=== PATIENT | female | born 1945 | race Caucasian/White ===

== ENCOUNTER 2017-05-25 12:19 | Inpatient (IN) | payer MEDICARE ==
[~2017-05-25] VITALS: Ht 152.4 cm; Wt 34.7 kg
[~2017-05-25 12:19] MED LIST: ACET500T68 PO; BENZ100C PO; CIPR500T PO; CIPR500T94 PO; CODE15TA PO; HYDR-2758 PO; HYDR-971 PO; NAPR-677 PO; PROAIR HFA8.5 GM INH
--- NOTE | 2017-05-25 12:35 | PHYS DOC ---
Past Medical History Past Medical History: Other Additional Past Medical Histor: emphysema Past Surgical History: Other Additional Past Surgical Histo: PROLASPED UTERUS Alcohol Use: None Drug Use: None Adult General Chief Complaint Chief Complaint: WEAKNESS/GENERALIZED HPI HPI Patient is a 72 year old female who presents with is and increasing shortness of breath. She states been going on for last 5-7 days. She was seen by an urgent care on Tuesday and given an inhaler and she states this is not been helping. She's been coughing up some yellow sputum. She denies any fevers chills nausea vomiting. She states she gets very weak over the last several days. She states she was told she has emphysema but otherwise takes no medicines. She denies any recent hospitalizations over the last 90 days. Review of Systems Review of Systems Constitutional: Denies fever or chills [] Eyes: Denies change in visual acuity, redness, or eye pain [] HENT: Denies nasal congestion or sore throat [] Respiratory: Positive for productive cough and shortness of breath. Cardiovascular: No additional information not addressed in HPI [] GI: Denies abdominal pain, nausea, vomiting, bloody stools or diarrhea [] : Denies dysuria or hematuria [] Musculoskeletal: Denies back pain or joint pain [] Integument: Denies rash or skin lesions [] Neurologic: Denies headache, focal weakness or sensory changes [] Endocrine: Denies polyuria or polydipsia [] All other systems were reviewed and found to be within normal limits, except as documented in this note. Current Medications Current Medications Current Medications Medications (Trade) Dose Ordered Sig/Emelia Start Time Stop Time Status Last Admin Dose Admin Albuterol Sulfate (Ventolin Neb Soln) 2.5 mg PRN Q6HRS PRN 05/25/17 14:30 Azithromycin 250 ml @ 250 mls/hr 1X ONCE 05/25/17 14:30 05/25/17 15:29 05/25/17 14:36 250 MLS/HR Furosemide (Lasix) 40 mg DAILY 05/25/17 14:30 05/25/17 14:36 40 MG Methylprednisolone Sodium Succinate (SOLU-Medrol 125MG VIAL) 125 mg 1X ONCE 05/25/17 14:30 05/25/17 14:31 DC 05/25/17 14:36 125 MG Allergies Allergies Allergies Coded Allergies Type Severity Reaction Last Updated Verified egg Allergy Severe Anaphylaxis 02/06/15 Yes Sulfa (Sulfonamide Antibiotics) Allergy Intermediate 02/06/15 Yes Physical Exam Physical Exam Constitutional: Well developed, well nourished, no acute distress, non-toxic appearance. [] HENT: Normocephalic, atraumatic, bilateral external ears normal, oropharynx moist, no oral exudates, nose normal. [] Eyes: PERRLA, EOMI, conjunctiva normal, no discharge. [] Neck: Normal range of motion, no tenderness, supple, no stridor. [] Cardiovascular:Heart rate regular rhythm, no murmur [] Lungs & Thorax: Bilateral breath sounds decreased at the bases with right- sided crackles noted Abdomen: Bowel sounds normal, soft, no tenderness, no masses, no pulsatile masses. [] Skin: Warm, dry, no erythema, no rash. [] Back: No tenderness, no CVA tenderness. [] Extremities: No tenderness, no cyanosis, no clubbing, ROM intact, no edema. [] Neurologic: Alert and oriented X 3, normal motor function, normal sensory function, no focal deficits noted. [] Psychologic: Affect normal, judgement normal, mood normal. [] Current Patient Data Vital Signs Vital Signs Date Time Temp Pulse Resp B/P (MAP) Pulse Ox O2 Delivery O2 Flow Rate FiO2 05/25/17 13:50 Nasal Cannula 2.0 05/25/17 12:39 97.7 92 18 123/67 (85) 88 97.7 Lab Values Laboratory Tests Test 05/25/17 13:14 05/25/17 13:25 O2 Saturation 98 % (92-99) Arterial Blood pH 7.41 (7.35-7.45) Arterial Blood pCO2 at Patient Temp 40 mmHg (35-46) Arterial Blood pO2 at Patient Temp 111 mmHg (65-108) H Arterial Blood HCO3 24 mmol/L (21-28) Arterial Blood Base Excess 0 mmol/L (-3-3) FiO2 28 White Blood Count 13.3 x10^3/uL (4.0-11.0) H Red Blood Count 4.14 x10^6/uL (3.50-5.40) Hemoglobin 7.5 g/dL (12.0-15.5) L Hematocrit 27.3 % (36.0-47.0) L Mean Corpuscular Volume 66 fL (79-100) L Mean Corpuscular Hemoglobin 18 pg (25-35) L Mean Corpuscular Hemoglobin Concent 28 g/dL (31-37) L Red Cell Distribution Width 21.0 % (11.5-14.5) H Platelet Count 713 x10^3/uL (140-400) H Neutrophils (%) (Auto) 84 % (31-73) H Lymphocytes (%) (Auto) 11 % (24-48) L Monocytes (%) (Auto) 4 % (0-9) Eosinophils (%) (Auto) 0 % (0-3) Basophils (%) (Auto) 1 % (0-3) Neutrophils # (Auto) 11.2 x10^3uL (1.8-7.7) H Lymphocytes # (Auto) 1.4 x10^3/uL (1.0-4.8) Monocytes # (Auto) 0.6 x10^3/uL (0.0-1.1) Eosinophils # (Auto) 0.0 x10^3/uL (0.0-0.7) Basophils # (Auto) 0.1 x10^3/uL (0.0-0.2) Platelet Estimate Pending Prothrombin Time 13.8 SEC (11.7-14.0) Prothrombin Time INR 1.1 (0.8-1.1) Sodium Level 145 mmol/L (136-145) Potassium Level 4.5 mmol/L (3.5-5.1) Chloride Level 108 mmol/L (98-107) H Carbon Dioxide Level 28 mmol/L (21-32) Anion Gap 9 (6-14) Blood Urea Nitrogen 23 mg/dL (7-20) H Creatinine 1.0 mg/dL (0.6-1.0) Estimated GFR (Cockcroft-Gault) 54.2 Glucose Level 101 mg/dL (70-99) H Lactic Acid Level 1.4 mmol/L (0.4-2.0) Calcium Level 8.9 mg/dL (8.5-10.1) Magnesium Level 2.1 mg/dL (1.8-2.4) Total Bilirubin 0.5 mg/dL (0.2-1.0) Direct Bilirubin 0.1 mg/dL (0.0-0.2) Aspartate Amino Transferase (AST) 90 U/L (15-37) H Alanine Aminotransferase (ALT) 76 U/L (14-59) H Alkaline Phosphatase 166 U/L (46-116) H Creatine Kinase 66 U/L (26-192) Creatine Kinase MB (Mass) 1.9 ng/mL (0.0-3.6) Creatine Kinase MB Relative Index 2.9 % (0-4) Troponin I Quantitative < 0.017 ng/mL (0.000-0.055) SL-Vmh-D-Type Natriuretic Peptide > 07831 pg/mL (0-124) H Total Protein 8.1 g/dL (6.4-8.2) Albumin 3.0 g/dL (3.4-5.0) L Lipase 145 U/L (73-393) Thyroid Stimulating Hormone (TSH) 1.981 uIU/mL (0.358-3.74) Laboratory Tests 05/25/17 13:25 Laboratory Tests 05/25/17 13:25 EKG EKG EKG shows sinus rhythm with a rate of [address] elevations, T-wave inversions noted in the lateral leads V4 V5 V6, normal axis, QTC 501, as interpreted by me. No previous EKGs noted in the system. Radiology/Procedures Radiology/Procedures [facility] [address], [place] [id number] IMAGING REPORT Signed PATIENT: KYMBERLY AN ACCOUNT: [id number] : 1945 LOCATION: ER AGE: 72 SEX: F EXAM STATUS: PRE ER ORD. PHYSICIAN: PRECIOUS DSOUZA MD REASON: weakness PROCEDURE: PORTABLE CHEST 1V Single view of the Chest 05/25/2017 2:33 PM Indication: weakness Comparison: Chest radiograph January 05, 2016 Findings: There is increased interstitial thickening over baseline, with central vascular congestion, and cardiomegaly. There are small bilateral pleural effusions. Findings may represent congestive failure with worsening pulmonary edema superimposed on chronic interstitial disease. No pneumothorax is identified. Chronic rib deformities noted on the right. Impression: Small bilateral pleural effusions, increased interstitial thickening, and central vascular congestion. Findings consistent with worsening pulmonary edema possibly in the setting of congestive failure. DICTATED and SIGNED BY: ROGERIO ROE MD DATE: 05/25/17 0105 CC: ANNE RUCKER MD; PRECIOUS DSOUZA MD ~ Impressions: Shortness of breath Course & Med Decision Making Course & Med Decision Making Pertinent Labs and Imaging studies reviewed. (See chart for details) EKG does does not show any acute abnormality's. BNP is elevated greater than 35, 000, chest x-ray consistent with CHF. Patient does have yellow sputum production and flattened diaphragms on her chest x-ray. I did order 40 of IV Lasix in addition to Solu-Medrol and azithromycin and DuoNeb nebs. Patient is being admitted to the hospitalist with cardiology consultation. She is in stable condition at this time. Dragon Disclaimer Dragon Disclaimer This electronic medical record was generated, in whole or in part, using a voice recognition dictation system. Departure Departure Impression: Primary Impression: Dyspnea Disposition: ADMITTED INPATIENT Admitting Physician: Other Condition: STABLE Referrals: ANNE RUCKER MD (PCP) PRECIOUS DSOUZA MD May 25, 2017 12:35
--- NOTE | 2017-05-25 13:04 | RAD ---
Single view of the Chest 05/25/2017 2:33 PM Indication: weakness Comparison: Chest radiograph January 05, 2016 Findings: There is increased interstitial thickening over baseline, with central vascular congestion, and cardiomegaly. There are small bilateral pleural effusions. Findings may represent congestive failure with worsening pulmonary edema superimposed on chronic interstitial disease. No pneumothorax is identified. Chronic rib deformities noted on the right. Impression: Small bilateral pleural effusions, increased interstitial thickening, and central vascular congestion. Findings consistent with worsening pulmonary edema possibly in the setting of congestive failure.
[2017-05-25 13:43] LABS: BASO # 0.1 x10^3/uL (0.0-0.2); BASO % 1 % (0-3); EOS % 0 % (0-3); HEMATOCRIT 27.3 % (36.0-47.0); HEMOGLOBIN 7.5 g/dL (12.0-15.5); LYMPH # 1.4 x10^3/uL (1.0-4.8); LYMPH % 11 % (24-48); MEAN CORPUSCULAR HEMOGLOBIN 18 pg (25-35); MEAN CORPUSCULAR HGB CONC 28 g/dL (31-37); MEAN CORPUSCULAR VOLUME 66 fL (79-100); MONO % 4 % (0-9); NEUT % 84 % (31-73); PLATELET COUNT 713 x10^3/uL (140-400); RED BLOOD COUNT 4.14 x10^6/uL (3.50-5.40); WHITE BLOOD COUNT 13.3 x10^3/uL (4.0-11.0)
[2017-05-25 13:52] LABS: INR 1.1 (0.8-1.1); PROTHROMBIN TIME PATIENT 13.8 SEC (11.7-14.0)
[2017-05-25 13:57] LABS: CALCIUM 8.9 mg/dL (8.5-10.1); GFR 54.2; POTASSIUM 4.5 mmol/L (3.5-5.1)
[2017-05-25 14:00] LABS: HCO3 ABG 24 mmol/L (21-28); PCO2 ABG 40 mmHg (35-46); PH ABG 7.41 (7.35-7.45); PO2 ABG 111 mmHg (65-108); SAT O2 ABG 98 % (92-99)
[2017-05-25 14:02] LABS: DIRECT BILIRUBIN 0.1 mg/dL (0.0-0.2); MAGNESIUM 2.1 mg/dL (1.8-2.4); TOTAL BILIRUBIN 0.5 mg/dL (0.2-1.0); TOTAL PROTEIN 8.1 g/dL (6.4-8.2)
[2017-05-25 14:04] LABS: FIO2 ABG 28
[2017-05-25 14:10] LABS: CKMB MASS 1.9 ng/mL (0.0-3.6); CREATINE KINASE 66 U/L (26-192)
--- NOTE | 2017-05-25 14:25 | EKG ---
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
[2017-05-25] MEDS ORDERED: AZITHRMYCN 500MG IVPB FOR OMNI 250 ML IV ONE (14:30)
[2017-05-25] MEDS ORDERED: methylPREDNISolone SOD SUCC PF 125 MG/2 ML VIAL. IV ONE (14:30)
[2017-05-25] MEDS: FUROSEMIDE 40 MG/4 ML VIAL. IVP SCH (14:36)
[2017-05-25 14:37] LABS: BILIRUBIN,URINE NEGATIVE (NEG); GLUCOSE,URINE NEGATIVE (NEG); NITRITE,URINE POSITIVE (NEG); PROTEIN,URINE 100 mg/dL (NEG-TRACE); UROBILINOGEN,URINE 0.2 mg/dL (0.2 mg/dL)
[2017-05-25 14:41] LABS: BARBITURATES NEG (NEG); BENZODIAZEPINES NEG (NEG); CANNABINOIDS NEG (NEG); COCAINE NEG (NEG); METHADONE NEG (NEG); OPIATES NEG (NEG); PHENCYCLIDINE NEG (NEG)
[2017-05-25] MEDS: ALBUTEROL SULFATE 2.5 MG/3 ML NEBU. NEB PRN (14:42)
[2017-05-25 14:53] LABS: RBC,URINE FOBS /HPF (0-2)
[2017-05-25 14:54] LABS: BACTERIA,URINE MANY /HPF (0-FEW); WBC,URINE TNTC /HPF (0-4)
[2017-05-25] MEDS ORDERED: MECLIZINE HCL 12.5 MG TABLET. PO ONE (15:15)
[2017-05-25 15:20] VITALS: BP 99/55
[2017-05-25 17:29] LABS: PLT ESTIMATE INCREASED (ADEQUATE)
[2017-05-25 17:35] LABS: ANISOCYTOSIS MOD; HYPOCHROMIA MARKED; MICROCYTOSIS MARKED; POLYCHROMASIA SLIGHT; SPHEROCYTES OCC
[2017-05-25 18:28] VITALS: BP 110/57
[2017-05-25 19:20] VITALS: BP 108/59
[2017-05-25] MEDS: cefTRIAXone IV Push 1 GM VIAL. IVP SCH (19:26)
--- NOTE | 2017-05-25 19:30 | PDOC1 ---
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 She states been going on for last WEEK She was seen by an urgent care on Tuesday and given an inhaler and she states this is not been helping. She's been coughing yellow sputum. She denies any fevers chills nausea vomiting. She states she gets very weak over the last several days. Review of Systems Review of Systems Constitutional: Denies fever or chills [] Eyes: Denies change in visual acuity, redness, or eye pain [] HENT: Denies nasal congestion or sore throat [] Respiratory: Positive for productive cough and shortness of breath. Cardiovascular: No additional information not addressed in HPI [] GI: Denies abdominal pain, nausea, vomiting, bloody stools or diarrhea [] : Denies dysuria or hematuria [] Musculoskeletal: Denies back pain or joint pain [] Integument: Denies rash or skin lesions [] Neurologic: Denies headache, focal weakness or sensory changes [] Endocrine: Denies polyuria or polydipsia [] All other systems were reviewed and found to be within normal limits, except as documented in this note. Reason for Visit: RESPIRATORY DISTRESS Past Medical History Pulmonary: COPD GI: No pertinent hx Psych: Anxiety Rheumatologic: No pertinent hx Renal/: No pertinent hx Endocrine: No pertinent hx Family History Family History: Chronic Bronchitis Social History Smoke: No ALCOHOL: none Drugs: None Current Problem List Problem List Problems Medical Problems: (1) Dyspnea Status: Acute Problems: (1) CHF (congestive heart failure), NYHA class II (2) Respiratory distress (3) Weight loss Current Medications Current Medications Current Medications Albuterol Sulfate (Ventolin Neb Soln) 2.5 mg PRN Q6HRS PRN NEB SHORTNESS OF BREATH Last administered on 05/25/17t 14:42; Start 05/25/17 at 14:30 Azithromycin 250 ml @ 250 mls/hr 1X ONCE IV Last administered on 05/25/17 14:36; Start 05/25/17 at 14:30; Stop 05/25/17 at 15:29; Status DC Methylprednisolone Sodium Succinate (SOLU-Medrol 125MG VIAL) 125 mg 1X ONCE IV Last administered on 05/25/17 14:36; Start 05/25/17 at 14:30; Stop at 14:31; Status DC Furosemide (Lasix) 40 mg DAILY IVP Last administered on 05/25/17 14:36; Start 05/25/17 at 14:30 Meclizine HCl (Antivert) 25 mg 1X ONCE PO Last administered on 05/25/17 15: 11; Start 05/25/17 at 15:15; Stop 05/25/17 at 15:16; Status DC Ceftriaxone Sodium 1 gm/ Dextrose 50 ml @ 100 mls/hr Q24H IV ; Start 05/25/17 at 21:00; Status UNV Ceftriaxone Sodium (Rocephin) 1 gm Q24H IVP Last administered on 05/25/17 19: 26; Start 05/25/17 at 19:00 Active Scripts Active Codeine Sulfate 15 Mg Tablet 15 Mg PO AT BEDTIME Tessalon Perle (Benzonatate) 100 Mg Capsule 100 Mg PO TID PRN Proair Hfa Inhaler (Albuterol Sulfate) 8.5 Gm Hfa.aer.ad 2 Puff INH PRN Q6HRS PRN Ciprofloxacin Hcl 500 Mg Tablet 500 Mg PO BID Cipro (Ciprofloxacin Hcl) 500 Mg Tablet 250 Mg PO DAILY 10 Days Hydrocodone-Apap 5-325 (Hydrocodone Bit/Acetaminophen) 1 Each Tablet 1 Tab PO PRN Q6HRS PRN 10 Days Reported Naproxen Sodium 550 Mg Tablet 550 Mg PO BID Hydrocodone-Apap 5-325 (Hydrocodone Bit/Acetaminophen) 1 Each Tablet 1 Tab PO Q4HRS PRN Acetaminophen 500 Mg Tablet 1 Tab PO BID Allergies Allergies: Coded Allergies: egg (Verified Allergy, Severe, Anaphylaxis, 02/06/15) Sulfa (Sulfonamide Antibiotics) (Verified Allergy, Intermediate, 02/06/15) ROS General: YES: Fatigue, Malaise PSYCHOLOGICAL ROS: YES: Anxiety Respiratory: YES: Cough, Shortness of breath, SOB with excertion, Sputum Changes, Tachypnea Genitourinary: YES Urgency Physical Exam Physical Exam Physical Exam Physical Exam Constitutional: thin mild acute distress, non-toxic appearance. [] HENT: Normocephalic, atraumatic, bilateral external ears normal, oropharynx moist, no oral exudates, nose normal. [] Eyes: PERRLA, EOMI, conjunctiva normal, no discharge. [] Neck: Normal range of motion, no tenderness, supple, no stridor. [] Cardiovascular:Heart rate regular rhythm, no murmur [] Lungs & Thorax: Bilateral breath sounds decreased at the bases with right- sided crackles noted Abdomen: Bowel sounds normal, soft, no tenderness, no masses, no pulsatile masses. [] Skin: Warm, dry, no erythema, no rash. [] Back: No tenderness, no CVA tenderness. [] Extremities: No tenderness, no cyanosis, no clubbing, ROM intact, no edema. [] Neurologic: Alert and oriented X 3, normal motor function, normal sensory function, no focal deficits noted. [] Psychologic: Affect normal, judgement normal, mood normal. tachypnea noted at rest [] Abdomen: Soft Vitals Vitals Vital Signs Date Time Temp Pulse Resp B/P (MAP) Pulse Ox O2 Delivery O2 Flow Rate FiO2 05/25/17 19:20 98.8 95 20 108/59 (75) 98 Nasal Cannula 2.0 98.8 Labs Labs Single view of the Chest 05/25/2017 2:33 PM Indication: weakness Comparison: Chest radiograph January 05, 2016 Findings: There is increased interstitial thickening over baseline, with central vascular congestion, and cardiomegaly. There are small bilateral pleural effusions. Findings may represent congestive failure with worsening pulmonary edema superimposed on chronic interstitial disease. No pneumothorax is identified. Chronic rib deformities noted on the right. Impression: Small bilateral pleural effusions, increased interstitial thickening, and central vascular congestion. Findings consistent with worsening pulmonary edema possibly in the setting of congestive failure. DICTATED and SIGNED BY: ROGERIO ROE MD Laboratory Tests Test 05/25/17 13:14 05/25/17 13:25 05/25/17 14:20 O2 Saturation 98 % (92-99) Arterial Blood pH 7.41 (7.35-7.45) Arterial Blood pCO2 at Patient Temp 40 mmHg (35-46) Arterial Blood pO2 at Patient Temp 111 mmHg (65-108) Arterial Blood HCO3 24 mmol/L (21-28) Arterial Blood Base Excess 0 mmol/L (-3-3) FiO2 28 White Blood Count 13.3 x10^3/uL (4.0-11.0) Red Blood Count 4.14 x10^6/uL (3.50-5.40) Hemoglobin 7.5 g/dL (12.0-15.5) Hematocrit 27.3 % (36.0-47.0) Mean Corpuscular Volume 66 fL (79-100) Mean Corpuscular Hemoglobin 18 pg (25-35) Mean Corpuscular Hemoglobin Concent 28 g/dL (31-37) Red Cell Distribution Width 21.0 % (11.5-14.5) Platelet Count 713 x10^3/uL (140-400) Neutrophils (%) (Auto) 84 % (31-73) Lymphocytes (%) (Auto) 11 % (24-48) Monocytes (%) (Auto) 4 % (0-9) Eosinophils (%) (Auto) 0 % (0-3) Basophils (%) (Auto) 1 % (0-3) Neutrophils # (Auto) 11.2 x10^3uL (1.8-7.7) Lymphocytes # (Auto) 1.4 x10^3/uL (1.0-4.8) Monocytes # (Auto) 0.6 x10^3/uL (0.0-1.1) Eosinophils # (Auto) 0.0 x10^3/uL (0.0-0.7) Basophils # (Auto) 0.1 x10^3/uL (0.0-0.2) Platelet Estimate Increased (ADEQUATE) Polychromasia Slight Hypochromasia Marked Anisocytosis Mod Microcytosis Marked Spherocytes Occ Prothrombin Time 13.8 SEC (11.7-14.0) Prothromb Time International Ratio 1.1 (0.8-1.1) Sodium Level 145 mmol/L (136-145) Potassium Level 4.5 mmol/L (3.5-5.1) Chloride Level 108 mmol/L (98-107) Carbon Dioxide Level 28 mmol/L (21-32) Anion Gap 9 (6-14) Blood Urea Nitrogen 23 mg/dL (7-20) Creatinine 1.0 mg/dL (0.6-1.0) Estimated GFR (Cockcroft-Gault) 54.2 Glucose Level 101 mg/dL (70-99) Lactic Acid Level 1.4 mmol/L (0.4-2.0) Calcium Level 8.9 mg/dL (8.5-10.1) Magnesium Level 2.1 mg/dL (1.8-2.4) Total Bilirubin 0.5 mg/dL (0.2-1.0) Direct Bilirubin 0.1 mg/dL (0.0-0.2) Aspartate Amino Transf (AST/SGOT) 90 U/L (15-37) Alanine Aminotransferase (ALT/SGPT) 76 U/L (14-59) Alkaline Phosphatase 166 U/L (46-116) Creatine Kinase 66 U/L (26-192) Creatine Kinase MB (Mass) 1.9 ng/mL (0.0-3.6) Creatine Kinase MB Relative Index 2.9 % (0-4) Troponin I Quantitative < 0.017 ng/mL (0.000-0.055) OI-Rrc-B-Type Natriuretic Peptide > 93841 pg/mL (0-124) Total Protein 8.1 g/dL (6.4-8.2) Albumin 3.0 g/dL (3.4-5.0) Lipase 145 U/L (73-393) Thyroid Stimulating Hormone (TSH) 1.981 uIU/mL (0.358-3.74) Urine Collection Type U cath Urine Color Yellow Urine Clarity Cloudy Urine pH 6.0 Urine Specific [place] 1.025 Urine Protein 100 mg/dL (NEG-TRACE) Urine Glucose (UA) Negative mg/dL (NEG) Urine Ketones (Stick) Negative mg/dL (NEG) Urine Blood Moderate (NEG) Urine Nitrite Positive (NEG) Urine Bilirubin Negative (NEG) Urine Urobilinogen Dipstick 0.2 mg/dL (0.2 mg/dL) Urine Leukocyte Esterase Large (NEG) Urine RBC Fobs /HPF (0-2) Urine WBC Tntc /HPF (0-4) Urine Bacteria Many /HPF (0-FEW) Urine Opiates Screen Neg (NEG) Urine Methadone Screen Neg (NEG) Urine Barbiturates Neg (NEG) Urine Phencyclidine Screen Neg (NEG) Urine Amphetamine/Methamphetamine Neg (NEG) Urine Benzodiazepines Screen Neg (NEG) Urine Cocaine Screen Neg (NEG) Urine Cannabinoids Screen Neg (NEG) Urine Ethyl Alcohol Neg (NEG) Laboratory Tests Test 05/25/17 13:14 05/25/17 13:25 05/25/17 14:20 O2 Saturation 98 % (92-99) Arterial Blood pH 7.41 (7.35-7.45) Arterial Blood pCO2 at Patient Temp 40 mmHg (35-46) Arterial Blood pO2 at Patient Temp 111 mmHg (65-108) Arterial Blood HCO3 24 mmol/L (21-28) Arterial Blood Base Excess 0 mmol/L (-3-3) FiO2 28 White Blood Count 13.3 x10^3/uL (4.0-11.0) Red Blood Count 4.14 x10^6/uL (3.50-5.40) Hemoglobin 7.5 g/dL (12.0-15.5) Hematocrit 27.3 % (36.0-47.0) Mean Corpuscular Volume 66 fL (79-100) Mean Corpuscular Hemoglobin 18 pg (25-35) Mean Corpuscular Hemoglobin Concent 28 g/dL (31-37) Red Cell Distribution Width 21.0 % (11.5-14.5) Platelet Count 713 x10^3/uL (140-400) Neutrophils (%) (Auto) 84 % (31-73) Lymphocytes (%) (Auto) 11 % (24-48) Monocytes (%) (Auto) 4 % (0-9) Eosinophils (%) (Auto) 0 % (0-3) Basophils (%) (Auto) 1 % (0-3) Neutrophils # (Auto) 11.2 x10^3uL (1.8-7.7) Lymphocytes # (Auto) 1.4 x10^3/uL (1.0-4.8) Monocytes # (Auto) 0.6 x10^3/uL (0.0-1.1) Eosinophils # (Auto) 0.0 x10^3/uL (0.0-0.7) Basophils # (Auto) 0.1 x10^3/uL (0.0-0.2) Platelet Estimate Increased (ADEQUATE) Polychromasia Slight Hypochromasia Marked Anisocytosis Mod Microcytosis Marked Spherocytes Occ Prothrombin Time 13.8 SEC (11.7-14.0) Prothromb Time International Ratio 1.1 (0.8-1.1) Sodium Level 145 mmol/L (136-145) Potassium Level 4.5 mmol/L (3.5-5.1) Chloride Level 108 mmol/L (98-107) Carbon Dioxide Level 28 mmol/L (21-32) Anion Gap 9 (6-14) Blood Urea Nitrogen 23 mg/dL (7-20) Creatinine 1.0 mg/dL (0.6-1.0) Estimated GFR (Cockcroft-Gault) 54.2 Glucose Level 101 mg/dL (70-99) Lactic Acid Level 1.4 mmol/L (0.4-2.0) Calcium Level 8.9 mg/dL (8.5-10.1) Magnesium Level 2.1 mg/dL (1.8-2.4) Total Bilirubin 0.5 mg/dL (0.2-1.0) Direct Bilirubin 0.1 mg/dL (0.0-0.2) Aspartate Amino Transf (AST/SGOT) 90 U/L (15-37) Alanine Aminotransferase (ALT/SGPT) 76 U/L (14-59) Alkaline Phosphatase 166 U/L (46-116) Creatine Kinase 66 U/L (26-192) Creatine Kinase MB (Mass) 1.9 ng/mL (0.0-3.6) Creatine Kinase MB Relative Index 2.9 % (0-4) Troponin I Quantitative < 0.017 ng/mL (0.000-0.055) RW-Afm-D-Type Natriuretic Peptide > 35913 pg/mL (0-124) Total Protein 8.1 g/dL (6.4-8.2) Albumin 3.0 g/dL (3.4-5.0) Lipase 145 U/L (73-393) Thyroid Stimulating Hormone (TSH) 1.981 uIU/mL (0.358-3.74) Urine Collection Type U cath Urine Color Yellow Urine Clarity Cloudy Urine pH 6.0 Urine Specific [place] 1.025 Urine Protein 100 mg/dL (NEG-TRACE) Urine Glucose (UA) Negative mg/dL (NEG) Urine Ketones (Stick) Negative mg/dL (NEG) Urine Blood Moderate (NEG) Urine Nitrite Positive (NEG) Urine Bilirubin Negative (NEG) Urine Urobilinogen Dipstick 0.2 mg/dL (0.2 mg/dL) Urine Leukocyte Esterase Large (NEG) Urine RBC Fobs /HPF (0-2) Urine WBC Tntc /HPF (0-4) Urine Bacteria Many /HPF (0-FEW) Urine Opiates Screen Neg (NEG) Urine Methadone Screen Neg (NEG) Urine Barbiturates Neg (NEG) Urine Phencyclidine Screen Neg (NEG) Urine Amphetamine/Methamphetamine Neg (NEG) Urine Benzodiazepines Screen Neg (NEG) Urine Cocaine Screen Neg (NEG) Urine Cannabinoids Screen Neg (NEG) Urine Ethyl Alcohol Neg (NEG) VTE Prophylaxis Ordered VTE Prophylaxis Devices: No VTE Pharmacological Prophylaxi: Yes Assessment/Plan Assessment/Plan 1. EXACERBATION OF COPD 2. UTI 3. ABNORMAL WEIGHT LOSS 4. HX SECOND-HAND SMOKE EXPOSURE 5. MICROCYTIC ANEMIA, suspect fe def PLAN IV STEROID TAPER BETA AGONIST RX EMPERIC IV ANTIBIOTICS FE/TIBC pulm consult GI consult re anemia PT EVAL Problem Qualifiers (1) CHF (congestive heart failure), NYHA class II: Congestive heart failure type: combined IWONA WARD MD May 25, 2017 19:30
[2017-05-25] MEDS ORDERED: ENOXAPARIN 40 MG/0.4 ML SYRINGE. SQ SCH (19:45)
[2017-05-25] MEDS: IPRATRPIUM/ALBUTEROL 0.5/2.5MG 3 ML NEBU. NEB SCH (20:24)
[2017-05-25 20:41] LABS: % SAT IRON 3 % (15-34); IRON,SERUM 15 ug/dL (50-170)
[2017-05-25 23:17] VITALS: BP 113/69
[2017-05-26] VITALS (13 sets, daily range): BP systolic 101–130; BP diastolic 62–75
[2017-05-26] MEDS: ALBUTEROL SULFATE 2.5 MG/3 ML NEBU. NEB PRN (00:16)
[2017-05-26 02:36] LABS: BASO % 0 % (0-3); EOS % 0 % (0-3); HEMATOCRIT 23.8 % (36.0-47.0); LYMPH # 0.5 x10^3/uL (1.0-4.8); LYMPH % 4 % (24-48); MEAN CORPUSCULAR HEMOGLOBIN 18 pg (25-35); MEAN CORPUSCULAR HGB CONC 28 g/dL (31-37); MEAN CORPUSCULAR VOLUME 65 fL (79-100); MONO % 1 % (0-9); NEUT % 95 % (31-73); PLATELET COUNT 605 x10^3/uL (140-400); RED BLOOD COUNT 3.66 x10^6/uL (3.50-5.40); WHITE BLOOD COUNT 11.1 x10^3/uL (4.0-11.0)
[2017-05-26 02:50] LABS: CREATININE 1.1 mg/dL (0.6-1.0); GFR 48.6; POTASSIUM 4.1 mmol/L (3.5-5.1)
[2017-05-26 03:45] LABS: HEMOGLOBIN 6.6 g/dL (12.0-15.5)
[2017-05-26 04:16] LABS: PLT ESTIMATE INCREASED (ADEQUATE)
[2017-05-26 04:17] LABS: ANISOCYTOSIS MOD; HYPOCHROMIA MARKED; MICROCYTOSIS MARKED; POLYCHROMASIA SLIGHT
[2017-05-26] MEDS: BUDESONIDE 0.5 MG/2 ML NEBU. NEB SCH ×2 (07:51→20:07)
[2017-05-26] MEDS: IPRATRPIUM/ALBUTEROL 0.5/2.5MG 3 ML NEBU. NEB SCH ×4 (07:56→20:07)
[2017-05-26] MEDS: FUROSEMIDE 40 MG/4 ML VIAL. IVP SCH (09:23)
--- NOTE | 2017-05-26 11:47 | PDOC ---
PROGRESS NOTES Chief Complaint Chief Complaint Shortness of air Emphysema History of Present Illness History of Present Illness The pt was lying in bed an able to carry on a conversation. Vitals Vitals Vital Signs Date Time Temp Pulse Resp B/P (MAP) Pulse Ox O2 Delivery O2 Flow Rate FiO2 05/26/17 11:32 97.5 87 20 116/71 97.5 05/26/17 11:23 100 Nasal Cannula 2.0 Physical Exam General: Alert, Cooperative, No acute distress Labs LABS Laboratory Tests Test 05/25/17 13:14 05/25/17 13:25 05/25/17 14:20 05/25/17 20:00 O2 Saturation 98 % (92-99) Arterial Blood pH 7.41 (7.35-7.45) Arterial Blood pCO2 at Patient Temp 40 mmHg (35-46) Arterial Blood pO2 at Patient Temp 111 mmHg (65-108) Arterial Blood HCO3 24 mmol/L (21-28) Arterial Blood Base Excess 0 mmol/L (-3-3) FiO2 28 White Blood Count 13.3 x10^3/uL (4.0-11.0) Red Blood Count 4.14 x10^6/uL (3.50-5.40) Hemoglobin 7.5 g/dL (12.0-15.5) Hematocrit 27.3 % (36.0-47.0) Mean Corpuscular Volume 66 fL (79-100) Mean Corpuscular Hemoglobin 18 pg (25-35) Mean Corpuscular Hemoglobin Concent 28 g/dL (31-37) Red Cell Distribution Width 21.0 % (11.5-14.5) Platelet Count 713 x10^3/uL (140-400) Neutrophils (%) (Auto) 84 % (31-73) Lymphocytes (%) (Auto) 11 % (24-48) Monocytes (%) (Auto) 4 % (0-9) Eosinophils (%) (Auto) 0 % (0-3) Basophils (%) (Auto) 1 % (0-3) Neutrophils # (Auto) 11.2 x10^3uL (1.8-7.7) Lymphocytes # (Auto) 1.4 x10^3/uL (1.0-4.8) Monocytes # (Auto) 0.6 x10^3/uL (0.0-1.1) Eosinophils # (Auto) 0.0 x10^3/uL (0.0-0.7) Basophils # (Auto) 0.1 x10^3/uL (0.0-0.2) Platelet Estimate Increased (ADEQUATE) Polychromasia Slight Hypochromasia Marked Anisocytosis Mod Microcytosis Marked Spherocytes Occ Prothrombin Time 13.8 SEC (11.7-14.0) Prothromb Time International Ratio 1.1 (0.8-1.1) Sodium Level 145 mmol/L (136-145) Potassium Level 4.5 mmol/L (3.5-5.1) Chloride Level 108 mmol/L (98-107) Carbon Dioxide Level 28 mmol/L (21-32) Anion Gap 9 (6-14) Blood Urea Nitrogen 23 mg/dL (7-20) Creatinine 1.0 mg/dL (0.6-1.0) Estimated GFR (Cockcroft-Gault) 54.2 Glucose Level 101 mg/dL (70-99) Lactic Acid Level 1.4 mmol/L (0.4-2.0) Calcium Level 8.9 mg/dL (8.5-10.1) Magnesium Level 2.1 mg/dL (1.8-2.4) Iron Level 15 ug/dL (50-170) Total Iron Binding Capacity 441 ug/dL (250-450) Iron Saturation 3 % (15-34) Total Bilirubin 0.5 mg/dL (0.2-1.0) Direct Bilirubin 0.1 mg/dL (0.0-0.2) Aspartate Amino Transf (AST/SGOT) 90 U/L (15-37) Alanine Aminotransferase (ALT/SGPT) 76 U/L (14-59) Alkaline Phosphatase 166 U/L (46-116) Creatine Kinase 66 U/L (26-192) Creatine Kinase MB (Mass) 1.9 ng/mL (0.0-3.6) Creatine Kinase MB Relative Index 2.9 % (0-4) Troponin I Quantitative < 0.017 ng/mL (0.000-0.055) < 0.017 ng/mL (0.000-0.055) [id number]-[id number]-Type Natriuretic Peptide > 75842 pg/mL (0-124) Total Protein 8.1 g/dL (6.4-8.2) Albumin 3.0 g/dL (3.4-5.0) Lipase 145 U/L (73-393) Thyroid Stimulating Hormone (TSH) 1.981 uIU/mL (0.358-3.74) Urine Collection Type U cath Urine Color Yellow Urine Clarity Cloudy Urine pH 6.0 Urine Specific [place] 1.025 Urine Protein 100 mg/dL (NEG-TRACE) Urine Glucose (UA) Negative mg/dL (NEG) Urine Ketones (Stick) Negative mg/dL (NEG) Urine Blood Moderate (NEG) Urine Nitrite Positive (NEG) Urine Bilirubin Negative (NEG) Urine Urobilinogen Dipstick 0.2 mg/dL (0.2 mg/dL) Urine Leukocyte Esterase Large (NEG) Urine RBC Fobs /HPF (0-2) Urine WBC Tntc /HPF (0-4) Urine Bacteria Many /HPF (0-FEW) Urine Opiates Screen Neg (NEG) Urine Methadone Screen Neg (NEG) Urine Barbiturates Neg (NEG) Urine Phencyclidine Screen Neg (NEG) Urine Amphetamine/Methamphetamine Neg (NEG) Urine Benzodiazepines Screen Neg (NEG) Urine Cocaine Screen Neg (NEG) Urine Cannabinoids Screen Neg (NEG) Urine Ethyl Alcohol Neg (NEG) Test 05/26/17 02:20 White Blood Count 11.1 x10^3/uL (4.0-11.0) Red Blood Count 3.66 x10^6/uL (3.50-5.40) Hemoglobin 6.6 g/dL (12.0-15.5) Hematocrit 23.8 % (36.0-47.0) Mean Corpuscular Volume 65 fL (79-100) Mean Corpuscular Hemoglobin 18 pg (25-35) Mean Corpuscular Hemoglobin Concent 28 g/dL (31-37) Red Cell Distribution Width 21.0 % (11.5-14.5) Platelet Count 605 x10^3/uL (140-400) Neutrophils (%) (Auto) 95 % (31-73) Lymphocytes (%) (Auto) 4 % (24-48) Monocytes (%) (Auto) 1 % (0-9) Eosinophils (%) (Auto) 0 % (0-3) Basophils (%) (Auto) 0 % (0-3) Neutrophils # (Auto) 10.5 x10^3uL (1.8-7.7) Lymphocytes # (Auto) 0.5 x10^3/uL (1.0-4.8) Monocytes # (Auto) 0.1 x10^3/uL (0.0-1.1) Eosinophils # (Auto) 0.0 x10^3/uL (0.0-0.7) Basophils # (Auto) 0.0 x10^3/uL (0.0-0.2) Segmented Neutrophils % 97 % (35-66) Lymphocytes % 3 % (24-48) Platelet Estimate Increased (ADEQUATE) Polychromasia Slight Hypochromasia Marked Anisocytosis Mod Microcytosis Marked Sodium Level 143 mmol/L (136-145) Potassium Level 4.1 mmol/L (3.5-5.1) Chloride Level 106 mmol/L (98-107) Carbon Dioxide Level 26 mmol/L (21-32) Anion Gap 11 (6-14) Blood Urea Nitrogen 25 mg/dL (7-20) Creatinine 1.1 mg/dL (0.6-1.0) Estimated GFR (Cockcroft-Gault) 48.6 Glucose Level 145 mg/dL (70-99) Calcium Level 8.0 mg/dL (8.5-10.1) Troponin I Quantitative < 0.017 ng/mL (0.000-0.055) Review of Systems Review of Systems Denies hematemesis or melena. Assessment and Plan Assessmemt and Plan Problems Medical Problems: (1) Dyspnea Status: Acute ASSESSMENT: Shortness of air Emphysema PLAN: Continue current medications Get PT/OT consult Await input from cardiology Await input from Hemo onch Followup with PCP after discharge Problems: Comment Review of Relevant I have reviewed the following items marshal (where applicable) has been applied. Labs Laboratory Tests Test 05/25/17 13:14 05/25/17 13:25 05/25/17 14:20 05/25/17 20:00 O2 Saturation 98 % (92-99) Arterial Blood pH 7.41 (7.35-7.45) Arterial Blood pCO2 at Patient Temp 40 mmHg (35-46) Arterial Blood pO2 at Patient Temp 111 mmHg (65-108) Arterial Blood HCO3 24 mmol/L (21-28) Arterial Blood Base Excess 0 mmol/L (-3-3) FiO2 28 White Blood Count 13.3 x10^3/uL (4.0-11.0) Red Blood Count 4.14 x10^6/uL (3.50-5.40) Hemoglobin 7.5 g/dL (12.0-15.5) Hematocrit 27.3 % (36.0-47.0) Mean Corpuscular Volume 66 fL (79-100) Mean Corpuscular Hemoglobin 18 pg (25-35) Mean Corpuscular Hemoglobin Concent 28 g/dL (31-37) Red Cell Distribution Width 21.0 % (11.5-14.5) Platelet Count 713 x10^3/uL (140-400) Neutrophils (%) (Auto) 84 % (31-73) Lymphocytes (%) (Auto) 11 % (24-48) Monocytes (%) (Auto) 4 % (0-9) Eosinophils (%) (Auto) 0 % (0-3) Basophils (%) (Auto) 1 % (0-3) Neutrophils # (Auto) 11.2 x10^3uL (1.8-7.7) Lymphocytes # (Auto) 1.4 x10^3/uL (1.0-4.8) Monocytes # (Auto) 0.6 x10^3/uL (0.0-1.1) Eosinophils # (Auto) 0.0 x10^3/uL (0.0-0.7) Basophils # (Auto) 0.1 x10^3/uL (0.0-0.2) Platelet Estimate Increased (ADEQUATE) Polychromasia Slight Hypochromasia Marked Anisocytosis Mod Microcytosis Marked Spherocytes Occ Prothrombin Time 13.8 SEC (11.7-14.0) Prothromb Time International Ratio 1.1 (0.8-1.1) Sodium Level 145 mmol/L (136-145) Potassium Level 4.5 mmol/L (3.5-5.1) Chloride Level 108 mmol/L (98-107) Carbon Dioxide Level 28 mmol/L (21-32) Anion Gap 9 (6-14) Blood Urea Nitrogen 23 mg/dL (7-20) Creatinine 1.0 mg/dL (0.6-1.0) Estimated GFR (Cockcroft-Gault) 54.2 Glucose Level 101 mg/dL (70-99) Lactic Acid Level 1.4 mmol/L (0.4-2.0) Calcium Level 8.9 mg/dL (8.5-10.1) Magnesium Level 2.1 mg/dL (1.8-2.4) Iron Level 15 ug/dL (50-170) Total Iron Binding Capacity 441 ug/dL (250-450) Iron Saturation 3 % (15-34) Total Bilirubin 0.5 mg/dL (0.2-1.0) Direct Bilirubin 0.1 mg/dL (0.0-0.2) Aspartate Amino Transf (AST/SGOT) 90 U/L (15-37) Alanine Aminotransferase (ALT/SGPT) 76 U/L (14-59) Alkaline Phosphatase 166 U/L (46-116) Creatine Kinase 66 U/L (26-192) Creatine Kinase MB (Mass) 1.9 ng/mL (0.0-3.6) Creatine Kinase MB Relative Index 2.9 % (0-4) Troponin I Quantitative < 0.017 ng/mL (0.000-0.055) < 0.017 ng/mL (0.000-0.055) ZF-Thl-B-Type Natriuretic Peptide > 37889 pg/mL (0-124) Total Protein 8.1 g/dL (6.4-8.2) Albumin 3.0 g/dL (3.4-5.0) Lipase 145 U/L (73-393) Thyroid Stimulating Hormone (TSH) 1.981 uIU/mL (0.358-3.74) Urine Collection Type U cath Urine Color Yellow Urine Clarity Cloudy Urine pH 6.0 Urine Specific [place] 1.025 Urine Protein 100 mg/dL (NEG-TRACE) Urine Glucose (UA) Negative mg/dL (NEG) Urine Ketones (Stick) Negative mg/dL (NEG) Urine Blood Moderate (NEG) Urine Nitrite Positive (NEG) Urine Bilirubin Negative (NEG) Urine Urobilinogen Dipstick 0.2 mg/dL (0.2 mg/dL) Urine Leukocyte Esterase Large (NEG) Urine RBC Fobs /HPF (0-2) Urine WBC Tntc /HPF (0-4) Urine Bacteria Many /HPF (0-FEW) Urine Opiates Screen Neg (NEG) Urine Methadone Screen Neg (NEG) Urine Barbiturates Neg (NEG) Urine Phencyclidine Screen Neg (NEG) Urine Amphetamine/Methamphetamine Neg (NEG) Urine Benzodiazepines Screen Neg (NEG) Urine Cocaine Screen Neg (NEG) Urine Cannabinoids Screen Neg (NEG) Urine Ethyl Alcohol Neg (NEG) Test 05/26/17 02:20 White Blood Count 11.1 x10^3/uL (4.0-11.0) Red Blood Count 3.66 x10^6/uL (3.50-5.40) Hemoglobin 6.6 g/dL (12.0-15.5) Hematocrit 23.8 % (36.0-47.0) Mean Corpuscular Volume 65 fL (79-100) Mean Corpuscular Hemoglobin 18 pg (25-35) Mean Corpuscular Hemoglobin Concent 28 g/dL (31-37) Red Cell Distribution Width 21.0 % (11.5-14.5) Platelet Count 605 x10^3/uL (140-400) Neutrophils (%) (Auto) 95 % (31-73) Lymphocytes (%) (Auto) 4 % (24-48) Monocytes (%) (Auto) 1 % (0-9) Eosinophils (%) (Auto) 0 % (0-3) Basophils (%) (Auto) 0 % (0-3) Neutrophils # (Auto) 10.5 x10^3uL (1.8-7.7) Lymphocytes # (Auto) 0.5 x10^3/uL (1.0-4.8) Monocytes # (Auto) 0.1 x10^3/uL (0.0-1.1) Eosinophils # (Auto) 0.0 x10^3/uL (0.0-0.7) Basophils # (Auto) 0.0 x10^3/uL (0.0-0.2) Segmented Neutrophils % 97 % (35-66) Lymphocytes % 3 % (24-48) Platelet Estimate Increased (ADEQUATE) Polychromasia Slight Hypochromasia Marked Anisocytosis Mod Microcytosis Marked Sodium Level 143 mmol/L (136-145) Potassium Level 4.1 mmol/L (3.5-5.1) Chloride Level 106 mmol/L (98-107) Carbon Dioxide Level 26 mmol/L (21-32) Anion Gap 11 (6-14) Blood Urea Nitrogen 25 mg/dL (7-20) Creatinine 1.1 mg/dL (0.6-1.0) Estimated GFR (Cockcroft-Gault) 48.6 Glucose Level 145 mg/dL (70-99) Calcium Level 8.0 mg/dL (8.5-10.1) Troponin I Quantitative < 0.017 ng/mL (0.000-0.055) Laboratory Tests Test 05/25/17 13:14 05/25/17 13:25 05/25/17 14:20 05/25/17 20:00 O2 Saturation 98 % (92-99) Arterial Blood pH 7.41 (7.35-7.45) Arterial Blood pCO2 at Patient Temp 40 mmHg (35-46) Arterial Blood pO2 at Patient Temp 111 mmHg (65-108) Arterial Blood HCO3 24 mmol/L (21-28) Arterial Blood Base Excess 0 mmol/L (-3-3) FiO2 28 White Blood Count 13.3 x10^3/uL (4.0-11.0) Red Blood Count 4.14 x10^6/uL (3.50-5.40) Hemoglobin 7.5 g/dL (12.0-15.5) Hematocrit 27.3 % (36.0-47.0) Mean Corpuscular Volume 66 fL (79-100) Mean Corpuscular Hemoglobin 18 pg (25-35) Mean Corpuscular Hemoglobin Concent 28 g/dL (31-37) Red Cell Distribution Width 21.0 % (11.5-14.5) Platelet Count 713 x10^3/uL (140-400) Neutrophils (%) (Auto) 84 % (31-73) Lymphocytes (%) (Auto) 11 % (24-48) Monocytes (%) (Auto) 4 % (0-9) Eosinophils (%) (Auto) 0 % (0-3) Basophils (%) (Auto) 1 % (0-3) Neutrophils # (Auto) 11.2 x10^3uL (1.8-7.7) Lymphocytes # (Auto) 1.4 x10^3/uL (1.0-4.8) Monocytes # (Auto) 0.6 x10^3/uL (0.0-1.1) Eosinophils # (Auto) 0.0 x10^3/uL (0.0-0.7) Basophils # (Auto) 0.1 x10^3/uL (0.0-0.2) Platelet Estimate Increased (ADEQUATE) Polychromasia Slight Hypochromasia Marked Anisocytosis Mod Microcytosis Marked Spherocytes Occ Prothrombin Time 13.8 SEC (11.7-14.0) Prothromb Time International Ratio 1.1 (0.8-1.1) Sodium Level 145 mmol/L (136-145) Potassium Level 4.5 mmol/L (3.5-5.1) Chloride Level 108 mmol/L (98-107) Carbon Dioxide Level 28 mmol/L (21-32) Anion Gap 9 (6-14) Blood Urea Nitrogen 23 mg/dL (7-20) Creatinine 1.0 mg/dL (0.6-1.0) Estimated GFR (Cockcroft-Gault) 54.2 Glucose Level 101 mg/dL (70-99) Lactic Acid Level 1.4 mmol/L (0.4-2.0) Calcium Level 8.9 mg/dL (8.5-10.1) Magnesium Level 2.1 mg/dL (1.8-2.4) Iron Level 15 ug/dL (50-170) Total Iron Binding Capacity 441 ug/dL (250-450) Iron Saturation 3 % (15-34) Total Bilirubin 0.5 mg/dL (0.2-1.0) Direct Bilirubin 0.1 mg/dL (0.0-0.2) Aspartate Amino Transf (AST/SGOT) 90 U/L (15-37) Alanine Aminotransferase (ALT/SGPT) 76 U/L (14-59) Alkaline Phosphatase 166 U/L (46-116) Creatine Kinase 66 U/L (26-192) Creatine Kinase MB (Mass) 1.9 ng/mL (0.0-3.6) Creatine Kinase MB Relative Index 2.9 % (0-4) Troponin I Quantitative < 0.017 ng/mL (0.000-0.055) < 0.017 ng/mL (0.000-0.055) WK-Qbl-V-Type Natriuretic Peptide > 40399 pg/mL (0-124) Total Protein 8.1 g/dL (6.4-8.2) Albumin 3.0 g/dL (3.4-5.0) Lipase 145 U/L (73-393) Thyroid Stimulating Hormone (TSH) 1.981 uIU/mL (0.358-3.74) Urine Collection Type U cath Urine Color Yellow Urine Clarity Cloudy Urine pH 6.0 Urine Specific [place] 1.025 Urine Protein 100 mg/dL (NEG-TRACE) Urine Glucose (UA) Negative mg/dL (NEG) Urine Ketones (Stick) Negative mg/dL (NEG) Urine Blood Moderate (NEG) Urine Nitrite Positive (NEG) Urine Bilirubin Negative (NEG) Urine Urobilinogen Dipstick 0.2 mg/dL (0.2 mg/dL) Urine Leukocyte Esterase Large (NEG) Urine RBC Fobs /HPF (0-2) Urine WBC Tntc /HPF (0-4) Urine Bacteria Many /HPF (0-FEW) Urine Opiates Screen Neg (NEG) Urine Methadone Screen Neg (NEG) Urine Barbiturates Neg (NEG) Urine Phencyclidine Screen Neg (NEG) Urine Amphetamine/Methamphetamine Neg (NEG) Urine Benzodiazepines Screen Neg (NEG) Urine Cocaine Screen Neg (NEG) Urine Cannabinoids Screen Neg (NEG) Urine Ethyl Alcohol Neg (NEG) Test 05/26/17 02:20 White Blood Count 11.1 x10^3/uL (4.0-11.0) Red Blood Count 3.66 x10^6/uL (3.50-5.40) Hemoglobin 6.6 g/dL (12.0-15.5) Hematocrit 23.8 % (36.0-47.0) Mean Corpuscular Volume 65 fL (79-100) Mean Corpuscular Hemoglobin 18 pg (25-35) Mean Corpuscular Hemoglobin Concent 28 g/dL (31-37) Red Cell Distribution Width 21.0 % (11.5-14.5) Platelet Count 605 x10^3/uL (140-400) Neutrophils (%) (Auto) 95 % (31-73) Lymphocytes (%) (Auto) 4 % (24-48) Monocytes (%) (Auto) 1 % (0-9) Eosinophils (%) (Auto) 0 % (0-3) Basophils (%) (Auto) 0 % (0-3) Neutrophils # (Auto) 10.5 x10^3uL (1.8-7.7) Lymphocytes # (Auto) 0.5 x10^3/uL (1.0-4.8) Monocytes # (Auto) 0.1 x10^3/uL (0.0-1.1) Eosinophils # (Auto) 0.0 x10^3/uL (0.0-0.7) Basophils # (Auto) 0.0 x10^3/uL (0.0-0.2) Segmented Neutrophils % 97 % (35-66) Lymphocytes % 3 % (24-48) Platelet Estimate Increased (ADEQUATE) Polychromasia Slight Hypochromasia Marked Anisocytosis Mod Microcytosis Marked Sodium Level 143 mmol/L (136-145) Potassium Level 4.1 mmol/L (3.5-5.1) Chloride Level 106 mmol/L (98-107) Carbon Dioxide Level 26 mmol/L (21-32) Anion Gap 11 (6-14) Blood Urea Nitrogen 25 mg/dL (7-20) Creatinine 1.1 mg/dL (0.6-1.0) Estimated GFR (Cockcroft-Gault) 48.6 Glucose Level 145 mg/dL (70-99) Calcium Level 8.0 mg/dL (8.5-10.1) Troponin I Quantitative < 0.017 ng/mL (0.000-0.055) Medications Current Medications Albuterol Sulfate (Ventolin Neb Soln) 2.5 mg PRN Q6HRS PRN NEB SHORTNESS OF BREATH Last administered on 05/26/17 00:16; Start 05/25/17 at 14:30 Azithromycin 250 ml @ 250 mls/hr 1X ONCE IV Last administered on 05/25/17 14:36; Start 05/25/17 at 14:30; Stop 05/25/17 at 15:29; Status DC Methylprednisolone Sodium Succinate (SOLU-Medrol 125MG VIAL) 125 mg 1X ONCE IV Last administered on 05/25/17 14:36; Start 05/25/17 at 14:30; Stop at 14:31; Status DC Furosemide (Lasix) 40 mg DAILY IVP Last administered on 05/26/17 09:23; Start 05/25/17 at 14:30 Meclizine HCl (Antivert) 25 mg 1X ONCE PO Last administered on 05/25/17 15: 11; Start 05/25/17 at 15:15; Stop 05/25/17 at 15:16; Status DC Ceftriaxone Sodium 1 gm/ Dextrose 50 ml @ 100 mls/hr Q24H IV ; Start 05/25/17 at 21:00; Status UNV Ceftriaxone Sodium (Rocephin) 1 gm Q24H IVP Last administered on 05/25/17 19: 26; Start 05/25/17 at 19:00 Levofloxacin/ Dextrose 100 ml @ 100 mls/hr Q24H IV Last administered on 21:03; Start 05/25/17 at 20:00 Enoxaparin Sodium (Lovenox 40mg Syringe) 40 mg Q24H SQ Last administered on 21:03; Start 05/25/17 at 19:45; Stop 05/26/17 at 10:15; Status DC Albuterol/ Ipratropium (Duoneb) 3 ml RTQID NEB Last administered on 05/26/17 11:23; Start 05/25/17 at 20:00 Budesonide (Pulmicort) 0.5 mg RTBID NEB Last administered on 05/26/17 07:51; Start 05/26/17 at 08:00 Enoxaparin Sodium (Lovenox 30mg Syringe) 30 mg Q24H SQ ; Start 05/26/17 at 21: 00 Lactobacillus Rhamnosus (Culturelle) 1 cap BID PO ; Start 05/26/17 at 21:00 Active Scripts Active Codeine Sulfate 15 Mg Tablet 15 Mg PO AT BEDTIME Tessalon Perle (Benzonatate) 100 Mg Capsule 100 Mg PO TID PRN Proair Hfa Inhaler (Albuterol Sulfate) 8.5 Gm Hfa.aer.ad 2 Puff INH PRN Q6HRS PRN Ciprofloxacin Hcl 500 Mg Tablet 500 Mg PO BID Cipro (Ciprofloxacin Hcl) 500 Mg Tablet 250 Mg PO DAILY 10 Days Hydrocodone-Apap 5-325 (Hydrocodone Bit/Acetaminophen) 1 Each Tablet 1 Tab PO PRN Q6HRS PRN 10 Days Reported Naproxen Sodium 550 Mg Tablet 550 Mg PO BID Hydrocodone-Apap 5-325 (Hydrocodone Bit/Acetaminophen) 1 Each Tablet 1 Tab PO Q4HRS PRN Acetaminophen 500 Mg Tablet 1 Tab PO BID Vitals/I & O Vital Sign - Last 24 Hours 05/25/17 05/25/17 05/25/17 05/25/17 12:39 13:34 13:48 13:50 Temp 97.7 97.7 Pulse 92 100 88 Resp 18 42 30 B/P (MAP) 123/67 (85) Pulse Ox 88 96 O2 Delivery Room Air Nasal Cannula O2 Flow Rate 2.0 05/25/17 05/25/17 05/25/17 05/25/17 14:18 14:46 14:48 15:02 Pulse 90 94 104 Resp 35 44 Pulse Ox 96 98 99 O2 Delivery Nasal Cannula O2 Flow Rate 2.0 05/25/17 05/25/17 05/25/17 05/25/17 15:05 15:18 15:20 15:30 Temp 97.0 97.0 Pulse 100 98 94 Resp 29 28 16 B/P (MAP) 99/55 (70) Pulse Ox 94 98 97 O2 Delivery Room Air Room Air 05/25/17 05/25/17 05/25/17 05/25/17 18:28 19:20 19:20 20:19 Temp 98.8 98.8 Pulse 90 95 Resp 20 B/P (MAP) 110/57 (74) 108/59 (75) Pulse Ox 98 100 O2 Delivery Nasal Cannula Room Air Nasal Cannula O2 Flow Rate 2.0 2.0 05/25/17 05/25/17 05/26/17 05/26/17 20:24 23:17 00:17 03:00 Temp 98.6 97.7 98.6 97.7 Pulse 90 91 Resp 20 20 B/P (MAP) 113/69 (84) 108/67 (81) Pulse Ox 100 95 100 99 O2 Delivery Nasal Cannula Nasal Cannula Nasal Cannula O2 Flow Rate 2.0 2.0 2.0 05/26/17 05/26/17 05/26/17 05/26/17 07:00 07:52 10:14 10:31 Temp 97.4 97.6 97.9 97.4 97.6 97.9 Pulse 89 93 87 Resp 20 22 24 B/P (MAP) 113/74 (87) 112/71 110/73 Pulse Ox 100 100 O2 Delivery Nasal Cannula Nasal Cannula O2 Flow Rate 2.0 2.0 05/26/17 05/26/17 05/26/17 05/26/17 10:45 11:00 11:23 11:31 Temp 97.8 97.8 97.5 97.8 97.8 97.5 Pulse 94 94 90 Resp 24 24 20 B/P (MAP) 112/72 112/72 (85) 116/71 Pulse Ox 100 100 O2 Delivery Nasal Cannula Nasal Cannula O2 Flow Rate 2.0 2.0 05/26/17 11:32 Temp 97.5 97.5 Pulse 87 Resp 20 B/P (MAP) 116/71 Intake and Output 05/25/17 05/25/17 05/26/17 15:00 23:00 07:00 Intake Total 98 ml Output Total 125 ml 100 ml Balance -27 ml -100 ml SHIRIN CORTEZ III DO May 26, 2017 11:47
[2017-05-26] MEDS ORDERED: BISACODYL 5 MG TABLET.DR. PO ONE (12:00)
--- NOTE | 2017-05-26 12:03 | PDOC2 ---
GI CONSULT Date Date/Time DATE: 05/26/17 TIME: 11:55 Providers Attending Physician Alyssa Dawn III DO Referring Physician Consulting Physician Dr. Díaz History of Present Illness HPI 72 yo WF- with history of COPD but denies smoking. Claims losing weight for last few months and some lower abd pain off and on. granddaughter states patient takes prn diarrhea meds for pain although no diarrhea reported. Relates no constipation and no melena or hematochezia. Recently increasing shortness of breath and fatigue and presented for evaluation - Found to have iron def anemia- chronic. Denies prior EGD or colonoscopy. History Past Medical History ?? COPD Past Surgical History Hysterectomy? Social/Personal History denies ever smoking. No alcohol Review of Systems Constitutional: yes: weakness Pulmonary: Yes dyspnea Gastrointestinal: Yes: abdominal pain Allergies Allergies Allergies Coded Allergies Type Severity Reaction Last Updated Verified egg Allergy Severe Anaphylaxis 02/06/15 Yes Sulfa (Sulfonamide Antibiotics) Allergy Intermediate 02/06/15 Yes Medications Medications Current Medications Albuterol Sulfate (Ventolin Neb Soln) 2.5 mg PRN Q6HRS PRN NEB SHORTNESS OF BREATH Last administered on 05/26/17 00:16; Start 05/25/17 at 14:30 Azithromycin 250 ml @ 250 mls/hr 1X ONCE IV Last administered on 05/25/17 14:36; Start 05/25/17 at 14:30; Stop 05/25/17 at 15:29; Status DC Methylprednisolone Sodium Succinate (SOLU-Medrol 125MG VIAL) 125 mg 1X ONCE IV Last administered on 05/25/17 14:36; Start 05/25/17 at 14:30; Stop at 14:31; Status DC Furosemide (Lasix) 40 mg DAILY IVP Last administered on 05/26/17 09:23; Start 05/25/17 at 14:30 Meclizine HCl (Antivert) 25 mg 1X ONCE PO Last administered on 05/25/17 15: 11; Start 05/25/17 at 15:15; Stop 05/25/17 at 15:16; Status DC Ceftriaxone Sodium 1 gm/ Dextrose 50 ml @ 100 mls/hr Q24H IV ; Start 05/25/17 at 21:00; Status UNV Ceftriaxone Sodium (Rocephin) 1 gm Q24H IVP Last administered on 05/25/17 19: 26; Start 05/25/17 at 19:00 Levofloxacin/ Dextrose 100 ml @ 100 mls/hr Q24H IV Last administered on 21:03; Start 05/25/17 at 20:00 Enoxaparin Sodium (Lovenox 40mg Syringe) 40 mg Q24H SQ Last administered on 21:03; Start 05/25/17 at 19:45; Stop 05/26/17 at 10:15; Status DC Albuterol/ Ipratropium (Duoneb) 3 ml RTQID NEB Last administered on 05/26/17 11:23; Start 05/25/17 at 20:00 Budesonide (Pulmicort) 0.5 mg RTBID NEB Last administered on 05/26/17 07:51; Start 05/26/17 at 08:00 Enoxaparin Sodium (Lovenox 30mg Syringe) 30 mg Q24H SQ ; Start 05/26/17 at 21: 00 Lactobacillus Rhamnosus (Culturelle) 1 cap BID PO ; Start 05/26/17 at 21:00 Active Scripts Active Codeine Sulfate 15 Mg Tablet 15 Mg PO AT BEDTIME Tessalon Perle (Benzonatate) 100 Mg Capsule 100 Mg PO TID PRN Proair Hfa Inhaler (Albuterol Sulfate) 8.5 Gm Hfa.aer.ad 2 Puff INH PRN Q6HRS PRN Ciprofloxacin Hcl 500 Mg Tablet 500 Mg PO BID Cipro (Ciprofloxacin Hcl) 500 Mg Tablet 250 Mg PO DAILY 10 Days Hydrocodone-Apap 5-325 (Hydrocodone Bit/Acetaminophen) 1 Each Tablet 1 Tab PO PRN Q6HRS PRN 10 Days Reported Naproxen Sodium 550 Mg Tablet 550 Mg PO BID Hydrocodone-Apap 5-325 (Hydrocodone Bit/Acetaminophen) 1 Each Tablet 1 Tab PO Q4HRS PRN Acetaminophen 500 Mg Tablet 1 Tab PO BID Physical Exam Physical Exam VSS awake, forgetful thin with some weight loss chest- rhonchi cor- RRR abd -soft- mildly tender lower abd. No masses good bowel sounds exterm no CCE neuro- awake no focal deficits Labs Labs Laboratory Tests Test 05/25/17 13:14 05/25/17 13:25 05/25/17 14:20 05/25/17 20:00 O2 Saturation 98 % (92-99) Arterial Blood pH 7.41 (7.35-7.45) Arterial Blood pCO2 at Patient Temp 40 mmHg (35-46) Arterial Blood pO2 at Patient Temp 111 mmHg (65-108) Arterial Blood HCO3 24 mmol/L (21-28) Arterial Blood Base Excess 0 mmol/L (-3-3) FiO2 28 White Blood Count 13.3 x10^3/uL (4.0-11.0) Red Blood Count 4.14 x10^6/uL (3.50-5.40) Hemoglobin 7.5 g/dL (12.0-15.5) Hematocrit 27.3 % (36.0-47.0) Mean Corpuscular Volume 66 fL (79-100) Mean Corpuscular Hemoglobin 18 pg (25-35) Mean Corpuscular Hemoglobin Concent 28 g/dL (31-37) Red Cell Distribution Width 21.0 % (11.5-14.5) Platelet Count 713 x10^3/uL (140-400) Neutrophils (%) (Auto) 84 % (31-73) Lymphocytes (%) (Auto) 11 % (24-48) Monocytes (%) (Auto) 4 % (0-9) Eosinophils (%) (Auto) 0 % (0-3) Basophils (%) (Auto) 1 % (0-3) Neutrophils # (Auto) 11.2 x10^3uL (1.8-7.7) Lymphocytes # (Auto) 1.4 x10^3/uL (1.0-4.8) Monocytes # (Auto) 0.6 x10^3/uL (0.0-1.1) Eosinophils # (Auto) 0.0 x10^3/uL (0.0-0.7) Basophils # (Auto) 0.1 x10^3/uL (0.0-0.2) Platelet Estimate Increased (ADEQUATE) Polychromasia Slight Hypochromasia Marked Anisocytosis Mod Microcytosis Marked Spherocytes Occ Prothrombin Time 13.8 SEC (11.7-14.0) Prothromb Time International Ratio 1.1 (0.8-1.1) Sodium Level 145 mmol/L (136-145) Potassium Level 4.5 mmol/L (3.5-5.1) Chloride Level 108 mmol/L (98-107) Carbon Dioxide Level 28 mmol/L (21-32) Anion Gap 9 (6-14) Blood Urea Nitrogen 23 mg/dL (7-20) Creatinine 1.0 mg/dL (0.6-1.0) Estimated GFR (Cockcroft-Gault) 54.2 Glucose Level 101 mg/dL (70-99) Lactic Acid Level 1.4 mmol/L (0.4-2.0) Calcium Level 8.9 mg/dL (8.5-10.1) Magnesium Level 2.1 mg/dL (1.8-2.4) Iron Level 15 ug/dL (50-170) Total Iron Binding Capacity 441 ug/dL (250-450) Iron Saturation 3 % (15-34) Total Bilirubin 0.5 mg/dL (0.2-1.0) Direct Bilirubin 0.1 mg/dL (0.0-0.2) Aspartate Amino Transf (AST/SGOT) 90 U/L (15-37) Alanine Aminotransferase (ALT/SGPT) 76 U/L (14-59) Alkaline Phosphatase 166 U/L (46-116) Creatine Kinase 66 U/L (26-192) Creatine Kinase MB (Mass) 1.9 ng/mL (0.0-3.6) Creatine Kinase MB Relative Index 2.9 % (0-4) Troponin I Quantitative < 0.017 ng/mL (0.000-0.055) < 0.017 ng/mL (0.000-0.055) GE-Avr-P-Type Natriuretic Peptide > 06140 pg/mL (0-124) Total Protein 8.1 g/dL (6.4-8.2) Albumin 3.0 g/dL (3.4-5.0) Lipase 145 U/L (73-393) Thyroid Stimulating Hormone (TSH) 1.981 uIU/mL (0.358-3.74) Urine Collection Type U cath Urine Color Yellow Urine Clarity Cloudy Urine pH 6.0 Urine Specific [place] 1.025 Urine Protein 100 mg/dL (NEG-TRACE) Urine Glucose (UA) Negative mg/dL (NEG) Urine Ketones (Stick) Negative mg/dL (NEG) Urine Blood Moderate (NEG) Urine Nitrite Positive (NEG) Urine Bilirubin Negative (NEG) Urine Urobilinogen Dipstick 0.2 mg/dL (0.2 mg/dL) Urine Leukocyte Esterase Large (NEG) Urine RBC Fobs /HPF (0-2) Urine WBC Tntc /HPF (0-4) Urine Bacteria Many /HPF (0-FEW) Urine Opiates Screen Neg (NEG) Urine Methadone Screen Neg (NEG) Urine Barbiturates Neg (NEG) Urine Phencyclidine Screen Neg (NEG) Urine Amphetamine/Methamphetamine Neg (NEG) Urine Benzodiazepines Screen Neg (NEG) Urine Cocaine Screen Neg (NEG) Urine Cannabinoids Screen Neg (NEG) Urine Ethyl Alcohol Neg (NEG) Test 05/26/17 02:20 White Blood Count 11.1 x10^3/uL (4.0-11.0) Red Blood Count 3.66 x10^6/uL (3.50-5.40) Hemoglobin 6.6 g/dL (12.0-15.5) Hematocrit 23.8 % (36.0-47.0) Mean Corpuscular Volume 65 fL (79-100) Mean Corpuscular Hemoglobin 18 pg (25-35) Mean Corpuscular Hemoglobin Concent 28 g/dL (31-37) Red Cell Distribution Width 21.0 % (11.5-14.5) Platelet Count 605 x10^3/uL (140-400) Neutrophils (%) (Auto) 95 % (31-73) Lymphocytes (%) (Auto) 4 % (24-48) Monocytes (%) (Auto) 1 % (0-9) Eosinophils (%) (Auto) 0 % (0-3) Basophils (%) (Auto) 0 % (0-3) Neutrophils # (Auto) 10.5 x10^3uL (1.8-7.7) Lymphocytes # (Auto) 0.5 x10^3/uL (1.0-4.8) Monocytes # (Auto) 0.1 x10^3/uL (0.0-1.1) Eosinophils # (Auto) 0.0 x10^3/uL (0.0-0.7) Basophils # (Auto) 0.0 x10^3/uL (0.0-0.2) Segmented Neutrophils % 97 % (35-66) Lymphocytes % 3 % (24-48) Platelet Estimate Increased (ADEQUATE) Polychromasia Slight Hypochromasia Marked Anisocytosis Mod Microcytosis Marked Sodium Level 143 mmol/L (136-145) Potassium Level 4.1 mmol/L (3.5-5.1) Chloride Level 106 mmol/L (98-107) Carbon Dioxide Level 26 mmol/L (21-32) Anion Gap 11 (6-14) Blood Urea Nitrogen 25 mg/dL (7-20) Creatinine 1.1 mg/dL (0.6-1.0) Estimated GFR (Cockcroft-Gault) 48.6 Glucose Level 145 mg/dL (70-99) Calcium Level 8.0 mg/dL (8.5-10.1) Troponin I Quantitative < 0.017 ng/mL (0.000-0.055) Assessment Assessment Iron def ANEMIA- with dyspnea. Denies history of anemia and no overt bleeding- need to consider occult GI loss WEight loss and lower abd pain- vague history and symptoms Problems: Plan Plan Transfusion to Hgb over 8 IV iron EGD and colonoscopy- if stable, plan for tomorrow Thank you for allowing us to participate in the care of your patient. We will continue to follow the patient with you and provide an appropriate recommendation as it becomes available. STEVEN DÍAZ MD May 26, 2017 12:03
--- NOTE | 2017-05-26 14:38 | CONS ---
DATE OF CONSULTATION: 05/26/2017 REASON FOR CONSULTATION: Dyspnea. HISTORY OF PRESENT ILLNESS: The patient is a 72-year-old woman who presented to the Emergency Room in the setting of progressive dyspnea. She also had some fatigue. Ultimately, she was noted to have anemia with hemoglobin of 7.5. The patient does not usually seek doctors and therefore it is unclear the chronicity of her anemia, but currently she is planned for an EGD and colonoscopy via the GI Service in light of her anemia and weight loss. In speaking with the patient, approximately 3-4 months ago she was in her usual state of health and did not have any dyspnea with activities of daily living, but over the course of the last 2 months or so she has had progressive exertional fatigue. No chest pain, orthopnea, PND or lower extremity edema. No syncope or palpitations. PAST MEDICAL HISTORY: Presumed chronic obstructive pulmonary disease, but no known medical diagnoses. ALLERGIES: SULFA. SOCIAL HISTORY: The patient lives with her daughter and granddaughter. Denies any alcohol, tobacco or illicit drug use. REVIEW OF SYSTEMS: Negative for 10 out of 14 systems reviewed, unless otherwise mentioned above in HPI. CURRENT CARDIOVASCULAR MEDICATIONS: 1. Lovenox 30 mg subQ q.24 hours. 2. Lasix 40 mg daily IV push. PHYSICAL EXAMINATION: VITAL SIGNS: Afebrile, 94, 22, 124/70, 100% on 2 liters nasal cannula. GENERAL: She appears to be quite frail and thin. HEAD AND NECK: Unremarkable. CARDIAC: Regular rate and rhythm without any significant murmurs, rubs, or gallops. LUNGS: Bilaterally decreased breath sounds. ABDOMEN: Scaphoid, no obvious palpable masses. EXTREMITIES: No clubbing, cyanosis or edema, with 2+ radial and dorsalis pedis pulses. NEUROLOGIC: No focal deficits. MUSCULOSKELETAL: No obvious trauma. SKIN: Mild ecchymoses from trauma. DIAGNOSTIC STUDIES: Creatinine 1.1. Blood gas 7.41/40/111 on 20% FiO2. Hemoglobin 6.6. INR 1.1. Urine toxicology negative. Urinalysis notable for positive nitrite and possibly urinary tract infection. EKG is unremarkable. IMPRESSION: Dyspnea: Differential diagnosis is broad, but likely is related to her chronic anemia. Given her chest x-ray findings, cannot rule out underlying idiopathic pulmonary fibrosis or emphysematous changes. Possible occult pulmonary hypertension is also on the differential. Given her age, the possibility of coronary artery disease is also present. RECOMMENDATIONS: At this present time, agree with aggressive evaluation and treatment for her anemia. We will pursue an echocardiogram and depending on the results we will determine further diagnostic evaluation on an inpatient versus outpatient basis. Thank you for this consultation. KIP CHUA MD DR: TORSTEN/villa JOB#: [id number] / [id number]
[2017-05-26] MEDS ORDERED: POLYETHYLENE GLYCOL 3350 238 GM POWDER PO ONE (16:00)
--- NOTE | 2017-05-26 16:03 | PDOC ---
PULMONARY PROGRESS NOTES Vitals Vital Signs Date Time Temp Pulse Resp B/P (MAP) Pulse Ox O2 Delivery O2 Flow Rate FiO2 05/26/17 15:53 100 Nasal Cannula 2.0 05/26/17 13:01 97.7 90 20 110/70 97.7 Labs Laboratory Tests Test 05/25/17 13:14 05/25/17 13:25 05/25/17 14:20 05/25/17 20:00 O2 Saturation 98 % (92-99) Arterial Blood pH 7.41 (7.35-7.45) Arterial Blood pCO2 at Patient Temp 40 mmHg (35-46) Arterial Blood pO2 at Patient Temp 111 mmHg (65-108) Arterial Blood HCO3 24 mmol/L (21-28) Arterial Blood Base Excess 0 mmol/L (-3-3) FiO2 28 White Blood Count 13.3 x10^3/uL (4.0-11.0) Red Blood Count 4.14 x10^6/uL (3.50-5.40) Hemoglobin 7.5 g/dL (12.0-15.5) Hematocrit 27.3 % (36.0-47.0) Mean Corpuscular Volume 66 fL (79-100) Mean Corpuscular Hemoglobin 18 pg (25-35) Mean Corpuscular Hemoglobin Concent 28 g/dL (31-37) Red Cell Distribution Width 21.0 % (11.5-14.5) Platelet Count 713 x10^3/uL (140-400) Neutrophils (%) (Auto) 84 % (31-73) Lymphocytes (%) (Auto) 11 % (24-48) Monocytes (%) (Auto) 4 % (0-9) Eosinophils (%) (Auto) 0 % (0-3) Basophils (%) (Auto) 1 % (0-3) Neutrophils # (Auto) 11.2 x10^3uL (1.8-7.7) Lymphocytes # (Auto) 1.4 x10^3/uL (1.0-4.8) Monocytes # (Auto) 0.6 x10^3/uL (0.0-1.1) Eosinophils # (Auto) 0.0 x10^3/uL (0.0-0.7) Basophils # (Auto) 0.1 x10^3/uL (0.0-0.2) Platelet Estimate Increased (ADEQUATE) Polychromasia Slight Hypochromasia Marked Anisocytosis Mod Microcytosis Marked Spherocytes Occ Prothrombin Time 13.8 SEC (11.7-14.0) Prothromb Time International Ratio 1.1 (0.8-1.1) Sodium Level 145 mmol/L (136-145) Potassium Level 4.5 mmol/L (3.5-5.1) Chloride Level 108 mmol/L (98-107) Carbon Dioxide Level 28 mmol/L (21-32) Anion Gap 9 (6-14) Blood Urea Nitrogen 23 mg/dL (7-20) Creatinine 1.0 mg/dL (0.6-1.0) Estimated GFR (Cockcroft-Gault) 54.2 Glucose Level 101 mg/dL (70-99) Lactic Acid Level 1.4 mmol/L (0.4-2.0) Calcium Level 8.9 mg/dL (8.5-10.1) Magnesium Level 2.1 mg/dL (1.8-2.4) Iron Level 15 ug/dL (50-170) Total Iron Binding Capacity 441 ug/dL (250-450) Iron Saturation 3 % (15-34) Total Bilirubin 0.5 mg/dL (0.2-1.0) Direct Bilirubin 0.1 mg/dL (0.0-0.2) Aspartate Amino Transf (AST/SGOT) 90 U/L (15-37) Alanine Aminotransferase (ALT/SGPT) 76 U/L (14-59) Alkaline Phosphatase 166 U/L (46-116) Creatine Kinase 66 U/L (26-192) Creatine Kinase MB (Mass) 1.9 ng/mL (0.0-3.6) Creatine Kinase MB Relative Index 2.9 % (0-4) Troponin I Quantitative < 0.017 ng/mL (0.000-0.055) < 0.017 ng/mL (0.000-0.055) TZ-Ajk-S-Type Natriuretic Peptide > 79624 pg/mL (0-124) Total Protein 8.1 g/dL (6.4-8.2) Albumin 3.0 g/dL (3.4-5.0) Lipase 145 U/L (73-393) Thyroid Stimulating Hormone (TSH) 1.981 uIU/mL (0.358-3.74) Urine Collection Type U cath Urine Color Yellow Urine Clarity Cloudy Urine pH 6.0 Urine Specific [place] 1.025 Urine Protein 100 mg/dL (NEG-TRACE) Urine Glucose (UA) Negative mg/dL (NEG) Urine Ketones (Stick) Negative mg/dL (NEG) Urine Blood Moderate (NEG) Urine Nitrite Positive (NEG) Urine Bilirubin Negative (NEG) Urine Urobilinogen Dipstick 0.2 mg/dL (0.2 mg/dL) Urine Leukocyte Esterase Large (NEG) Urine RBC Fobs /HPF (0-2) Urine WBC Tntc /HPF (0-4) Urine Bacteria Many /HPF (0-FEW) Urine Opiates Screen Neg (NEG) Urine Methadone Screen Neg (NEG) Urine Barbiturates Neg (NEG) Urine Phencyclidine Screen Neg (NEG) Urine Amphetamine/Methamphetamine Neg (NEG) Urine Benzodiazepines Screen Neg (NEG) Urine Cocaine Screen Neg (NEG) Urine Cannabinoids Screen Neg (NEG) Urine Ethyl Alcohol Neg (NEG) Test 05/26/17 02:20 White Blood Count 11.1 x10^3/uL (4.0-11.0) Red Blood Count 3.66 x10^6/uL (3.50-5.40) Hemoglobin 6.6 g/dL (12.0-15.5) Hematocrit 23.8 % (36.0-47.0) Mean Corpuscular Volume 65 fL (79-100) Mean Corpuscular Hemoglobin 18 pg (25-35) Mean Corpuscular Hemoglobin Concent 28 g/dL (31-37) Red Cell Distribution Width 21.0 % (11.5-14.5) Platelet Count 605 x10^3/uL (140-400) Neutrophils (%) (Auto) 95 % (31-73) Lymphocytes (%) (Auto) 4 % (24-48) Monocytes (%) (Auto) 1 % (0-9) Eosinophils (%) (Auto) 0 % (0-3) Basophils (%) (Auto) 0 % (0-3) Neutrophils # (Auto) 10.5 x10^3uL (1.8-7.7) Lymphocytes # (Auto) 0.5 x10^3/uL (1.0-4.8) Monocytes # (Auto) 0.1 x10^3/uL (0.0-1.1) Eosinophils # (Auto) 0.0 x10^3/uL (0.0-0.7) Basophils # (Auto) 0.0 x10^3/uL (0.0-0.2) Segmented Neutrophils % 97 % (35-66) Lymphocytes % 3 % (24-48) Platelet Estimate Increased (ADEQUATE) Polychromasia Slight Hypochromasia Marked Anisocytosis Mod Microcytosis Marked Sodium Level 143 mmol/L (136-145) Potassium Level 4.1 mmol/L (3.5-5.1) Chloride Level 106 mmol/L (98-107) Carbon Dioxide Level 26 mmol/L (21-32) Anion Gap 11 (6-14) Blood Urea Nitrogen 25 mg/dL (7-20) Creatinine 1.1 mg/dL (0.6-1.0) Estimated GFR (Cockcroft-Gault) 48.6 Glucose Level 145 mg/dL (70-99) Calcium Level 8.0 mg/dL (8.5-10.1) Troponin I Quantitative < 0.017 ng/mL (0.000-0.055) Laboratory Tests Test 05/25/17 20:00 05/26/17 02:20 Troponin I Quantitative < 0.017 ng/mL (0.000-0.055) < 0.017 ng/mL (0.000-0.055) White Blood Count 11.1 x10^3/uL (4.0-11.0) Red Blood Count 3.66 x10^6/uL (3.50-5.40) Hemoglobin 6.6 g/dL (12.0-15.5) Hematocrit 23.8 % (36.0-47.0) Mean Corpuscular Volume 65 fL (79-100) Mean Corpuscular Hemoglobin 18 pg (25-35) Mean Corpuscular Hemoglobin Concent 28 g/dL (31-37) Red Cell Distribution Width 21.0 % (11.5-14.5) Platelet Count 605 x10^3/uL (140-400) Neutrophils (%) (Auto) 95 % (31-73) Lymphocytes (%) (Auto) 4 % (24-48) Monocytes (%) (Auto) 1 % (0-9) Eosinophils (%) (Auto) 0 % (0-3) Basophils (%) (Auto) 0 % (0-3) Neutrophils # (Auto) 10.5 x10^3uL (1.8-7.7) Lymphocytes # (Auto) 0.5 x10^3/uL (1.0-4.8) Monocytes # (Auto) 0.1 x10^3/uL (0.0-1.1) Eosinophils # (Auto) 0.0 x10^3/uL (0.0-0.7) Basophils # (Auto) 0.0 x10^3/uL (0.0-0.2) Segmented Neutrophils % 97 % (35-66) Lymphocytes % 3 % (24-48) Platelet Estimate Increased (ADEQUATE) Polychromasia Slight Hypochromasia Marked Anisocytosis Mod Microcytosis Marked Sodium Level 143 mmol/L (136-145) Potassium Level 4.1 mmol/L (3.5-5.1) Chloride Level 106 mmol/L (98-107) Carbon Dioxide Level 26 mmol/L (21-32) Anion Gap 11 (6-14) Blood Urea Nitrogen 25 mg/dL (7-20) Creatinine 1.1 mg/dL (0.6-1.0) Estimated GFR (Cockcroft-Gault) 48.6 Glucose Level 145 mg/dL (70-99) Calcium Level 8.0 mg/dL (8.5-10.1) Medications Active Scripts Medications Dose Route/Sig Max Daily Dose Days Date Category Codeine Sulfate 15 Mg Tablet 15 Mg PO AT BEDTIME 01/05/16 Rx Tessalon Perle (Benzonatate) 100 Mg Capsule 100 Mg PO TID PRN 01/05/16 Rx Proair Hfa Inhaler (Albuterol Sulfate) 8.5 Gm Hfa.aer.ad 2 Puff INH PRN Q6HRS PRN 01/05/16 Rx Ciprofloxacin Hcl 500 Mg Tablet 500 Mg PO BID 01/05/16 Rx Cipro (Ciprofloxacin Hcl) 500 Mg Tablet 250 Mg PO DAILY 10 02/12/15 Rx Hydrocodone-Apap 5-325 (Hydrocodone Bit/Acetaminophen) 1 Each Tablet 1 Tab PO PRN Q6HRS PRN 10 02/12/15 Rx Naproxen Sodium 550 Mg Tablet 550 Mg PO BID 02/05/15 Reported Hydrocodone-Apap 5-325 (Hydrocodone Bit/Acetaminophen) 1 Each Tablet 1 Tab PO Q4HRS PRN 02/05/15 Reported Acetaminophen 500 Mg Tablet 1 Tab PO BID 01/31/15 Reported Impression . ACUTE RESP FAILURE SUSPECT MOSTLY CARDIAC IN ORIGIN CXR COMPATIBLE WITH EDEMA MORE THAN ILD/FIBROSISI HEART SIZE IS LARGE COMPARED TO PRIOR STUDY WILL AWAIT ECHO WORK UP FOR ANEMIA CONTINUE TO SHAYAN ACOSTA MD May 26, 2017 16:03
--- NOTE | 2017-05-26 16:20 | CONS ---
DATE OF CONSULTATION: 05/26/2017 ATTENDING PHYSICIAN: Dr. Miranda. REASON FOR CONSULTATION: The patient seen in pulmonary consultation at the request of Dr. Miranda for acute respiratory failure, abnormal x-ray. HISTORY OF PRESENT ILLNESS: The patient is a 72-year-old that normally does not see a physician on a regular basis, does not take any medications at home, presented with increasing shortness of breath. She states that she had been short of breath now for quite some time. She also has some paroxysmal nocturnal dyspnea, no pedal edema, some chest discomfort. She presented to the Emergency Room, she was found to have a hemoglobin of 7.5. She had a chest x-ray, which revealed bilateral pulmonary infiltrates compatible with CHF. The patient denies fever, chills, night sweats. She has never smoked. PAST MEDICAL HISTORY: No prior medical history. ALLERGIES: TO SULFA. SOCIAL HISTORY: She lives with her daughter and granddaughter. REVIEW OF SYSTEMS: As indicated above, otherwise, a 10-point system was reviewed and negative. CURRENT MEDICATIONS: List was reviewed. PHYSICAL EXAMINATION: VITAL SIGNS: Stable. O2 saturation was greater than 92%, currently on 2 liters. HEENT: Eyes, the sclerae were nonicteric. NECK: Jugular venous distention was not elevated. No lymphadenopathy. CHEST: Full expansion. LUNGS: Adequate crackles bilaterally with no wheezes. CARDIOVASCULAR: Regular rate and rhythm with S1, S2, no S3. ABDOMEN: Soft, nontender, nondistended. EXTREMITIES: No clubbing, cyanosis or edema. NEUROLOGIC: The patient was awake, alert, following commands. A detailed neuro exam was not performed. LABORATORY DATA: White count was noted. Hemoglobin and hematocrit were low. Arterial blood gas; pH of 7.41, PaCO2 of 40, pO2 of 111. Electrolytes were noted. BUN and creatinine was noted. BNP was markedly elevated. AST and ALT were elevated. Albumin was low. INR was 1.1. UA was noted. Urine drug screen was negative. Chest x-ray as indicated above. IMPRESSION: 1. Acute respiratory failure. Suspect mostly acute pulmonary edema, diastolic versus systolic heart failure. 2. Abnormal x-ray compatible with pulmonary edema. 3. Doubt chronic obstructive pulmonary disease. 4. Possible mild interstitial lung disease. 5. Acute blood loss anemia. 6. Protein malnutrition, present upon admission. 7. Leukocytosis. 8. Possible urinary tract infection. PLAN: 1. Recommend cardiac workup. Echocardiogram is pending. 2. GI workup is pending. The patient is to undergo EGD in the morning. 3. Continue empiric antibiotics. The patient's clinical presentation is compatible with acute bronchitis. 4. Continue Lasix. 5. Dietary consult. I do appreciate the privilege in sharing in the patient's care. SHAYAN ALANIS MD DR: MEGHAN/villa JOB#: [id number] / [id number]
[2017-05-26] MEDS ORDERED: IRON SUCROSE COMPLEX 200 MG in TOTAL VOLUME SYRINGE 0 ML IV ONE (17:00)
[2017-05-26] MEDS: cefTRIAXone IV Push 1 GM VIAL. IVP SCH (19:11)
[2017-05-26 19:21] LABS: HEMATOCRIT 30.7 % (36.0-47.0); RED BLOOD COUNT 4.52 x10^6/uL (3.50-5.40); RED CELL DISTRIBUTION WIDTH 22.6 % (11.5-14.5); WHITE BLOOD COUNT 15.8 x10^3/uL (4.0-11.0)
[2017-05-26] MEDS: ENOXAPARIN 30 MG/0.3 ML SYRINGE. SQ SCH (19:59)
[2017-05-26] MEDS: LACTOBACILLUS RHAMNOSUS GG 1 CAPSULE. PO SCH (19:59)
[2017-05-26] MEDS ORDERED: MAGNESIUM CITRATE 296 ML SOLUTION. PO ONE (23:00)
[2017-05-27 05:05] VITALS: BP 123/63
[2017-05-27 05:29] LABS: BASO # 0.1 x10^3/uL (0.0-0.2); BASO % 1 % (0-3); EOS % 0 % (0-3); HEMATOCRIT 29.7 % (36.0-47.0); HEMOGLOBIN 8.7 g/dL (12.0-15.5); LYMPH # 2.1 x10^3/uL (1.0-4.8); LYMPH % 16 % (24-48); MEAN CORPUSCULAR HEMOGLOBIN 20 pg (25-35); MEAN CORPUSCULAR HGB CONC 29 g/dL (31-37); MEAN CORPUSCULAR VOLUME 68 fL (79-100); MONO % 7 % (0-9); NEUT % 76 % (31-73); PLATELET COUNT 571 x10^3/uL (140-400); RED BLOOD COUNT 4.36 x10^6/uL (3.50-5.40); RED CELL DISTRIBUTION WIDTH 23.1 % (11.5-14.5); WHITE BLOOD COUNT 12.7 x10^3/uL (4.0-11.0)
[2017-05-27 05:36] LABS: CALCIUM 8.2 mg/dL (8.5-10.1); CREATININE 1.1 mg/dL (0.6-1.0); GFR 48.6; POTASSIUM 3.5 mmol/L (3.5-5.1)
[2017-05-27 07:00] VITALS: BP 109/65
[2017-05-27] MEDS: IPRATRPIUM/ALBUTEROL 0.5/2.5MG 3 ML NEBU. NEB SCH ×4 (08:00→21:23)
[2017-05-27] MEDS ORDERED: PROPOFOL 40 ML IV ONE (08:04)
[2017-05-27] MEDS ORDERED: LIDOCAINE 2% PF Vial for OR 5 ML VIAL. ONE (08:05)
--- NOTE | 2017-05-27 08:33 | PDOC ---
PROGRESS NOTES Chief Complaint Chief Complaint Shortness of air Emphysema History of Present Illness History of Present Illness The pt was sitting in bed wearing hospital attire. Had some confusion over finding her dentures and working her phone. Vitals Vitals Vital Signs Date Time Temp Pulse Resp B/P (MAP) Pulse Ox O2 Delivery O2 Flow Rate FiO2 05/27/17 07:35 97.8 83 16 93 97.8 05/27/17 07:32 Nasal Cannula 2.0 05/27/17 07:00 109/65 (80) Physical Exam Physical Exam HENT: MMM, no throat erythema General: Alert (AAOx2), Cooperative, No acute distress Heart: Regular rate, Normal S1, Normal S2, No murmurs Lungs: Crackles (b/l lower lobe crackles) Abdomen: Soft, Other (Slight LUQ tenderness to palpation) Extremities: No clubbing, No cyanosis Labs LABS Laboratory Tests Test 05/26/17 19:00 05/27/17 05:08 White Blood Count 15.8 x10^3/uL (4.0-11.0) 12.7 x10^3/uL (4.0-11.0) Red Blood Count 4.52 x10^6/uL (3.50-5.40) 4.36 x10^6/uL (3.50-5.40) Hemoglobin 9.0 g/dL (12.0-15.5) 8.7 g/dL (12.0-15.5) Hematocrit 30.7 % (36.0-47.0) 29.7 % (36.0-47.0) Mean Corpuscular Volume 68 fL (79-100) 68 fL (79-100) Mean Corpuscular Hemoglobin 20 pg (25-35) 20 pg (25-35) Mean Corpuscular Hemoglobin Concent 29 g/dL (31-37) 29 g/dL (31-37) Red Cell Distribution Width 22.6 % (11.5-14.5) 23.1 % (11.5-14.5) Platelet Count 659 x10^3/uL (140-400) 571 x10^3/uL (140-400) Neutrophils (%) (Auto) 76 % (31-73) Lymphocytes (%) (Auto) 16 % (24-48) Monocytes (%) (Auto) 7 % (0-9) Eosinophils (%) (Auto) 0 % (0-3) Basophils (%) (Auto) 1 % (0-3) Neutrophils # (Auto) 9.7 x10^3uL (1.8-7.7) Lymphocytes # (Auto) 2.1 x10^3/uL (1.0-4.8) Monocytes # (Auto) 0.8 x10^3/uL (0.0-1.1) Eosinophils # (Auto) 0.0 x10^3/uL (0.0-0.7) Basophils # (Auto) 0.1 x10^3/uL (0.0-0.2) Sodium Level 144 mmol/L (136-145) Potassium Level 3.5 mmol/L (3.5-5.1) Chloride Level 108 mmol/L (98-107) Carbon Dioxide Level 30 mmol/L (21-32) Anion Gap 6 (6-14) Blood Urea Nitrogen 27 mg/dL (7-20) Creatinine 1.1 mg/dL (0.6-1.0) Estimated GFR (Cockcroft-Gault) 48.6 Glucose Level 91 mg/dL (70-99) Calcium Level 8.2 mg/dL (8.5-10.1) Review of Systems Review of Systems Denies dizziness, headache, chest pain, wheezing, nausea, vomiting, diarrhea, or constipation. Admits to cough and shortness of air. Assessment and Plan Assessmemt and Plan Problems Medical Problems: (1) Dyspnea Status: Acute ASSESSMENT: Shortness of air Emphysema PLAN: Start Donepezil Await cardiac input Continue high fiber diet for diverticulosis Continue pantoprazole daily PT/OT consult Recheck labs Follow up with PCP after discharge Problems: Comment Review of Relevant I have reviewed the following items marshal (where applicable) has been applied. Labs Laboratory Tests Test 05/25/17 13:14 05/25/17 13:25 05/25/17 14:20 05/25/17 20:00 O2 Saturation 98 % (92-99) Arterial Blood pH 7.41 (7.35-7.45) Arterial Blood pCO2 at Patient Temp 40 mmHg (35-46) Arterial Blood pO2 at Patient Temp 111 mmHg (65-108) Arterial Blood HCO3 24 mmol/L (21-28) Arterial Blood Base Excess 0 mmol/L (-3-3) FiO2 28 White Blood Count 13.3 x10^3/uL (4.0-11.0) Red Blood Count 4.14 x10^6/uL (3.50-5.40) Hemoglobin 7.5 g/dL (12.0-15.5) Hematocrit 27.3 % (36.0-47.0) Mean Corpuscular Volume 66 fL (79-100) Mean Corpuscular Hemoglobin 18 pg (25-35) Mean Corpuscular Hemoglobin Concent 28 g/dL (31-37) Red Cell Distribution Width 21.0 % (11.5-14.5) Platelet Count 713 x10^3/uL (140-400) Neutrophils (%) (Auto) 84 % (31-73) Lymphocytes (%) (Auto) 11 % (24-48) Monocytes (%) (Auto) 4 % (0-9) Eosinophils (%) (Auto) 0 % (0-3) Basophils (%) (Auto) 1 % (0-3) Neutrophils # (Auto) 11.2 x10^3uL (1.8-7.7) Lymphocytes # (Auto) 1.4 x10^3/uL (1.0-4.8) Monocytes # (Auto) 0.6 x10^3/uL (0.0-1.1) Eosinophils # (Auto) 0.0 x10^3/uL (0.0-0.7) Basophils # (Auto) 0.1 x10^3/uL (0.0-0.2) Platelet Estimate Increased (ADEQUATE) Polychromasia Slight Hypochromasia Marked Anisocytosis Mod Microcytosis Marked Spherocytes Occ Prothrombin Time 13.8 SEC (11.7-14.0) Prothromb Time International Ratio 1.1 (0.8-1.1) Sodium Level 145 mmol/L (136-145) Potassium Level 4.5 mmol/L (3.5-5.1) Chloride Level 108 mmol/L (98-107) Carbon Dioxide Level 28 mmol/L (21-32) Anion Gap 9 (6-14) Blood Urea Nitrogen 23 mg/dL (7-20) Creatinine 1.0 mg/dL (0.6-1.0) Estimated GFR (Cockcroft-Gault) 54.2 Glucose Level 101 mg/dL (70-99) Lactic Acid Level 1.4 mmol/L (0.4-2.0) Calcium Level 8.9 mg/dL (8.5-10.1) Magnesium Level 2.1 mg/dL (1.8-2.4) Iron Level 15 ug/dL (50-170) Total Iron Binding Capacity 441 ug/dL (250-450) Iron Saturation 3 % (15-34) Total Bilirubin 0.5 mg/dL (0.2-1.0) Direct Bilirubin 0.1 mg/dL (0.0-0.2) Aspartate Amino Transf (AST/SGOT) 90 U/L (15-37) Alanine Aminotransferase (ALT/SGPT) 76 U/L (14-59) Alkaline Phosphatase 166 U/L (46-116) Creatine Kinase 66 U/L (26-192) Creatine Kinase MB (Mass) 1.9 ng/mL (0.0-3.6) Creatine Kinase MB Relative Index 2.9 % (0-4) Troponin I Quantitative < 0.017 ng/mL (0.000-0.055) < 0.017 ng/mL (0.000-0.055) BA-Tqv-I-Type Natriuretic Peptide > 93145 pg/mL (0-124) Total Protein 8.1 g/dL (6.4-8.2) Albumin 3.0 g/dL (3.4-5.0) Lipase 145 U/L (73-393) Thyroid Stimulating Hormone (TSH) 1.981 uIU/mL (0.358-3.74) Urine Collection Type U cath Urine Color Yellow Urine Clarity Cloudy Urine pH 6.0 Urine Specific [place] 1.025 Urine Protein 100 mg/dL (NEG-TRACE) Urine Glucose (UA) Negative mg/dL (NEG) Urine Ketones (Stick) Negative mg/dL (NEG) Urine Blood Moderate (NEG) Urine Nitrite Positive (NEG) Urine Bilirubin Negative (NEG) Urine Urobilinogen Dipstick 0.2 mg/dL (0.2 mg/dL) Urine Leukocyte Esterase Large (NEG) Urine RBC Fobs /HPF (0-2) Urine WBC Tntc /HPF (0-4) Urine Bacteria Many /HPF (0-FEW) Urine Opiates Screen Neg (NEG) Urine Methadone Screen Neg (NEG) Urine Barbiturates Neg (NEG) Urine Phencyclidine Screen Neg (NEG) Urine Amphetamine/Methamphetamine Neg (NEG) Urine Benzodiazepines Screen Neg (NEG) Urine Cocaine Screen Neg (NEG) Urine Cannabinoids Screen Neg (NEG) Urine Ethyl Alcohol Neg (NEG) Test 05/26/17 02:20 05/26/17 19:00 05/27/17 05:08 White Blood Count 11.1 x10^3/uL (4.0-11.0) 15.8 x10^3/uL (4.0-11.0) 12.7 x10^3/uL (4.0-11.0) Red Blood Count 3.66 x10^6/uL (3.50-5.40) 4.52 x10^6/uL (3.50-5.40) 4.36 x10^6/uL (3.50-5.40) Hemoglobin 6.6 g/dL (12.0-15.5) 9.0 g/dL (12.0-15.5) 8.7 g/dL (12.0-15.5) Hematocrit 23.8 % (36.0-47.0) 30.7 % (36.0-47.0) 29.7 % (36.0-47.0) Mean Corpuscular Volume 65 fL (79-100) 68 fL (79-100) 68 fL (79-100) Mean Corpuscular Hemoglobin 18 pg (25-35) 20 pg (25-35) 20 pg (25-35) Mean Corpuscular Hemoglobin Concent 28 g/dL (31-37) 29 g/dL (31-37) 29 g/dL (31-37) Red Cell Distribution Width 21.0 % (11.5-14.5) 22.6 % (11.5-14.5) 23.1 % (11.5-14.5) Platelet Count 605 x10^3/uL (140-400) 659 x10^3/uL (140-400) 571 x10^3/uL (140-400) Neutrophils (%) (Auto) 95 % (31-73) 76 % (31-73) Lymphocytes (%) (Auto) 4 % (24-48) 16 % (24-48) Monocytes (%) (Auto) 1 % (0-9) 7 % (0-9) Eosinophils (%) (Auto) 0 % (0-3) 0 % (0-3) Basophils (%) (Auto) 0 % (0-3) 1 % (0-3) Neutrophils # (Auto) 10.5 x10^3uL (1.8-7.7) 9.7 x10^3uL (1.8-7.7) Lymphocytes # (Auto) 0.5 x10^3/uL (1.0-4.8) 2.1 x10^3/uL (1.0-4.8) Monocytes # (Auto) 0.1 x10^3/uL (0.0-1.1) 0.8 x10^3/uL (0.0-1.1) Eosinophils # (Auto) 0.0 x10^3/uL (0.0-0.7) 0.0 x10^3/uL (0.0-0.7) Basophils # (Auto) 0.0 x10^3/uL (0.0-0.2) 0.1 x10^3/uL (0.0-0.2) Segmented Neutrophils % 97 % (35-66) Lymphocytes % 3 % (24-48) Platelet Estimate Increased (ADEQUATE) Polychromasia Slight Hypochromasia Marked Anisocytosis Mod Microcytosis Marked Sodium Level 143 mmol/L (136-145) 144 mmol/L (136-145) Potassium Level 4.1 mmol/L (3.5-5.1) 3.5 mmol/L (3.5-5.1) Chloride Level 106 mmol/L (98-107) 108 mmol/L (98-107) Carbon Dioxide Level 26 mmol/L (21-32) 30 mmol/L (21-32) Anion Gap 11 (6-14) 6 (6-14) Blood Urea Nitrogen 25 mg/dL (7-20) 27 mg/dL (7-20) Creatinine 1.1 mg/dL (0.6-1.0) 1.1 mg/dL (0.6-1.0) Estimated GFR (Cockcroft-Gault) 48.6 48.6 Glucose Level 145 mg/dL (70-99) 91 mg/dL (70-99) Calcium Level 8.0 mg/dL (8.5-10.1) 8.2 mg/dL (8.5-10.1) Troponin I Quantitative < 0.017 ng/mL (0.000-0.055) Laboratory Tests Test 05/26/17 19:00 05/27/17 05:08 White Blood Count 15.8 x10^3/uL (4.0-11.0) 12.7 x10^3/uL (4.0-11.0) Red Blood Count 4.52 x10^6/uL (3.50-5.40) 4.36 x10^6/uL (3.50-5.40) Hemoglobin 9.0 g/dL (12.0-15.5) 8.7 g/dL (12.0-15.5) Hematocrit 30.7 % (36.0-47.0) 29.7 % (36.0-47.0) Mean Corpuscular Volume 68 fL (79-100) 68 fL (79-100) Mean Corpuscular Hemoglobin 20 pg (25-35) 20 pg (25-35) Mean Corpuscular Hemoglobin Concent 29 g/dL (31-37) 29 g/dL (31-37) Red Cell Distribution Width 22.6 % (11.5-14.5) 23.1 % (11.5-14.5) Platelet Count 659 x10^3/uL (140-400) 571 x10^3/uL (140-400) Neutrophils (%) (Auto) 76 % (31-73) Lymphocytes (%) (Auto) 16 % (24-48) Monocytes (%) (Auto) 7 % (0-9) Eosinophils (%) (Auto) 0 % (0-3) Basophils (%) (Auto) 1 % (0-3) Neutrophils # (Auto) 9.7 x10^3uL (1.8-7.7) Lymphocytes # (Auto) 2.1 x10^3/uL (1.0-4.8) Monocytes # (Auto) 0.8 x10^3/uL (0.0-1.1) Eosinophils # (Auto) 0.0 x10^3/uL (0.0-0.7) Basophils # (Auto) 0.1 x10^3/uL (0.0-0.2) Sodium Level 144 mmol/L (136-145) Potassium Level 3.5 mmol/L (3.5-5.1) Chloride Level 108 mmol/L (98-107) Carbon Dioxide Level 30 mmol/L (21-32) Anion Gap 6 (6-14) Blood Urea Nitrogen 27 mg/dL (7-20) Creatinine 1.1 mg/dL (0.6-1.0) Estimated GFR (Cockcroft-Gault) 48.6 Glucose Level 91 mg/dL (70-99) Calcium Level 8.2 mg/dL (8.5-10.1) Microbiology 05/25/17 Urine Culture - Preliminary, Resulted 05/25/17 Urine Culture Result 1 (JAYLIN) - Preliminary, Resulted Medications Current Medications Albuterol Sulfate (Ventolin Neb Soln) 2.5 mg PRN Q6HRS PRN NEB SHORTNESS OF BREATH Last administered on 05/26/17 00:16; Start 05/25/17 at 14:30 Azithromycin 250 ml @ 250 mls/hr 1X ONCE IV Last administered on 05/25/17 14:36; Start 05/25/17 at 14:30; Stop 05/25/17 at 15:29; Status DC Methylprednisolone Sodium Succinate (SOLU-Medrol 125MG VIAL) 125 mg 1X ONCE IV Last administered on 05/25/17 14:36; Start 05/25/17 at 14:30; Stop at 14:31; Status DC Furosemide (Lasix) 40 mg DAILY IVP Last administered on 05/26/17 09:23; Start 05/25/17 at 14:30 Meclizine HCl (Antivert) 25 mg 1X ONCE PO Last administered on 05/25/17 15: 11; Start 05/25/17 at 15:15; Stop 05/25/17 at 15:16; Status DC Ceftriaxone Sodium 1 gm/ Dextrose 50 ml @ 100 mls/hr Q24H IV ; Start 05/25/17 at 21:00; Status UNV Ceftriaxone Sodium (Rocephin) 1 gm Q24H IVP Last administered on 05/26/17 19: 11; Start 05/25/17 at 19:00 Levofloxacin/ Dextrose 100 ml @ 100 mls/hr Q24H IV Last administered on 19:59; Start 05/25/17 at 20:00 Enoxaparin Sodium (Lovenox 40mg Syringe) 40 mg Q24H SQ Last administered on 21:03; Start 05/25/17 at 19:45; Stop 05/26/17 at 10:15; Status DC Albuterol/ Ipratropium (Duoneb) 3 ml RTQID NEB Last administered on 05/26/17 20:07; Start 05/25/17 at 20:00 Budesonide (Pulmicort) 0.5 mg RTBID NEB Last administered on 05/26/17 20:07; Start 05/26/17 at 08:00 Enoxaparin Sodium (Lovenox 30mg Syringe) 30 mg Q24H SQ Last administered on 19:59; Start 05/26/17 at 21:00 Lactobacillus Rhamnosus (Culturelle) 1 cap BID PO Last administered on 19:59; Start 05/26/17 at 21:00 Polyethylene Glycol (miraLAX Powder BULK BOTTLE) 238 gm 1X ONCE PO Last administered on 05/26/17 16:08; Start 05/26/17 at 16:00; Stop 05/26/17 at 16 :01; Status DC Bisacodyl (Dulcolax Tab) 10 mg 1X ONCE PO Last administered on 05/26/17 16: 07; Start 05/26/17 at 12:00; Stop 05/26/17 at 12:06; Status DC Iron Sucrose 200 mg/Miscellaneous 10 ml @ 120 mls/hr 1X ONCE IV Last administered on 05/26/17 17:26; Start 05/26/17 at 17:00; Stop 05/26/17 at 17 :04; Status DC Magnesium Citrate (Citroma) 296 ml 1X ONCE PO Last administered on 05/26/17 22:51; Start 05/26/17 at 23:00; Stop 05/26/17 at 23:01; Status DC Active Scripts Active Codeine Sulfate 15 Mg Tablet 15 Mg PO AT BEDTIME Tessalon Perle (Benzonatate) 100 Mg Capsule 100 Mg PO TID PRN Proair Hfa Inhaler (Albuterol Sulfate) 8.5 Gm Hfa.aer.ad 2 Puff INH PRN Q6HRS PRN Ciprofloxacin Hcl 500 Mg Tablet 500 Mg PO BID Cipro (Ciprofloxacin Hcl) 500 Mg Tablet 250 Mg PO DAILY 10 Days Hydrocodone-Apap 5-325 (Hydrocodone Bit/Acetaminophen) 1 Each Tablet 1 Tab PO PRN Q6HRS PRN 10 Days Reported Naproxen Sodium 550 Mg Tablet 550 Mg PO BID Hydrocodone-Apap 5-325 (Hydrocodone Bit/Acetaminophen) 1 Each Tablet 1 Tab PO Q4HRS PRN Acetaminophen 500 Mg Tablet 1 Tab PO BID Vitals/I & O Vital Sign - Last 24 Hours 05/26/17 05/26/17 05/26/17 05/26/17 10:14 10:31 10:45 11:00 Temp 97.6 97.9 97.8 97.8 97.6 97.9 97.8 97.8 Pulse 93 87 94 94 Resp 24 B/P (MAP) 112/71 110/73 112/72 112/72 (85) Pulse Ox 100 O2 Delivery Nasal Cannula O2 Flow Rate 2.0 05/26/17 05/26/17 05/26/17 05/26/17 11:23 11:31 11:32 12:23 Temp 97.5 97.5 98.4 97.5 97.5 98.4 Pulse 90 87 94 Resp 22 B/P (MAP) 116/71 116/71 124/70 Pulse Ox 100 O2 Delivery Nasal Cannula O2 Flow Rate 2.0 05/26/17 05/26/17 05/26/17 05/26/17 13:01 15:00 15:53 19:15 Temp 97.7 97.5 97.7 97.5 Pulse 90 94 101 Resp 24 B/P (MAP) 110/70 119/75 (90) 130/62 (84) Pulse Ox 99 100 93 O2 Delivery Nasal Cannula Nasal Cannula Nasal Cannula O2 Flow Rate 2.0 2.0 2.0 05/26/17 05/26/17 05/26/17 05/27/17 19:30 20:08 23:02 05:05 Temp 97.8 97.8 Pulse 98 90 Resp 20 B/P (MAP) 101/63 (76) 123/63 (83) Pulse Ox 100 93 92 O2 Delivery Nasal Cannula Nasal Cannula Nasal Cannula Room Air O2 Flow Rate 2.0 1.0 1.0 05/27/17 05/27/17 05/27/17 07:00 07:32 07:35 Temp 97.6 97.8 97.6 97.8 Pulse 88 83 Resp 22 16 B/P (MAP) 109/65 (80) Pulse Ox 97 93 O2 Delivery Room Air Nasal Cannula O2 Flow Rate 2.0 Intake and Output 05/26/17 05/26/17 05/27/17 14:59 22:59 06:59 Intake Total 350 ml 902 ml 600 ml Output Total 1200 ml Balance 350 ml -298 ml 600 ml SHIRIN CORTEZ III DO May 27, 2017 08:33
--- NOTE | 2017-05-27 08:41 | RAD ---
EXAM: Chest one view. HISTORY: Edema, shortness of breath. COMPARISON: 05/25/2017. FINDINGS: A frontal view of the chest is obtained. There are small bilateral pleural effusions. Basilar predominant interstitial opacities are not clearly changed. There is no pneumothorax. The heart is moderately enlarged. IMPRESSION: 1. Stable small pleural effusions and mild pulmonary edema. 2. Moderate cardiomegaly.
--- NOTE | 2017-05-27 08:51 | PDOC4 ---
PROCEDURE Procedure EGD and Colonoscopy EGD- gastric erosions and gastritis with medium hiatal hernia Colonoscopy- diverticulosis- no polyps Plan high fiber diet prn miralax decrease use of NSAIDs protonix daily STEVEN SALGADO MD May 27, 2017 08:51
[2017-05-27 10:39] VITALS: BP 118/77
[2017-05-27] MEDS: BUDESONIDE 0.5 MG/2 ML NEBU. NEB SCH ×2 (11:19→21:23)
[2017-05-27] MEDS: CALCIUM POLYCARBOPHIL 625 MG TABLET PO SCH (12:26)
[2017-05-27] MEDS: PANTOPRAZOLE 40 MG TABLET.DR. PO SCH (12:27)
[2017-05-27] MEDS: FUROSEMIDE 40 MG/4 ML VIAL. IVP SCH (12:27)
[2017-05-27] MEDS: LACTOBACILLUS RHAMNOSUS GG 1 CAPSULE. PO SCH ×2 (12:27→20:33)
[2017-05-27 15:00] VITALS: BP 93/45
--- NOTE | 2017-05-27 15:59 | PDOC ---
PULMONARY PROGRESS NOTES Subjective PT FEELS BETTER LESS SOA Vitals Vital Signs Date Time Temp Pulse Resp B/P (MAP) Pulse Ox O2 Delivery O2 Flow Rate FiO2 05/27/17 11:22 97 Nasal Cannula 2.0 05/27/17 10:39 98.7 86 20 118/77 (91) 98.7 ROS: No Nausea, No Chest Pain, No Abdominal Pain, No Increase Cough Lungs: Crackles (b/l lower lobe crackles) Cardiovascular: S1, S2 Abdomen: Soft Neuro Exam: Alert Extremities: No Edema Skin: Warm Labs Laboratory Tests Test 05/25/17 20:00 05/26/17 02:20 05/26/17 19:00 05/27/17 05:08 Troponin I Quantitative < 0.017 ng/mL (0.000-0.055) < 0.017 ng/mL (0.000-0.055) White Blood Count 11.1 x10^3/uL (4.0-11.0) 15.8 x10^3/uL (4.0-11.0) 12.7 x10^3/uL (4.0-11.0) Red Blood Count 3.66 x10^6/uL (3.50-5.40) 4.52 x10^6/uL (3.50-5.40) 4.36 x10^6/uL (3.50-5.40) Hemoglobin 6.6 g/dL (12.0-15.5) 9.0 g/dL (12.0-15.5) 8.7 g/dL (12.0-15.5) Hematocrit 23.8 % (36.0-47.0) 30.7 % (36.0-47.0) 29.7 % (36.0-47.0) Mean Corpuscular Volume 65 fL (79-100) 68 fL (79-100) 68 fL (79-100) Mean Corpuscular Hemoglobin 18 pg (25-35) 20 pg (25-35) 20 pg (25-35) Mean Corpuscular Hemoglobin Concent 28 g/dL (31-37) 29 g/dL (31-37) 29 g/dL (31-37) Red Cell Distribution Width 21.0 % (11.5-14.5) 22.6 % (11.5-14.5) 23.1 % (11.5-14.5) Platelet Count 605 x10^3/uL (140-400) 659 x10^3/uL (140-400) 571 x10^3/uL (140-400) Neutrophils (%) (Auto) 95 % (31-73) 76 % (31-73) Lymphocytes (%) (Auto) 4 % (24-48) 16 % (24-48) Monocytes (%) (Auto) 1 % (0-9) 7 % (0-9) Eosinophils (%) (Auto) 0 % (0-3) 0 % (0-3) Basophils (%) (Auto) 0 % (0-3) 1 % (0-3) Neutrophils # (Auto) 10.5 x10^3uL (1.8-7.7) 9.7 x10^3uL (1.8-7.7) Lymphocytes # (Auto) 0.5 x10^3/uL (1.0-4.8) 2.1 x10^3/uL (1.0-4.8) Monocytes # (Auto) 0.1 x10^3/uL (0.0-1.1) 0.8 x10^3/uL (0.0-1.1) Eosinophils # (Auto) 0.0 x10^3/uL (0.0-0.7) 0.0 x10^3/uL (0.0-0.7) Basophils # (Auto) 0.0 x10^3/uL (0.0-0.2) 0.1 x10^3/uL (0.0-0.2) Segmented Neutrophils % 97 % (35-66) Lymphocytes % 3 % (24-48) Platelet Estimate Increased (ADEQUATE) Polychromasia Slight Hypochromasia Marked Anisocytosis Mod Microcytosis Marked Sodium Level 143 mmol/L (136-145) 144 mmol/L (136-145) Potassium Level 4.1 mmol/L (3.5-5.1) 3.5 mmol/L (3.5-5.1) Chloride Level 106 mmol/L (98-107) 108 mmol/L (98-107) Carbon Dioxide Level 26 mmol/L (21-32) 30 mmol/L (21-32) Anion Gap 11 (6-14) 6 (6-14) Blood Urea Nitrogen 25 mg/dL (7-20) 27 mg/dL (7-20) Creatinine 1.1 mg/dL (0.6-1.0) 1.1 mg/dL (0.6-1.0) Estimated GFR (Cockcroft-Gault) 48.6 48.6 Glucose Level 145 mg/dL (70-99) 91 mg/dL (70-99) Calcium Level 8.0 mg/dL (8.5-10.1) 8.2 mg/dL (8.5-10.1) Laboratory Tests Test 05/26/17 19:00 05/27/17 05:08 White Blood Count 15.8 x10^3/uL (4.0-11.0) 12.7 x10^3/uL (4.0-11.0) Red Blood Count 4.52 x10^6/uL (3.50-5.40) 4.36 x10^6/uL (3.50-5.40) Hemoglobin 9.0 g/dL (12.0-15.5) 8.7 g/dL (12.0-15.5) Hematocrit 30.7 % (36.0-47.0) 29.7 % (36.0-47.0) Mean Corpuscular Volume 68 fL (79-100) 68 fL (79-100) Mean Corpuscular Hemoglobin 20 pg (25-35) 20 pg (25-35) Mean Corpuscular Hemoglobin Concent 29 g/dL (31-37) 29 g/dL (31-37) Red Cell Distribution Width 22.6 % (11.5-14.5) 23.1 % (11.5-14.5) Platelet Count 659 x10^3/uL (140-400) 571 x10^3/uL (140-400) Neutrophils (%) (Auto) 76 % (31-73) Lymphocytes (%) (Auto) 16 % (24-48) Monocytes (%) (Auto) 7 % (0-9) Eosinophils (%) (Auto) 0 % (0-3) Basophils (%) (Auto) 1 % (0-3) Neutrophils # (Auto) 9.7 x10^3uL (1.8-7.7) Lymphocytes # (Auto) 2.1 x10^3/uL (1.0-4.8) Monocytes # (Auto) 0.8 x10^3/uL (0.0-1.1) Eosinophils # (Auto) 0.0 x10^3/uL (0.0-0.7) Basophils # (Auto) 0.1 x10^3/uL (0.0-0.2) Sodium Level 144 mmol/L (136-145) Potassium Level 3.5 mmol/L (3.5-5.1) Chloride Level 108 mmol/L (98-107) Carbon Dioxide Level 30 mmol/L (21-32) Anion Gap 6 (6-14) Blood Urea Nitrogen 27 mg/dL (7-20) Creatinine 1.1 mg/dL (0.6-1.0) Estimated GFR (Cockcroft-Gault) 48.6 Glucose Level 91 mg/dL (70-99) Calcium Level 8.2 mg/dL (8.5-10.1) Medications Active Scripts Medications Dose Route/Sig Max Daily Dose Days Date Category Codeine Sulfate 15 Mg Tablet 15 Mg PO AT BEDTIME 01/05/16 Rx Tessalon Perle (Benzonatate) 100 Mg Capsule 100 Mg PO TID PRN 01/05/16 Rx Proair Hfa Inhaler (Albuterol Sulfate) 8.5 Gm Hfa.aer.ad 2 Puff INH PRN Q6HRS PRN 01/05/16 Rx Ciprofloxacin Hcl 500 Mg Tablet 500 Mg PO BID 01/05/16 Rx Cipro (Ciprofloxacin Hcl) 500 Mg Tablet 250 Mg PO DAILY 10 02/12/15 Rx Hydrocodone-Apap 5-325 (Hydrocodone Bit/Acetaminophen) 1 Each Tablet 1 Tab PO PRN Q6HRS PRN 10 02/12/15 Rx Naproxen Sodium 550 Mg Tablet 550 Mg PO BID 02/05/15 Reported Hydrocodone-Apap 5-325 (Hydrocodone Bit/Acetaminophen) 1 Each Tablet 1 Tab PO Q4HRS PRN 02/05/15 Reported Acetaminophen 500 Mg Tablet 1 Tab PO BID 01/31/15 Reported Impression . IMPRESSION: 1. Acute respiratory failure. Suspect mostly acute pulmonary edema, diastolic versus systolic heart failure. 2. Abnormal x-ray compatible with pulmonary edema. 3. Doubt chronic obstructive pulmonary disease. 4. Possible mild interstitial lung disease. 5. Acute blood loss anemia. 6. Protein malnutrition, present upon admission. 7. Leukocytosis. 8. Possible urinary tract infection. cxr 05/27 IMPRESSION: 1. Stable small pleural effusions and mild pulmonary edema. 2. Moderate cardiomegaly. Plan . WILL CHECK CT OF CHEST 1. Recommend cardiac workup. Echocardiogram is pending. 2. GI workup is pending. 3. Continue empiric antibiotics. The patient's clinical presentation is compatible with acute bronchitis. 4. Continue Lasix. 5. Dietary consult. SHAYAN ALANIS MD May 27, 2017 15:59
[2017-05-27 19:00] VITALS: BP 110/62
[2017-05-27] MEDS: cefTRIAXone IV Push 1 GM VIAL. IVP SCH (19:46)
[2017-05-27] MEDS: DONEPEZIL HCL 5 MG TABLET. PO SCH (20:33)
[2017-05-27] MEDS: ENOXAPARIN 30 MG/0.3 ML SYRINGE. SQ SCH (20:34)
[2017-05-27 22:26] VITALS: BP 98/61
[2017-05-28] VITALS (8 sets, daily range): BP systolic 80–123; BP diastolic 44–72
[2017-05-28 05:32] LABS: BASO # 0.1 x10^3/uL (0.0-0.2); BASO % 1 % (0-3); EOS % 1 % (0-3); HEMATOCRIT 32.4 % (36.0-47.0); HEMOGLOBIN 9.4 g/dL (12.0-15.5); LYMPH # 2.1 x10^3/uL (1.0-4.8); LYMPH % 23 % (24-48); MEAN CORPUSCULAR HEMOGLOBIN 20 pg (25-35); MEAN CORPUSCULAR HGB CONC 29 g/dL (31-37); MEAN CORPUSCULAR VOLUME 68 fL (79-100); MONO % 8 % (0-9); NEUT % 68 % (31-73); PLATELET COUNT 523 x10^3/uL (140-400); RED BLOOD COUNT 4.75 x10^6/uL (3.50-5.40); RED CELL DISTRIBUTION WIDTH 23.4 % (11.5-14.5); WHITE BLOOD COUNT 9.3 x10^3/uL (4.0-11.0)
[2017-05-28 05:49] LABS: CALCIUM 8.3 mg/dL (8.5-10.1); CREATININE 0.9 mg/dL (0.6-1.0); GFR 61.2; POTASSIUM 3.3 mmol/L (3.5-5.1)
[2017-05-28] MEDS ORDERED: POTASSIUM CHLORIDE 20MEQ 50 ML IV SCH (07:30)
[2017-05-28] MEDS ORDERED: POTASSIUM CHLORIDE 20 MEQ TABLET.ER. PO ONE (07:45)
[2017-05-28] MEDS: IPRATRPIUM/ALBUTEROL 0.5/2.5MG 3 ML NEBU. NEB SCH ×4 (08:04→17:55)
[2017-05-28] MEDS: BUDESONIDE 0.5 MG/2 ML NEBU. NEB SCH ×2 (08:04→17:55)
[2017-05-28] MEDS: FUROSEMIDE 40 MG/4 ML VIAL. IVP SCH (08:39)
[2017-05-28] MEDS: PANTOPRAZOLE 40 MG TABLET.DR. PO SCH (08:40)
[2017-05-28] MEDS: LACTOBACILLUS RHAMNOSUS GG 1 CAPSULE. PO SCH ×2 (08:40→21:19)
[2017-05-28] MEDS: CALCIUM POLYCARBOPHIL 625 MG TABLET PO SCH (08:44)
--- NOTE | 2017-05-28 09:55 | PDOC ---
G I PROGRESS NOTE Subjective No GI complaints. Says breathing OK. Objective Endoscopy notes reviewed. Physical Exam Lungs clear. RRR Abdomen soft, not tender nor distended. Review of Relevant I have reviewed the following items marshal (where applicable) has been applied. Labs Laboratory Tests Test 05/26/17 19:00 05/27/17 05:08 05/28/17 04:45 White Blood Count 15.8 x10^3/uL (4.0-11.0) 12.7 x10^3/uL (4.0-11.0) 9.3 x10^3/uL (4.0-11.0) Red Blood Count 4.52 x10^6/uL (3.50-5.40) 4.36 x10^6/uL (3.50-5.40) 4.75 x10^6/uL (3.50-5.40) Hemoglobin 9.0 g/dL (12.0-15.5) 8.7 g/dL (12.0-15.5) 9.4 g/dL (12.0-15.5) Hematocrit 30.7 % (36.0-47.0) 29.7 % (36.0-47.0) 32.4 % (36.0-47.0) Mean Corpuscular Volume 68 fL (79-100) 68 fL (79-100) 68 fL (79-100) Mean Corpuscular Hemoglobin 20 pg (25-35) 20 pg (25-35) 20 pg (25-35) Mean Corpuscular Hemoglobin Concent 29 g/dL (31-37) 29 g/dL (31-37) 29 g/dL (31-37) Red Cell Distribution Width 22.6 % (11.5-14.5) 23.1 % (11.5-14.5) 23.4 % (11.5-14.5) Platelet Count 659 x10^3/uL (140-400) 571 x10^3/uL (140-400) 523 x10^3/uL (140-400) Neutrophils (%) (Auto) 76 % (31-73) 68 % (31-73) Lymphocytes (%) (Auto) 16 % (24-48) 23 % (24-48) Monocytes (%) (Auto) 7 % (0-9) 8 % (0-9) Eosinophils (%) (Auto) 0 % (0-3) 1 % (0-3) Basophils (%) (Auto) 1 % (0-3) 1 % (0-3) Neutrophils # (Auto) 9.7 x10^3uL (1.8-7.7) 6.3 x10^3uL (1.8-7.7) Lymphocytes # (Auto) 2.1 x10^3/uL (1.0-4.8) 2.1 x10^3/uL (1.0-4.8) Monocytes # (Auto) 0.8 x10^3/uL (0.0-1.1) 0.7 x10^3/uL (0.0-1.1) Eosinophils # (Auto) 0.0 x10^3/uL (0.0-0.7) 0.0 x10^3/uL (0.0-0.7) Basophils # (Auto) 0.1 x10^3/uL (0.0-0.2) 0.1 x10^3/uL (0.0-0.2) Sodium Level 144 mmol/L (136-145) 142 mmol/L (136-145) Potassium Level 3.5 mmol/L (3.5-5.1) 3.3 mmol/L (3.5-5.1) Chloride Level 108 mmol/L (98-107) 106 mmol/L (98-107) Carbon Dioxide Level 30 mmol/L (21-32) 31 mmol/L (21-32) Anion Gap 6 (6-14) 5 (6-14) Blood Urea Nitrogen 27 mg/dL (7-20) 18 mg/dL (7-20) Creatinine 1.1 mg/dL (0.6-1.0) 0.9 mg/dL (0.6-1.0) Estimated GFR (Cockcroft-Gault) 48.6 61.2 Glucose Level 91 mg/dL (70-99) 84 mg/dL (70-99) Calcium Level 8.2 mg/dL (8.5-10.1) 8.3 mg/dL (8.5-10.1) Laboratory Tests Test 05/28/17 04:45 White Blood Count 9.3 x10^3/uL (4.0-11.0) Red Blood Count 4.75 x10^6/uL (3.50-5.40) Hemoglobin 9.4 g/dL (12.0-15.5) Hematocrit 32.4 % (36.0-47.0) Mean Corpuscular Volume 68 fL (79-100) Mean Corpuscular Hemoglobin 20 pg (25-35) Mean Corpuscular Hemoglobin Concent 29 g/dL (31-37) Red Cell Distribution Width 23.4 % (11.5-14.5) Platelet Count 523 x10^3/uL (140-400) Neutrophils (%) (Auto) 68 % (31-73) Lymphocytes (%) (Auto) 23 % (24-48) Monocytes (%) (Auto) 8 % (0-9) Eosinophils (%) (Auto) 1 % (0-3) Basophils (%) (Auto) 1 % (0-3) Neutrophils # (Auto) 6.3 x10^3uL (1.8-7.7) Lymphocytes # (Auto) 2.1 x10^3/uL (1.0-4.8) Monocytes # (Auto) 0.7 x10^3/uL (0.0-1.1) Eosinophils # (Auto) 0.0 x10^3/uL (0.0-0.7) Basophils # (Auto) 0.1 x10^3/uL (0.0-0.2) Sodium Level 142 mmol/L (136-145) Potassium Level 3.3 mmol/L (3.5-5.1) Chloride Level 106 mmol/L (98-107) Carbon Dioxide Level 31 mmol/L (21-32) Anion Gap 5 (6-14) Blood Urea Nitrogen 18 mg/dL (7-20) Creatinine 0.9 mg/dL (0.6-1.0) Estimated GFR (Cockcroft-Gault) 61.2 Glucose Level 84 mg/dL (70-99) Calcium Level 8.3 mg/dL (8.5-10.1) Microbiology 05/25/17 Urine Culture - Final, Complete 05/25/17 Urine Culture Result 1 (JAYLIN) - Final, Complete 05/25/17 Antimicrobic Susceptibility - Final, Complete Medications Current Medications Albuterol Sulfate (Ventolin Neb Soln) 2.5 mg PRN Q6HRS PRN NEB SHORTNESS OF BREATH Last administered on 05/26/17 00:16; Start 05/25/17 at 14:30 Azithromycin 250 ml @ 250 mls/hr 1X ONCE IV Last administered on 05/25/17 14:36; Start 05/25/17 at 14:30; Stop 05/25/17 at 15:29; Status DC Methylprednisolone Sodium Succinate (SOLU-Medrol 125MG VIAL) 125 mg 1X ONCE IV Last administered on 05/25/17 14:36; Start 05/25/17 at 14:30; Stop at 14:31; Status DC Furosemide (Lasix) 40 mg DAILY IVP Last administered on 05/28/17 08:39; Start 05/25/17 at 14:30 Meclizine HCl (Antivert) 25 mg 1X ONCE PO Last administered on 05/25/17 15: 11; Start 05/25/17 at 15:15; Stop 05/25/17 at 15:16; Status DC Ceftriaxone Sodium 1 gm/ Dextrose 50 ml @ 100 mls/hr Q24H IV ; Start 05/25/17 at 21:00; Status UNV Ceftriaxone Sodium (Rocephin) 1 gm Q24H IVP Last administered on 05/27/17 19: 46; Start 05/25/17 at 19:00 Levofloxacin/ Dextrose 100 ml @ 100 mls/hr Q24H IV Last administered on 19:59; Start 05/25/17 at 20:00; Stop 05/27/17 at 14:28; Status DC Enoxaparin Sodium (Lovenox 40mg Syringe) 40 mg Q24H SQ Last administered on 21:03; Start 05/25/17 at 19:45; Stop 05/26/17 at 10:15; Status DC Albuterol/ Ipratropium (Duoneb) 3 ml RTQID NEB Last administered on 05/28/17 08:04; Start 05/25/17 at 20:00 Budesonide (Pulmicort) 0.5 mg RTBID NEB Last administered on 05/28/17 08:04; Start 05/26/17 at 08:00 Enoxaparin Sodium (Lovenox 30mg Syringe) 30 mg Q24H SQ Last administered on 20:34; Start 05/26/17 at 21:00 Lactobacillus Rhamnosus (Culturelle) 1 cap BID PO Last administered on 08:40; Start 05/26/17 at 21:00 Polyethylene Glycol (miraLAX Powder BULK BOTTLE) 238 gm 1X ONCE PO Last administered on 05/26/17 16:08; Start 05/26/17 at 16:00; Stop 05/26/17 at 16 :01; Status DC Bisacodyl (Dulcolax Tab) 10 mg 1X ONCE PO Last administered on 05/26/17 16: 07; Start 05/26/17 at 12:00; Stop 05/26/17 at 12:06; Status DC Iron Sucrose 200 mg/Miscellaneous 10 ml @ 120 mls/hr 1X ONCE IV Last administered on 05/26/17 17:26; Start 05/26/17 at 17:00; Stop 05/26/17 at 17 :04; Status DC Magnesium Citrate (Citroma) 296 ml 1X ONCE PO Last administered on 05/26/17 22:51; Start 05/26/17 at 23:00; Stop 05/26/17 at 23:01; Status DC Calcium Polycarbophil (Fibercon) 625 mg DAILY PO Last administered on 08:44; Start 05/27/17 at 09:00 Pantoprazole Sodium (Protonix) 40 mg DAILYAC PO Last administered on 08:40; Start 05/27/17 at 09:30 Donepezil HCl (Aricept) 5 mg QHS PO Last administered on 05/27/17 20:33; Start 05/27/17 at 21:00 Levofloxacin/ Dextrose 50 ml @ 50 mls/hr Q24H IV Last administered on 20:33; Start 05/27/17 at 20:00 Potassium Chloride 50 ml @ 50 mls/hr Q1H IV ; Start 05/28/17 at 07:30; Stop at 07:43; Status DC Potassium Chloride (Klor-Con) 40 meq 1X ONCE PO Last administered on 08:40; Start 05/28/17 at 07:45; Stop 05/28/17 at 07:46; Status DC Active Scripts Active Codeine Sulfate 15 Mg Tablet 15 Mg PO AT BEDTIME Tessalon Perle (Benzonatate) 100 Mg Capsule 100 Mg PO TID PRN Proair Hfa Inhaler (Albuterol Sulfate) 8.5 Gm Hfa.aer.ad 2 Puff INH PRN Q6HRS PRN Ciprofloxacin Hcl 500 Mg Tablet 500 Mg PO BID Cipro (Ciprofloxacin Hcl) 500 Mg Tablet 250 Mg PO DAILY 10 Days Hydrocodone-Apap 5-325 (Hydrocodone Bit/Acetaminophen) 1 Each Tablet 1 Tab PO PRN Q6HRS PRN 10 Days Reported Naproxen Sodium 550 Mg Tablet 550 Mg PO BID Hydrocodone-Apap 5-325 (Hydrocodone Bit/Acetaminophen) 1 Each Tablet 1 Tab PO Q4HRS PRN Acetaminophen 500 Mg Tablet 1 Tab PO BID Vitals/I & O Vital Sign - Last 24 Hours 05/27/17 05/27/17 05/27/17 05/27/17 10:39 11:22 15:00 19:00 Temp 98.7 98.5 98.3 98.7 98.5 98.3 Pulse 86 98 99 Resp 20 24 B/P (MAP) 118/77 (91) 93/45 (61) 110/62 (78) Pulse Ox 92 97 94 93 O2 Delivery Nasal Cannula Nasal Cannula Room Air Nasal Cannula O2 Flow Rate 2.5 2.0 2.0 05/27/17 05/27/17 05/27/17 05/28/17 20:00 21:23 22:26 03:00 Temp 97.7 98.1 97.7 98.1 Pulse 90 109 Resp 20 18 B/P (MAP) 98/61 (73) 107/72 (84) Pulse Ox 99 92 94 O2 Delivery Nasal Cannula Nasal Cannula Nasal Cannula Nasal Cannula O2 Flow Rate 2.0 2.0 2.0 2.0 05/28/17 05/28/17 05/28/17 07:00 07:59 08:00 Temp 98.0 98.0 Pulse 102 Resp 18 B/P (MAP) 110/70 (83) Pulse Ox 94 94 O2 Delivery Nasal Cannula Nasal Cannula Room Air O2 Flow Rate 2.0 2.0 Intake and Output 05/27/17 05/27/17 05/28/17 15:00 23:00 07:00 Intake Total 680 ml 250 ml Output Total 1000 ml 450 ml Balance -320 ml -200 ml Problem List Problems Medical Problems: (1) Dyspnea Status: Acute Assessment LIZETH, perhaps from Leif lesion noted at EGD. Diverticulosis, uncomplicated. Plan of Care: Continue current Tx, Mgmt Plan of Care Note Will likely need some form of chronic iron supplementation unless hiatal hernia reduced surgically. GARIMA LEACH MD May 28, 2017 09:55
--- NOTE | 2017-05-28 12:04 | PDOC ---
CARDIOLOGY PROGRESS NOTE SUBJECTIVE: Reports dyspnea this afternoon. Denies chest pain. Flat affect, minimal one word answers. OBJECTIVE: Vital SIgns: Vital Signs Date Time Temp Pulse Resp B/P (MAP) Pulse Ox O2 Delivery O2 Flow Rate FiO2 05/28/17 11:00 97.5 94 16 123/56 (78) 95 Room Air 97.5 05/28/17 07:59 2.0 I & O Intake and Output 05/28/17 07:00 Intake Total 930 ml Output Total 1450 ml Balance -520 ml Intake Oral 930 ml Output Urine Total 1450 ml Objective: Tachypneic Mild tachycardia Clear lung sounds no edema. CURRENT MEDICATIONS: Current Medications Medications (Trade) Dose Ordered Sig/Emelia Start Time Stop Time Status Last Admin Dose Admin Albuterol Sulfate (Ventolin Neb Soln) 2.5 mg PRN Q6HRS PRN 05/25/17 14:30 05/26/17 00:16 2.5 MG Albuterol/ Ipratropium (Duoneb) 3 ml RTQID 05/25/17 20:00 05/28/17 08:04 3 ML Azithromycin 250 ml @ 250 mls/hr 1X ONCE 05/25/17 14:30 05/25/17 15:29 DC 05/25/17 14:36 250 MLS/HR Bisacodyl (Dulcolax Tab) 10 mg 1X ONCE 05/26/17 12:00 05/26/17 12:06 DC 05/26/17 16:07 10 MG Budesonide (Pulmicort) 0.5 mg RTBID 05/26/17 08:00 05/28/17 08:04 0.5 MG Calcium Polycarbophil (Fibercon) 625 mg DAILY 05/27/17 09:00 05/28/17 08:44 625 MG Cefpodoxime Proxetil (Vantin) 200 mg BID 05/28/17 21:00 Ceftriaxone Sodium 1 gm/ Dextrose 50 ml @ 100 mls/hr Q24H 05/25/17 21:00 UNV Ceftriaxone Sodium (Rocephin) 1 gm Q24H 05/25/17 19:00 05/28/17 09:56 DC 05/27/17 19:46 1 GM Donepezil HCl (Aricept) 5 mg QHS 05/27/17 21:00 05/27/17 20:33 5 MG Enoxaparin Sodium (Lovenox 30mg Syringe) 30 mg Q24H 05/26/17 21:00 05/27/17 20:34 30 MG Enoxaparin Sodium (Lovenox 40mg Syringe) 40 mg Q24H 05/25/17 19:45 05/26/17 10:15 DC 05/25/17 21:03 40 MG Furosemide (Lasix) 40 mg DAILY 05/25/17 14:30 05/28/17 08:39 40 MG Iron Sucrose 200 mg/Miscellaneous 10 ml @ 120 mls/hr 1X ONCE 05/26/17 17:00 05/26/17 17:04 DC 05/26/17 17:26 120 MLS/HR Lactobacillus Rhamnosus (Culturelle) 1 cap BID 05/26/17 21:00 05/28/17 08:40 1 CAP Levofloxacin (Levaquin) 250 mg QHS 05/28/17 21:00 Levofloxacin/ Dextrose 50 ml @ 50 mls/hr Q24H 05/27/17 20:00 05/28/17 09:56 DC 05/27/17 20:33 50 MLS/HR Magnesium Citrate (Citroma) 296 ml 1X ONCE 05/26/17 23:00 05/26/17 23:01 DC 05/26/17 22:51 296 ML Meclizine HCl (Antivert) 25 mg 1X ONCE 05/25/17 15:15 05/25/17 15:16 DC 05/25/17 15:11 25 MG Methylprednisolone Sodium Succinate (SOLU-Medrol 125MG VIAL) 125 mg 1X ONCE 05/25/17 14:30 05/25/17 14:31 DC 05/25/17 14:36 125 MG Pantoprazole Sodium (Protonix) 40 mg DAILYAC 05/27/17 09:30 05/28/17 08:40 40 MG Polyethylene Glycol (miraLAX Powder BULK BOTTLE) 238 gm 1X ONCE 05/26/17 16:00 05/26/17 16:01 DC 05/26/17 16:08 238 GM Potassium Chloride (Klor-Con) 40 meq 1X ONCE 05/28/17 07:45 05/28/17 07:46 DC 05/28/17 08:40 40 MEQ DIAGNOSTIC TESTING: EGD with gastritis ASSESSMENT: 1. LIZETH 2. Gastritis 3. Dyspnea Problems: PLAN: 1. Await echo. 2. Supportive care. Will follow. KIP CHUA MD May 28, 2017 12:04
--- NOTE | 2017-05-28 12:54 | PDOC ---
PROGRESS NOTES Chief Complaint Chief Complaint Shortness of air Emphysema History of Present Illness History of Present Illness The pt was sitting in bed wearing hospital attire. She reports sleeping well, her appetite is ok, her last bowel movement was 2 days ago, and she urinated this morning. Vitals Vitals Vital Signs Date Time Temp Pulse Resp B/P (MAP) Pulse Ox O2 Delivery O2 Flow Rate FiO2 05/28/17 12:01 93 Room Air 05/28/17 11:00 97.5 94 16 123/56 (78) 97.5 05/28/17 07:59 2.0 Physical Exam Physical Exam Eyes: sclera anicteric, no conjunctival injection HENT: spots of white substance on tongue, no throat erythema Neuro: planer stone II-XII grossly intact b/l General: Oriented X3, Cooperative, No acute distress Heart: Regular rate, Normal S1, Normal S2, No murmurs Lungs: Clear, Other (no wheezes or rhonchi) Abdomen: Normal bowel sounds, Soft, Other (Tender abdomen) Skin: No rashes, No significant lesion Labs LABS Laboratory Tests Test 05/28/17 04:45 White Blood Count 9.3 x10^3/uL (4.0-11.0) Red Blood Count 4.75 x10^6/uL (3.50-5.40) Hemoglobin 9.4 g/dL (12.0-15.5) Hematocrit 32.4 % (36.0-47.0) Mean Corpuscular Volume 68 fL (79-100) Mean Corpuscular Hemoglobin 20 pg (25-35) Mean Corpuscular Hemoglobin Concent 29 g/dL (31-37) Red Cell Distribution Width 23.4 % (11.5-14.5) Platelet Count 523 x10^3/uL (140-400) Neutrophils (%) (Auto) 68 % (31-73) Lymphocytes (%) (Auto) 23 % (24-48) Monocytes (%) (Auto) 8 % (0-9) Eosinophils (%) (Auto) 1 % (0-3) Basophils (%) (Auto) 1 % (0-3) Neutrophils # (Auto) 6.3 x10^3uL (1.8-7.7) Lymphocytes # (Auto) 2.1 x10^3/uL (1.0-4.8) Monocytes # (Auto) 0.7 x10^3/uL (0.0-1.1) Eosinophils # (Auto) 0.0 x10^3/uL (0.0-0.7) Basophils # (Auto) 0.1 x10^3/uL (0.0-0.2) Sodium Level 142 mmol/L (136-145) Potassium Level 3.3 mmol/L (3.5-5.1) Chloride Level 106 mmol/L (98-107) Carbon Dioxide Level 31 mmol/L (21-32) Anion Gap 5 (6-14) Blood Urea Nitrogen 18 mg/dL (7-20) Creatinine 0.9 mg/dL (0.6-1.0) Estimated GFR (Cockcroft-Gault) 61.2 Glucose Level 84 mg/dL (70-99) Calcium Level 8.3 mg/dL (8.5-10.1) Review of Systems Review of Systems Admits to dizziness and cough. Denies fever, chills, chest pain, wheezing, shortness of breath, nausea, vomiting, diarrhea, constipation. Assessment and Plan Assessmemt and Plan Problems Medical Problems: (1) Dyspnea Status: Acute ASSESSMENT: Shortness of air Emphysema PLAN: Continue current meds PT/OT Monitor labs Appreciate input from subspecialists Discharge to [facility] if ok with subspecialists Problems: Comment Review of Relevant I have reviewed the following items marshal (where applicable) has been applied. Labs Laboratory Tests Test 05/26/17 19:00 05/27/17 05:08 05/28/17 04:45 White Blood Count 15.8 x10^3/uL (4.0-11.0) 12.7 x10^3/uL (4.0-11.0) 9.3 x10^3/uL (4.0-11.0) Red Blood Count 4.52 x10^6/uL (3.50-5.40) 4.36 x10^6/uL (3.50-5.40) 4.75 x10^6/uL (3.50-5.40) Hemoglobin 9.0 g/dL (12.0-15.5) 8.7 g/dL (12.0-15.5) 9.4 g/dL (12.0-15.5) Hematocrit 30.7 % (36.0-47.0) 29.7 % (36.0-47.0) 32.4 % (36.0-47.0) Mean Corpuscular Volume 68 fL (79-100) 68 fL (79-100) 68 fL (79-100) Mean Corpuscular Hemoglobin 20 pg (25-35) 20 pg (25-35) 20 pg (25-35) Mean Corpuscular Hemoglobin Concent 29 g/dL (31-37) 29 g/dL (31-37) 29 g/dL (31-37) Red Cell Distribution Width 22.6 % (11.5-14.5) 23.1 % (11.5-14.5) 23.4 % (11.5-14.5) Platelet Count 659 x10^3/uL (140-400) 571 x10^3/uL (140-400) 523 x10^3/uL (140-400) Neutrophils (%) (Auto) 76 % (31-73) 68 % (31-73) Lymphocytes (%) (Auto) 16 % (24-48) 23 % (24-48) Monocytes (%) (Auto) 7 % (0-9) 8 % (0-9) Eosinophils (%) (Auto) 0 % (0-3) 1 % (0-3) Basophils (%) (Auto) 1 % (0-3) 1 % (0-3) Neutrophils # (Auto) 9.7 x10^3uL (1.8-7.7) 6.3 x10^3uL (1.8-7.7) Lymphocytes # (Auto) 2.1 x10^3/uL (1.0-4.8) 2.1 x10^3/uL (1.0-4.8) Monocytes # (Auto) 0.8 x10^3/uL (0.0-1.1) 0.7 x10^3/uL (0.0-1.1) Eosinophils # (Auto) 0.0 x10^3/uL (0.0-0.7) 0.0 x10^3/uL (0.0-0.7) Basophils # (Auto) 0.1 x10^3/uL (0.0-0.2) 0.1 x10^3/uL (0.0-0.2) Sodium Level 144 mmol/L (136-145) 142 mmol/L (136-145) Potassium Level 3.5 mmol/L (3.5-5.1) 3.3 mmol/L (3.5-5.1) Chloride Level 108 mmol/L (98-107) 106 mmol/L (98-107) Carbon Dioxide Level 30 mmol/L (21-32) 31 mmol/L (21-32) Anion Gap 6 (6-14) 5 (6-14) Blood Urea Nitrogen 27 mg/dL (7-20) 18 mg/dL (7-20) Creatinine 1.1 mg/dL (0.6-1.0) 0.9 mg/dL (0.6-1.0) Estimated GFR (Cockcroft-Gault) 48.6 61.2 Glucose Level 91 mg/dL (70-99) 84 mg/dL (70-99) Calcium Level 8.2 mg/dL (8.5-10.1) 8.3 mg/dL (8.5-10.1) Laboratory Tests Test 05/28/17 04:45 White Blood Count 9.3 x10^3/uL (4.0-11.0) Red Blood Count 4.75 x10^6/uL (3.50-5.40) Hemoglobin 9.4 g/dL (12.0-15.5) Hematocrit 32.4 % (36.0-47.0) Mean Corpuscular Volume 68 fL (79-100) Mean Corpuscular Hemoglobin 20 pg (25-35) Mean Corpuscular Hemoglobin Concent 29 g/dL (31-37) Red Cell Distribution Width 23.4 % (11.5-14.5) Platelet Count 523 x10^3/uL (140-400) Neutrophils (%) (Auto) 68 % (31-73) Lymphocytes (%) (Auto) 23 % (24-48) Monocytes (%) (Auto) 8 % (0-9) Eosinophils (%) (Auto) 1 % (0-3) Basophils (%) (Auto) 1 % (0-3) Neutrophils # (Auto) 6.3 x10^3uL (1.8-7.7) Lymphocytes # (Auto) 2.1 x10^3/uL (1.0-4.8) Monocytes # (Auto) 0.7 x10^3/uL (0.0-1.1) Eosinophils # (Auto) 0.0 x10^3/uL (0.0-0.7) Basophils # (Auto) 0.1 x10^3/uL (0.0-0.2) Sodium Level 142 mmol/L (136-145) Potassium Level 3.3 mmol/L (3.5-5.1) Chloride Level 106 mmol/L (98-107) Carbon Dioxide Level 31 mmol/L (21-32) Anion Gap 5 (6-14) Blood Urea Nitrogen 18 mg/dL (7-20) Creatinine 0.9 mg/dL (0.6-1.0) Estimated GFR (Cockcroft-Gault) 61.2 Glucose Level 84 mg/dL (70-99) Calcium Level 8.3 mg/dL (8.5-10.1) Microbiology 05/25/17 Urine Culture - Final, Complete 05/25/17 Urine Culture Result 1 (JAYLIN) - Final, Complete 05/25/17 Antimicrobic Susceptibility - Final, Complete Medications Current Medications Albuterol Sulfate (Ventolin Neb Soln) 2.5 mg PRN Q6HRS PRN NEB SHORTNESS OF BREATH Last administered on 05/26/17 00:16; Start 05/25/17 at 14:30 Azithromycin 250 ml @ 250 mls/hr 1X ONCE IV Last administered on 05/25/17 14:36; Start 05/25/17 at 14:30; Stop 05/25/17 at 15:29; Status DC Methylprednisolone Sodium Succinate (SOLU-Medrol 125MG VIAL) 125 mg 1X ONCE IV Last administered on 05/25/17 14:36; Start 05/25/17 at 14:30; Stop at 14:31; Status DC Furosemide (Lasix) 40 mg DAILY IVP Last administered on 05/28/17 08:39; Start 05/25/17 at 14:30 Meclizine HCl (Antivert) 25 mg 1X ONCE PO Last administered on 05/25/17 15: 11; Start 05/25/17 at 15:15; Stop 05/25/17 at 15:16; Status DC Ceftriaxone Sodium 1 gm/ Dextrose 50 ml @ 100 mls/hr Q24H IV ; Start 05/25/17 at 21:00; Status UNV Ceftriaxone Sodium (Rocephin) 1 gm Q24H IVP Last administered on 05/27/17 19: 46; Start 05/25/17 at 19:00; Stop 05/28/17 at 09:56; Status DC Levofloxacin/ Dextrose 100 ml @ 100 mls/hr Q24H IV Last administered on 19:59; Start 05/25/17 at 20:00; Stop 05/27/17 at 14:28; Status DC Enoxaparin Sodium (Lovenox 40mg Syringe) 40 mg Q24H SQ Last administered on 21:03; Start 05/25/17 at 19:45; Stop 05/26/17 at 10:15; Status DC Albuterol/ Ipratropium (Duoneb) 3 ml RTQID NEB Last administered on 05/28/17 12:01; Start 05/25/17 at 20:00 Budesonide (Pulmicort) 0.5 mg RTBID NEB Last administered on 05/28/17 08:04; Start 05/26/17 at 08:00 Enoxaparin Sodium (Lovenox 30mg Syringe) 30 mg Q24H SQ Last administered on 20:34; Start 05/26/17 at 21:00 Lactobacillus Rhamnosus (Culturelle) 1 cap BID PO Last administered on 08:40; Start 05/26/17 at 21:00 Polyethylene Glycol (miraLAX Powder BULK BOTTLE) 238 gm 1X ONCE PO Last administered on 05/26/17 16:08; Start 05/26/17 at 16:00; Stop 05/26/17 at 16 :01; Status DC Bisacodyl (Dulcolax Tab) 10 mg 1X ONCE PO Last administered on 05/26/17 16: 07; Start 05/26/17 at 12:00; Stop 05/26/17 at 12:06; Status DC Iron Sucrose 200 mg/Miscellaneous 10 ml @ 120 mls/hr 1X ONCE IV Last administered on 05/26/17 17:26; Start 05/26/17 at 17:00; Stop 05/26/17 at 17 :04; Status DC Magnesium Citrate (Citroma) 296 ml 1X ONCE PO Last administered on 05/26/17 22:51; Start 05/26/17 at 23:00; Stop 05/26/17 at 23:01; Status DC Calcium Polycarbophil (Fibercon) 625 mg DAILY PO Last administered on 08:44; Start 05/27/17 at 09:00 Pantoprazole Sodium (Protonix) 40 mg DAILYAC PO Last administered on 08:40; Start 05/27/17 at 09:30 Donepezil HCl (Aricept) 5 mg QHS PO Last administered on 05/27/17 20:33; Start 05/27/17 at 21:00 Levofloxacin/ Dextrose 50 ml @ 50 mls/hr Q24H IV Last administered on 20:33; Start 05/27/17 at 20:00; Stop 05/28/17 at 09:56; Status DC Potassium Chloride 50 ml @ 50 mls/hr Q1H IV ; Start 05/28/17 at 07:30; Stop at 07:43; Status DC Potassium Chloride (Klor-Con) 40 meq 1X ONCE PO Last administered on 08:40; Start 05/28/17 at 07:45; Stop 05/28/17 at 07:46; Status DC Cefpodoxime Proxetil (Vantin) 200 mg BID PO ; Start 05/28/17 at 21:00 Levofloxacin (Levaquin) 250 mg QHS PO ; Start 05/28/17 at 21:00 Active Scripts Active Codeine Sulfate 15 Mg Tablet 15 Mg PO AT BEDTIME Tessalon Perle (Benzonatate) 100 Mg Capsule 100 Mg PO TID PRN Proair Hfa Inhaler (Albuterol Sulfate) 8.5 Gm Hfa.aer.ad 2 Puff INH PRN Q6HRS PRN Ciprofloxacin Hcl 500 Mg Tablet 500 Mg PO BID Cipro (Ciprofloxacin Hcl) 500 Mg Tablet 250 Mg PO DAILY 10 Days Hydrocodone-Apap 5-325 (Hydrocodone Bit/Acetaminophen) 1 Each Tablet 1 Tab PO PRN Q6HRS PRN 10 Days Reported Naproxen Sodium 550 Mg Tablet 550 Mg PO BID Hydrocodone-Apap 5-325 (Hydrocodone Bit/Acetaminophen) 1 Each Tablet 1 Tab PO Q4HRS PRN Acetaminophen 500 Mg Tablet 1 Tab PO BID Vitals/I & O Vital Sign - Last 24 Hours 05/27/17 05/27/17 05/27/17 05/27/17 15:00 19:00 20:00 21:23 Temp 98.5 98.3 98.5 98.3 Pulse 98 99 Resp 24 B/P (MAP) 93/45 (61) 110/62 (78) Pulse Ox 94 93 99 O2 Delivery Room Air Nasal Cannula Nasal Cannula Nasal Cannula O2 Flow Rate 2.0 2.0 2.0 05/27/17 05/28/17 05/28/17 05/28/17 22:26 03:00 07:00 07:59 Temp 97.7 98.1 98.0 97.7 98.1 98.0 Pulse 90 109 102 Resp 20 18 18 B/P (MAP) 98/61 (73) 107/72 (84) 110/70 (83) Pulse Ox 92 94 94 O2 Delivery Nasal Cannula Nasal Cannula Nasal Cannula Nasal Cannula O2 Flow Rate 2.0 2.0 2.0 2.0 05/28/17 05/28/17 05/28/17 08:00 11:00 12:01 Temp 97.5 97.5 Pulse 94 Resp 16 B/P (MAP) 123/56 (78) Pulse Ox 94 95 93 O2 Delivery Room Air Room Air Room Air Intake and Output 05/27/17 05/27/17 05/28/17 14:59 22:59 06:59 Intake Total 680 ml 250 ml Output Total 1000 ml 450 ml Balance -320 ml -200 ml SHIRIN CORTEZ III DO May 28, 2017 12:54
--- NOTE | 2017-05-28 14:43 | PDOC ---
PULMONARY PROGRESS NOTES Subjective PT FEELS BETTER LESS SOA Vitals Vital Signs Date Time Temp Pulse Resp B/P (MAP) Pulse Ox O2 Delivery O2 Flow Rate FiO2 05/28/17 12:01 93 Room Air 05/28/17 11:00 97.5 94 16 123/56 (78) 97.5 05/28/17 07:59 2.0 ROS: No Nausea, No Chest Pain, No Abdominal Pain, No Increase Cough Lungs: Clear, Other (no wheezes or rhonchi) Cardiovascular: S1, S2 Abdomen: Soft Neuro Exam: Alert Extremities: No Edema Skin: Warm Labs Laboratory Tests Test 05/26/17 19:00 05/27/17 05:08 05/28/17 04:45 White Blood Count 15.8 x10^3/uL (4.0-11.0) 12.7 x10^3/uL (4.0-11.0) 9.3 x10^3/uL (4.0-11.0) Red Blood Count 4.52 x10^6/uL (3.50-5.40) 4.36 x10^6/uL (3.50-5.40) 4.75 x10^6/uL (3.50-5.40) Hemoglobin 9.0 g/dL (12.0-15.5) 8.7 g/dL (12.0-15.5) 9.4 g/dL (12.0-15.5) Hematocrit 30.7 % (36.0-47.0) 29.7 % (36.0-47.0) 32.4 % (36.0-47.0) Mean Corpuscular Volume 68 fL (79-100) 68 fL (79-100) 68 fL (79-100) Mean Corpuscular Hemoglobin 20 pg (25-35) 20 pg (25-35) 20 pg (25-35) Mean Corpuscular Hemoglobin Concent 29 g/dL (31-37) 29 g/dL (31-37) 29 g/dL (31-37) Red Cell Distribution Width 22.6 % (11.5-14.5) 23.1 % (11.5-14.5) 23.4 % (11.5-14.5) Platelet Count 659 x10^3/uL (140-400) 571 x10^3/uL (140-400) 523 x10^3/uL (140-400) Neutrophils (%) (Auto) 76 % (31-73) 68 % (31-73) Lymphocytes (%) (Auto) 16 % (24-48) 23 % (24-48) Monocytes (%) (Auto) 7 % (0-9) 8 % (0-9) Eosinophils (%) (Auto) 0 % (0-3) 1 % (0-3) Basophils (%) (Auto) 1 % (0-3) 1 % (0-3) Neutrophils # (Auto) 9.7 x10^3uL (1.8-7.7) 6.3 x10^3uL (1.8-7.7) Lymphocytes # (Auto) 2.1 x10^3/uL (1.0-4.8) 2.1 x10^3/uL (1.0-4.8) Monocytes # (Auto) 0.8 x10^3/uL (0.0-1.1) 0.7 x10^3/uL (0.0-1.1) Eosinophils # (Auto) 0.0 x10^3/uL (0.0-0.7) 0.0 x10^3/uL (0.0-0.7) Basophils # (Auto) 0.1 x10^3/uL (0.0-0.2) 0.1 x10^3/uL (0.0-0.2) Sodium Level 144 mmol/L (136-145) 142 mmol/L (136-145) Potassium Level 3.5 mmol/L (3.5-5.1) 3.3 mmol/L (3.5-5.1) Chloride Level 108 mmol/L (98-107) 106 mmol/L (98-107) Carbon Dioxide Level 30 mmol/L (21-32) 31 mmol/L (21-32) Anion Gap 6 (6-14) 5 (6-14) Blood Urea Nitrogen 27 mg/dL (7-20) 18 mg/dL (7-20) Creatinine 1.1 mg/dL (0.6-1.0) 0.9 mg/dL (0.6-1.0) Estimated GFR (Cockcroft-Gault) 48.6 61.2 Glucose Level 91 mg/dL (70-99) 84 mg/dL (70-99) Calcium Level 8.2 mg/dL (8.5-10.1) 8.3 mg/dL (8.5-10.1) Laboratory Tests Test 05/28/17 04:45 White Blood Count 9.3 x10^3/uL (4.0-11.0) Red Blood Count 4.75 x10^6/uL (3.50-5.40) Hemoglobin 9.4 g/dL (12.0-15.5) Hematocrit 32.4 % (36.0-47.0) Mean Corpuscular Volume 68 fL (79-100) Mean Corpuscular Hemoglobin 20 pg (25-35) Mean Corpuscular Hemoglobin Concent 29 g/dL (31-37) Red Cell Distribution Width 23.4 % (11.5-14.5) Platelet Count 523 x10^3/uL (140-400) Neutrophils (%) (Auto) 68 % (31-73) Lymphocytes (%) (Auto) 23 % (24-48) Monocytes (%) (Auto) 8 % (0-9) Eosinophils (%) (Auto) 1 % (0-3) Basophils (%) (Auto) 1 % (0-3) Neutrophils # (Auto) 6.3 x10^3uL (1.8-7.7) Lymphocytes # (Auto) 2.1 x10^3/uL (1.0-4.8) Monocytes # (Auto) 0.7 x10^3/uL (0.0-1.1) Eosinophils # (Auto) 0.0 x10^3/uL (0.0-0.7) Basophils # (Auto) 0.1 x10^3/uL (0.0-0.2) Sodium Level 142 mmol/L (136-145) Potassium Level 3.3 mmol/L (3.5-5.1) Chloride Level 106 mmol/L (98-107) Carbon Dioxide Level 31 mmol/L (21-32) Anion Gap 5 (6-14) Blood Urea Nitrogen 18 mg/dL (7-20) Creatinine 0.9 mg/dL (0.6-1.0) Estimated GFR (Cockcroft-Gault) 61.2 Glucose Level 84 mg/dL (70-99) Calcium Level 8.3 mg/dL (8.5-10.1) Medications Active Scripts Medications Dose Route/Sig Max Daily Dose Days Date Category Codeine Sulfate 15 Mg Tablet 15 Mg PO AT BEDTIME 01/05/16 Rx Tessalon Perle (Benzonatate) 100 Mg Capsule 100 Mg PO TID PRN 01/05/16 Rx Proair Hfa Inhaler (Albuterol Sulfate) 8.5 Gm Hfa.aer.ad 2 Puff INH PRN Q6HRS PRN 01/05/16 Rx Ciprofloxacin Hcl 500 Mg Tablet 500 Mg PO BID 01/05/16 Rx Cipro (Ciprofloxacin Hcl) 500 Mg Tablet 250 Mg PO DAILY 10 02/12/15 Rx Hydrocodone-Apap 5-325 (Hydrocodone Bit/Acetaminophen) 1 Each Tablet 1 Tab PO PRN Q6HRS PRN 10 02/12/15 Rx Naproxen Sodium 550 Mg Tablet 550 Mg PO BID 02/05/15 Reported Hydrocodone-Apap 5-325 (Hydrocodone Bit/Acetaminophen) 1 Each Tablet 1 Tab PO Q4HRS PRN 02/05/15 Reported Acetaminophen 500 Mg Tablet 1 Tab PO BID 01/31/15 Reported Impression . IMPRESSION: 1. Acute respiratory failure. Suspect mostly acute pulmonary edema, diastolic versus systolic heart failure. 2. Abnormal x-ray compatible with pulmonary edema. 3. Doubt chronic obstructive pulmonary disease. 4. Possible mild interstitial lung disease. 5. Acute blood loss anemia. 6. Protein malnutrition, present upon admission. 7. Leukocytosis. 8. Possible urinary tract infection. cxr 05/27 IMPRESSION: 1. Stable small pleural effusions and mild pulmonary edema. 2. Moderate cardiomegaly. Plan . WILL CHECK CT OF CHEST FOLLOW GI INPUT ECHO PENDING EMPIRIC ANITBX SHAYAN ALANIS MD May 28, 2017 14:43
[2017-05-28] MEDS: DONEPEZIL HCL 5 MG TABLET. PO SCH (21:19)
[2017-05-28] MEDS: CEFPODOXIME PROXETIL 100 MG TABLET. PO SCH (21:19)
[2017-05-28] MEDS: ENOXAPARIN 30 MG/0.3 ML SYRINGE. SQ SCH (21:19)
[2017-05-29 02:53] VITALS: BP 114/62
[2017-05-29 04:03] LABS: BASO # 0.1 x10^3/uL (0.0-0.2); BASO % 1 % (0-3); EOS % 1 % (0-3); HEMATOCRIT 33.3 % (36.0-47.0); HEMOGLOBIN 9.5 g/dL (12.0-15.5); LYMPH # 2.6 x10^3/uL (1.0-4.8); LYMPH % 28 % (24-48); MEAN CORPUSCULAR HEMOGLOBIN 20 pg (25-35); MEAN CORPUSCULAR HGB CONC 29 g/dL (31-37); MEAN CORPUSCULAR VOLUME 69 fL (79-100); MONO % 9 % (0-9); NEUT % 61 % (31-73); PLATELET COUNT 562 x10^3/uL (140-400); RED BLOOD COUNT 4.85 x10^6/uL (3.50-5.40); RED CELL DISTRIBUTION WIDTH 23.9 % (11.5-14.5); WHITE BLOOD COUNT 9.1 x10^3/uL (4.0-11.0)
[2017-05-29 04:09] LABS: CALCIUM 7.9 mg/dL (8.5-10.1); GFR 54.2; POTASSIUM 3.4 mmol/L (3.5-5.1)
[2017-05-29 07:21] VITALS: BP 96/58
[2017-05-29] MEDS: BUDESONIDE 0.5 MG/2 ML NEBU. NEB SCH (08:24)
[2017-05-29] MEDS: IPRATRPIUM/ALBUTEROL 0.5/2.5MG 3 ML NEBU. NEB SCH ×3 (08:24→15:53)
--- NOTE | 2017-05-29 08:56 | RAD ---
CT CHEST WO CONTRAST History:Infiltrates Technique: Noncontrast CT imaging was performed of the chest, multiplanar reconstruction images submitted. Exposure: One or more of the following individualized dose reduction techniques were utilized for this exam: 1. Automated exposure control.2. Adjustment of the mA and/or KV according to patient size.3. Use of iterative reconstruction technique. Comparison: None other than recent chest radiograph Findings:There are small dependent pleural effusions bilaterally. There is some bronchiectasis of the lingula and right middle lobe and to lesser degree right lower lobe with associated wall thickening. There are a few small noncalcified right upper lobe nodules best seen axial images 15 through 24, largest nodule on the order of 6 mm. There is also small right lower lobe nodules up to 3 mm axial image 27. There is mild reticular density of the lower lobes and also left upper lobe. Heart is enlarged. Thoracic aortic caliber is within normal limits. There are mediastinal nodes although not considered significantly enlarged. There is no pneumothorax. Proximal aspect of left ureteral stent is visualized. There is small hiatal hernia. There is old left posterior seventh rib fracture. Impression: 1. There are small dependent pleural effusions bilaterally. There is bronchiectasis with associated wall thickening greatest of the lingula and right middle lobe most compatible with underlying fibrotic change, some other reticular density present. 2. There are a few small noncalcified incidental nodules right upper and lower lobes. If increased risk factors for neoplasm, 12 month follow-up may be indicated as per Fleischner guidelines. 3. There is small hiatal hernia.
[2017-05-29] MEDS: CEFPODOXIME PROXETIL 100 MG TABLET. PO SCH (08:59)
[2017-05-29] MEDS: CALCIUM POLYCARBOPHIL 625 MG TABLET PO SCH (08:59)
[2017-05-29] MEDS: PANTOPRAZOLE 40 MG TABLET.DR. PO SCH (08:59)
[2017-05-29] MEDS: LACTOBACILLUS RHAMNOSUS GG 1 CAPSULE. PO SCH (08:59)
[2017-05-29] MEDS: FUROSEMIDE 40 MG/4 ML VIAL. IVP SCH (09:00)
--- NOTE | 2017-05-29 09:39 | PDOC ---
PULMONARY PROGRESS NOTES Subjective PT WANTS TO GO HOME Vitals Vital Signs Date Time Temp Pulse Resp B/P (MAP) Pulse Ox O2 Delivery O2 Flow Rate FiO2 05/29/17 08:27 98 Room Air 05/29/17 07:41 2.0 05/29/17 07:21 98.1 106 16 96/58 (71) 98.1 ROS: No Nausea, No Chest Pain, No Abdominal Pain, No Increase Cough Lungs: Clear Cardiovascular: S1, S2 Abdomen: Soft Neuro Exam: Alert Extremities: No Edema Skin: Warm Labs Laboratory Tests Test 05/28/17 04:45 05/29/17 03:30 White Blood Count 9.3 x10^3/uL (4.0-11.0) 9.1 x10^3/uL (4.0-11.0) Red Blood Count 4.75 x10^6/uL (3.50-5.40) 4.85 x10^6/uL (3.50-5.40) Hemoglobin 9.4 g/dL (12.0-15.5) 9.5 g/dL (12.0-15.5) Hematocrit 32.4 % (36.0-47.0) 33.3 % (36.0-47.0) Mean Corpuscular Volume 68 fL (79-100) 69 fL (79-100) Mean Corpuscular Hemoglobin 20 pg (25-35) 20 pg (25-35) Mean Corpuscular Hemoglobin Concent 29 g/dL (31-37) 29 g/dL (31-37) Red Cell Distribution Width 23.4 % (11.5-14.5) 23.9 % (11.5-14.5) Platelet Count 523 x10^3/uL (140-400) 562 x10^3/uL (140-400) Neutrophils (%) (Auto) 68 % (31-73) 61 % (31-73) Lymphocytes (%) (Auto) 23 % (24-48) 28 % (24-48) Monocytes (%) (Auto) 8 % (0-9) 9 % (0-9) Eosinophils (%) (Auto) 1 % (0-3) 1 % (0-3) Basophils (%) (Auto) 1 % (0-3) 1 % (0-3) Neutrophils # (Auto) 6.3 x10^3uL (1.8-7.7) 5.6 x10^3uL (1.8-7.7) Lymphocytes # (Auto) 2.1 x10^3/uL (1.0-4.8) 2.6 x10^3/uL (1.0-4.8) Monocytes # (Auto) 0.7 x10^3/uL (0.0-1.1) 0.8 x10^3/uL (0.0-1.1) Eosinophils # (Auto) 0.0 x10^3/uL (0.0-0.7) 0.0 x10^3/uL (0.0-0.7) Basophils # (Auto) 0.1 x10^3/uL (0.0-0.2) 0.1 x10^3/uL (0.0-0.2) Sodium Level 142 mmol/L (136-145) 142 mmol/L (136-145) Potassium Level 3.3 mmol/L (3.5-5.1) 3.4 mmol/L (3.5-5.1) Chloride Level 106 mmol/L (98-107) 105 mmol/L (98-107) Carbon Dioxide Level 31 mmol/L (21-32) 30 mmol/L (21-32) Anion Gap 5 (6-14) 7 (6-14) Blood Urea Nitrogen 18 mg/dL (7-20) 18 mg/dL (7-20) Creatinine 0.9 mg/dL (0.6-1.0) 1.0 mg/dL (0.6-1.0) Estimated GFR (Cockcroft-Gault) 61.2 54.2 Glucose Level 84 mg/dL (70-99) 127 mg/dL (70-99) Calcium Level 8.3 mg/dL (8.5-10.1) 7.9 mg/dL (8.5-10.1) Laboratory Tests Test 05/29/17 03:30 White Blood Count 9.1 x10^3/uL (4.0-11.0) Red Blood Count 4.85 x10^6/uL (3.50-5.40) Hemoglobin 9.5 g/dL (12.0-15.5) Hematocrit 33.3 % (36.0-47.0) Mean Corpuscular Volume 69 fL (79-100) Mean Corpuscular Hemoglobin 20 pg (25-35) Mean Corpuscular Hemoglobin Concent 29 g/dL (31-37) Red Cell Distribution Width 23.9 % (11.5-14.5) Platelet Count 562 x10^3/uL (140-400) Neutrophils (%) (Auto) 61 % (31-73) Lymphocytes (%) (Auto) 28 % (24-48) Monocytes (%) (Auto) 9 % (0-9) Eosinophils (%) (Auto) 1 % (0-3) Basophils (%) (Auto) 1 % (0-3) Neutrophils # (Auto) 5.6 x10^3uL (1.8-7.7) Lymphocytes # (Auto) 2.6 x10^3/uL (1.0-4.8) Monocytes # (Auto) 0.8 x10^3/uL (0.0-1.1) Eosinophils # (Auto) 0.0 x10^3/uL (0.0-0.7) Basophils # (Auto) 0.1 x10^3/uL (0.0-0.2) Sodium Level 142 mmol/L (136-145) Potassium Level 3.4 mmol/L (3.5-5.1) Chloride Level 105 mmol/L (98-107) Carbon Dioxide Level 30 mmol/L (21-32) Anion Gap 7 (6-14) Blood Urea Nitrogen 18 mg/dL (7-20) Creatinine 1.0 mg/dL (0.6-1.0) Estimated GFR (Cockcroft-Gault) 54.2 Glucose Level 127 mg/dL (70-99) Calcium Level 7.9 mg/dL (8.5-10.1) Medications Active Scripts Medications Dose Route/Sig Max Daily Dose Days Date Category Codeine Sulfate 15 Mg Tablet 15 Mg PO AT BEDTIME 01/05/16 Rx Tessalon Perle (Benzonatate) 100 Mg Capsule 100 Mg PO TID PRN 01/05/16 Rx Proair Hfa Inhaler (Albuterol Sulfate) 8.5 Gm Hfa.aer.ad 2 Puff INH PRN Q6HRS PRN 01/05/16 Rx Ciprofloxacin Hcl 500 Mg Tablet 500 Mg PO BID 01/05/16 Rx Cipro (Ciprofloxacin Hcl) 500 Mg Tablet 250 Mg PO DAILY 10 02/12/15 Rx Hydrocodone-Apap 5-325 (Hydrocodone Bit/Acetaminophen) 1 Each Tablet 1 Tab PO PRN Q6HRS PRN 10 02/12/15 Rx Naproxen Sodium 550 Mg Tablet 550 Mg PO BID 02/05/15 Reported Hydrocodone-Apap 5-325 (Hydrocodone Bit/Acetaminophen) 1 Each Tablet 1 Tab PO Q4HRS PRN 02/05/15 Reported Acetaminophen 500 Mg Tablet 1 Tab PO BID 01/31/15 Reported Impression . 1. Acute respiratory failure. Suspect mostly acute pulmonary edema, diastolic versus systolic heart failure. 2. Abnormal x-ray compatible with pulmonary edema. 3. COPD/ ACUTE EXC OF BRONCHIECTASIS 4. MILDM ILD/FIBROSIS 5. Acute blood loss anemia. 6. Protein malnutrition, present upon admission. 7. Leukocytosis. 8. E COLI UTI CT CHEST 1. There are small dependent pleural effusions bilaterally. There is bronchiectasis with associated wall thickening greatest of the lingula and right middle lobe most compatible with underlying fibrotic change, some other reticular density present. 2. There are a few small noncalcified incidental nodules right upper and lower lobes. If increased risk factors for neoplasm, 12 month follow-up may be indicated as per Fleischner guidelines. 3. There is small hiatal hernia. Plan . CT REVIEWED MOSTLY BRONCHIECTASIS NOT MUCH FIBROSIS WILL NEED AGGRESSIVE PULMONARY HYGIENE REPEAT CT IN 2-3 MONTHS START PRED 30 DAILY HOME SOON OK BY ME FOLLOW GI INPUT ECHO PENDING EMPIRIC ANITBX SHAYAN ALANIS MD May 29, 2017 09:39
[2017-05-29] MEDS ORDERED: predniSONE 10 MG TABLET PO SCH (10:00)
[2017-05-29 11:00] VITALS: BP 107/69
--- NOTE | 2017-05-29 14:26 | PDOC ---
PROGRESS NOTES Chief Complaint Chief Complaint Acute respiratory failure, shortness of air Dyspnea COPD/ ACUTE EXC OF BRONCHIECTASIS Acute blood loss anemia Protein malnutrition, present upon admission Leukocytosis E. 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/l General: Oriented X3, Cooperative, No acute distress Heart: Regular rate, Normal S1, Normal S2, No murmurs Lungs: Clear, Other (No crackles or wheezes) Abdomen: Normal bowel sounds, Soft, Other Extremities: No clubbing, No cyanosis Skin: No rashes, No significant lesion Labs LABS Laboratory Tests Test 05/29/17 03:30 White Blood Count 9.1 x10^3/uL (4.0-11.0) Red Blood Count 4.85 x10^6/uL (3.50-5.40) Hemoglobin 9.5 g/dL (12.0-15.5) Hematocrit 33.3 % (36.0-47.0) Mean Corpuscular Volume 69 fL (79-100) Mean Corpuscular Hemoglobin 20 pg (25-35) Mean Corpuscular Hemoglobin Concent 29 g/dL (31-37) Red Cell Distribution Width 23.9 % (11.5-14.5) Platelet Count 562 x10^3/uL (140-400) Neutrophils (%) (Auto) 61 % (31-73) Lymphocytes (%) (Auto) 28 % (24-48) Monocytes (%) (Auto) 9 % (0-9) Eosinophils (%) (Auto) 1 % (0-3) Basophils (%) (Auto) 1 % (0-3) Neutrophils # (Auto) 5.6 x10^3uL (1.8-7.7) Lymphocytes # (Auto) 2.6 x10^3/uL (1.0-4.8) Monocytes # (Auto) 0.8 x10^3/uL (0.0-1.1) Eosinophils # (Auto) 0.0 x10^3/uL (0.0-0.7) Basophils # (Auto) 0.1 x10^3/uL (0.0-0.2) Sodium Level 142 mmol/L (136-145) Potassium Level 3.4 mmol/L (3.5-5.1) Chloride Level 105 mmol/L (98-107) Carbon Dioxide Level 30 mmol/L (21-32) Anion Gap 7 (6-14) Blood Urea Nitrogen 18 mg/dL (7-20) Creatinine 1.0 mg/dL (0.6-1.0) Estimated GFR (Cockcroft-Gault) 54.2 Glucose Level 127 mg/dL (70-99) Calcium Level 7.9 mg/dL (8.5-10.1) Review of Systems Review of Systems Heart: denies any chest pain Lungs: denies any SOB GI: denies any N/V Assessment and Plan Assessmemt and Plan Problems Medical Problems: (1) Dyspnea Status: Acute Assessment: Acute respiratory failure, shortness of air Dyspnea COPD/ ACUTE EXC OF BRONCHIECTASIS Acute blood loss anemia. Protein malnutrition, present upon admission. Leukocytosis. E COLI UTI Gastritis Plan: Possible discharge, awaiting subspecialty input Continue breathing treatments Continue PT/OT Continue abx Follow up with PCP after d/c Problems: Comment Review of Relevant I have reviewed the following items marshal (where applicable) has been applied. Labs Laboratory Tests Test 05/28/17 04:45 05/29/17 03:30 White Blood Count 9.3 x10^3/uL (4.0-11.0) 9.1 x10^3/uL (4.0-11.0) Red Blood Count 4.75 x10^6/uL (3.50-5.40) 4.85 x10^6/uL (3.50-5.40) Hemoglobin 9.4 g/dL (12.0-15.5) 9.5 g/dL (12.0-15.5) Hematocrit 32.4 % (36.0-47.0) 33.3 % (36.0-47.0) Mean Corpuscular Volume 68 fL (79-100) 69 fL (79-100) Mean Corpuscular Hemoglobin 20 pg (25-35) 20 pg (25-35) Mean Corpuscular Hemoglobin Concent 29 g/dL (31-37) 29 g/dL (31-37) Red Cell Distribution Width 23.4 % (11.5-14.5) 23.9 % (11.5-14.5) Platelet Count 523 x10^3/uL (140-400) 562 x10^3/uL (140-400) Neutrophils (%) (Auto) 68 % (31-73) 61 % (31-73) Lymphocytes (%) (Auto) 23 % (24-48) 28 % (24-48) Monocytes (%) (Auto) 8 % (0-9) 9 % (0-9) Eosinophils (%) (Auto) 1 % (0-3) 1 % (0-3) Basophils (%) (Auto) 1 % (0-3) 1 % (0-3) Neutrophils # (Auto) 6.3 x10^3uL (1.8-7.7) 5.6 x10^3uL (1.8-7.7) Lymphocytes # (Auto) 2.1 x10^3/uL (1.0-4.8) 2.6 x10^3/uL (1.0-4.8) Monocytes # (Auto) 0.7 x10^3/uL (0.0-1.1) 0.8 x10^3/uL (0.0-1.1) Eosinophils # (Auto) 0.0 x10^3/uL (0.0-0.7) 0.0 x10^3/uL (0.0-0.7) Basophils # (Auto) 0.1 x10^3/uL (0.0-0.2) 0.1 x10^3/uL (0.0-0.2) Sodium Level 142 mmol/L (136-145) 142 mmol/L (136-145) Potassium Level 3.3 mmol/L (3.5-5.1) 3.4 mmol/L (3.5-5.1) Chloride Level 106 mmol/L (98-107) 105 mmol/L (98-107) Carbon Dioxide Level 31 mmol/L (21-32) 30 mmol/L (21-32) Anion Gap 5 (6-14) 7 (6-14) Blood Urea Nitrogen 18 mg/dL (7-20) 18 mg/dL (7-20) Creatinine 0.9 mg/dL (0.6-1.0) 1.0 mg/dL (0.6-1.0) Estimated GFR (Cockcroft-Gault) 61.2 54.2 Glucose Level 84 mg/dL (70-99) 127 mg/dL (70-99) Calcium Level 8.3 mg/dL (8.5-10.1) 7.9 mg/dL (8.5-10.1) Laboratory Tests Test 05/29/17 03:30 White Blood Count 9.1 x10^3/uL (4.0-11.0) Red Blood Count 4.85 x10^6/uL (3.50-5.40) Hemoglobin 9.5 g/dL (12.0-15.5) Hematocrit 33.3 % (36.0-47.0) Mean Corpuscular Volume 69 fL (79-100) Mean Corpuscular Hemoglobin 20 pg (25-35) Mean Corpuscular Hemoglobin Concent 29 g/dL (31-37) Red Cell Distribution Width 23.9 % (11.5-14.5) Platelet Count 562 x10^3/uL (140-400) Neutrophils (%) (Auto) 61 % (31-73) Lymphocytes (%) (Auto) 28 % (24-48) Monocytes (%) (Auto) 9 % (0-9) Eosinophils (%) (Auto) 1 % (0-3) Basophils (%) (Auto) 1 % (0-3) Neutrophils # (Auto) 5.6 x10^3uL (1.8-7.7) Lymphocytes # (Auto) 2.6 x10^3/uL (1.0-4.8) Monocytes # (Auto) 0.8 x10^3/uL (0.0-1.1) Eosinophils # (Auto) 0.0 x10^3/uL (0.0-0.7) Basophils # (Auto) 0.1 x10^3/uL (0.0-0.2) Sodium Level 142 mmol/L (136-145) Potassium Level 3.4 mmol/L (3.5-5.1) Chloride Level 105 mmol/L (98-107) Carbon Dioxide Level 30 mmol/L (21-32) Anion Gap 7 (6-14) Blood Urea Nitrogen 18 mg/dL (7-20) Creatinine 1.0 mg/dL (0.6-1.0) Estimated GFR (Cockcroft-Gault) 54.2 Glucose Level 127 mg/dL (70-99) Calcium Level 7.9 mg/dL (8.5-10.1) Microbiology 05/25/17 Urine Culture - Final, Complete 05/25/17 Urine Culture Result 1 (JAYLIN) - Final, Complete 05/25/17 Antimicrobic Susceptibility - Final, Complete Medications Current Medications Albuterol Sulfate (Ventolin Neb Soln) 2.5 mg PRN Q6HRS PRN NEB SHORTNESS OF BREATH Last administered on 05/26/17 00:16; Start 05/25/17 at 14:30 Azithromycin 250 ml @ 250 mls/hr 1X ONCE IV Last administered on 05/25/17 14:36; Start 05/25/17 at 14:30; Stop 05/25/17 at 15:29; Status DC Methylprednisolone Sodium Succinate (SOLU-Medrol 125MG VIAL) 125 mg 1X ONCE IV Last administered on 05/25/17 14:36; Start 05/25/17 at 14:30; Stop at 14:31; Status DC Furosemide (Lasix) 40 mg DAILY IVP Last administered on 05/28/17 08:39; Start 05/25/17 at 14:30 Meclizine HCl (Antivert) 25 mg 1X ONCE PO Last administered on 05/25/17 15: 11; Start 05/25/17 at 15:15; Stop 05/25/17 at 15:16; Status DC Ceftriaxone Sodium 1 gm/ Dextrose 50 ml @ 100 mls/hr Q24H IV ; Start 05/25/17 at 21:00; Status UNV Ceftriaxone Sodium (Rocephin) 1 gm Q24H IVP Last administered on 05/27/17 19: 46; Start 05/25/17 at 19:00; Stop 05/28/17 at 09:56; Status DC Levofloxacin/ Dextrose 100 ml @ 100 mls/hr Q24H IV Last administered on 19:59; Start 05/25/17 at 20:00; Stop 05/27/17 at 14:28; Status DC Enoxaparin Sodium (Lovenox 40mg Syringe) 40 mg Q24H SQ Last administered on 21:03; Start 05/25/17 at 19:45; Stop 05/26/17 at 10:15; Status DC Albuterol/ Ipratropium (Duoneb) 3 ml RTQID NEB Last administered on 05/29/17 12:27; Start 05/25/17 at 20:00 Budesonide (Pulmicort) 0.5 mg RTBID NEB Last administered on 05/29/17 08:24; Start 05/26/17 at 08:00 Enoxaparin Sodium (Lovenox 30mg Syringe) 30 mg Q24H SQ Last administered on 21:19; Start 05/26/17 at 21:00 Lactobacillus Rhamnosus (Culturelle) 1 cap BID PO Last administered on 08:59; Start 05/26/17 at 21:00 Polyethylene Glycol (miraLAX Powder BULK BOTTLE) 238 gm 1X ONCE PO Last administered on 05/26/17 16:08; Start 05/26/17 at 16:00; Stop 05/26/17 at 16 :01; Status DC Bisacodyl (Dulcolax Tab) 10 mg 1X ONCE PO Last administered on 05/26/17 16: 07; Start 05/26/17 at 12:00; Stop 05/26/17 at 12:06; Status DC Iron Sucrose 200 mg/Miscellaneous 10 ml @ 120 mls/hr 1X ONCE IV Last administered on 05/26/17 17:26; Start 05/26/17 at 17:00; Stop 05/26/17 at 17 :04; Status DC Magnesium Citrate (Citroma) 296 ml 1X ONCE PO Last administered on 05/26/17 22:51; Start 05/26/17 at 23:00; Stop 05/26/17 at 23:01; Status DC Calcium Polycarbophil (Fibercon) 625 mg DAILY PO Last administered on 08:59; Start 05/27/17 at 09:00 Pantoprazole Sodium (Protonix) 40 mg DAILYAC PO Last administered on 08:59; Start 05/27/17 at 09:30 Donepezil HCl (Aricept) 5 mg QHS PO Last administered on 05/28/17 21:19; Start 05/27/17 at 21:00 Levofloxacin/ Dextrose 50 ml @ 50 mls/hr Q24H IV Last administered on 20:33; Start 05/27/17 at 20:00; Stop 05/28/17 at 09:56; Status DC Potassium Chloride 50 ml @ 50 mls/hr Q1H IV ; Start 05/28/17 at 07:30; Stop at 07:43; Status DC Potassium Chloride (Klor-Con) 40 meq 1X ONCE PO Last administered on 08:40; Start 05/28/17 at 07:45; Stop 05/28/17 at 07:46; Status DC Cefpodoxime Proxetil (Vantin) 200 mg BID PO Last administered on 05/29/17 08: 59; Start 05/28/17 at 21:00 Levofloxacin (Levaquin) 250 mg QHS PO Last administered on 05/28/17 21:19; Start 05/28/17 at 21:00 Prednisone (Prednisone) 30 mg DAILY PO Last administered on 05/29/17 10:00; Start 05/29/17 at 10:00 Active Scripts Active Codeine Sulfate 15 Mg Tablet 15 Mg PO AT BEDTIME Tessalon Perle (Benzonatate) 100 Mg Capsule 100 Mg PO TID PRN Proair Hfa Inhaler (Albuterol Sulfate) 8.5 Gm Hfa.aer.ad 2 Puff INH PRN Q6HRS PRN Ciprofloxacin Hcl 500 Mg Tablet 500 Mg PO BID Cipro (Ciprofloxacin Hcl) 500 Mg Tablet 250 Mg PO DAILY 10 Days Hydrocodone-Apap 5-325 (Hydrocodone Bit/Acetaminophen) 1 Each Tablet 1 Tab PO PRN Q6HRS PRN 10 Days Reported Naproxen Sodium 550 Mg Tablet 550 Mg PO BID Hydrocodone-Apap 5-325 (Hydrocodone Bit/Acetaminophen) 1 Each Tablet 1 Tab PO Q4HRS PRN Acetaminophen 500 Mg Tablet 1 Tab PO BID Vitals/I & O Vital Sign - Last 24 Hours 05/28/17 05/28/17 05/28/17/25/17 15:00 15:02 17:40 17:41 Temp 98.1 98.1 Pulse 96 Resp 16 B/P (MAP) 88/44 (59) 109/55 (73) 105/54 (71) Pulse Ox 99 97 O2 Delivery Nasal Cannula Nasal Cannula O2 Flow Rate 2.0 1.0 05/28/17 05/28/17 05/28/17 05/28/17 17:41 17:55 19:49 19:59 Temp 98.2 98.2 Pulse 105 Resp 20 B/P (MAP) 80/45 (57) 88/57 (67) Pulse Ox 97 93 O2 Delivery Nasal Cannula Room Air Nasal Cannula O2 Flow Rate 1.0 2.0 05/28/17 05/29/17 05/29/17 05/29/17 22:42 02:53 07:21 07:41 Temp 98.8 97.3 98.1 98.8 97.3 98.1 Pulse 56 98 106 Resp 18 16 16 B/P (MAP) 104/51 (68) 114/62 (79) 96/58 (71) Pulse Ox 94 95 98 O2 Delivery Room Air Room Air Room Air Nasal Cannula O2 Flow Rate 2.0 05/29/17 05/29/17 05/29/17 08:27 08:27 11:00 Temp 97.8 97.8 Pulse 97 Resp 18 B/P (MAP) 107/69 (82) Pulse Ox 98 98 94 O2 Delivery Room Air Room Air Nasal Cannula O2 Flow Rate 2.0 Intake and Output 05/28/17 05/28/17 05/29/17 15:00 23:00 07:00 Intake Total 250 ml 150 ml Output Total 1300 ml Balance 250 ml -1150 ml SHIRIN CORTEZ III DO May 29, 2017 14:26
[2017-05-29 15:00] VITALS: BP 115/52
[2017-05-29] MEDS ORDERED: PRED20TA PO (15:27)
[2017-05-29] MEDS ORDERED: LEVO500T59 PO (15:27)
--- NOTE | 2017-05-29 15:36 | PDOC ---
CARDIOLOGY PROGRESS NOTE SUBJECTIVE: No new issues overnight. Denies any chest pain. OBJECTIVE: Vital SIgns: Vital Signs Date Time Temp Pulse Resp B/P (MAP) Pulse Ox O2 Delivery O2 Flow Rate FiO2 05/29/17 15:00 97.7 103 18 115/52 (73) 93 Nasal Cannula 2.0 97.7 I & O Intake and Output 05/29/17 07:00 Intake Total 400 ml Output Total 1300 ml Balance -900 ml Intake Oral 400 ml Output Urine Total 1300 ml # Voids 2 Objective: GEN.: Flat affect. Appears to be mildly confused. HEENT: Head is normocephalic, atraumatic NECK: Supple. LUNGS: Severely decreased breath sounds bilaterally. HEART: RRR, S1, S2 present. Peripheral pulses intact ABDOMEN: Soft, nontender. Positive bowel sounds. EXTREMITIES: Without any cyanosis. NEUROLOGIC: Normal speech, normal tone PSYCHIATRIC: Normal affect, normal mood. SKIN: No ulcerations CURRENT MEDICATIONS: No current CV meds. DIAGNOSTIC TESTING: CT scan with bronchiectasis and fibrosis. Hgb 9.5 ASSESSMENT: 1. Dyspnea - multifactorial secondary to COPD/Bronchiectasis and anemia 2. Possible depression Problems: PLAN: 1. No further CV recs at this time. F/u in the office in 1-2 weeks with echo to help rule out cardiac source of dyspnea as well. Thanks. Pls call with questions. KIP CHUA MD May 29, 2017 15:36
--- NOTE | 2017-05-30 12:30 | PATHOLOGY ---
PATHOLOGY REPORT * * * * * * * * FINAL DIAGNOSIS: A. Small bowel, duodenum, biopsy: - No pathologic diagnosis. - Normal villous architecture. B. Stomach, antrum, biopsy: - Chronic superficial gastritis, mild to moderate. - Microorganisms morphologically consistent with Helicobacter pylori present on immunoperoxidase stain. (SKM:wilfrido; 05/30/2017) REPORT ELECTRONICALLY SIGNED BY: Patrick Nguyen M.D. DATE/TIME: 05/30/2017 12:29 * * * * * * * * GROSS PATHOLOGY: A. Received in formalin labeled "Kymberly An, duodenum, BX," are 5 segments of colvin soft tissue measuring 1.4 x 1.3 x 0.3 cm in aggregate dimensions and ranging from 0.2 to 0.4 cm in maximum dimension. The specimen is submitted entirely in cassette A1. B. Received in formalin labeled "Kymberly An, antrum," is a segment of colvin soft tissue measuring 0.7 6 cm in maximum dimension. The specimen is submitted entirely in cassette B1. (TSD; 05/27/2017) INITIAL CPT CODE(S): A; 96394 B; 82520, 07935 Professional services performed [place] [address] Technical services performed by [facility] at [address] [address], [facility] [address] [address]. SPECIMEN(S) RECEIVED: A.Duodenal biopsy, r/o inflammation, sprue B.Antrum biopsy, r/o gastritis CLINICAL HISTORY: Anemia PATIENT: KYMBERLY AN /AGE: 8 1945 (Age: 72) PATIENT #: [id number] ALT CASE #: SPECIMEN COLLECTION DATE: 05/27/2017 SPECIMEN RECEIVED DATE: 05/27/2017 [facility] - [address] [place] [address] - PHONE: [phone] * * * END OF REPORT * * *
== END 2017-05-29 16:18 | disposition home or self-care (01) | DRG 383 ==
LOC: ER 12:19 → 2 NORTH 14:00
PROVIDERS: ADMIT Family Medicine; ATTEND Internal Medicine
PROC: 30233N1 Transfusion of Nonautologous Red Blood Cells into Peripheral Vein, Percutaneous Approach (ICD-10-PCS; 2017-05-26)
PROC: 0DJD8ZZ Inspection of Lower Intestinal Tract, Via Natural or Artificial Opening Endoscopic (ICD-10-PCS; 2017-05-27)
PROC: 0DB78ZX Excision of Stomach, Pylorus, Via Natural or Artificial Opening Endoscopic, Diagnostic (ICD-10-PCS; principal; 2017-05-27 08:30)
PROC: 0DB98ZX Excision of Duodenum, Via Natural or Artificial Opening Endoscopic, Diagnostic (ICD-10-PCS; 2017-05-27 08:30)
DX: K25.9 Gastric ulcer, unspecified as acute or chronic, without hemorrhage or perforation (principal); J96.00 Acute respiratory failure, unspecified whether with hypoxia or hypercapnia; I50.43 Acute on chronic combined systolic (congestive) and diastolic (congestive) heart failure; E46 Unspecified protein-calorie malnutrition; D62 Acute posthemorrhagic anemia; J44.1 Chronic obstructive pulmonary disease with (acute) exacerbation; N39.0 Urinary tract infection, site not specified; Z68.1 Body mass index [BMI] 19.9 or less, adult; B96.20 Unspecified Escherichia coli [E. coli] as the cause of diseases classified elsewhere; D50.9 Iron deficiency anemia, unspecified; K29.70 Gastritis, unspecified, without bleeding; K44.9 Diaphragmatic hernia without obstruction or gangrene; K57.90 Diverticulosis of intestine, part unspecified, without perforation or abscess without bleeding; Z77.22 Contact with and (suspected) exposure to environmental tobacco smoke (acute) (chronic); F41.9 Anxiety disorder, unspecified; Z82.5 Family history of asthma and other chronic lower respiratory diseases; Z88.2 Allergy status to sulfonamides; Z91.012 Allergy to eggs
CPT/HCPCS: 36415; 36600; 51701; 71010; 71250; 80048; 80076; 80307; 81001; 82553; 82805; 83540; 83550; 83605; 83690; 83735; 83880; 84443; 84484; 85007; 85025; 85027; 85610; 86850; 86900; 86901; 86920; 87086; 87186; 88305; 88342; 93005; 94250; 94640; 94760; J0456; J0696; J1650; J1756; J1940; J1956; J2704; J2930; J7512; J7613; J7620; J7626; J8597; P9016; 97110; 97116; 99285-25; G0479; J2001

== ENCOUNTER 2017-11-09 11:28 | Emergency (ER) | payer MEDICARE ==
[2017-11-09 11:56] LABS: BILIRUBIN,URINE LARGE (NEG); CLARITY,URINE TURBID; COLOR,URINE RED; GLUCOSE,URINE NEGATIVE (NEG); NITRITE,URINE POSITIVE (NEG); PROTEIN,URINE >=300 mg/dL (NEG-TRACE)
[2017-11-09 12:03] LABS: BACTERIA,URINE MANY /HPF (0-FEW); RBC,URINE TNTC /HPF (0-2); WBC,URINE TNTC /HPF (0-4)
[2017-11-09 12:34] LABS: ADD MAN DIFF? NO
[2017-11-09 12:42] LABS: BASO # 0.1 x10^3/uL (0.0-0.2); BASO % 1 % (0-3); EOS # 0.1 x10^3/uL (0.0-0.7); EOS % 2 % (0-3); HEMATOCRIT 33.9 % (36.0-47.0); HEMOGLOBIN 10.9 g/dL (12.0-15.5); LYMPH # 1.9 x10^3/uL (1.0-4.8); LYMPH % 25 % (24-48); MEAN CORPUSCULAR HEMOGLOBIN 25 pg (25-35); MEAN CORPUSCULAR HGB CONC 32 g/dL (31-37); MEAN CORPUSCULAR VOLUME 78 fL (79-100); MONO # 0.5 x10^3/uL (0.0-1.1); MONO % 7 % (0-9); NEUT # 4.9 x10^3uL (1.8-7.7); NEUT % 65 % (31-73); PLATELET COUNT 404 x10^3/uL (140-400); RED BLOOD COUNT 4.35 x10^6/uL (3.50-5.40); RED CELL DISTRIBUTION WIDTH 15.9 % (11.5-14.5); WHITE BLOOD COUNT 7.5 x10^3/uL (4.0-11.0)
[2017-11-09 12:49] LABS: PARTIAL THROMBOPLASTIN TIME 25 SEC (24-38); PROTHROMBIN TIME PATIENT 12.4 SEC (11.7-14.0)
[2017-11-09 12:50] LABS: BLOOD UREA NITROGEN 20 mg/dL (7-20); BUN/CREATININE RATIO 20 (6-20); CALCIUM 8.6 mg/dL (8.5-10.1); GLUCOSE 82 mg/dL (70-99)
[2017-11-09 12:51] LABS: ANION GAP 9 (6-14); CARBON DIOXIDE 26 mmol/L (21-32); CHLORIDE 106 mmol/L (98-107); GFR 54.2; POTASSIUM 4.8 mmol/L (3.5-5.1); SODIUM 141 mmol/L (136-145)
[2017-11-09 12:57] LABS: ALBUMIN 3.3 g/dL (3.4-5.0); ALBUMIN/GLOBULIN RATIO 0.7 (1.0-1.7); ALK PHOS 87 U/L (46-116); ALT (SGPT) 15 U/L (14-59); AST (SGOT) 24 U/L (15-37); LIPASE 213 U/L (73-393); TOTAL BILIRUBIN 0.4 mg/dL (0.2-1.0); TOTAL PROTEIN 7.8 g/dL (6.4-8.2)
[2017-11-09] MEDS: IV NORMAL SALINE 1000ML BAG 1,000 ML IV (12:57)
== END 2017-11-09 15:00 | disposition home or self-care (01) ==
LOC: ER 11:28
DX: N39.0 Urinary tract infection, site not specified (principal); Z96.0 Presence of urogenital implants; J44.9 Chronic obstructive pulmonary disease, unspecified; I50.9 Heart failure, unspecified; Z90.710 Acquired absence of both cervix and uterus; Z87.891 Personal history of nicotine dependence; Z88.2 Allergy status to sulfonamides; Z88.7 Allergy status to serum and vaccine
CPT/HCPCS: 36415; 74176; 80053; 81001; 83690; 85025; 85610; 85730; 87086; 87186; 96361; 96365; 99285-25; J0690; J7030

== ENCOUNTER 2018-03-19 22:04 | Inpatient (IN) | payer MEDICARE ==
[~2018-03-19] VITALS: Ht 152.4 cm; Wt 40.5 kg
[~2018-03-19 22:04] MED LIST changes: +LEVO500T59 PO; +PRED20TA PO
--- NOTE | 2018-03-19 22:47 | PHYS DOC ---
Past Medical History Past Medical History: Asthma, CHF, COPD, Other Past Surgical History: Hysterectomy, Other Additional Past Surgical Histo: PROLASPED UTERUS Alcohol Use: None Drug Use: None Adult General HPI HPI Patient is a 73 year old female with past medical history COPD, CHF who presents with an acute worsening shortness of air. Patient notes she was in the bathroom when she became acutely short of breath. Her family went to check on her and they found her in the bathroom and called EMS. When EMS arrived her initial oxygen saturation was 92% and in route she had 2 nebulized treatments and is currently satting in the upper 90s on room air without labored breathing or shortness of breath at rest. Patient reports that she has had a productive cough for the last 3 days. Patient denies fevers or chills, chest pain, pleuritic pain, lower extremity swelling or pain. Patient notes that she also has some mid epigastric pain but denies nausea, vomiting, diarrhea, or constipation. Review of Systems Review of Systems Constitutional: Denies fever or chills [] Eyes: Denies change in visual acuity, redness, or eye pain [] HENT: Denies nasal congestion or sore throat [] Respiratory: Notes cough and shortness of breath [] Cardiovascular: Denies chest pain or palpitations[] GI: Notes abdominal pain. nausea, vomiting, bloody stools or diarrhea [] : Denies dysuria or hematuria [] Musculoskeletal: Denies back pain or joint pain [] Integument: Denies rash or skin lesions [] Neurologic: Denies headache, focal weakness or sensory changes [] Complete systems were reviewed and found to be within normal limits, except as documented in this note. Current Medications Current Medications Current Medications Medications (Trade) Dose Ordered Sig/Emelia Start Time Stop Time Status Last Admin Dose Admin Fentanyl Citrate (Fentanyl 2ml Vial) 50 mcg PRN Q2HR PRN 03/20/18 01:30 03/21/18 01:29 Hyoscyamine (Anaspaz) 0.25 mg PRN Q4HRS PRN 03/20/18 00:00 03/20/18 00:16 0.25 MG Ondansetron HCl (Zofran) 4 mg PRN Q8HRS PRN 03/20/18 01:30 03/21/18 01:29 Pantoprazole Sodium (PROTONIX VIAL for IV PUSH) 80 mg 1X ONCE 03/20/18 00:15 03/20/18 00:16 DC 03/20/18 00:17 80 MG Piperacillin Sod/ Tazobactam Sod 4.5 gm/Sodium Chloride 100 ml @ 200 mls/hr 1X ONCE 03/20/18 01:00 03/20/18 01:29 DC 03/20/18 01:15 200 MLS/HR Sodium Chloride 1,000 ml @ 1,000 mls/hr 1X ONCE 03/20/18 01:00 03/20/18 01:59 DC 03/20/18 01:14 1,000 MLS/HR Allergies Allergies Allergies Coded Allergies Type Severity Reaction Last Updated Verified Sulfa (Sulfonamide Antibiotics) Allergy Intermediate 05/27/17 Yes I S O L A T I O N *CONTACT* Allergy Unknown 11/14/17 Yes Physical Exam Physical Exam Constitutional: Well developed, well nourished, no acute distress, non-toxic appearance. [] HENT: Normocephalic, atraumatic, oropharynx moist, no oral exudates, nose normal. [] Eyes: PERRL, EOMI, conjunctiva normal, no discharge. [] Neck: Normal range of motion, no tenderness, supple, no meningismus. [] Cardiovascular:Heart rate regular rhythm, no murmur [] Lungs & Thorax: Bilateral breath sounds clear to auscultation, good air movement no wheezing auscultated [] Abdomen: Bowel sounds normal, soft, tenderness to palpation in the epigastric region [] Skin: Warm, dry, no erythema, no rash. [] Back: No tenderness, no CVA tenderness. [] Extremities: No tenderness, ROM intact, no edema. [] Neurologic: Alert and oriented X 3, normal motor function, normal sensory function, no focal deficits noted. [] Psychologic: Affect normal, judgement normal, mood normal. [] Current Patient Data Vital Signs Vital Signs Date Time Temp Pulse Resp B/P (MAP) Pulse Ox O2 Delivery O2 Flow Rate FiO2 03/20/18 01:30 100 99/54 (69) 03/20/18 01:00 22 96 Room Air 03/19/18 22:05 98.4 98.4 Lab Values Laboratory Tests Test 03/19/18 23:36 03/20/18 00:40 White Blood Count 16.8 x10^3/uL (4.0-11.0) H Red Blood Count 3.21 x10^6/uL (3.50-5.40) L Hemoglobin 6.1 g/dL (12.0-15.5) *L Hematocrit 21.3 % (36.0-47.0) L Mean Corpuscular Volume 66 fL (79-100) L Mean Corpuscular Hemoglobin 19 pg (25-35) L Mean Corpuscular Hemoglobin Concent 29 g/dL (31-37) L Red Cell Distribution Width 17.6 % (11.5-14.5) H Platelet Count 579 x10^3/uL (140-400) H Neutrophils (%) (Auto) 87 % (31-73) H Lymphocytes (%) (Auto) 7 % (24-48) L Monocytes (%) (Auto) 5 % (0-9) Eosinophils (%) (Auto) 0 % (0-3) Basophils (%) (Auto) 1 % (0-3) Neutrophils # (Auto) 14.7 x10^3uL (1.8-7.7) H Lymphocytes # (Auto) 1.2 x10^3/uL (1.0-4.8) Monocytes # (Auto) 0.8 x10^3/uL (0.0-1.1) Eosinophils # (Auto) 0.0 x10^3/uL (0.0-0.7) Basophils # (Auto) 0.1 x10^3/uL (0.0-0.2) Segmented Neutrophils % 87 % (35-66) H Band Neutrophils % 3 % (0-9) Lymphocytes % 9 % (24-48) L Monocytes % 1 % (0-10) Platelet Estimate Increased (ADEQUATE) Giant Platelets Occ Polychromasia Slight Hypochromasia Marked Anisocytosis Slight Microcytosis Marked Sodium Level 142 mmol/L (136-145) Potassium Level 3.9 mmol/L (3.5-5.1) Chloride Level 104 mmol/L (98-107) Carbon Dioxide Level 24 mmol/L (21-32) Anion Gap 14 (6-14) Blood Urea Nitrogen 20 mg/dL (7-20) Creatinine 1.2 mg/dL (0.6-1.0) H Estimated GFR (Cockcroft-Gault) 43.8 BUN/Creatinine Ratio 17 (6-20) Glucose Level 131 mg/dL (70-99) H Lactic Acid Level 2.9 mmol/L (0.4-2.0) H Calcium Level 9.3 mg/dL (8.5-10.1) Magnesium Level 2.5 mg/dL (1.8-2.4) H Total Bilirubin 0.4 mg/dL (0.2-1.0) Aspartate Amino Transferase (AST) 18 U/L (15-37) Alanine Aminotransferase (ALT) 13 U/L (14-59) L Alkaline Phosphatase 93 U/L (46-116) Creatine Kinase 62 U/L (26-192) Troponin I Quantitative < 0.017 ng/mL (0.000-0.055) UU-Rlw-W-Type Natriuretic Peptide 3764 pg/mL (0-449) H Total Protein 7.8 g/dL (6.4-8.2) Albumin 3.5 g/dL (3.4-5.0) Albumin/Globulin Ratio 0.8 (1.0-1.7) L Stool Occult Blood Positive (NEG) Laboratory Tests 03/19/18 23:36 Laboratory Tests 03/19/18 23:36 EKG EKG @0007 NSR at 100 bpm, Q wave I and aVL and V4-V6 Radiology/Procedures Radiology/Procedures [] Course & Med Decision Making Course & Med Decision Making Pertinent Labs and Imaging studies reviewed. (See chart for details) [] Dragon Disclaimer Dragon Disclaimer This electronic medical record was generated, in whole or in part, using a voice recognition dictation system. Departure Departure Impression: Primary Impression: Anemia Additional Impressions: GI bleed Shortness of breath Disposition: ADMITTED INPATIENT Admitting Physician: Laura Peña Condition: GUARDED Referrals: NO PCP (PCP) Problem Qualifiers Primary Impression: Anemia Anemia type: unspecified type Qualified Codes: D64.9 - Anemia, unspecified Additional Impressions: GI bleed GI bleed type/associated pathology: unspecified gastrointestinal hemorrhage type Qualified Codes: K92.2 - Gastrointestinal hemorrhage, unspecified GARIMA WARE DO Mar 19, 2018 22:47
[2018-03-19 23:51] LABS: BASO # 0.1 x10^3/uL (0.0-0.2); BASO % 1 % (0-3); EOS % 0 % (0-3); HEMATOCRIT 21.3 % (36.0-47.0); LYMPH # 1.2 x10^3/uL (1.0-4.8); LYMPH % 7 % (24-48); MEAN CORPUSCULAR HEMOGLOBIN 19 pg (25-35); MEAN CORPUSCULAR HGB CONC 29 g/dL (31-37); MEAN CORPUSCULAR VOLUME 66 fL (79-100); MONO # 0.8 x10^3/uL (0.0-1.1); MONO % 5 % (0-9); NEUT # 14.7 x10^3uL (1.8-7.7); NEUT % 87 % (31-73); PLATELET COUNT 579 x10^3/uL (140-400); RED BLOOD COUNT 3.21 x10^6/uL (3.50-5.40); RED CELL DISTRIBUTION WIDTH 17.6 % (11.5-14.5); WHITE BLOOD COUNT 16.8 x10^3/uL (4.0-11.0)
[2018-03-19 23:54] LABS: HEMOGLOBIN 6.1 g/dL (12.0-15.5)
[2018-03-20] VITALS (13 sets, daily range): BP systolic 94–133; BP diastolic 39–59
[2018-03-20] MEDS ORDERED: HYOSCYAMINE 0.125 MG TAB.RAPDIS PO PRN
[2018-03-20 00:04] LABS: CALCIUM 9.3 mg/dL (8.5-10.1); CREATININE 1.2 mg/dL (0.6-1.0); GFR 43.8; POTASSIUM 3.9 mmol/L (3.5-5.1)
[2018-03-20 00:12] LABS: ALBUMIN 3.5 g/dL (3.4-5.0); ALBUMIN/GLOBULIN RATIO 0.8 (1.0-1.7); MAGNESIUM 2.5 mg/dL (1.8-2.4); TOTAL BILIRUBIN 0.4 mg/dL (0.2-1.0); TOTAL PROTEIN 7.8 g/dL (6.4-8.2)
[2018-03-20] MEDS ORDERED: PANTOPRAZOLE IV PUSH 40 MG VIAL. IVP ONE (00:15)
[2018-03-20 00:55] LABS: FECAL OB PT POSITIVE (NEG)
[2018-03-20] MEDS ORDERED: IV NORMAL SALINE 1000ML BAG 1,000 ML IV ONE (01:00)
[2018-03-20] MEDS ORDERED: PIPERACILLIN/TAZOBACTAM 4.5 GM in IV NORMAL SALINE 100ML 100 ML IV ONE (01:00)
--- NOTE | 2018-03-20 01:15 | EKG ---
[facility] [address] [place] [address] Test Date: 2018-03-20 Test Time: 00:07:48 Pat Name: KYMBERLY AN Department: Room: Gender: Female Hand Salter: : 1945 Requested By: GARIMA WARE Order Number: [id number] Reading MD: Tiago Miguel Measurements Intervals [place] Rate: 100 P: 62 OH: 128 QRS: -20 QRSD: 72 T: 155 QT: 356 QTc: 462 Interpretive Statements SINUS RHYTHM ATRIAL PREMATURE COMPLEX(ES) LEFTWARD AXIS LVH WITH REPOLARIZATION ABNORMALITY ABNORMAL ECG Electronically Signed On 03-20-2018 11:30:39 CDT by Tiago Miguel
[2018-03-20] MEDS ORDERED: ONDANSETRON PF 4 MG/2 ML VIAL. IV PRN ×2 (01:30→13:15)
[2018-03-20] MEDS ORDERED: fentaNYL PF VIAL 100 MCG/2 ML VIAL IV PRN (01:30)
[2018-03-20] MEDS: PANTOPRAZOLE SODIUM IV DRIP 80 MG in IV NORMAL SALINE 100ML 100 ML IV SCH ×2 (03:06→13:30)
[2018-03-20 04:30] LABS: % BANDS 3 % (0-9); % LYMPHS 9 % (24-48); % MONOS 1 % (0-10); % SEGS 87 % (35-66); PLT ESTIMATE INCREASED (ADEQUATE)
[2018-03-20 04:31] LABS: ANISOCYTOSIS SLIGHT; HYPOCHROMIA MARKED; MICROCYTOSIS MARKED; POLYCHROMASIA SLIGHT
--- NOTE | 2018-03-20 08:00 | PDOC2 ---
CONSULT Date of Consult Date of Consult DATE: 03/20/18 TIME: 07:53 Reason for Consult Reason for Consult: anemia, epigastric pain, SOA History of Present Illness Reason for Visit: 73 yo female with history of COPD - found at home, short of breath and weak- in ER Hgb 6.1 with low MCV. She denies any rectal bleeding but unsure of melena. She does have epigastric pain, worse after eating. She had gastric ulcers, and Hiatal Hernia last year (EGD) and colonoscopy at that time showed only diverticulosis. She denies any n/v, lower abd pain, change in bowel habits , fever etc Past Medical History Pulmonary: COPD GI: No pertinent hx, Diverticulosis, Peptic Ulcer disease Psych: Anxiety Rheumatologic: No pertinent hx Renal/: No pertinent hx Endocrine: No pertinent hx Past Surgical History Past Surgical History: Hysterectomy Family History Family History: Chronic Bronchitis Social History ALCOHOL: none Drugs: None Current Problem List Problem List Problems Medical Problems: (1) Anemia Status: Acute (2) GI bleed Status: Acute (3) Shortness of breath Status: Acute Current Medications Current Medications Current Medications Hyoscyamine (Anaspaz) 0.25 mg PRN Q4HRS PRN PO STOMACH CRAMPING Last administered on 03/20/18at 00:16; Start 03/20/18 at 00:00 Pantoprazole Sodium (PROTONIX VIAL for IV PUSH) 80 mg 1X ONCE IVP Last administered on 03/20/18at 00:17; Start 03/20/18 at 00:15; Stop 03/20/18 at 00:16 ; Status DC Sodium Chloride 1,000 ml @ 1,000 mls/hr 1X ONCE IV Last administered on at 01:14; Start 03/20/18 at 01:00; Stop 03/20/18 at 01:59; Status DC Piperacillin Sod/ Tazobactam Sod 4.5 gm/Sodium Chloride 100 ml @ 200 mls/hr 1X ONCE IV Last administered on 03/20/18at 01:15; Start 03/20/18 at 01:00; Stop 03/20/18 at 01:29; Status DC Ondansetron HCl (Zofran) 4 mg PRN Q8HRS PRN IV NAUSEA/VOMITING 1ST CHOICE; Start 03/20/18 at 01:30; Stop 03/21/18 at 01:29 Fentanyl Citrate (Fentanyl 2ml Vial) 50 mcg PRN Q2HR PRN IV SEVERE PAIN; Start 03/20/18 at 01:30; Stop 03/21/18 at 01:29 Pantoprazole Sodium 80 mg/ Sodium Chloride 100 ml @ 10 mls/hr Q10H IV Last administered on 03/20/18at 03:06; Start 03/20/18 at 03:00; Stop 03/21/18 at 02:59 Active Scripts Active Cipro (Ciprofloxacin Hcl) 500 Mg Tablet 1 Tab PO BID Codeine Sulfate 15 Mg Tablet 15 Mg PO AT BEDTIME Tessalon Perle (Benzonatate) 100 Mg Capsule 100 Mg PO TID PRN Proair Hfa Inhaler (Albuterol Sulfate) 8.5 Gm Hfa.aer.ad 2 Puff INH PRN Q6HRS PRN Ciprofloxacin Hcl 500 Mg Tablet 500 Mg PO BID Cipro (Ciprofloxacin Hcl) 500 Mg Tablet 250 Mg PO DAILY 10 Days Hydrocodone-Apap 5-325 (Hydrocodone Bit/Acetaminophen) 1 Each Tablet 1 Tab PO PRN Q6HRS PRN 10 Days Reported Prednisone 20 Mg Tablet 30 Mg PO DAILY 5 Days Levaquin (Levofloxacin) 500 Mg Tablet 250 Mg PO DAILY 5 Days Naproxen Sodium 550 Mg Tablet 550 Mg PO BID Hydrocodone-Apap 5-325 (Hydrocodone Bit/Acetaminophen) 1 Each Tablet 1 Tab PO Q4HRS PRN Acetaminophen 500 Mg Tablet 1 Tab PO BID Allergies Allergies: Coded Allergies: Influenza Virus Vaccines (Verified Allergy, Intermediate, 03/20/18) Sulfa (Sulfonamide Antibiotics) (Verified Allergy, Intermediate, 05/27/17) I S O L A T I O N *CONTACT* (Verified Allergy, Unknown, 11/14/17) mrsa Physical Exam General: Alert, Oriented X3 HEENT: PERRLA Lungs: Clear to auscultation Heart: Regular rate, Normal S1, Normal S2 Abdomen: Normal bowel sounds, Soft, No hepatosplenomegaly, Other (mild epigastric tenderness) Extremities: No clubbing Skin: No rashes Psych/Mental Status: Mental status NL Vitals VITALS Vital Signs Date Time Temp Pulse Resp B/P (MAP) Pulse Ox O2 Delivery O2 Flow Rate FiO2 03/20/18 06:45 97.9 88 20 97/42 97.9 03/20/18 03:00 Nasal Cannula 2.0 03/20/18 02:30 100 Labs Labs Laboratory Tests Test 03/19/18 23:36 03/20/18 00:40 White Blood Count 16.8 x10^3/uL (4.0-11.0) Red Blood Count 3.21 x10^6/uL (3.50-5.40) Hemoglobin 6.1 g/dL (12.0-15.5) Hematocrit 21.3 % (36.0-47.0) Mean Corpuscular Volume 66 fL (79-100) Mean Corpuscular Hemoglobin 19 pg (25-35) Mean Corpuscular Hemoglobin Concent 29 g/dL (31-37) Red Cell Distribution Width 17.6 % (11.5-14.5) Platelet Count 579 x10^3/uL (140-400) Neutrophils (%) (Auto) 87 % (31-73) Lymphocytes (%) (Auto) 7 % (24-48) Monocytes (%) (Auto) 5 % (0-9) Eosinophils (%) (Auto) 0 % (0-3) Basophils (%) (Auto) 1 % (0-3) Neutrophils # (Auto) 14.7 x10^3uL (1.8-7.7) Lymphocytes # (Auto) 1.2 x10^3/uL (1.0-4.8) Monocytes # (Auto) 0.8 x10^3/uL (0.0-1.1) Eosinophils # (Auto) 0.0 x10^3/uL (0.0-0.7) Basophils # (Auto) 0.1 x10^3/uL (0.0-0.2) Segmented Neutrophils % 87 % (35-66) Band Neutrophils % 3 % (0-9) Lymphocytes % 9 % (24-48) Monocytes % 1 % (0-10) Platelet Estimate Increased (ADEQUATE) Giant Platelets Occ Polychromasia Slight Hypochromasia Marked Anisocytosis Slight Microcytosis Marked Sodium Level 142 mmol/L (136-145) Potassium Level 3.9 mmol/L (3.5-5.1) Chloride Level 104 mmol/L (98-107) Carbon Dioxide Level 24 mmol/L (21-32) Anion Gap 14 (6-14) Blood Urea Nitrogen 20 mg/dL (7-20) Creatinine 1.2 mg/dL (0.6-1.0) Estimated GFR (Cockcroft-Gault) 43.8 BUN/Creatinine Ratio 17 (6-20) Glucose Level 131 mg/dL (70-99) Lactic Acid Level 2.9 mmol/L (0.4-2.0) Calcium Level 9.3 mg/dL (8.5-10.1) Magnesium Level 2.5 mg/dL (1.8-2.4) Total Bilirubin 0.4 mg/dL (0.2-1.0) Aspartate Amino Transf (AST/SGOT) 18 U/L (15-37) Alanine Aminotransferase (ALT/SGPT) 13 U/L (14-59) Alkaline Phosphatase 93 U/L (46-116) Creatine Kinase 62 U/L (26-192) Troponin I Quantitative < 0.017 ng/mL (0.000-0.055) HE-Hju-W-Type Natriuretic Peptide 3764 pg/mL (0-449) Total Protein 7.8 g/dL (6.4-8.2) Albumin 3.5 g/dL (3.4-5.0) Albumin/Globulin Ratio 0.8 (1.0-1.7) Stool Occult Blood Positive (NEG) Laboratory Tests Test 03/19/18 23:36 03/20/18 00:40 White Blood Count 16.8 x10^3/uL (4.0-11.0) Red Blood Count 3.21 x10^6/uL (3.50-5.40) Hemoglobin 6.1 g/dL (12.0-15.5) Hematocrit 21.3 % (36.0-47.0) Mean Corpuscular Volume 66 fL (79-100) Mean Corpuscular Hemoglobin 19 pg (25-35) Mean Corpuscular Hemoglobin Concent 29 g/dL (31-37) Red Cell Distribution Width 17.6 % (11.5-14.5) Platelet Count 579 x10^3/uL (140-400) Neutrophils (%) (Auto) 87 % (31-73) Lymphocytes (%) (Auto) 7 % (24-48) Monocytes (%) (Auto) 5 % (0-9) Eosinophils (%) (Auto) 0 % (0-3) Basophils (%) (Auto) 1 % (0-3) Neutrophils # (Auto) 14.7 x10^3uL (1.8-7.7) Lymphocytes # (Auto) 1.2 x10^3/uL (1.0-4.8) Monocytes # (Auto) 0.8 x10^3/uL (0.0-1.1) Eosinophils # (Auto) 0.0 x10^3/uL (0.0-0.7) Basophils # (Auto) 0.1 x10^3/uL (0.0-0.2) Segmented Neutrophils % 87 % (35-66) Band Neutrophils % 3 % (0-9) Lymphocytes % 9 % (24-48) Monocytes % 1 % (0-10) Platelet Estimate Increased (ADEQUATE) Giant Platelets Occ Polychromasia Slight Hypochromasia Marked Anisocytosis Slight Microcytosis Marked Sodium Level 142 mmol/L (136-145) Potassium Level 3.9 mmol/L (3.5-5.1) Chloride Level 104 mmol/L (98-107) Carbon Dioxide Level 24 mmol/L (21-32) Anion Gap 14 (6-14) Blood Urea Nitrogen 20 mg/dL (7-20) Creatinine 1.2 mg/dL (0.6-1.0) Estimated GFR (Cockcroft-Gault) 43.8 BUN/Creatinine Ratio 17 (6-20) Glucose Level 131 mg/dL (70-99) Lactic Acid Level 2.9 mmol/L (0.4-2.0) Calcium Level 9.3 mg/dL (8.5-10.1) Magnesium Level 2.5 mg/dL (1.8-2.4) Total Bilirubin 0.4 mg/dL (0.2-1.0) Aspartate Amino Transf (AST/SGOT) 18 U/L (15-37) Alanine Aminotransferase (ALT/SGPT) 13 U/L (14-59) Alkaline Phosphatase 93 U/L (46-116) Creatine Kinase 62 U/L (26-192) Troponin I Quantitative < 0.017 ng/mL (0.000-0.055) ND-Pgk-M-Type Natriuretic Peptide 3764 pg/mL (0-449) Total Protein 7.8 g/dL (6.4-8.2) Albumin 3.5 g/dL (3.4-5.0) Albumin/Globulin Ratio 0.8 (1.0-1.7) Stool Occult Blood Positive (NEG) Assessment/Plan Assessment/Plan Anemia- low MCV- with epigastric pain and history of ulcers, likely has occult GI bleeding as contributing feature Epigastric pain- hx of gastric ulcers and hiatal hernia COPD and SOA- worse recently, likely from anemia Plan- PPI transfusion to Hbg > 9 EGD STEVEN SALGADO MD Mar 20, 2018 08:00
--- NOTE | 2018-03-20 08:32 | RAD ---
CHEST AP ONLY Clinical indications: DYSPNEA COMPARISON: May 27, 2017. Findings: No acute lung infiltrate or pleural effusion or pulmonary edema or lung mass or pneumothorax is seen. Old appearing bilateral rib cage fractures are evident. The heart size is mildly enlarged but stable. A hiatal hernia is evident. The mediastinum is unchanged. Pulmonary vasculature is unremarkable. IMPRESSION: No acute radiographic abnormality. Electronically signed by: Jah Hinton MD (03/20/2018 8:29 AM) [facility]
[2018-03-20] MEDS: IV RINGERS,LACTATED 1000ML 1,000 ML IV SCH ×2 (08:48→20:51)
[2018-03-20] MEDS ORDERED: LIDOCAINE 2% PF Vial for OR 5 ML VIAL. ONE (09:12)
[2018-03-20] MEDS ORDERED: PROPOFOL 20 ML IV ONE (09:12)
[2018-03-20] MEDS ORDERED: ePHEDrine PF IN SALINE 50 MG/5 ML DISP.SYRIN IV ONE (09:13)
--- NOTE | 2018-03-20 09:31 | PDOC4 ---
PROCEDURE Procedure EGD anemia, epigastric pain anesthesia- propofol Findings- medium hiatal hernia with Meg ulcers, several antral ulcerations as well, erosive duodenitis Plan- stop NSAIDS take PPI daily indefinitely IV iron STEVEN SALGADO MD Mar 20, 2018 09:31
[2018-03-20] MEDS: SUCRALFATE 1 GM/10 ML ORAL.SUSP. PO SCH ×2 (11:35→16:39)
--- NOTE | 2018-03-20 13:05 | PDOC1 ---
History and Physical Date of Admission Date of Admission 03/20/18 Identification/Chief Complaint Chief Complaint sob Source Source: Chart review, Patient History of Present Illness History of Present Illness HPI Patient is a 73 year old female with past medical history COPD, non smoking, came to ER for sob. Pt said she has been feeling sob for 3 ds, wo increased sputum, has chronic cough, uses ventolin as needed at home. last night, Patient notes she was in the bathroom when she became acutely short of breath. Her family went to check on her and they found her in the bathroom and called EMS. When EMS arrived her initial oxygen saturation was 92% and in route she had 2 nebulized treatments and is currently satting in the upper 90s on room air without labored breathing or shortness of breath at rest. sob is worse at exertion. Pt has chronic abd pain, dull, middle abd, worse when lying down, moderate, no radiating. knows she has stomach ulcers, but not taking pPI, DENIES taking NSAIDS often. was found HB 6 in ER, knows has anemia, but cannot tell why. denies melena or blood BM. Past Medical History Pulmonary: COPD GI: No pertinent hx, Diverticulosis, Peptic Ulcer disease Psych: Anxiety Rheumatologic: No pertinent hx Renal/: No pertinent hx Endocrine: No pertinent hx Past Surgical History Past Surgical History: Hysterectomy Family History Family History: Chronic Bronchitis Social History Smoke: No ALCOHOL: none Drugs: None Current Problem List Problem List Problems Medical Problems: (1) Anemia Status: Acute (2) GI bleed Status: Acute (3) Shortness of breath Status: Acute Current Medications Current Medications Current Medications Medications (Trade) Dose Ordered Sig/Emelia Start Time Stop Time Status Last Admin Dose Admin Ephedrine Sulfate (ePHEDrine PF IN SALINE SYRINGE) 50 mg STK-MED ONCE 03/20/18 09:13 03/20/18 09:14 DC Fentanyl Citrate (Fentanyl 2ml Vial) 50 mcg PRN Q2HR PRN 03/20/18 01:30 03/21/18 01:29 Hyoscyamine (Anaspaz) 0.25 mg PRN Q4HRS PRN 03/20/18 00:00 03/20/18 00:16 0.25 MG Lidocaine HCl (Lidocaine Pf 2% Vial) 5 ml STK-MED ONCE 03/20/18 09:12 03/20/18 09:13 DC Ondansetron HCl (Zofran) 4 mg PRN Q8HRS PRN 03/20/18 01:30 03/21/18 01:29 Pantoprazole Sodium (PROTONIX VIAL for IV PUSH) 80 mg 1X ONCE 03/20/18 00:15 03/20/18 00:16 DC 03/20/18 00:17 80 MG Pantoprazole Sodium 80 mg/ Sodium Chloride 100 ml @ 10 mls/hr Q10H 03/20/18 03:00 03/21/18 02:59 03/20/18 03:06 10 MLS/HR Piperacillin Sod/ Tazobactam Sod 4.5 gm/Sodium Chloride 100 ml @ 200 mls/hr 1X ONCE 03/20/18 01:00 03/20/18 01:29 DC 03/20/18 01:15 200 MLS/HR Propofol 20 ml @ As Directed STK-MED ONCE 03/20/18 09:12 03/20/18 09:13 DC Ringer's Solution 1,000 ml @ 75 mls/hr [id number] 03/20/18 08:45 03/20/18 08:48 75 MLS/HR Sodium Chloride 1,000 ml @ 1,000 mls/hr 1X ONCE 03/20/18 01:00 03/20/18 01:59 DC 03/20/18 01:14 1,000 MLS/HR Sucralfate (Carafate) 1 gm TIDAC 03/20/18 11:30 03/27/18 11:29 03/20/18 11:35 1 GM Allergies Allergies Allergies Coded Allergies Type Severity Reaction Last Updated Verified Influenza Virus Vaccines Allergy Intermediate 03/20/18 Yes Sulfa (Sulfonamide Antibiotics) Allergy Intermediate 03/20/18 Yes I S O L A T I O N *CONTACT* Allergy Unknown 03/20/18 Yes ROS Review of System CONSTITUTIONAL: No fever or chills EYES: No recent changes SKIN: No rash or itching CARDIOVASCULAR: No chest pain, syncope, palpitations, or edema RESPIRATORY: No SOB or cough GASTROINTESTINAL: No nausea, vomiting or abdominal pain NEUROLOGICAL: No headaches or weakness ENDOCRINE: No cold or heat intolerance GENITOURINARY: No urgency or frequency of urination MUSCULOSKELETAL: No back pain or joint pain LYMPHATICS: No enlarged lymph nodes PSYCHIATRIC: No anxiety or depression Physical Exam Physical Exam GEN.: No apparent distress. Alert and oriented. HEENT: Head is normocephalic, atraumatic NECK: Supple. LUNGS: bl mild wheezing. HEART: RRR, S1, S2 present. Peripheral pulses intact ABDOMEN: Soft, Positive bowel sounds. middle abd mild tenderness. EXTREMITIES: Without any cyanosis. NEUROLOGIC: Normal speech, normal tone PSYCHIATRIC: Normal affect, normal mood. SKIN: No ulcerations Vitals Vitals Vital Signs Date Time Temp Pulse Resp B/P (MAP) Pulse Ox O2 Delivery O2 Flow Rate FiO2 03/20/18 11:00 99.1 86 16 101/53 (69) 99 Nasal Cannula 99.1 03/20/18 09:25 8 Labs Labs Laboratory Tests Test 03/19/18 23:36 03/20/18 00:40 White Blood Count 16.8 x10^3/uL (4.0-11.0) Red Blood Count 3.21 x10^6/uL (3.50-5.40) Hemoglobin 6.1 g/dL (12.0-15.5) Hematocrit 21.3 % (36.0-47.0) Mean Corpuscular Volume 66 fL (79-100) Mean Corpuscular Hemoglobin 19 pg (25-35) Mean Corpuscular Hemoglobin Concent 29 g/dL (31-37) Red Cell Distribution Width 17.6 % (11.5-14.5) Platelet Count 579 x10^3/uL (140-400) Neutrophils (%) (Auto) 87 % (31-73) Lymphocytes (%) (Auto) 7 % (24-48) Monocytes (%) (Auto) 5 % (0-9) Eosinophils (%) (Auto) 0 % (0-3) Basophils (%) (Auto) 1 % (0-3) Neutrophils # (Auto) 14.7 x10^3uL (1.8-7.7) Lymphocytes # (Auto) 1.2 x10^3/uL (1.0-4.8) Monocytes # (Auto) 0.8 x10^3/uL (0.0-1.1) Eosinophils # (Auto) 0.0 x10^3/uL (0.0-0.7) Basophils # (Auto) 0.1 x10^3/uL (0.0-0.2) Segmented Neutrophils % 87 % (35-66) Band Neutrophils % 3 % (0-9) Lymphocytes % 9 % (24-48) Monocytes % 1 % (0-10) Platelet Estimate Increased (ADEQUATE) Giant Platelets Occ Polychromasia Slight Hypochromasia Marked Anisocytosis Slight Microcytosis Marked Sodium Level 142 mmol/L (136-145) Potassium Level 3.9 mmol/L (3.5-5.1) Chloride Level 104 mmol/L (98-107) Carbon Dioxide Level 24 mmol/L (21-32) Anion Gap 14 (6-14) Blood Urea Nitrogen 20 mg/dL (7-20) Creatinine 1.2 mg/dL (0.6-1.0) Estimated GFR (Cockcroft-Gault) 43.8 BUN/Creatinine Ratio 17 (6-20) Glucose Level 131 mg/dL (70-99) Lactic Acid Level 2.9 mmol/L (0.4-2.0) Calcium Level 9.3 mg/dL (8.5-10.1) Magnesium Level 2.5 mg/dL (1.8-2.4) Total Bilirubin 0.4 mg/dL (0.2-1.0) Aspartate Amino Transf (AST/SGOT) 18 U/L (15-37) Alanine Aminotransferase (ALT/SGPT) 13 U/L (14-59) Alkaline Phosphatase 93 U/L (46-116) Creatine Kinase 62 U/L (26-192) Troponin I Quantitative < 0.017 ng/mL (0.000-0.055) WI-Htr-Z-Type Natriuretic Peptide 3764 pg/mL (0-449) Total Protein 7.8 g/dL (6.4-8.2) Albumin 3.5 g/dL (3.4-5.0) Albumin/Globulin Ratio 0.8 (1.0-1.7) Stool Occult Blood Positive (NEG) Laboratory Tests Test 03/19/18 23:36 03/20/18 00:40 White Blood Count 16.8 x10^3/uL (4.0-11.0) Red Blood Count 3.21 x10^6/uL (3.50-5.40) Hemoglobin 6.1 g/dL (12.0-15.5) Hematocrit 21.3 % (36.0-47.0) Mean Corpuscular Volume 66 fL (79-100) Mean Corpuscular Hemoglobin 19 pg (25-35) Mean Corpuscular Hemoglobin Concent 29 g/dL (31-37) Red Cell Distribution Width 17.6 % (11.5-14.5) Platelet Count 579 x10^3/uL (140-400) Neutrophils (%) (Auto) 87 % (31-73) Lymphocytes (%) (Auto) 7 % (24-48) Monocytes (%) (Auto) 5 % (0-9) Eosinophils (%) (Auto) 0 % (0-3) Basophils (%) (Auto) 1 % (0-3) Neutrophils # (Auto) 14.7 x10^3uL (1.8-7.7) Lymphocytes # (Auto) 1.2 x10^3/uL (1.0-4.8) Monocytes # (Auto) 0.8 x10^3/uL (0.0-1.1) Eosinophils # (Auto) 0.0 x10^3/uL (0.0-0.7) Basophils # (Auto) 0.1 x10^3/uL (0.0-0.2) Segmented Neutrophils % 87 % (35-66) Band Neutrophils % 3 % (0-9) Lymphocytes % 9 % (24-48) Monocytes % 1 % (0-10) Platelet Estimate Increased (ADEQUATE) Giant Platelets Occ Polychromasia Slight Hypochromasia Marked Anisocytosis Slight Microcytosis Marked Sodium Level 142 mmol/L (136-145) Potassium Level 3.9 mmol/L (3.5-5.1) Chloride Level 104 mmol/L (98-107) Carbon Dioxide Level 24 mmol/L (21-32) Anion Gap 14 (6-14) Blood Urea Nitrogen 20 mg/dL (7-20) Creatinine 1.2 mg/dL (0.6-1.0) Estimated GFR (Cockcroft-Gault) 43.8 BUN/Creatinine Ratio 17 (6-20) Glucose Level 131 mg/dL (70-99) Lactic Acid Level 2.9 mmol/L (0.4-2.0) Calcium Level 9.3 mg/dL (8.5-10.1) Magnesium Level 2.5 mg/dL (1.8-2.4) Total Bilirubin 0.4 mg/dL (0.2-1.0) Aspartate Amino Transf (AST/SGOT) 18 U/L (15-37) Alanine Aminotransferase (ALT/SGPT) 13 U/L (14-59) Alkaline Phosphatase 93 U/L (46-116) Creatine Kinase 62 U/L (26-192) Troponin I Quantitative < 0.017 ng/mL (0.000-0.055) YY-Deg-U-Type Natriuretic Peptide 3764 pg/mL (0-449) Total Protein 7.8 g/dL (6.4-8.2) Albumin 3.5 g/dL (3.4-5.0) Albumin/Globulin Ratio 0.8 (1.0-1.7) Stool Occult Blood Positive (NEG) VTE Prophylaxis Ordered VTE Prophylaxis Devices: Yes VTE Pharmacological Prophylaxi: No Assessment/Plan Assessment/Plan sob, COPD exacerbation, plus anemia symptomatic anemia with likely chronic gib medium hiatal hernia with Meg ulcers, several antral ulcerations as well, erosive duodenitis in EGD plan: fu with GI, EGD done today no active gib 2u PRBC transfusion today full liquid diet as per gi still on ppi drip, change to po bid if ok with gi also add sulcralfate verify home meds with nurse, avoid NSAIDS check echo add duoneb, albuterol prn labs tmr HERB SEGOVIA MD Mar 20, 2018 13:05
[2018-03-20 13:14] LABS: BASO # 0.1 x10^3/uL (0.0-0.2); BASO % 1 % (0-3); EOS % 0 % (0-3); HEMOGLOBIN 9.3 g/dL (12.0-15.5); LYMPH # 1.7 x10^3/uL (1.0-4.8); LYMPH % 16 % (24-48); MEAN CORPUSCULAR HEMOGLOBIN 23 pg (25-35); MEAN CORPUSCULAR HGB CONC 32 g/dL (31-37); MEAN CORPUSCULAR VOLUME 72 fL (79-100); MONO # 0.7 x10^3/uL (0.0-1.1); MONO % 7 % (0-9); NEUT # 8.1 x10^3uL (1.8-7.7); NEUT % 77 % (31-73); PLATELET COUNT 439 x10^3/uL (140-400); RED BLOOD COUNT 4.02 x10^6/uL (3.50-5.40); RED CELL DISTRIBUTION WIDTH 19.3 % (11.5-14.5); WHITE BLOOD COUNT 10.6 x10^3/uL (4.0-11.0)
[2018-03-20] MEDS ORDERED: ALBUTEROL SULFATE 2.5 MG/3 ML NEBU. NEB PRN (13:15)
[2018-03-20] MEDS ORDERED: DOCUSATE SODIUM 100 MG CAPSULE. PO PRN (13:15)
[2018-03-20] MEDS ORDERED: ACETAMINOPHEN 325 MG TABLET. PO PRN (13:15)
[2018-03-20] MEDS ORDERED: MORPHINE SULFATE 2 MG/ML VIAL. IV PRN (13:15)
[2018-03-20] MEDS ORDERED: traMADol 50 MG TABLET PO PRN (13:15)
[2018-03-20] MEDS: IPRATRPIUM/ALBUTEROL 0.5/2.5MG 3 ML NEBU. NEB SCH ×2 (15:24→20:42)
[2018-03-21] VITALS (12 sets, daily range): BP systolic 76–133; BP diastolic 38–73
[2018-03-21 05:34] LABS: BASO # 0.1 x10^3/uL (0.0-0.2); BASO % 1 % (0-3); EOS # 0.2 x10^3/uL (0.0-0.7); EOS % 2 % (0-3); HEMOGLOBIN 8.6 g/dL (12.0-15.5); LYMPH # 2.3 x10^3/uL (1.0-4.8); LYMPH % 24 % (24-48); MEAN CORPUSCULAR HEMOGLOBIN 23 pg (25-35); MEAN CORPUSCULAR HGB CONC 32 g/dL (31-37); MEAN CORPUSCULAR VOLUME 71 fL (79-100); MONO # 0.7 x10^3/uL (0.0-1.1); MONO % 7 % (0-9); NEUT # 6.3 x10^3uL (1.8-7.7); NEUT % 66 % (31-73); PLATELET COUNT 420 x10^3/uL (140-400); RED BLOOD COUNT 3.79 x10^6/uL (3.50-5.40); RED CELL DISTRIBUTION WIDTH 19.7 % (11.5-14.5); WHITE BLOOD COUNT 9.5 x10^3/uL (4.0-11.0)
[2018-03-21 05:44] LABS: CALCIUM 8.4 mg/dL (8.5-10.1); GFR 54.1; POTASSIUM 4.6 mmol/L (3.5-5.1)
[2018-03-21] MEDS: SUCRALFATE 1 GM/10 ML ORAL.SUSP. PO SCH ×3 (06:35→16:30)
[2018-03-21] MEDS ORDERED: PANTOPRAZOLE IV PUSH 40 MG VIAL. IVP SCH (07:30)
[2018-03-21] MEDS: IPRATRPIUM/ALBUTEROL 0.5/2.5MG 3 ML NEBU. NEB SCH ×4 (07:31→19:41)
--- NOTE | 2018-03-21 10:07 | PDOC ---
PROGRESS NOTES History of Present Illness History of Present Illness Assessment/Plan Assessment/Plan sob, COPD exacerbation, plus anemia symptomatic anemia with likely chronic gib medium hiatal hernia with Meg ulcers, several antral ulcerations as well, erosive duodenitis on EGD plan: gi following no active gib 2u PRBC transfusion 03/20 full liquid diet as per gi still on ppi drip, change to po bid if ok with gi also add sulcralfate no NSAIDS check echo add duoneb, albuterol prn Vitals Vitals Vital Signs Date Time Temp Pulse Resp B/P (MAP) Pulse Ox O2 Delivery O2 Flow Rate FiO2 03/21/18 07:31 97 Room Air 03/21/18 07:00 97.6 81 16 105/55 (72) 97.6 03/20/18 09:25 8 Physical Exam General: Alert, Oriented X3 Heart: Regular rate, Normal S1, Normal S2 Lungs: Clear, Other Abdomen: Normal bowel sounds, Soft, No hepatosplenomegaly, Other (mild epigastric tenderness) Extremities: No clubbing Skin: No rashes Labs LABS Laboratory Tests Test 03/20/18 11:30 03/20/18 13:05 03/21/18 04:48 Nasal Screen MRSA (PCR) Negative (Negative) White Blood Count 10.6 x10^3/uL (4.0-11.0) 9.5 x10^3/uL (4.0-11.0) Red Blood Count 4.02 x10^6/uL (3.50-5.40) 3.79 x10^6/uL (3.50-5.40) Hemoglobin 9.3 g/dL (12.0-15.5) 8.6 g/dL (12.0-15.5) Hematocrit 29.0 % (36.0-47.0) 27.0 % (36.0-47.0) Mean Corpuscular Volume 72 fL (79-100) 71 fL (79-100) Mean Corpuscular Hemoglobin 23 pg (25-35) 23 pg (25-35) Mean Corpuscular Hemoglobin Concent 32 g/dL (31-37) 32 g/dL (31-37) Red Cell Distribution Width 19.3 % (11.5-14.5) 19.7 % (11.5-14.5) Platelet Count 439 x10^3/uL (140-400) 420 x10^3/uL (140-400) Neutrophils (%) (Auto) 77 % (31-73) 66 % (31-73) Lymphocytes (%) (Auto) 16 % (24-48) 24 % (24-48) Monocytes (%) (Auto) 7 % (0-9) 7 % (0-9) Eosinophils (%) (Auto) 0 % (0-3) 2 % (0-3) Basophils (%) (Auto) 1 % (0-3) 1 % (0-3) Neutrophils # (Auto) 8.1 x10^3uL (1.8-7.7) 6.3 x10^3uL (1.8-7.7) Lymphocytes # (Auto) 1.7 x10^3/uL (1.0-4.8) 2.3 x10^3/uL (1.0-4.8) Monocytes # (Auto) 0.7 x10^3/uL (0.0-1.1) 0.7 x10^3/uL (0.0-1.1) Eosinophils # (Auto) 0.0 x10^3/uL (0.0-0.7) 0.2 x10^3/uL (0.0-0.7) Basophils # (Auto) 0.1 x10^3/uL (0.0-0.2) 0.1 x10^3/uL (0.0-0.2) Lactic Acid Level 1.8 mmol/L (0.4-2.0) Troponin I Quantitative < 0.017 ng/mL (0.000-0.055) Sodium Level 140 mmol/L (136-145) Potassium Level 4.6 mmol/L (3.5-5.1) Chloride Level 106 mmol/L (98-107) Carbon Dioxide Level 27 mmol/L (21-32) Anion Gap 7 (6-14) Blood Urea Nitrogen 12 mg/dL (7-20) Creatinine 1.0 mg/dL (0.6-1.0) Estimated GFR (Cockcroft-Gault) 54.1 Glucose Level 89 mg/dL (70-99) Calcium Level 8.4 mg/dL (8.5-10.1) Assessment and Plan Assessmemt and Plan Problems Medical Problems: (1) Anemia Status: Acute (2) GI bleed Status: Acute (3) Shortness of breath Status: Acute Comment Review of Relevant I have reviewed the following items marshal (where applicable) has been applied. Labs Laboratory Tests Test 03/19/18 23:36 03/20/18 00:40 03/20/18 11:30 03/20/18 13:05 White Blood Count 16.8 x10^3/uL (4.0-11.0) 10.6 x10^3/uL (4.0-11.0) Red Blood Count 3.21 x10^6/uL (3.50-5.40) 4.02 x10^6/uL (3.50-5.40) Hemoglobin 6.1 g/dL (12.0-15.5) 9.3 g/dL (12.0-15.5) Hematocrit 21.3 % (36.0-47.0) 29.0 % (36.0-47.0) Mean Corpuscular Volume 66 fL (79-100) 72 fL (79-100) Mean Corpuscular Hemoglobin 19 pg (25-35) 23 pg (25-35) Mean Corpuscular Hemoglobin Concent 29 g/dL (31-37) 32 g/dL (31-37) Red Cell Distribution Width 17.6 % (11.5-14.5) 19.3 % (11.5-14.5) Platelet Count 579 x10^3/uL (140-400) 439 x10^3/uL (140-400) Neutrophils (%) (Auto) 87 % (31-73) 77 % (31-73) Lymphocytes (%) (Auto) 7 % (24-48) 16 % (24-48) Monocytes (%) (Auto) 5 % (0-9) 7 % (0-9) Eosinophils (%) (Auto) 0 % (0-3) 0 % (0-3) Basophils (%) (Auto) 1 % (0-3) 1 % (0-3) Neutrophils # (Auto) 14.7 x10^3uL (1.8-7.7) 8.1 x10^3uL (1.8-7.7) Lymphocytes # (Auto) 1.2 x10^3/uL (1.0-4.8) 1.7 x10^3/uL (1.0-4.8) Monocytes # (Auto) 0.8 x10^3/uL (0.0-1.1) 0.7 x10^3/uL (0.0-1.1) Eosinophils # (Auto) 0.0 x10^3/uL (0.0-0.7) 0.0 x10^3/uL (0.0-0.7) Basophils # (Auto) 0.1 x10^3/uL (0.0-0.2) 0.1 x10^3/uL (0.0-0.2) Segmented Neutrophils % 87 % (35-66) Band Neutrophils % 3 % (0-9) Lymphocytes % 9 % (24-48) Monocytes % 1 % (0-10) Platelet Estimate Increased (ADEQUATE) Giant Platelets Occ Polychromasia Slight Hypochromasia Marked Anisocytosis Slight Microcytosis Marked Sodium Level 142 mmol/L (136-145) Potassium Level 3.9 mmol/L (3.5-5.1) Chloride Level 104 mmol/L (98-107) Carbon Dioxide Level 24 mmol/L (21-32) Anion Gap 14 (6-14) Blood Urea Nitrogen 20 mg/dL (7-20) Creatinine 1.2 mg/dL (0.6-1.0) Estimated GFR (Cockcroft-Gault) 43.8 BUN/Creatinine Ratio 17 (6-20) Glucose Level 131 mg/dL (70-99) Lactic Acid Level 2.9 mmol/L (0.4-2.0) 1.8 mmol/L (0.4-2.0) Calcium Level 9.3 mg/dL (8.5-10.1) Magnesium Level 2.5 mg/dL (1.8-2.4) Total Bilirubin 0.4 mg/dL (0.2-1.0) Aspartate Amino Transf (AST/SGOT) 18 U/L (15-37) Alanine Aminotransferase (ALT/SGPT) 13 U/L (14-59) Alkaline Phosphatase 93 U/L (46-116) Creatine Kinase 62 U/L (26-192) Troponin I Quantitative < 0.017 ng/mL (0.000-0.055) < 0.017 ng/mL (0.000-0.055) JN-Eac-R-Type Natriuretic Peptide 3764 pg/mL (0-449) Total Protein 7.8 g/dL (6.4-8.2) Albumin 3.5 g/dL (3.4-5.0) Albumin/Globulin Ratio 0.8 (1.0-1.7) Stool Occult Blood Positive (NEG) Nasal Screen MRSA (PCR) Negative (Negative) Test 03/21/18 04:48 White Blood Count 9.5 x10^3/uL (4.0-11.0) Red Blood Count 3.79 x10^6/uL (3.50-5.40) Hemoglobin 8.6 g/dL (12.0-15.5) Hematocrit 27.0 % (36.0-47.0) Mean Corpuscular Volume 71 fL (79-100) Mean Corpuscular Hemoglobin 23 pg (25-35) Mean Corpuscular Hemoglobin Concent 32 g/dL (31-37) Red Cell Distribution Width 19.7 % (11.5-14.5) Platelet Count 420 x10^3/uL (140-400) Neutrophils (%) (Auto) 66 % (31-73) Lymphocytes (%) (Auto) 24 % (24-48) Monocytes (%) (Auto) 7 % (0-9) Eosinophils (%) (Auto) 2 % (0-3) Basophils (%) (Auto) 1 % (0-3) Neutrophils # (Auto) 6.3 x10^3uL (1.8-7.7) Lymphocytes # (Auto) 2.3 x10^3/uL (1.0-4.8) Monocytes # (Auto) 0.7 x10^3/uL (0.0-1.1) Eosinophils # (Auto) 0.2 x10^3/uL (0.0-0.7) Basophils # (Auto) 0.1 x10^3/uL (0.0-0.2) Sodium Level 140 mmol/L (136-145) Potassium Level 4.6 mmol/L (3.5-5.1) Chloride Level 106 mmol/L (98-107) Carbon Dioxide Level 27 mmol/L (21-32) Anion Gap 7 (6-14) Blood Urea Nitrogen 12 mg/dL (7-20) Creatinine 1.0 mg/dL (0.6-1.0) Estimated GFR (Cockcroft-Gault) 54.1 Glucose Level 89 mg/dL (70-99) Calcium Level 8.4 mg/dL (8.5-10.1) Laboratory Tests Test 03/20/18 11:30 03/20/18 13:05 03/21/18 04:48 Nasal Screen MRSA (PCR) Negative (Negative) White Blood Count 10.6 x10^3/uL (4.0-11.0) 9.5 x10^3/uL (4.0-11.0) Red Blood Count 4.02 x10^6/uL (3.50-5.40) 3.79 x10^6/uL (3.50-5.40) Hemoglobin 9.3 g/dL (12.0-15.5) 8.6 g/dL (12.0-15.5) Hematocrit 29.0 % (36.0-47.0) 27.0 % (36.0-47.0) Mean Corpuscular Volume 72 fL (79-100) 71 fL (79-100) Mean Corpuscular Hemoglobin 23 pg (25-35) 23 pg (25-35) Mean Corpuscular Hemoglobin Concent 32 g/dL (31-37) 32 g/dL (31-37) Red Cell Distribution Width 19.3 % (11.5-14.5) 19.7 % (11.5-14.5) Platelet Count 439 x10^3/uL (140-400) 420 x10^3/uL (140-400) Neutrophils (%) (Auto) 77 % (31-73) 66 % (31-73) Lymphocytes (%) (Auto) 16 % (24-48) 24 % (24-48) Monocytes (%) (Auto) 7 % (0-9) 7 % (0-9) Eosinophils (%) (Auto) 0 % (0-3) 2 % (0-3) Basophils (%) (Auto) 1 % (0-3) 1 % (0-3) Neutrophils # (Auto) 8.1 x10^3uL (1.8-7.7) 6.3 x10^3uL (1.8-7.7) Lymphocytes # (Auto) 1.7 x10^3/uL (1.0-4.8) 2.3 x10^3/uL (1.0-4.8) Monocytes # (Auto) 0.7 x10^3/uL (0.0-1.1) 0.7 x10^3/uL (0.0-1.1) Eosinophils # (Auto) 0.0 x10^3/uL (0.0-0.7) 0.2 x10^3/uL (0.0-0.7) Basophils # (Auto) 0.1 x10^3/uL (0.0-0.2) 0.1 x10^3/uL (0.0-0.2) Lactic Acid Level 1.8 mmol/L (0.4-2.0) Troponin I Quantitative < 0.017 ng/mL (0.000-0.055) Sodium Level 140 mmol/L (136-145) Potassium Level 4.6 mmol/L (3.5-5.1) Chloride Level 106 mmol/L (98-107) Carbon Dioxide Level 27 mmol/L (21-32) Anion Gap 7 (6-14) Blood Urea Nitrogen 12 mg/dL (7-20) Creatinine 1.0 mg/dL (0.6-1.0) Estimated GFR (Cockcroft-Gault) 54.1 Glucose Level 89 mg/dL (70-99) Calcium Level 8.4 mg/dL (8.5-10.1) Microbiology 03/19/18 Blood Culture - Preliminary, Resulted NO GROWTH AFTER 1 DAY Medications Current Medications Hyoscyamine (Anaspaz) 0.25 mg PRN Q4HRS PRN PO STOMACH CRAMPING Last administered on 03/20/18at 00:16; Start 03/20/18 at 00:00 Pantoprazole Sodium (PROTONIX VIAL for IV PUSH) 80 mg 1X ONCE IVP Last administered on 03/20/18at 00:17; Start 03/20/18 at 00:15; Stop 03/20/18 at 00:16 ; Status DC Sodium Chloride 1,000 ml @ 1,000 mls/hr 1X ONCE IV Last administered on at 01:14; Start 03/20/18 at 01:00; Stop 03/20/18 at 01:59; Status DC Piperacillin Sod/ Tazobactam Sod 4.5 gm/Sodium Chloride 100 ml @ 200 mls/hr 1X ONCE IV Last administered on 03/20/18at 01:15; Start 03/20/18 at 01:00; Stop 03/20/18 at 01:29; Status DC Ondansetron HCl (Zofran) 4 mg PRN Q8HRS PRN IV NAUSEA/VOMITING 1ST CHOICE; Start 03/20/18 at 01:30; Stop 03/20/18 at 13:15; Status DC Fentanyl Citrate (Fentanyl 2ml Vial) 50 mcg PRN Q2HR PRN IV SEVERE PAIN; Start 03/20/18 at 01:30; Stop 03/21/18 at 01:29; Status DC Pantoprazole Sodium 80 mg/ Sodium Chloride 100 ml @ 10 mls/hr Q10H IV Last administered on 03/20/18at 13:30; Start 03/20/18 at 03:00; Stop 03/20/18 at 15:19 ; Status DC Ringer's Solution 1,000 ml @ 75 mls/hr [id number] IV Last administered on at 08:48; Start 03/20/18 at 08:45 Propofol 20 ml @ As Directed STK-MED ONCE IV ; Start 03/20/18 at 09:12; Stop at 09:13; Status DC Lidocaine HCl (Lidocaine Pf 2% Vial) 5 ml STK-MED ONCE .ROUTE ; Start 03/20/18 at 09:12; Stop 03/20/18 at 09:13; Status DC Ephedrine Sulfate (ePHEDrine PF IN SALINE SYRINGE) 50 mg STK-MED ONCE IV ; Start 03/20/18 at 09:13; Stop 03/20/18 at 09:14; Status DC Sucralfate (Carafate) 1 gm TIDAC PO Last administered on 03/21/18at 06:35; Start 03/20/18 at 11:30; Stop 03/27/18 at 11:29 Acetaminophen (Tylenol) 650 mg PRN Q6HRS PRN PO FEVER; Start 03/20/18 at 13:15 Ondansetron HCl (Zofran) 4 mg PRN Q6HRS PRN IV NAUSEA/VOMITING; Start 03/20/18 at 13:15 Morphine Sulfate (Morphine Sulfate) 2 mg PRN Q2HR PRN IV MODERATE TO SEVERE PAIN; Start 03/20/18 at 13:15 Tramadol HCl (Ultram) 50 mg PRN Q6HRS PRN PO MILD TO MODERATE PAIN; Start 03/20 at 13:15 Docusate Sodium (Colace) 100 mg PRN DAILY PRN PO CONSTIPATION; Start 03/20/18 at 13:15 Albuterol/ Ipratropium (Duoneb) 3 ml RTQID NEB Last administered on 03/21/18at 07:31; Start 03/20/18 at 16:00 Albuterol Sulfate (Ventolin Neb Soln) 2.5 mg PRN Q2HR PRN NEB SHORTNESS OF BREATH; Start 03/20/18 at 13:15 Guaifenesin (Mucinex) 600 mg BID PO Last administered on 03/21/18at 09:53; Start 03/20/18 at 14:00 Pantoprazole Sodium (PROTONIX VIAL for IV PUSH) 40 mg DAILYAC IVP Last administered on 03/21/18at 06:35; Start 03/21/18 at 07:30 Active Scripts Active Proair Hfa Inhaler (Albuterol Sulfate) 8.5 Gm Hfa.aer.ad 2 Puff INH PRN Q6HRS PRN Reported Hydrocodone-Apap 5-325 (Hydrocodone Bit/Acetaminophen) 1 Each Tablet 1 Tab PO Q4HRS PRN Acetaminophen 500 Mg Tablet 1 Tab PO BID Vitals/I & O Vital Sign - Last 24 Hours 03/20/18 03/20/18 03/20/18 03/20/18 11:00 15:00 15:26 19:00 Temp 99.1 98.2 97.7 99.1 98.2 97.7 Pulse 86 92 86 Resp 16 18 20 B/P (MAP) 101/53 (69) 108/54 (72) 100/59 (73) Pulse Ox 99 99 96 97 O2 Delivery Nasal Cannula Room Air Room Air Room Air 03/20/18 03/20/18 03/20/18 03/21/18 19:45 20:43 23:00 03:00 Temp 98.4 98.3 98.4 98.3 Pulse 73 79 Resp 18 18 B/P (MAP) 98/40 (59) 102/51 (68) Pulse Ox 96 96 98 O2 Delivery Room Air Room Air Room Air Room Air 03/21/18 03/21/18 07:00 07:31 Temp 97.6 97.6 Pulse 81 Resp 16 B/P (MAP) 105/55 (72) Pulse Ox 98 97 O2 Delivery Room Air Room Air Intake and Output 03/20/18 03/20/18 03/21/18 15:00 23:00 07:00 Intake Total 575 ml 240 ml 120 ml Balance 575 ml 240 ml 120 ml IWONA WARD MD Mar 21, 2018 10:07
[2018-03-21] MEDS: IV RINGERS,LACTATED 1000ML 1,000 ML IV SCH (11:25)
[2018-03-21] MEDS ORDERED: IRON SUCROSE COMPLEX 500 MG in IV NORMAL SALINE 250ML 250 ML IV ONE (12:30)
--- NOTE | 2018-03-21 12:55 | PDOC ---
Subjective: Subjective: Feeling better, wants to go home. Objective: Objective: IV iron ordered. Vital Signs: Vital Signs Date Time Temp Pulse Resp B/P (MAP) Pulse Ox O2 Delivery O2 Flow Rate FiO2 03/21/18 11:19 97 Room Air 03/21/18 11:00 97.7 78 18 133/73 (93) 97.7 03/20/18 09:25 8 Labs: Laboratory Tests Test 03/20/18 13:05 03/21/18 04:48 White Blood Count 10.6 x10^3/uL 9.5 x10^3/uL Red Blood Count 4.02 x10^6/uL 3.79 x10^6/uL Hemoglobin 9.3 g/dL 8.6 g/dL Hematocrit 29.0 % 27.0 % Mean Corpuscular Volume 72 fL 71 fL Mean Corpuscular Hemoglobin 23 pg 23 pg Mean Corpuscular Hemoglobin Concent 32 g/dL 32 g/dL Red Cell Distribution Width 19.3 % 19.7 % Platelet Count 439 x10^3/uL 420 x10^3/uL Neutrophils (%) (Auto) 77 % 66 % Lymphocytes (%) (Auto) 16 % 24 % Monocytes (%) (Auto) 7 % 7 % Eosinophils (%) (Auto) 0 % 2 % Basophils (%) (Auto) 1 % 1 % Neutrophils # (Auto) 8.1 x10^3uL 6.3 x10^3uL Lymphocytes # (Auto) 1.7 x10^3/uL 2.3 x10^3/uL Monocytes # (Auto) 0.7 x10^3/uL 0.7 x10^3/uL Eosinophils # (Auto) 0.0 x10^3/uL 0.2 x10^3/uL Basophils # (Auto) 0.1 x10^3/uL 0.1 x10^3/uL Lactic Acid Level 1.8 mmol/L Troponin I Quantitative < 0.017 ng/mL Sodium Level 140 mmol/L Potassium Level 4.6 mmol/L Chloride Level 106 mmol/L Carbon Dioxide Level 27 mmol/L Anion Gap 7 Blood Urea Nitrogen 12 mg/dL Creatinine 1.0 mg/dL Estimated GFR (Cockcroft-Gault) 54.1 Glucose Level 89 mg/dL Calcium Level 8.4 mg/dL Imaging: EGD 03/20 medium hiatal hernia with Leif ulcers, several antral ulcerations as well, erosive duodenitis PE: GEN: NAD LUNGS: CTAB HEART: RRR ABD: NABS, S/ND/NT NEURO/PSYCH: A & O 3 A/P: Epigastric pain - resolved Anemia - Hgb stable -on EGD: hiatal hernia w/ Leif lesions, antral ulcers, erosive duodenitis -- To have IV iron. Change to PO PPI, continue Carafate, follow-up re: path (h/o H. pylori). Consider DC soon. KASIE GÓMEZ Mar 21, 2018 12:54
[2018-03-21] MEDS ORDERED: IOHEXOL 240 MG/ML 50ML VIAL. PO ONE (13:30)
[2018-03-21] MEDS ORDERED: CONTRAST GIVEN. MC PRN (13:30)
--- NOTE | 2018-03-21 16:12 | CARD ---
MR#: [id number] Date of Study: 03/21/2018 Ordering Physician: HERB SEGOVIA, Referring Physician: STANLEY HUSAIN Tech: APPROVED REPORT EXAM: Two-dimensional and M-mode echocardiogram with Doppler and color Doppler. INDICATION Dyspnea 2D DIMENSIONS RVDd1.8 (2.9-3.5cm)Left Atrium(2D)2.7 (1.6-4.0cm) IVSd0.7 (0.7-1.1cm)Aortic Root(2D)2.5 (2.0-3.7cm) LVDd5.6 (3.9-5.9cm)LVOT Diameter1.8 (1.8-2.4cm) PWd0.7 (0.7-1.1cm)LVDs4.2 (2.5-4.0cm) FS (%) 5.0 %SV71.7 ml M-Mode DIMENSIONS LVDd6.10 (4.0-5.6cm)FS (%) 9 % LVDs5.54 (2.0-3.8cm)LVEF(%)20 (>50%) Aortic Valve AoV Peak Marco.127.7cm/sAoV VTI21.3cm AO Peak GR.6.5mmHgLVOT Peak Marco.104.5cm/s LVOT VTI 19.86cmAO Mean GR.4mmHg MARY (VMAX)2.45jv8OGU (VTI)2.46cm2 Mitral Valve MV E Twuujeil42.4cm/sMV DECEL MOAA750uy MV A Anmjeocy902.2cm/sMV FMV82dt E/A Ratio0.5MVA (PHT)6.57cm2 TDI E/Lateral E'6.5E/Medial E'12.1 Pulmonary Vein S1 Ezdcdjms67.8cm/sD2 Jotqtzah93.1cm/s LEFT VENTRICLE The left ventricle is normal size. There is normal left ventricular wall thickness. Left ventricle sy stoic function is severely impaired. The anteroseptal wall appears akinetic. The Ejection Fraction is estimated at 15-20%. RIGHT VENTRICLE The right ventricle is normal size. The right ventricular systolic function is normal. ATRIA The left atrium size is normal. The right atrium size is normal. The interatrial septum is intact wit h no evidence for an atrial septal defect or patent foramen ovale as noted on 2-D or Doppler imaging. AORTIC VALVE The aortic valve is calcified but opens well. Doppler and Color Flow revealed trace aortic regurgitat ion. There is no significant aortic valvular stenosis. MITRAL VALVE The mitral valve is calcified but opens well. There is no evidence of mitral valve prolapse. There is no mitral valve stenosis. Doppler and Color-flow revealed trace mitral regurgitation. TRICUSPID VALVE The tricuspid valve is normal in structure and function. Doppler and Color Flow revealed trace tricus pid regurgitation. There is no tricuspid valve stenosis. PULMONIC VALVE The pulmonic valve is not well visualized. Doppler and Color Flow revealed no pulmonic valvular regur gitation. There is no pulmonic valvular stenosis. GREAT VESSELS The aortic root is normal in size. The ascending aorta is normal in size. The IVC is normal in size a nd collapses >50% with inspiration. PERICARDIAL EFFUSION There is no evidence of significant pericardial effusion. Critical Notification Critical Value: No <Conclusion> Left ventricle systoic function is severely impaired. The anteroseptal wall appears akinetic. The Ejection Fraction is estimated at 15-20%. Trace mitral regurgitation. Trace tricuspid regurgitation. There is no evidence of significant pericardial effusion. Signed by : Tiago Miguel, Electronically Approved : 03/21/2018 16:11:46
--- NOTE | 2018-03-21 17:09 | PATHOLOGY ---
[facility] Accession Number: [id number] . 01 Material submitted: . PART A: DUODENAL BIOPSY PART B: BIOPSY ANTRAL ULCERS . 01 Clinical history: . Anemia . 02 Diagnosis: A. Duodenal biopsies: - Mild nonspecific duodenitis. . B. Gastric biopsies, antral ulcers: - Active chronic gastritis, moderate to marked, with Helicobacter organisms identified. [facility]/03/21/2018 . 02 Comment: Sections of the duodenal biopsy show congestion and mild chronic inflammation with occasional admixed neutrophils. There are no sprue-like changes. Sections of the gastric biopsy reveal segments of gastric antral mucosa showing congestion and moderate to marked active chronic inflammation. A properly controlled immunoperoxidase stain for Helicobacter reveals focally prominent numbers of Helicobacter organisms. There is no evidence of malignancy. (JPM:[facility] 03/21/2018) . Special stain performed: Immunoperoxidase for Helicobacter on B1. . 02 Electronically signed: . Chon Medina MD, Pathologist NPI- [id number] . 01 Gross description: . A. The specimen is received in formalin, labeled "Tiff Novak, duodenal BX rule out inflammation or sprue" and consists of 3 fragments of soft colvin tissue measuring between 0.2 x 0.2 x 0.1 cm and 0.5 x 0.3 x 0.1 cm. They are entirely submitted in A1. . B. The specimen is received in formalin, labeled "Tiff Novak, BX antral ulcers" and consists of 2 fragments of soft colvin tissue measuring 0.5 x 0.2 x 0.1 cm and 0.4 x 0.3 x 0.1 cm. They are entirely submitted in B1. ([facility]; 03/20/2018) SYU/SYU . 02 Pathologist provided ICD-10: K29.80, K29.50 . 02 CPT . 167693, 841974, A39180 Specimen Comment: A courtesy copy of this report has been sent to Specimen Comment: [phone], , . Specimen Comment: Report sent to ,DR HUSAIN / DR WARE Specimen Comment: A duplicate report has been generated due to demographic updates. Performed at: 01 [facility] [address] [id number] MD Ferny Nance MD Phone: [phone] Performed at: 02 [facility] [address] [place], [place] [id number] MD Chon Medina MD Phone: [phone]
[2018-03-21 17:45] LABS: CALCIUM 7.9 mg/dL (8.5-10.1); GFR 54.1; POTASSIUM 3.9 mmol/L (3.5-5.1)
--- NOTE | 2018-03-21 17:58 | RAD ---
EXAM: CT Abdomen and Pelvis without IV contrast CLINICAL HISTORY: GI BLEEDING. PO ONLY PER [facility]NI 240 50 MLS. PREVIOUS 11/09/17 COMPARISON: none TECHNIQUE: Helical CT of the abdomen and pelvis without intravenous contrast. Oral contrast was administered. Axial, coronal and sagittal reformatted images were generated. PQRS compliance statement - One or more of the following individualized dose reduction techniques were utilized for this study: 1. Automated exposure control 2. Adjustment of the mA and/or kV according to patient size 3. Use of iterative reconstruction technique FINDINGS: Lack of intravenous contrast limits evaluation of solid organs, vasculature, and lymph nodes. Exam is limited by motion artifact. Lower chest: Nodular opacities in bilateral lung bases with associated tree-in-bud opacities, nonspecific but possibly postinfectious. Bilateral lung base bronchiectasis is seen. Wedge-shaped opacities in the middle lobe, likely scarring/atelectasis. Moderate hiatal hernia. Abdomen and Pelvis: No focal liver lesion. The liver is borderline enlarged measuring 18.1 cm in length. Spleen is borderline enlarged measuring 12.2 cm in length. No focal splenic lesion. Adrenal glands are unremarkable. Pancreas is unremarkable. No definite renal calculus. No focal renal lesion. No hydronephrosis. Left ureteral stent is again seen with ectopic insertion into the bladder anteriorly. No abdominal or pelvic ascites. No abdominal or pelvic lymphadenopathy by size criteria. Colonic diverticulosis without evidence of acute diverticulitis. Moderate colonic stool content. No small or large bowel dilatation. Bones: Multilevel degenerative changes of the spine are seen. No definite aggressive osseous lesion is seen. IMPRESSION: 1. Evaluation for GI bleeding limited on this noncontrast exam. Sigmoid diverticulosis is seen without evidence of acute diverticulitis. 2. Moderate colonic stool content. No evidence of bowel obstruction. 3. Moderate to large hiatal hernia. 4. Borderline hepatomegaly. Borderline splenomegaly. 5. Left ureteral stent with ectopic attachment to the bladder anteriorly is stable. No hydronephrosis or hydroureter. Electronically signed by: Boaz Wells MD (03/21/2018 5:54 PM) [id number]
[2018-03-21 18:07] LABS: PROTHROMBIN TIME PATIENT 13.6 SEC (11.7-14.0)
[2018-03-21 18:14] LABS: BASO # 0.2 x10^3/uL (0.0-0.2); BASO % 1 % (0-3); EOS # 0.2 x10^3/uL (0.0-0.7); EOS % 1 % (0-3); HEMATOCRIT 37.1 % (36.0-47.0); HEMOGLOBIN 11.7 g/dL (12.0-15.5); LYMPH # 1.9 x10^3/uL (1.0-4.8); LYMPH % 8 % (24-48); MEAN CORPUSCULAR HEMOGLOBIN 23 pg (25-35); MEAN CORPUSCULAR HGB CONC 32 g/dL (31-37); MEAN CORPUSCULAR VOLUME 72 fL (79-100); MONO # 1.1 x10^3/uL (0.0-1.1); MONO % 5 % (0-9); NEUT # 19.6 x10^3uL (1.8-7.7); NEUT % 86 % (31-73); PLATELET COUNT 576 x10^3/uL (140-400); RED BLOOD COUNT 5.18 x10^6/uL (3.50-5.40); RED CELL DISTRIBUTION WIDTH 20.3 % (11.5-14.5); WHITE BLOOD COUNT 22.9 x10^3/uL (4.0-11.0)
[2018-03-21] MEDS ORDERED: VANCOMYCIN 750 MG in IV NORMAL SALINE 250ML 250 ML IV SCH (19:30)
[2018-03-21] MEDS: IV NORMAL SALINE 1000ML BAG 1,000 ML IV ONE ×2 (20:00→20:30)
[2018-03-21] MEDS ORDERED: VANCOMYCIN 1 GM in IV NORMAL SALINE 250ML 250 ML IV ONE (20:30)
[2018-03-21] MEDS ORDERED: NOREPINEPHRIN 8MG/250ML PREMIX 250 ML IV PRN (21:00)
[2018-03-21] MEDS ORDERED: IV NORMAL SALINE 500ML BAG 500 ML IV PRN (21:00)
[2018-03-21] MEDS ORDERED: VASOPRESSIN 40 UNIT in IV DEXTROSE 5% 100ML 100 ML IV PRN (21:00)
[2018-03-21] MEDS ORDERED: VANCOMYCIN PER PHARMACY MC PRN (21:00)
[2018-03-21] MEDS: PIPERACILLIN/TAZOBACTAM 2.25 GM in IV NORMAL SALINE 50ML 50 ML IV SCH ×2 (21:10→23:58)
[2018-03-21] MEDS: IV NORMAL SALINE 1000ML BAG 1,000 ML IV SCH (21:13)
[2018-03-21 21:38] LABS: ALBUMIN 2.6 g/dL (3.4-5.0); DIRECT BILIRUBIN 0.1 mg/dL (0.0-0.2); TOTAL BILIRUBIN 0.5 mg/dL (0.2-1.0); TOTAL PROTEIN 6.2 g/dL (6.4-8.2)
[2018-03-21 22:09] LABS: D-DIMER 13.43 ug/mlFEU (0.00-0.50)
[2018-03-22] VITALS (20 sets, daily range): BP systolic 78–134; BP diastolic 39–68
[2018-03-22] MEDS ORDERED: PIPERACILLIN/TAZOBACTAM 3.375 GM in IV NORMAL SALINE 50ML 50 ML IV SCH ×2
[2018-03-22] MEDS: IV NORMAL SALINE 1000ML BAG 1,000 ML IV SCH ×3 (00:40→10:17)
[2018-03-22] MEDS: IV RINGERS,LACTATED 1000ML 1,000 ML IV SCH (00:40)
[2018-03-22 01:36] LABS: BASO # 0.1 x10^3/uL (0.0-0.2); BASO % 1 % (0-3); EOS % 0 % (0-3); LYMPH # 1.6 x10^3/uL (1.0-4.8); LYMPH % 10 % (24-48); MEAN CORPUSCULAR HEMOGLOBIN 23 pg (25-35); MEAN CORPUSCULAR HGB CONC 31 g/dL (31-37); MEAN CORPUSCULAR VOLUME 72 fL (79-100); MONO # 0.7 x10^3/uL (0.0-1.1); MONO % 4 % (0-9); NEUT # 13.2 x10^3uL (1.8-7.7); NEUT % 85 % (31-73); PLATELET COUNT 393 x10^3/uL (140-400); RED BLOOD COUNT 4.01 x10^6/uL (3.50-5.40); RED CELL DISTRIBUTION WIDTH 20.5 % (11.5-14.5); WHITE BLOOD COUNT 15.5 x10^3/uL (4.0-11.0)
[2018-03-22 01:54] LABS: ALBUMIN 2.3 g/dL (3.4-5.0); ALBUMIN/GLOBULIN RATIO 0.8 (1.0-1.7); CALCIUM 7.3 mg/dL (8.5-10.1); GFR 54.1; POTASSIUM 4.4 mmol/L (3.5-5.1); TOTAL BILIRUBIN 0.6 mg/dL (0.2-1.0); TOTAL PROTEIN 5.3 g/dL (6.4-8.2)
[2018-03-22] MEDS: VANCOMYCIN PER PHARMACY MC PRN ×2 (02:12→09:48)
[2018-03-22 03:20] LABS: BILIRUBIN,URINE NEGATIVE (NEG); CLARITY,URINE CLOUDY; COLOR,URINE AMBER; NITRITE,URINE POSITIVE (NEG); PROTEIN,URINE >=300 mg/dL (NEG-TRACE); UROBILINOGEN,URINE 0.2 mg/dL (0.2 mg/dL)
[2018-03-22 03:26] LABS: BACTERIA,URINE MANY /HPF (0-FEW); RBC,URINE 20-40 /HPF (0-2); SQUAMOUS EPITHELIAL CELL,UR FEW /LPF; WBC,URINE TNTC /HPF (0-4)
[2018-03-22] MEDS: PIPERACILLIN/TAZOBACTAM 2.25 GM in IV NORMAL SALINE 50ML 50 ML IV SCH ×3 (05:51→17:32)
--- NOTE | 2018-03-22 07:20 | EKG ---
[facility] [address] [place] [address] Test Date: 2018-03-21 Test Time: 16:32:50 Pat Name: KYMBERLY AN Department: Room: 103 1 Gender: F [employer] T[employer]: : 1945 Requested By: IWONA WARD Order Number: [id number] Reading MD: Marvin Oliva MD Measurements Intervals [facility] Rate: 106 P: 67 SD: 132 QRS: -20 QRSD: 74 T: 118 QT: 358 QTc: 477 Interpretive Statements SINUS TACHYCARDIA ATRIAL PREMATURE COMPLEX(ES) Electronically Signed On 03-22-2018 8:09:58 CDT by Marvin Oliva MD
[2018-03-22] MEDS: IPRATRPIUM/ALBUTEROL 0.5/2.5MG 3 ML NEBU. NEB SCH ×4 (07:35→19:31)
--- NOTE | 2018-03-22 07:40 | PDOC ---
Provider Note Provider Note pt seen consult dictated [id number] IMP; Sepsis leucocytosis, lactic acidosis GI bleed s/p EGD REC: cont zosyn and iv vanc monitor renal functions closely TERELL KIRKLAND MD Mar 22, 2018 07:40
--- NOTE | 2018-03-22 08:15 | CONS ---
DATE OF CONSULTATION: REFERRING PHYSICIAN: Dr. Miranda. REASON FOR CONSULTATION: Leukocytosis. HISTORY OF PRESENT ILLNESS: A 73-year-old female admitted through ER on 03/19/2018 with complaints of worsening shortness of breath with history of underlying COPD. She was found to have a hemoglobin of 6, requiring blood transfusion. Lactate high at 2.9 and white count high at 16.8. She was found to have fecal occult blood positive, underwent EGD with antral ulceration, erosive duodenitis and moderate hiatal hernia. H. pylori biopsy was done. The patient subsequently was doing well, was about to be discharged yesterday, but then had sepsis protocol initiated last evening with her white count going up to 22.9 thousand, so was transferred to ICU. The patient had PAULA on admission, which has now resolved. Lactate was elevated at 2.5, today is 0.6. She required IV fluid boluses with Levophed overnight, currently off Levophed. She remained afebrile. She was started on empiric IV vancomycin and Zosyn and Infectious Disease consult has been requested. UA was done, which shows pyuria. Urine culture and blood cultures are negative until now. She underwent chest x-ray, which showed no acute cardiopulmonary abnormality. She had a CT of the abdomen done, which showed sigmoid diverticulosis with no evidence of acute diverticulitis, moderate colon stool content, no evidence of bowel obstruction, astiwgzt-li-sipud hiatal hernia, borderline hepatomegaly, borderline splenomegaly, left ureteral stent with ectopic attachment to the bladder and anteriorly stable, no hydronephrosis or hydroureter. The patient had history of hysterectomy in 2014 with ureteral injury intraoperatively, requiring stent placement. The patient had left ureteral reimplantation later. This morning, the patient denies any complaints of fever, chills, nausea, vomiting, headache, difficulty swallowing, oral sores, shortness of breath, cough, chest pain, abdominal pain, nausea, vomiting, diarrhea, symptoms, hematuria, increased frequency, dysuria, joint pain, rash, sick contact. The patient had Cerrato placed on 03/21/2018 and has peripheral lines at this time. PAST MEDICAL HISTORY: COPD; diverticulosis; peptic ulcer disease; anxiety; status post hysterectomy; ureteral stent due to ureteral injury in 2014 with left ureteral reimplantation; history of hydronephrosis and hydroureter, mild in the past; anemia; GI bleed as above. ALLERGIES: INFLUENZA VACCINE, SULFA. REVIEW OF SYSTEMS: Negative except for above in HPI. SOCIAL HISTORY: Denies smoking, ETOH, or illicit drug use. Lives at home. PHYSICAL EXAMINATION: VITAL SIGNS: Temperature 98.9, pulse 92, respiratory rate 14, blood pressure 95/47, oxygen saturation 94% on room air. This is off Levophed per RN. GENERAL: Alert, oriented x 3 female, lying comfortably in bed, in no acute distress. HEENT: Normocephalic, atraumatic, anicteric. No thrush. NECK: Supple. No JVD. LUNGS: Clear bilaterally. No wheezing. HEART: S1, S2 present. RRR. ABDOMEN: Soft, nontender, nondistended. No rebound, no guarding. GENITOURINARY: Cerrato in place. EXTREMITIES: No edema, no cyanosis. DERMATOLOGIC: No generalized rash. Warm, dry. NEUROLOGIC: Alert and oriented x 3, grossly nonfocal. PSYCHIATRIC: Cooperative, appropriate mood and affect. LABORATORY DATA: WBC 15.5, was 22.9; hemoglobin 9.0, was 11.7; hematocrit 29; platelets 393. Sodium 141, potassium 4.4, chloride 109, bicarbonate 23, BUN 10, creatinine 1.0. Lactate was 2.5, now 0.6; calcium 7.3; total bilirubin 0.6; albumin 2.3. UA on 03/21/2018 shows large blood, nitrite positive, leukocyte esterase large, wbc's too numerous to count. Stool occult blood positive from 03/20/2018. Nasal screen, MRSA PCR negative. D-dimer 13.43. Micro blood culture 03/19/2018 negative, 03/21/2018 pending. Urine culture 03/21/2018 pending. IMAGIN. Chest x-ray as above. 2. Abdominal and pelvic CT as above. IMPRESSION: 1. Sepsis, etiology unclear, could be gastrointestinal or genitourinary. 2. Leukocytosis, improving. Lactic acidosis, resolved. 3. Pyuria ,Urine c/s pending 4. Acute kidney injury, resolved. 5. Gastrointestinal bleed with EGD showing antral ulceration, erosive duodenitis, moderate hiatal hernia on 03/20/2018. 6. Anemia, requiring blood transfusion. 7. Chronic obstructive pulmonary disease. 8. Status post ureteral injury during hysterectomy in 2014 with ureteral stent placement, status post left ureteral reimplantation. 9. Protein-calorie malnutrition. 10. Allergies to SULFA. 11. History of moderate hydronephrosis and mild left ureteric nephrosis 11/2017. 12. Echo with ejection fraction 15%-20%. RECOMMENDATIONS: 1. Continue empiric IV vancomycin and Zosyn. DC Flagyl 2. Consult for the left ureteral stent removal. 3. Follow up cultures and susceptibilities and labs in a.m. 4. Continue supportive care. Thank you, Dr. Miranda, for consulting Infectious Disease to participate in this patient's care. If you have any questions, do not hesitate to contact me. TERELL KIRKLAND MD DR: KENDRICK/villa JOB#: [id number] / [id number] VERITO
--- NOTE | 2018-03-22 08:44 | PDOC2 ---
SUMAN QUIÑONEZ TELEVISION PRODUCTION CLERK 03/22/18 0844: UROLOGY CONSULT Date of Consult Date of Consult DATE: 03/22/18 TIME: 08:40 Reason for Consult Reason for Consult: Forgotten stent Identification/Chief Complaint Chief Complaint Forgotten sent Source Source: Caregiver, Chart review, Patient History of Present Illness Reason for Visit: 73 year old female presented with anemia and hypotension. She is currently int eh ICU for hyptension although she may go to the floor later today if stable. She is pleasant and oriented today, but cannot remember ever having any kidney stones, kidney problems, or bladder problems and likewise cannot remember having ever seen a urologist for any reason. She is surprised to learn that she has a ureteral stent in place, as she does not remember ever having urologic surgery. She admits having gone to in the last few years but cannot remember the name of the physician she saw there or what type of physician this person was. She denies ever having seen Dr. Marley or prior Urology services here. She currently has a chapman catheter in place draining clear yellow urine; however she denies feeling dysuria or seeing any hematuria prior to its placement. RN relates that catheter was placed for measurement purposes and not retention. She denies any flank or abd pain and is non tender on exam by [employer]. Past Medical History Pulmonary: COPD GI: No pertinent hx, Diverticulosis, Peptic Ulcer disease Psych: Anxiety Rheumatologic: No pertinent hx Renal/: No pertinent hx Endocrine: No pertinent hx Past Surgical History Past Surgical History: Hysterectomy Family History Family History: Chronic Bronchitis Social History No ALCOHOL: none Drugs: None Current Problem List Problems: (1) Ureteral stent retained Current Medications Current Medications Current Medications Dobutamine HCl/ Dextrose 250 ml @ 0 mls/hr CONT PRN IV SEE I/O RECORD; Start at 21:00; Status Cancel Epinephrine HCl 4 mg/Sodium Chloride 254 ml @ 0 mls/hr CONT PRN IV MAP <65 DESPITE NOREPINEPHRINE; Start 03/21/18 at 21:00; Status Cancel Info (CONTRAST GIVEN -- Rx MONITORING) 1 each PRN DAILY PRN MC SEE COMMENTS; Start 03/21/18 at 13:30; Stop 03/23/18 at 13:29 Iohexol (Omnipaque 240 Mg/ml) 50 ml 1X ONCE PO Last administered on 03/21/18at 13:45; Start 03/21/18 at 13:30; Stop 03/21/18 at 13:31; Status DC Iron Sucrose 500 mg/Sodium Chloride 275 ml @ 78.571 mls/ hr 1X ONCE IV Last administered on 03/21/18at 13:04; Start 03/21/18 at 12:30; Stop 03/21/18 at 15:59 ; Status DC Metronidazole 100 ml @ 100 mls/hr Q8HRS IV Last administered on 03/22/18at 05: 52; Start 03/21/18 at 22:00 Norepinephrine Bitartrate 250 ml @ 0 mls/hr CONT PRN IV SEE I/O RECORD Last administered on 03/22/18at 00:48; Start 03/21/18 at 21:00 Pantoprazole Sodium (Protonix) 40 mg DAILYAC PO ; Start 03/22/18 at 07:30 Piperacillin Sod/ Tazobactam Sod 2.25 gm/Sodium Chloride 50 ml @ 100 mls/hr Q6HRS IV Last administered on 03/22/18at 05:51; Start 03/21/18 at 20:00 Piperacillin Sod/ Tazobactam Sod 3.375 gm/Sodium Chloride 50 ml @ 100 mls/hr Q6HRS IV ; Start 03/22/18 at 00:00; Status UNV Sodium Chloride 500 ml @ 1,000 mls/hr PRN Q30MIN PRN IV SEE COMMENTS; Start at 21:00 Sodium Chloride 1,000 ml @ 75 mls/hr [id number] IV Last administered on at 00:40; Start 03/21/18 at 20:57 Sodium Chloride 1,000 ml @ 166.667 mls/hr Q6H IV Last administered on at 21:13; Start 03/21/18 at 20:53; Stop 03/22/18 at 05:08; Status DC Sodium Chloride 1,000 ml @ 300 mls/hr 1X ONCE IV Last administered on at 20:30; Start 03/21/18 at 19:45; Stop 03/21/18 at 23:04; Status DC Vancomycin HCl (Vanco Per Pharmacy) 1 each PRN DAILY PRN MC SEE COMMENTS Last administered on 03/22/18at 02:12; Start 03/21/18 at 19:45 Vancomycin HCl (Vanco Per Pharmacy) 1 each PRN DAILY PRN MC SEE COMMENTS; Start 03/21/18 at 21:00; Status UNV Vancomycin HCl (Vancomycin Trough Level) 1 each 1X ONCE MC ; Start 03/23/18 at 20:30; Stop 03/23/18 at 20:31 Vancomycin HCl 750 mg/Sodium Chloride 250 ml @ 250 mls/hr Q12H IV ; Start 03/21 at 19:30; Status UNV Vancomycin HCl 750 mg/Sodium Chloride 250 ml @ 250 mls/hr Q24H IV ; Start 03/22 at 21:00 Vancomycin HCl 1 gm/Sodium Chloride 250 ml @ 250 mls/hr ONCE ONCE IV Last administered on 03/21/18at 21:10; Start 03/21/18 at 20:30; Stop 03/21/18 at 21:29 ; Status DC Vasopressin 40 unit/Dextrose 102 ml @ 6 mls/hr CONT PRN IV SEE I/O RECORD; Start 03/21/18 at 21:00; Status UNV Allergies Allergies: Coded Allergies: Influenza Virus Vaccines (Verified Allergy, Intermediate, 03/20/18) Sulfa (Sulfonamide Antibiotics) (Verified Allergy, Intermediate, 03/20/18) I S O L A T I O N *CONTACT* (Verified Allergy, Unknown, 03/20/18) mrsa ROS Review Of Systems: CONSTITUTIONAL: No fever or chills EYES: No recent changes SKIN: No rash or itching CARDIOVASCULAR: No chest pain, syncope, palpitations, or edema RESPIRATORY: No SOB or cough GASTROINTESTINAL: No nausea, vomiting or abdominal pain NEUROLOGICAL: No headaches or weakness ENDOCRINE: No cold or heat intolerance GENITOURINARY: No urgency or frequency of urination, + chapman catheter in place MUSCULOSKELETAL: No back pain or joint pain LYMPHATICS: No enlarged lymph nodes PSYCHIATRIC: No anxiety or depression Physical Exam Physical Exam: General: Pleasant, no acute distress, well groomed Eyes: conjunctiva anicteric, eyes full range of motion ENT: moist oral mucosa, normal dentition Neck: Trachea midline, no masses Respiratory: unlabored breathing, not using accessory muscles, Abdomen: nontender, nondistended, no hepatosplenomegaly, Back: No CVA tenderness bilaterally Vitals VITALS Vital Signs Date Time Temp Pulse Resp B/P (MAP) Pulse Ox O2 Delivery O2 Flow Rate FiO2 03/22/18 07:35 96 Room Air 03/22/18 06:00 92 14 95/47 (63) 03/22/18 04:00 2.0 03/22/18 00:01 98.9 98.9 Labs Labs Laboratory Tests Test 03/20/18 11:30 03/20/18 13:05 03/21/18 04:48 03/21/18 15:25 Nasal Screen MRSA (PCR) Negative (Negative) White Blood Count 10.6 x10^3/uL (4.0-11.0) 9.5 x10^3/uL (4.0-11.0) Red Blood Count 4.02 x10^6/uL (3.50-5.40) 3.79 x10^6/uL (3.50-5.40) Hemoglobin 9.3 g/dL (12.0-15.5) 8.6 g/dL (12.0-15.5) Hematocrit 29.0 % (36.0-47.0) 27.0 % (36.0-47.0) Mean Corpuscular Volume 72 fL (79-100) 71 fL (79-100) Mean Corpuscular Hemoglobin 23 pg (25-35) 23 pg (25-35) Mean Corpuscular Hemoglobin Concent 32 g/dL (31-37) 32 g/dL (31-37) Red Cell Distribution Width 19.3 % (11.5-14.5) 19.7 % (11.5-14.5) Platelet Count 439 x10^3/uL (140-400) 420 x10^3/uL (140-400) Neutrophils (%) (Auto) 77 % (31-73) 66 % (31-73) Lymphocytes (%) (Auto) 16 % (24-48) 24 % (24-48) Monocytes (%) (Auto) 7 % (0-9) 7 % (0-9) Eosinophils (%) (Auto) 0 % (0-3) 2 % (0-3) Basophils (%) (Auto) 1 % (0-3) 1 % (0-3) Neutrophils # (Auto) 8.1 x10^3uL (1.8-7.7) 6.3 x10^3uL (1.8-7.7) Lymphocytes # (Auto) 1.7 x10^3/uL (1.0-4.8) 2.3 x10^3/uL (1.0-4.8) Monocytes # (Auto) 0.7 x10^3/uL (0.0-1.1) 0.7 x10^3/uL (0.0-1.1) Eosinophils # (Auto) 0.0 x10^3/uL (0.0-0.7) 0.2 x10^3/uL (0.0-0.7) Basophils # (Auto) 0.1 x10^3/uL (0.0-0.2) 0.1 x10^3/uL (0.0-0.2) Lactic Acid Level 1.8 mmol/L (0.4-2.0) Troponin I Quantitative < 0.017 ng/mL (0.000-0.055) < 0.017 ng/mL (0.000-0.055) Sodium Level 140 mmol/L (136-145) 139 mmol/L (136-145) Potassium Level 4.6 mmol/L (3.5-5.1) 3.9 mmol/L (3.5-5.1) Chloride Level 106 mmol/L (98-107) 104 mmol/L (98-107) Carbon Dioxide Level 27 mmol/L (21-32) 24 mmol/L (21-32) Anion Gap 7 (6-14) 11 (6-14) Blood Urea Nitrogen 12 mg/dL (7-20) 10 mg/dL (7-20) Creatinine 1.0 mg/dL (0.6-1.0) 1.0 mg/dL (0.6-1.0) Estimated GFR (Cockcroft-Gault) 54.1 54.1 Glucose Level 89 mg/dL (70-99) 143 mg/dL (70-99) Calcium Level 8.4 mg/dL (8.5-10.1) 7.9 mg/dL (8.5-10.1) Prothrombin Time 13.6 SEC (11.7-14.0) Prothromb Time International Ratio 1.1 (0.8-1.1) Test 03/21/18 17:05 03/21/18 18:05 03/21/18 18:30 03/21/18 21:10 Glucose (Fingerstick) 111 mg/dL (70-99) White Blood Count 22.9 x10^3/uL (4.0-11.0) Red Blood Count 5.18 x10^6/uL (3.50-5.40) Hemoglobin 11.7 g/dL (12.0-15.5) Hematocrit 37.1 % (36.0-47.0) Mean Corpuscular Volume 72 fL (79-100) Mean Corpuscular Hemoglobin 23 pg (25-35) Mean Corpuscular Hemoglobin Concent 32 g/dL (31-37) Red Cell Distribution Width 20.3 % (11.5-14.5) Platelet Count 576 x10^3/uL (140-400) Neutrophils (%) (Auto) 86 % (31-73) Lymphocytes (%) (Auto) 8 % (24-48) Monocytes (%) (Auto) 5 % (0-9) Eosinophils (%) (Auto) 1 % (0-3) Basophils (%) (Auto) 1 % (0-3) Neutrophils # (Auto) 19.6 x10^3uL (1.8-7.7) Lymphocytes # (Auto) 1.9 x10^3/uL (1.0-4.8) Monocytes # (Auto) 1.1 x10^3/uL (0.0-1.1) Eosinophils # (Auto) 0.2 x10^3/uL (0.0-0.7) Basophils # (Auto) 0.2 x10^3/uL (0.0-0.2) Urine Collection Type Unknown Urine Color Nuha Urine Clarity Cloudy Urine pH 6.0 Urine Specific [place] 1.025 Urine Protein >=300 mg/dL (NEG-TRACE) Urine Glucose (UA) Negative mg/dL (NEG) Urine Ketones (Stick) Negative mg/dL (NEG) Urine Blood Large (NEG) Urine Nitrite Positive (NEG) Urine Bilirubin Negative (NEG) Urine Urobilinogen Dipstick 0.2 mg/dL (0.2 mg/dL) Urine Leukocyte Esterase Large (NEG) Urine RBC 20-40 /HPF (0-2) Urine WBC Tntc /HPF (0-4) Urine Squamous Epithelial Cells Few /LPF Urine Bacteria Many /HPF (0-FEW) Urine Mucus Slight /LPF Activated Partial Thromboplast Time 30 SEC (24-38) Fibrinogen 363 mg/dL (200-440) D-Dimer (Cheryl) 13.43 ug/mlFEU (0.00-0.50) Lactic Acid Level 2.5 mmol/L (0.4-2.0) Total Bilirubin 0.5 mg/dL (0.2-1.0) Direct Bilirubin 0.1 mg/dL (0.0-0.2) Aspartate Amino Transf (AST/SGOT) 14 U/L (15-37) Alanine Aminotransferase (ALT/SGPT) 10 U/L (14-59) Alkaline Phosphatase 75 U/L (46-116) Total Protein 6.2 g/dL (6.4-8.2) Albumin 2.6 g/dL (3.4-5.0) Procalcitonin 0.39 ng/mL (0.00-0.10) Test 03/22/18 01:20 White Blood Count 15.5 x10^3/uL (4.0-11.0) Red Blood Count 4.01 x10^6/uL (3.50-5.40) Hemoglobin 9.0 g/dL (12.0-15.5) Hematocrit 29.0 % (36.0-47.0) Mean Corpuscular Volume 72 fL (79-100) Mean Corpuscular Hemoglobin 23 pg (25-35) Mean Corpuscular Hemoglobin Concent 31 g/dL (31-37) Red Cell Distribution Width 20.5 % (11.5-14.5) Platelet Count 393 x10^3/uL (140-400) Neutrophils (%) (Auto) 85 % (31-73) Lymphocytes (%) (Auto) 10 % (24-48) Monocytes (%) (Auto) 4 % (0-9) Eosinophils (%) (Auto) 0 % (0-3) Basophils (%) (Auto) 1 % (0-3) Neutrophils # (Auto) 13.2 x10^3uL (1.8-7.7) Lymphocytes # (Auto) 1.6 x10^3/uL (1.0-4.8) Monocytes # (Auto) 0.7 x10^3/uL (0.0-1.1) Eosinophils # (Auto) 0.0 x10^3/uL (0.0-0.7) Basophils # (Auto) 0.1 x10^3/uL (0.0-0.2) Sodium Level 141 mmol/L (136-145) Potassium Level 4.4 mmol/L (3.5-5.1) Chloride Level 109 mmol/L (98-107) Carbon Dioxide Level 23 mmol/L (21-32) Anion Gap 9 (6-14) Blood Urea Nitrogen 10 mg/dL (7-20) Creatinine 1.0 mg/dL (0.6-1.0) Estimated GFR (Cockcroft-Gault) 54.1 BUN/Creatinine Ratio 10 (6-20) Glucose Level 89 mg/dL (70-99) Lactic Acid Level 0.6 mmol/L (0.4-2.0) Calcium Level 7.3 mg/dL (8.5-10.1) Total Bilirubin 0.6 mg/dL (0.2-1.0) Aspartate Amino Transf (AST/SGOT) 15 U/L (15-37) Alanine Aminotransferase (ALT/SGPT) 10 U/L (14-59) Alkaline Phosphatase 69 U/L (46-116) Total Protein 5.3 g/dL (6.4-8.2) Albumin 2.3 g/dL (3.4-5.0) Albumin/Globulin Ratio 0.8 (1.0-1.7) Laboratory Tests Test 03/21/18 15:25 03/21/18 17:05 03/21/18 18:05 03/21/18 18:30 Prothrombin Time 13.6 SEC (11.7-14.0) Prothromb Time International Ratio 1.1 (0.8-1.1) Sodium Level 139 mmol/L (136-145) Potassium Level 3.9 mmol/L (3.5-5.1) Chloride Level 104 mmol/L (98-107) Carbon Dioxide Level 24 mmol/L (21-32) Anion Gap 11 (6-14) Blood Urea Nitrogen 10 mg/dL (7-20) Creatinine 1.0 mg/dL (0.6-1.0) Estimated GFR (Cockcroft-Gault) 54.1 Glucose Level 143 mg/dL (70-99) Calcium Level 7.9 mg/dL (8.5-10.1) Troponin I Quantitative < 0.017 ng/mL (0.000-0.055) Glucose (Fingerstick) 111 mg/dL (70-99) White Blood Count 22.9 x10^3/uL (4.0-11.0) Red Blood Count 5.18 x10^6/uL (3.50-5.40) Hemoglobin 11.7 g/dL (12.0-15.5) Hematocrit 37.1 % (36.0-47.0) Mean Corpuscular Volume 72 fL (79-100) Mean Corpuscular Hemoglobin 23 pg (25-35) Mean Corpuscular Hemoglobin Concent 32 g/dL (31-37) Red Cell Distribution Width 20.3 % (11.5-14.5) Platelet Count 576 x10^3/uL (140-400) Neutrophils (%) (Auto) 86 % (31-73) Lymphocytes (%) (Auto) 8 % (24-48) Monocytes (%) (Auto) 5 % (0-9) Eosinophils (%) (Auto) 1 % (0-3) Basophils (%) (Auto) 1 % (0-3) Neutrophils # (Auto) 19.6 x10^3uL (1.8-7.7) Lymphocytes # (Auto) 1.9 x10^3/uL (1.0-4.8) Monocytes # (Auto) 1.1 x10^3/uL (0.0-1.1) Eosinophils # (Auto) 0.2 x10^3/uL (0.0-0.7) Basophils # (Auto) 0.2 x10^3/uL (0.0-0.2) Urine Collection Type Unknown Urine Color Nuha Urine Clarity Cloudy Urine pH 6.0 Urine Specific [place] 1.025 Urine Protein >=300 mg/dL (NEG-TRACE) Urine Glucose (UA) Negative mg/dL (NEG) Urine Ketones (Stick) Negative mg/dL (NEG) Urine Blood Large (NEG) Urine Nitrite Positive (NEG) Urine Bilirubin Negative (NEG) Urine Urobilinogen Dipstick 0.2 mg/dL (0.2 mg/dL) Urine Leukocyte Esterase Large (NEG) Urine RBC 20-40 /HPF (0-2) Urine WBC Tntc /HPF (0-4) Urine Squamous Epithelial Cells Few /LPF Urine Bacteria Many /HPF (0-FEW) Urine Mucus Slight /LPF Test 03/21/18 21:10 03/22/18 01:20 Activated Partial Thromboplast Time 30 SEC (24-38) Fibrinogen 363 mg/dL (200-440) D-Dimer (Cheryl) 13.43 ug/mlFEU (0.00-0.50) Lactic Acid Level 2.5 mmol/L (0.4-2.0) 0.6 mmol/L (0.4-2.0) Total Bilirubin 0.5 mg/dL (0.2-1.0) 0.6 mg/dL (0.2-1.0) Direct Bilirubin 0.1 mg/dL (0.0-0.2) Aspartate Amino Transf (AST/SGOT) 14 U/L (15-37) 15 U/L (15-37) Alanine Aminotransferase (ALT/SGPT) 10 U/L (14-59) 10 U/L (14-59) Alkaline Phosphatase 75 U/L (46-116) 69 U/L (46-116) Total Protein 6.2 g/dL (6.4-8.2) 5.3 g/dL (6.4-8.2) Albumin 2.6 g/dL (3.4-5.0) 2.3 g/dL (3.4-5.0) Procalcitonin 0.39 ng/mL (0.00-0.10) White Blood Count 15.5 x10^3/uL (4.0-11.0) Red Blood Count 4.01 x10^6/uL (3.50-5.40) Hemoglobin 9.0 g/dL (12.0-15.5) Hematocrit 29.0 % (36.0-47.0) Mean Corpuscular Volume 72 fL (79-100) Mean Corpuscular Hemoglobin 23 pg (25-35) Mean Corpuscular Hemoglobin Concent 31 g/dL (31-37) Red Cell Distribution Width 20.5 % (11.5-14.5) Platelet Count 393 x10^3/uL (140-400) Neutrophils (%) (Auto) 85 % (31-73) Lymphocytes (%) (Auto) 10 % (24-48) Monocytes (%) (Auto) 4 % (0-9) Eosinophils (%) (Auto) 0 % (0-3) Basophils (%) (Auto) 1 % (0-3) Neutrophils # (Auto) 13.2 x10^3uL (1.8-7.7) Lymphocytes # (Auto) 1.6 x10^3/uL (1.0-4.8) Monocytes # (Auto) 0.7 x10^3/uL (0.0-1.1) Eosinophils # (Auto) 0.0 x10^3/uL (0.0-0.7) Basophils # (Auto) 0.1 x10^3/uL (0.0-0.2) Sodium Level 141 mmol/L (136-145) Potassium Level 4.4 mmol/L (3.5-5.1) Chloride Level 109 mmol/L (98-107) Carbon Dioxide Level 23 mmol/L (21-32) Anion Gap 9 (6-14) Blood Urea Nitrogen 10 mg/dL (7-20) Creatinine 1.0 mg/dL (0.6-1.0) Estimated GFR (Cockcroft-Gault) 54.1 BUN/Creatinine Ratio 10 (6-20) Glucose Level 89 mg/dL (70-99) Calcium Level 7.3 mg/dL (8.5-10.1) Albumin/Globulin Ratio 0.8 (1.0-1.7) Images Images IMPRESSION: 1. Evaluation for GI bleeding limited on this noncontrast exam. Sigmoid diverticulosis is seen without evidence of acute diverticulitis. 2. Moderate colonic stool content. No evidence of bowel obstruction. 3. Moderate to large hiatal hernia. 4. Borderline hepatomegaly. Borderline splenomegaly. 5. Left ureteral stent with ectopic attachment to the bladder anteriorly is stable. No hydronephrosis or hydroureter. Assessment/Plan Assessment/Plan Forgotten Ureteral stent: Unable to obtain history regarding placement as patient does not remember. Discussed with attending RN that she may have gotten this stent placed by Urology and just does not remember. He will try to get records from [facility] for our review. KUB today to better evaluate stent. Will discuss with Dr. Vilchis regarding best way to remove(outpatient cysto/stent removal vs. OR) once KUB obtained and reviewed. Kidney function is WNL currently and no hydro is noted on CT scan. Continue antibiotics per medical team. Pt still hypotensive currently= Nursing staff to maintain chapman catheter until patient is more stable and able to move around for voiding trial. Will follow. KAY VILCHIS MD 03/22/18 4139: UROLOGY CONSULT Assessment/Plan Assessment/Plan Agree w note and exam. FU next week for cysto, stent pull as OV. Will retrieve info from [facility], most likely safe to remove stent, no hydro seen, no evidence of extrinsic nor intrinsic compression. SUMAN QUIÑONEZ APRN Mar 22, 2018 08:44 KAY VILCHIS MD Mar 22, 2018 14:59
[2018-03-22] MEDS: PANTOPRAZOLE 40 MG TABLET.DR. PO SCH (08:49)
[2018-03-22] MEDS: SUCRALFATE 1 GM/10 ML ORAL.SUSP. PO SCH ×2 (08:49→12:13)
--- NOTE | 2018-03-22 10:43 | RAD ---
KUB, 03/22/2018: HISTORY: Check stent placement There is contrast material in the right colon from a recent CT study. The abdominal gas pattern is unremarkable. A left ureteral stent remains in place with its upper pigtail projected over the region of the left renal pelvis and its lower pigtail projected over the urinary bladder inferiorly near the midline. There are surgical clips in the pelvis on the left. There is no evidence organomegaly. A moderate-sized hiatal hernia is again noted. IMPRESSION: 1. The left ureteral stent remains in satisfactory position. 2. No acute abdominal abnormality is detected. Electronically signed by: Vamsi Coelho MD (03/22/2018 10:40 AM) [facility]
--- NOTE | 2018-03-22 11:28 | PDOC2 ---
JOHN PAULSURAJ [facility] 03/22/18 1128: CARDIAC CONSULT DATE OF CONSULT Date of Consult DATE: 03/22/18 TIME: 11:21 REASON FOR CONSULT Reason for Consult: fluctuating BP, numbness/tingling in bilateral hands REFERRING PHYSICIAN Referring Physician: Ruth SOURCE Source: Chart review, Patient (is an extremely poor historian) HISTORY OF PRESENT ILLNESS HISTORY OF PRESENT ILLNESS 73 year old female admitted for GI bleed and Hgb of 6.1. Rapid response called yesterday due tingling in bilateral hands with iron infusion. EGD has demonstrated acute chronic gastritis, duodenitis and antral ulcers. TTE completed and LVEF ~ 15%. Patient was evaluated by cardiology in May 2017 and failed to obtain outpatient TTE or f/u in office. No other echo for comparison at this time. Denies all symptoms and cardiac history. Reason for Visit: cardiomyopathy PAST MEDICAL HISTORY Past Medical History denies all questions re: medical history GI: GI bleed PAST SURGICAL HISTORY Past Surgical History denies all surgery FAMILY HISTORY Family History denies family history of CAD, stroke, DM SOCIAL HISTORY Smoke: No ALCOHOL: none Drugs: None CURRENT MEDICATIONS CURRENT MEDICATIONS Current Medications Medications (Trade) Dose Ordered Sig/Emelia Route PRN Reason Start Time Stop Time Status Last Admin Dose Admin Iron Sucrose 500 mg/Sodium Chloride 275 ml @ 78.571 mls/ hr 1X ONCE IV 03/21/18 12:30 03/22/18 09:06 DC 03/21/18 13:04 Pantoprazole Sodium (Protonix) 40 mg DAILYAC PO 03/22/18 07:30 03/22/18 08:49 Iohexol (Omnipaque 240 Mg/ml) 50 ml 1X ONCE PO 03/21/18 13:30 03/21/18 13:31 DC 03/21/18 13:45 Piperacillin Sod/ Tazobactam Sod 2.25 gm/Sodium Chloride 50 ml @ 100 mls/hr Q6HRS IV 03/21/18 20:00 03/22/18 05:51 Vancomycin HCl (Vanco Per Pharmacy) 1 each PRN DAILY PRN MC SEE COMMENTS 03/21/18 19:45 03/22/18 09:48 Vancomycin HCl 1 gm/Sodium Chloride 250 ml @ 250 mls/hr ONCE ONCE IV 03/21/18 20:30 03/21/18 21:29 DC 03/21/18 21:10 Metronidazole 100 ml @ 100 mls/hr Q8HRS IV 03/21/18 22:00 03/22/18 09:55 DC 03/22/18 05:52 Sodium Chloride 1,000 ml @ 300 mls/hr 1X ONCE IV 03/21/18 19:45 03/21/18 23:04 DC 03/21/18 20:30 Sodium Chloride 1,000 ml @ 166.667 mls/hr Q6H IV 03/21/18 20:53 03/22/18 05:08 DC 03/21/18 21:13 Sodium Chloride 1,000 ml @ 75 mls/hr [id number] IV 03/21/18 20:57 03/22/18 00:40 Norepinephrine Bitartrate 250 ml @ 0 mls/hr CONT PRN IV SEE I/O RECORD 03/21/18 21:00 03/22/18 00:48 ALLERGIES ALLERGIES: Coded Allergies: Influenza Virus Vaccines (Verified Allergy, Intermediate, 03/20/18) Sulfa (Sulfonamide Antibiotics) (Verified Allergy, Intermediate, 03/20/18) I S O L A T I O N *CONTACT* (Verified Allergy, Unknown, 03/20/18) mrsa ROS General: No: Chills, Night Sweats, Fatigue, Malaise, Appetite, Other PSYCHOLOGICAL ROS: No: Anxiety, Behavioral Disorder, Concentration difficultie , Decreased libido, Depression, Disorientation, Hallucinations, Hostility, Irritablity, Memory difficulties, Mood Swings, Obsessive thoughts, Physical abuse, Sexual abuse, Sleep disturbances, Suicidal ideation, Other Eyes: No Blurry vision, No Decreased vision, No Double vision, No Dry eyes, No Excessive tearing, No Eye Pain, No Itchy Eyes, No Loss of vision, No Photophobia , No Scotomata, No Uses contacts, No Uses glasses, No Other HEENT: No: Heacaches, Visual Changes, Hearing change, Nasal congestion, Nasal discharge, Oral lesions, Sinus pain, Sore Throat, Epistaxis, Sneezing, Snoring, Tinnitus, Vertigo, Vocal changes, Other ALLERGY AND IMMUNOLOGY: No: Hives, Insect Bite Sensitivity, Itchy/Watery Eyes, Nasal Congestion, Post Nasal Drip, Seasonal Allergies, Other Hematological and Lymphatic: No: Bleeding Problems, Blood Clots, Blood Transfusions, Brusing, Night Sweats, Pallor, Swollen Lymph Nodes, Other ENDOCRINE: No: Breast Changes, Galactorrhea, Hair Pattern Changes, Hot Flashes , Malaise/lethargy, Mood Swings, Palpitations, Polydipsia/polyuria, Skin Changes , Temperature Intolerance, Unexpected Weight Changes, Other Breast: No New/Changing Breast Lumps, No Nipple changes, No Nipple discharge, No Other Respiratory: No: Cough, Hemoptysis, Orthopnea, Pleuritic Pain, Shortness of breath, SOB with excertion, Sputum Changes, Stridor, Tachypnea, Wheezing, Other Cardiovascular: No Chest Pain, No Palpitations, No Orthopnea, No Paroxysmal Noc. Dyspnea, No Edema, No Lt Headedness, No Other Gastrointestinal: No Nausea, No Vomiting, No Abdominal Pain, No Diarrhea, No Constipation, No Melena, No Hematochezia, No Other Genitourinary: YES ; No Dysuria, No Frequency, No Incontinence, No Hematuria, No Retention, No Discharge, No Urgency, No Pain, No Flank Pain, No Other Musculoskeletal: No Gait Disturbance, No Joint Pain, No Joint Stiffness, No Joint Swelling, No Muscle Pain, No Muscular Weakness, No Pain In:, No Swelling In:, No Other Neurological: No Behavorial Changes, No Bowel/Bladder ControlChng, No Confusion , No Dizziness, No Gait Disturbance, No Headaches, No Impaired Coord/balance, No Memory Loss, No Numbness/Tingling, No Seizures, No Speech Problems, No Tremors, No Visual Changes, No Weakness, No Other Skin: No Dry Skin, No Eczema, No Hair Changes, No Lumps, No Mole Changes, No Mottling, No Nail Changes, No Pruritus, No Rash, No Skin Lesion Changes, No Other, No Acne PHYSICAL EXAM General: Alert, Cooperative, No acute distress HEENT: Atraumatic Lungs: Clear to auscultation, Normal air movement Heart: Normal S1, Normal S2 Abdomen: Soft, No tenderness Extremities: No edema, Normal pulses Skin: No rashes Neuro: Normal speech Psych/Mental Status: Mood NL MUSCULOSKELETAL: Osteoarthritic changes both hands VITALS VITALS Vital Signs Date Time Temp Pulse Resp B/P (MAP) Pulse Ox O2 Delivery O2 Flow Rate FiO2 03/22/18 11:00 79 18 87/47 (60) 92 Room Air 03/22/18 08:00 98.6 98.6 03/22/18 04:00 2.0 LABS Lab: Laboratory Tests Test 03/21/18 15:25 03/21/18 17:05 03/21/18 18:05 03/21/18 18:30 Prothrombin Time 13.6 SEC (11.7-14.0) Prothromb Time International Ratio 1.1 (0.8-1.1) Sodium Level 139 mmol/L (136-145) Potassium Level 3.9 mmol/L (3.5-5.1) Chloride Level 104 mmol/L (98-107) Carbon Dioxide Level 24 mmol/L (21-32) Anion Gap 11 (6-14) Blood Urea Nitrogen 10 mg/dL (7-20) Creatinine 1.0 mg/dL (0.6-1.0) Estimated GFR (Cockcroft-Gault) 54.1 Glucose Level 143 mg/dL (70-99) Calcium Level 7.9 mg/dL (8.5-10.1) Troponin I Quantitative < 0.017 ng/mL (0.000-0.055) Glucose (Fingerstick) 111 mg/dL (70-99) White Blood Count 22.9 x10^3/uL (4.0-11.0) Red Blood Count 5.18 x10^6/uL (3.50-5.40) Hemoglobin 11.7 g/dL (12.0-15.5) Hematocrit 37.1 % (36.0-47.0) Mean Corpuscular Volume 72 fL (79-100) Mean Corpuscular Hemoglobin 23 pg (25-35) Mean Corpuscular Hemoglobin Concent 32 g/dL (31-37) Red Cell Distribution Width 20.3 % (11.5-14.5) Platelet Count 576 x10^3/uL (140-400) Neutrophils (%) (Auto) 86 % (31-73) Lymphocytes (%) (Auto) 8 % (24-48) Monocytes (%) (Auto) 5 % (0-9) Eosinophils (%) (Auto) 1 % (0-3) Basophils (%) (Auto) 1 % (0-3) Neutrophils # (Auto) 19.6 x10^3uL (1.8-7.7) Lymphocytes # (Auto) 1.9 x10^3/uL (1.0-4.8) Monocytes # (Auto) 1.1 x10^3/uL (0.0-1.1) Eosinophils # (Auto) 0.2 x10^3/uL (0.0-0.7) Basophils # (Auto) 0.2 x10^3/uL (0.0-0.2) Urine Collection Type Unknown Urine Color Nuha Urine Clarity Cloudy Urine pH 6.0 Urine Specific [place] 1.025 Urine Protein >=300 mg/dL (NEG-TRACE) Urine Glucose (UA) Negative mg/dL (NEG) Urine Ketones (Stick) Negative mg/dL (NEG) Urine Blood Large (NEG) Urine Nitrite Positive (NEG) Urine Bilirubin Negative (NEG) Urine Urobilinogen Dipstick 0.2 mg/dL (0.2 mg/dL) Urine Leukocyte Esterase Large (NEG) Urine RBC 20-40 /HPF (0-2) Urine WBC Tntc /HPF (0-4) Urine Squamous Epithelial Cells Few /LPF Urine Bacteria Many /HPF (0-FEW) Urine Mucus Slight /LPF Test 03/21/18 21:10 03/22/18 01:20 Activated Partial Thromboplast Time 30 SEC (24-38) Fibrinogen 363 mg/dL (200-440) D-Dimer (Cheryl) 13.43 ug/mlFEU (0.00-0.50) Lactic Acid Level 2.5 mmol/L (0.4-2.0) 0.6 mmol/L (0.4-2.0) Total Bilirubin 0.5 mg/dL (0.2-1.0) 0.6 mg/dL (0.2-1.0) Direct Bilirubin 0.1 mg/dL (0.0-0.2) Aspartate Amino Transf (AST/SGOT) 14 U/L (15-37) 15 U/L (15-37) Alanine Aminotransferase (ALT/SGPT) 10 U/L (14-59) 10 U/L (14-59) Alkaline Phosphatase 75 U/L (46-116) 69 U/L (46-116) Total Protein 6.2 g/dL (6.4-8.2) 5.3 g/dL (6.4-8.2) Albumin 2.6 g/dL (3.4-5.0) 2.3 g/dL (3.4-5.0) Procalcitonin 0.39 ng/mL (0.00-0.10) White Blood Count 15.5 x10^3/uL (4.0-11.0) Red Blood Count 4.01 x10^6/uL (3.50-5.40) Hemoglobin 9.0 g/dL (12.0-15.5) Hematocrit 29.0 % (36.0-47.0) Mean Corpuscular Volume 72 fL (79-100) Mean Corpuscular Hemoglobin 23 pg (25-35) Mean Corpuscular Hemoglobin Concent 31 g/dL (31-37) Red Cell Distribution Width 20.5 % (11.5-14.5) Platelet Count 393 x10^3/uL (140-400) Neutrophils (%) (Auto) 85 % (31-73) Lymphocytes (%) (Auto) 10 % (24-48) Monocytes (%) (Auto) 4 % (0-9) Eosinophils (%) (Auto) 0 % (0-3) Basophils (%) (Auto) 1 % (0-3) Neutrophils # (Auto) 13.2 x10^3uL (1.8-7.7) Lymphocytes # (Auto) 1.6 x10^3/uL (1.0-4.8) Monocytes # (Auto) 0.7 x10^3/uL (0.0-1.1) Eosinophils # (Auto) 0.0 x10^3/uL (0.0-0.7) Basophils # (Auto) 0.1 x10^3/uL (0.0-0.2) Sodium Level 141 mmol/L (136-145) Potassium Level 4.4 mmol/L (3.5-5.1) Chloride Level 109 mmol/L (98-107) Carbon Dioxide Level 23 mmol/L (21-32) Anion Gap 9 (6-14) Blood Urea Nitrogen 10 mg/dL (7-20) Creatinine 1.0 mg/dL (0.6-1.0) Estimated GFR (Cockcroft-Gault) 54.1 BUN/Creatinine Ratio 10 (6-20) Glucose Level 89 mg/dL (70-99) Calcium Level 7.3 mg/dL (8.5-10.1) Albumin/Globulin Ratio 0.8 (1.0-1.7) IMAGES IMAGES CXR: 03/19/2018: Findings: No acute lung infiltrate or pleural effusion or pulmonary edema or lung mass or pneumothorax is seen. Old appearing bilateral rib cage fractures are evident. The heart size is mildly enlarged but stable. A hiatal hernia is evident. The mediastinum is unchanged. Pulmonary vasculature is unremarkable. IMPRESSION: No acute radiographic abnormality. EKG EKG SINUS TACHYCARDIA ATRIAL PREMATURE COMPLEX(ES) ECHOCARDIOGRAM ECHOCARDIOGRAM 03/21/2018: TTE: Left ventricle systoic function is severely impaired. The anteroseptal wall appears akinetic. The Ejection Fraction is estimated at 15-20%. Trace mitral regurgitation. Trace tricuspid regurgitation. There is no evidence of significant pericardial effusion. ASSESSMENT/PLAN ASSESSMENT/PLAN 1. cardiomyopathy --etiology unknown --will need outpatient evaluation with MPI and follow up in office 2. GI bleed --gastritis, duodenitis, antral ulcers --per GI KIP CHUA MD 03/22/18 1719: CARDIAC CONSULT ASSESSMENT/PLAN ASSESSMENT/PLAN Pt. seen and examined. Agree with above LABOR COMMISSIONER note. Await anemia to improve. Outpt ischemic eval. Supportive care. Thanks SURAJ COKER APRN Mar 22, 2018 11:28 KIP CHUA MD Mar 22, 2018 17:19
--- NOTE | 2018-03-22 12:14 | PDOC ---
Subjective: Subjective: Feeling better - denies abd pain. Objective: Objective: Rapid response during iron infusion yesterday, then transferred to ICU w/ hypotension. Per RN - no GI concerns, tolerating PO, no stools. Requesting records from other facilities. Vital Signs: Vital Signs Date Time Temp Pulse Resp B/P (MAP) Pulse Ox O2 Delivery O2 Flow Rate FiO2 03/22/18 11:22 97 Room Air 03/22/18 11:00 79 18 87/47 (60) 03/22/18 08:00 98.6 98.6 03/22/18 04:00 2.0 Labs: Diagnosis: A. Duodenal biopsies: - Mild nonspecific duodenitis. . B. Gastric biopsies, antral ulcers: - Active chronic gastritis, moderate to marked, with Helicobacter organisms identified. Laboratory Tests Test 03/21/18 15:25 03/21/18 17:05 03/21/18 18:05 03/21/18 18:30 Prothrombin Time 13.6 SEC Prothromb Time International Ratio 1.1 Sodium Level 139 mmol/L Potassium Level 3.9 mmol/L Chloride Level 104 mmol/L Carbon Dioxide Level 24 mmol/L Anion Gap 11 Blood Urea Nitrogen 10 mg/dL Creatinine 1.0 mg/dL Estimated GFR (Cockcroft-Gault) 54.1 Glucose Level 143 mg/dL Calcium Level 7.9 mg/dL Troponin I Quantitative < 0.017 ng/mL Glucose (Fingerstick) 111 mg/dL White Blood Count 22.9 x10^3/uL Red Blood Count 5.18 x10^6/uL Hemoglobin 11.7 g/dL Hematocrit 37.1 % Mean Corpuscular Volume 72 fL Mean Corpuscular Hemoglobin 23 pg Mean Corpuscular Hemoglobin Concent 32 g/dL Red Cell Distribution Width 20.3 % Platelet Count 576 x10^3/uL Neutrophils (%) (Auto) 86 % Lymphocytes (%) (Auto) 8 % Monocytes (%) (Auto) 5 % Eosinophils (%) (Auto) 1 % Basophils (%) (Auto) 1 % Neutrophils # (Auto) 19.6 x10^3uL Lymphocytes # (Auto) 1.9 x10^3/uL Monocytes # (Auto) 1.1 x10^3/uL Eosinophils # (Auto) 0.2 x10^3/uL Basophils # (Auto) 0.2 x10^3/uL Urine Collection Type Unknown Urine Color Nuha Urine Clarity Cloudy Urine pH 6.0 Urine Specific [place] 1.025 Urine Protein >=300 mg/dL Urine Glucose (UA) Negative mg/dL Urine Ketones (Stick) Negative mg/dL Urine Blood Large Urine Nitrite Positive Urine Bilirubin Negative Urine Urobilinogen Dipstick 0.2 mg/dL Urine Leukocyte Esterase Large Urine RBC 20-40 /HPF Urine WBC Tntc /HPF Urine Squamous Epithelial Cells Few /LPF Urine Bacteria Many /HPF Urine Mucus Slight /LPF Test 03/21/18 21:10 03/22/18 01:20 Activated Partial Thromboplast Time 30 SEC Fibrinogen 363 mg/dL D-Dimer (Cheryl) 13.43 ug/mlFEU Lactic Acid Level 2.5 mmol/L 0.6 mmol/L Total Bilirubin 0.5 mg/dL 0.6 mg/dL Direct Bilirubin 0.1 mg/dL Aspartate Amino Transf (AST/SGOT) 14 U/L 15 U/L Alanine Aminotransferase (ALT/SGPT) 10 U/L 10 U/L Alkaline Phosphatase 75 U/L 69 U/L Total Protein 6.2 g/dL 5.3 g/dL Albumin 2.6 g/dL 2.3 g/dL Procalcitonin 0.39 ng/mL White Blood Count 15.5 x10^3/uL Red Blood Count 4.01 x10^6/uL Hemoglobin 9.0 g/dL Hematocrit 29.0 % Mean Corpuscular Volume 72 fL Mean Corpuscular Hemoglobin 23 pg Mean Corpuscular Hemoglobin Concent 31 g/dL Red Cell Distribution Width 20.5 % Platelet Count 393 x10^3/uL Neutrophils (%) (Auto) 85 % Lymphocytes (%) (Auto) 10 % Monocytes (%) (Auto) 4 % Eosinophils (%) (Auto) 0 % Basophils (%) (Auto) 1 % Neutrophils # (Auto) 13.2 x10^3uL Lymphocytes # (Auto) 1.6 x10^3/uL Monocytes # (Auto) 0.7 x10^3/uL Eosinophils # (Auto) 0.0 x10^3/uL Basophils # (Auto) 0.1 x10^3/uL Sodium Level 141 mmol/L Potassium Level 4.4 mmol/L Chloride Level 109 mmol/L Carbon Dioxide Level 23 mmol/L Anion Gap 9 Blood Urea Nitrogen 10 mg/dL Creatinine 1.0 mg/dL Estimated GFR (Cockcroft-Gault) 54.1 BUN/Creatinine Ratio 10 Glucose Level 89 mg/dL Calcium Level 7.3 mg/dL Albumin/Globulin Ratio 0.8 Imaging: Echo <Conclusion> Left ventricle systoic function is severely impaired. The anteroseptal wall appears akinetic. The Ejection Fraction is estimated at 15-20%. Trace mitral regurgitation. Trace tricuspid regurgitation. There is no evidence of significant pericardial effusion. CT A/P IMPRESSION: 1. Evaluation for GI bleeding limited on this noncontrast exam. Sigmoid diverticulosis is seen without evidence of acute diverticulitis. 2. Moderate colonic stool content. No evidence of bowel obstruction. 3. Moderate to large hiatal hernia. 4. Borderline hepatomegaly. Borderline splenomegaly. 5. Left ureteral stent with ectopic attachment to the bladder anteriorly is stable. No hydronephrosis or hydroureter. KUB IMPRESSION: 1. The left ureteral stent remains in satisfactory position. 2. No acute abdominal abnormality is detected. PE: GEN: NAD LUNGS: CTAB HEART: RRR ABD: S/ND/NT NEURO/PSYCH: A & O 3, poor historian A/P: ?sepsis - leukocytosis, elevated lactic (resolved), hypotension Microcytic anemia - stable -hiatal hernia w/ Leif lesions, antral ulcers, erosive duodenitis (+H. pylori ) -diverticulosis -- Continue PPI and Carafate, will review w/ Dr. Díaz re: H. pylori treatment timing. KASIE GÓMEZ Mar 22, 2018 12:14
--- NOTE | 2018-03-22 13:27 | PDOC ---
PROGRESS NOTES Chief Complaint Chief Complaint sob, COPD exacerbation, plus anemia symptomatic anemia with likely chronic gib medium hiatal hernia with Meg ulcers, several antral ulcerations as well, erosive duodenitis in EGD low bp and sob post iron iv acute systolic CHF exacerbation EF 15% plan: fu with GI, EGD done, no active gib 2u PRBC transfusion gi soft diet protox po daily and sulcralfate verify home meds with nurse, avoid NSAIDS add duoneb, albuterol prn labs tmr avoid iv iron fu with ID, on abx dc ivf if bp stable ok transfer out of icu since off levaphed ECcho showed EF 15%, card consult History of Present Illness History of Present Illness feels better today off levaphed overnight transfered to ICU yesterday for low bp, sob, after iv iron wbc slightly better Vitals Vitals Vital Signs Date Time Temp Pulse Resp B/P (MAP) Pulse Ox O2 Delivery O2 Flow Rate FiO2 03/22/18 13:00 87 18 112/44 (66) 93 Room Air 03/22/18 12:00 98.9 98.9 03/22/18 04:00 2.0 Physical Exam General: Alert, Oriented X3, Cooperative, No acute distress Heart: Normal S1, Normal S2 Lungs: Other (bl moderate decreased bs) Abdomen: Soft, No tenderness Extremities: No edema, Normal pulses Skin: No rashes Labs LABS Laboratory Tests Test 03/21/18 15:25 03/21/18 17:05 03/21/18 18:05 03/21/18 18:30 Prothrombin Time 13.6 SEC (11.7-14.0) Prothromb Time International Ratio 1.1 (0.8-1.1) Sodium Level 139 mmol/L (136-145) Potassium Level 3.9 mmol/L (3.5-5.1) Chloride Level 104 mmol/L (98-107) Carbon Dioxide Level 24 mmol/L (21-32) Anion Gap 11 (6-14) Blood Urea Nitrogen 10 mg/dL (7-20) Creatinine 1.0 mg/dL (0.6-1.0) Estimated GFR (Cockcroft-Gault) 54.1 Glucose Level 143 mg/dL (70-99) Calcium Level 7.9 mg/dL (8.5-10.1) Troponin I Quantitative < 0.017 ng/mL (0.000-0.055) Glucose (Fingerstick) 111 mg/dL (70-99) White Blood Count 22.9 x10^3/uL (4.0-11.0) Red Blood Count 5.18 x10^6/uL (3.50-5.40) Hemoglobin 11.7 g/dL (12.0-15.5) Hematocrit 37.1 % (36.0-47.0) Mean Corpuscular Volume 72 fL (79-100) Mean Corpuscular Hemoglobin 23 pg (25-35) Mean Corpuscular Hemoglobin Concent 32 g/dL (31-37) Red Cell Distribution Width 20.3 % (11.5-14.5) Platelet Count 576 x10^3/uL (140-400) Neutrophils (%) (Auto) 86 % (31-73) Lymphocytes (%) (Auto) 8 % (24-48) Monocytes (%) (Auto) 5 % (0-9) Eosinophils (%) (Auto) 1 % (0-3) Basophils (%) (Auto) 1 % (0-3) Neutrophils # (Auto) 19.6 x10^3uL (1.8-7.7) Lymphocytes # (Auto) 1.9 x10^3/uL (1.0-4.8) Monocytes # (Auto) 1.1 x10^3/uL (0.0-1.1) Eosinophils # (Auto) 0.2 x10^3/uL (0.0-0.7) Basophils # (Auto) 0.2 x10^3/uL (0.0-0.2) Urine Collection Type Unknown Urine Color Nuha Urine Clarity Cloudy Urine pH 6.0 Urine Specific [place] 1.025 Urine Protein >=300 mg/dL (NEG-TRACE) Urine Glucose (UA) Negative mg/dL (NEG) Urine Ketones (Stick) Negative mg/dL (NEG) Urine Blood Large (NEG) Urine Nitrite Positive (NEG) Urine Bilirubin Negative (NEG) Urine Urobilinogen Dipstick 0.2 mg/dL (0.2 mg/dL) Urine Leukocyte Esterase Large (NEG) Urine RBC 20-40 /HPF (0-2) Urine WBC Tntc /HPF (0-4) Urine Squamous Epithelial Cells Few /LPF Urine Bacteria Many /HPF (0-FEW) Urine Mucus Slight /LPF Test 03/21/18 21:10 03/22/18 01:20 Activated Partial Thromboplast Time 30 SEC (24-38) Fibrinogen 363 mg/dL (200-440) D-Dimer (Cheryl) 13.43 ug/mlFEU (0.00-0.50) Lactic Acid Level 2.5 mmol/L (0.4-2.0) 0.6 mmol/L (0.4-2.0) Total Bilirubin 0.5 mg/dL (0.2-1.0) 0.6 mg/dL (0.2-1.0) Direct Bilirubin 0.1 mg/dL (0.0-0.2) Aspartate Amino Transf (AST/SGOT) 14 U/L (15-37) 15 U/L (15-37) Alanine Aminotransferase (ALT/SGPT) 10 U/L (14-59) 10 U/L (14-59) Alkaline Phosphatase 75 U/L (46-116) 69 U/L (46-116) Total Protein 6.2 g/dL (6.4-8.2) 5.3 g/dL (6.4-8.2) Albumin 2.6 g/dL (3.4-5.0) 2.3 g/dL (3.4-5.0) Procalcitonin 0.39 ng/mL (0.00-0.10) White Blood Count 15.5 x10^3/uL (4.0-11.0) Red Blood Count 4.01 x10^6/uL (3.50-5.40) Hemoglobin 9.0 g/dL (12.0-15.5) Hematocrit 29.0 % (36.0-47.0) Mean Corpuscular Volume 72 fL (79-100) Mean Corpuscular Hemoglobin 23 pg (25-35) Mean Corpuscular Hemoglobin Concent 31 g/dL (31-37) Red Cell Distribution Width 20.5 % (11.5-14.5) Platelet Count 393 x10^3/uL (140-400) Neutrophils (%) (Auto) 85 % (31-73) Lymphocytes (%) (Auto) 10 % (24-48) Monocytes (%) (Auto) 4 % (0-9) Eosinophils (%) (Auto) 0 % (0-3) Basophils (%) (Auto) 1 % (0-3) Neutrophils # (Auto) 13.2 x10^3uL (1.8-7.7) Lymphocytes # (Auto) 1.6 x10^3/uL (1.0-4.8) Monocytes # (Auto) 0.7 x10^3/uL (0.0-1.1) Eosinophils # (Auto) 0.0 x10^3/uL (0.0-0.7) Basophils # (Auto) 0.1 x10^3/uL (0.0-0.2) Sodium Level 141 mmol/L (136-145) Potassium Level 4.4 mmol/L (3.5-5.1) Chloride Level 109 mmol/L (98-107) Carbon Dioxide Level 23 mmol/L (21-32) Anion Gap 9 (6-14) Blood Urea Nitrogen 10 mg/dL (7-20) Creatinine 1.0 mg/dL (0.6-1.0) Estimated GFR (Cockcroft-Gault) 54.1 BUN/Creatinine Ratio 10 (6-20) Glucose Level 89 mg/dL (70-99) Calcium Level 7.3 mg/dL (8.5-10.1) Albumin/Globulin Ratio 0.8 (1.0-1.7) Assessment and Plan Assessmemt and Plan Problems Medical Problems: (1) Anemia Status: Acute (2) GI bleed Status: Acute (3) Shortness of breath Status: Acute Comment Review of Relevant I have reviewed the following items marshal (where applicable) has been applied. Labs Laboratory Tests Test 03/21/18 04:48 03/21/18 15:25 03/21/18 17:05 03/21/18 18:05 White Blood Count 9.5 x10^3/uL (4.0-11.0) 22.9 x10^3/uL (4.0-11.0) Red Blood Count 3.79 x10^6/uL (3.50-5.40) 5.18 x10^6/uL (3.50-5.40) Hemoglobin 8.6 g/dL (12.0-15.5) 11.7 g/dL (12.0-15.5) Hematocrit 27.0 % (36.0-47.0) 37.1 % (36.0-47.0) Mean Corpuscular Volume 71 fL (79-100) 72 fL (79-100) Mean Corpuscular Hemoglobin 23 pg (25-35) 23 pg (25-35) Mean Corpuscular Hemoglobin Concent 32 g/dL (31-37) 32 g/dL (31-37) Red Cell Distribution Width 19.7 % (11.5-14.5) 20.3 % (11.5-14.5) Platelet Count 420 x10^3/uL (140-400) 576 x10^3/uL (140-400) Neutrophils (%) (Auto) 66 % (31-73) 86 % (31-73) Lymphocytes (%) (Auto) 24 % (24-48) 8 % (24-48) Monocytes (%) (Auto) 7 % (0-9) 5 % (0-9) Eosinophils (%) (Auto) 2 % (0-3) 1 % (0-3) Basophils (%) (Auto) 1 % (0-3) 1 % (0-3) Neutrophils # (Auto) 6.3 x10^3uL (1.8-7.7) 19.6 x10^3uL (1.8-7.7) Lymphocytes # (Auto) 2.3 x10^3/uL (1.0-4.8) 1.9 x10^3/uL (1.0-4.8) Monocytes # (Auto) 0.7 x10^3/uL (0.0-1.1) 1.1 x10^3/uL (0.0-1.1) Eosinophils # (Auto) 0.2 x10^3/uL (0.0-0.7) 0.2 x10^3/uL (0.0-0.7) Basophils # (Auto) 0.1 x10^3/uL (0.0-0.2) 0.2 x10^3/uL (0.0-0.2) Sodium Level 140 mmol/L (136-145) 139 mmol/L (136-145) Potassium Level 4.6 mmol/L (3.5-5.1) 3.9 mmol/L (3.5-5.1) Chloride Level 106 mmol/L (98-107) 104 mmol/L (98-107) Carbon Dioxide Level 27 mmol/L (21-32) 24 mmol/L (21-32) Anion Gap 7 (6-14) 11 (6-14) Blood Urea Nitrogen 12 mg/dL (7-20) 10 mg/dL (7-20) Creatinine 1.0 mg/dL (0.6-1.0) 1.0 mg/dL (0.6-1.0) Estimated GFR (Cockcroft-Gault) 54.1 54.1 Glucose Level 89 mg/dL (70-99) 143 mg/dL (70-99) Calcium Level 8.4 mg/dL (8.5-10.1) 7.9 mg/dL (8.5-10.1) Prothrombin Time 13.6 SEC (11.7-14.0) Prothromb Time International Ratio 1.1 (0.8-1.1) Troponin I Quantitative < 0.017 ng/mL (0.000-0.055) Glucose (Fingerstick) 111 mg/dL (70-99) Test 03/21/18 18:30 03/21/18 21:10 03/22/18 01:20 Urine Collection Type Unknown Urine Color Nuha Urine Clarity Cloudy Urine pH 6.0 Urine Specific [place] 1.025 Urine Protein >=300 mg/dL (NEG-TRACE) Urine Glucose (UA) Negative mg/dL (NEG) Urine Ketones (Stick) Negative mg/dL (NEG) Urine Blood Large (NEG) Urine Nitrite Positive (NEG) Urine Bilirubin Negative (NEG) Urine Urobilinogen Dipstick 0.2 mg/dL (0.2 mg/dL) Urine Leukocyte Esterase Large (NEG) Urine RBC 20-40 /HPF (0-2) Urine WBC Tntc /HPF (0-4) Urine Squamous Epithelial Cells Few /LPF Urine Bacteria Many /HPF (0-FEW) Urine Mucus Slight /LPF Activated Partial Thromboplast Time 30 SEC (24-38) Fibrinogen 363 mg/dL (200-440) D-Dimer (Cheryl) 13.43 ug/mlFEU (0.00-0.50) Lactic Acid Level 2.5 mmol/L (0.4-2.0) 0.6 mmol/L (0.4-2.0) Total Bilirubin 0.5 mg/dL (0.2-1.0) 0.6 mg/dL (0.2-1.0) Direct Bilirubin 0.1 mg/dL (0.0-0.2) Aspartate Amino Transf (AST/SGOT) 14 U/L (15-37) 15 U/L (15-37) Alanine Aminotransferase (ALT/SGPT) 10 U/L (14-59) 10 U/L (14-59) Alkaline Phosphatase 75 U/L (46-116) 69 U/L (46-116) Total Protein 6.2 g/dL (6.4-8.2) 5.3 g/dL (6.4-8.2) Albumin 2.6 g/dL (3.4-5.0) 2.3 g/dL (3.4-5.0) Procalcitonin 0.39 ng/mL (0.00-0.10) White Blood Count 15.5 x10^3/uL (4.0-11.0) Red Blood Count 4.01 x10^6/uL (3.50-5.40) Hemoglobin 9.0 g/dL (12.0-15.5) Hematocrit 29.0 % (36.0-47.0) Mean Corpuscular Volume 72 fL (79-100) Mean Corpuscular Hemoglobin 23 pg (25-35) Mean Corpuscular Hemoglobin Concent 31 g/dL (31-37) Red Cell Distribution Width 20.5 % (11.5-14.5) Platelet Count 393 x10^3/uL (140-400) Neutrophils (%) (Auto) 85 % (31-73) Lymphocytes (%) (Auto) 10 % (24-48) Monocytes (%) (Auto) 4 % (0-9) Eosinophils (%) (Auto) 0 % (0-3) Basophils (%) (Auto) 1 % (0-3) Neutrophils # (Auto) 13.2 x10^3uL (1.8-7.7) Lymphocytes # (Auto) 1.6 x10^3/uL (1.0-4.8) Monocytes # (Auto) 0.7 x10^3/uL (0.0-1.1) Eosinophils # (Auto) 0.0 x10^3/uL (0.0-0.7) Basophils # (Auto) 0.1 x10^3/uL (0.0-0.2) Sodium Level 141 mmol/L (136-145) Potassium Level 4.4 mmol/L (3.5-5.1) Chloride Level 109 mmol/L (98-107) Carbon Dioxide Level 23 mmol/L (21-32) Anion Gap 9 (6-14) Blood Urea Nitrogen 10 mg/dL (7-20) Creatinine 1.0 mg/dL (0.6-1.0) Estimated GFR (Cockcroft-Gault) 54.1 BUN/Creatinine Ratio 10 (6-20) Glucose Level 89 mg/dL (70-99) Calcium Level 7.3 mg/dL (8.5-10.1) Albumin/Globulin Ratio 0.8 (1.0-1.7) Laboratory Tests Test 03/21/18 15:25 03/21/18 17:05 03/21/18 18:05 03/21/18 18:30 Prothrombin Time 13.6 SEC (11.7-14.0) Prothromb Time International Ratio 1.1 (0.8-1.1) Sodium Level 139 mmol/L (136-145) Potassium Level 3.9 mmol/L (3.5-5.1) Chloride Level 104 mmol/L (98-107) Carbon Dioxide Level 24 mmol/L (21-32) Anion Gap 11 (6-14) Blood Urea Nitrogen 10 mg/dL (7-20) Creatinine 1.0 mg/dL (0.6-1.0) Estimated GFR (Cockcroft-Gault) 54.1 Glucose Level 143 mg/dL (70-99) Calcium Level 7.9 mg/dL (8.5-10.1) Troponin I Quantitative < 0.017 ng/mL (0.000-0.055) Glucose (Fingerstick) 111 mg/dL (70-99) White Blood Count 22.9 x10^3/uL (4.0-11.0) Red Blood Count 5.18 x10^6/uL (3.50-5.40) Hemoglobin 11.7 g/dL (12.0-15.5) Hematocrit 37.1 % (36.0-47.0) Mean Corpuscular Volume 72 fL (79-100) Mean Corpuscular Hemoglobin 23 pg (25-35) Mean Corpuscular Hemoglobin Concent 32 g/dL (31-37) Red Cell Distribution Width 20.3 % (11.5-14.5) Platelet Count 576 x10^3/uL (140-400) Neutrophils (%) (Auto) 86 % (31-73) Lymphocytes (%) (Auto) 8 % (24-48) Monocytes (%) (Auto) 5 % (0-9) Eosinophils (%) (Auto) 1 % (0-3) Basophils (%) (Auto) 1 % (0-3) Neutrophils # (Auto) 19.6 x10^3uL (1.8-7.7) Lymphocytes # (Auto) 1.9 x10^3/uL (1.0-4.8) Monocytes # (Auto) 1.1 x10^3/uL (0.0-1.1) Eosinophils # (Auto) 0.2 x10^3/uL (0.0-0.7) Basophils # (Auto) 0.2 x10^3/uL (0.0-0.2) Urine Collection Type Unknown Urine Color Nuha Urine Clarity Cloudy Urine pH 6.0 Urine Specific [place] 1.025 Urine Protein >=300 mg/dL (NEG-TRACE) Urine Glucose (UA) Negative mg/dL (NEG) Urine Ketones (Stick) Negative mg/dL (NEG) Urine Blood Large (NEG) Urine Nitrite Positive (NEG) Urine Bilirubin Negative (NEG) Urine Urobilinogen Dipstick 0.2 mg/dL (0.2 mg/dL) Urine Leukocyte Esterase Large (NEG) Urine RBC 20-40 /HPF (0-2) Urine WBC Tntc /HPF (0-4) Urine Squamous Epithelial Cells Few /LPF Urine Bacteria Many /HPF (0-FEW) Urine Mucus Slight /LPF Test 03/21/18 21:10 03/22/18 01:20 Activated Partial Thromboplast Time 30 SEC (24-38) Fibrinogen 363 mg/dL (200-440) D-Dimer (Cheryl) 13.43 ug/mlFEU (0.00-0.50) Lactic Acid Level 2.5 mmol/L (0.4-2.0) 0.6 mmol/L (0.4-2.0) Total Bilirubin 0.5 mg/dL (0.2-1.0) 0.6 mg/dL (0.2-1.0) Direct Bilirubin 0.1 mg/dL (0.0-0.2) Aspartate Amino Transf (AST/SGOT) 14 U/L (15-37) 15 U/L (15-37) Alanine Aminotransferase (ALT/SGPT) 10 U/L (14-59) 10 U/L (14-59) Alkaline Phosphatase 75 U/L (46-116) 69 U/L (46-116) Total Protein 6.2 g/dL (6.4-8.2) 5.3 g/dL (6.4-8.2) Albumin 2.6 g/dL (3.4-5.0) 2.3 g/dL (3.4-5.0) Procalcitonin 0.39 ng/mL (0.00-0.10) White Blood Count 15.5 x10^3/uL (4.0-11.0) Red Blood Count 4.01 x10^6/uL (3.50-5.40) Hemoglobin 9.0 g/dL (12.0-15.5) Hematocrit 29.0 % (36.0-47.0) Mean Corpuscular Volume 72 fL (79-100) Mean Corpuscular Hemoglobin 23 pg (25-35) Mean Corpuscular Hemoglobin Concent 31 g/dL (31-37) Red Cell Distribution Width 20.5 % (11.5-14.5) Platelet Count 393 x10^3/uL (140-400) Neutrophils (%) (Auto) 85 % (31-73) Lymphocytes (%) (Auto) 10 % (24-48) Monocytes (%) (Auto) 4 % (0-9) Eosinophils (%) (Auto) 0 % (0-3) Basophils (%) (Auto) 1 % (0-3) Neutrophils # (Auto) 13.2 x10^3uL (1.8-7.7) Lymphocytes # (Auto) 1.6 x10^3/uL (1.0-4.8) Monocytes # (Auto) 0.7 x10^3/uL (0.0-1.1) Eosinophils # (Auto) 0.0 x10^3/uL (0.0-0.7) Basophils # (Auto) 0.1 x10^3/uL (0.0-0.2) Sodium Level 141 mmol/L (136-145) Potassium Level 4.4 mmol/L (3.5-5.1) Chloride Level 109 mmol/L (98-107) Carbon Dioxide Level 23 mmol/L (21-32) Anion Gap 9 (6-14) Blood Urea Nitrogen 10 mg/dL (7-20) Creatinine 1.0 mg/dL (0.6-1.0) Estimated GFR (Cockcroft-Gault) 54.1 BUN/Creatinine Ratio 10 (6-20) Glucose Level 89 mg/dL (70-99) Calcium Level 7.3 mg/dL (8.5-10.1) Albumin/Globulin Ratio 0.8 (1.0-1.7) Microbiology 03/19/18 Blood Culture - Preliminary, Resulted NO GROWTH AFTER 2 DAYS Medications Current Medications Hyoscyamine (Anaspaz) 0.25 mg PRN Q4HRS PRN PO STOMACH CRAMPING Last administered on 03/20/18at 00:16; Start 03/20/18 at 00:00 Pantoprazole Sodium (PROTONIX VIAL for IV PUSH) 80 mg 1X ONCE IVP Last administered on 03/20/18at 00:17; Start 03/20/18 at 00:15; Stop 03/20/18 at 00:16 ; Status DC Sodium Chloride 1,000 ml @ 1,000 mls/hr 1X ONCE IV Last administered on at 01:14; Start 03/20/18 at 01:00; Stop 03/20/18 at 01:59; Status DC Piperacillin Sod/ Tazobactam Sod 4.5 gm/Sodium Chloride 100 ml @ 200 mls/hr 1X ONCE IV Last administered on 03/20/18at 01:15; Start 03/20/18 at 01:00; Stop 03/20/18 at 01:29; Status DC Ondansetron HCl (Zofran) 4 mg PRN Q8HRS PRN IV NAUSEA/VOMITING 1ST CHOICE; Start 03/20/18 at 01:30; Stop 03/20/18 at 13:15; Status DC Fentanyl Citrate (Fentanyl 2ml Vial) 50 mcg PRN Q2HR PRN IV SEVERE PAIN; Start 03/20/18 at 01:30; Stop 03/21/18 at 01:29; Status DC Pantoprazole Sodium 80 mg/ Sodium Chloride 100 ml @ 10 mls/hr Q10H IV Last administered on 03/20/18at 13:30; Start 03/20/18 at 03:00; Stop 03/20/18 at 15:19 ; Status DC Ringer's Solution 1,000 ml @ 75 mls/hr [id number] IV Last administered on at 08:48; Start 03/20/18 at 08:45; Stop 03/22/18 at 09:06; Status DC Propofol 20 ml @ As Directed STK-MED ONCE IV ; Start 03/20/18 at 09:12; Stop at 09:13; Status DC Lidocaine HCl (Lidocaine Pf 2% Vial) 5 ml STK-MED ONCE .ROUTE ; Start 03/20/18 at 09:12; Stop 03/20/18 at 09:13; Status DC Ephedrine Sulfate (ePHEDrine PF IN SALINE SYRINGE) 50 mg STK-MED ONCE IV ; Start 03/20/18 at 09:13; Stop 03/20/18 at 09:14; Status DC Sucralfate (Carafate) 1 gm TIDAC PO Last administered on 03/22/18at 12:13; Start 03/20/18 at 11:30; Stop 03/27/18 at 11:29 Acetaminophen (Tylenol) 650 mg PRN Q6HRS PRN PO FEVER; Start 03/20/18 at 13:15 Ondansetron HCl (Zofran) 4 mg PRN Q6HRS PRN IV NAUSEA/VOMITING; Start 03/20/18 at 13:15 Morphine Sulfate (Morphine Sulfate) 2 mg PRN Q2HR PRN IV MODERATE TO SEVERE PAIN; Start 03/20/18 at 13:15 Tramadol HCl (Ultram) 50 mg PRN Q6HRS PRN PO MILD TO MODERATE PAIN; Start 03/20 at 13:15 Docusate Sodium (Colace) 100 mg PRN DAILY PRN PO CONSTIPATION; Start 03/20/18 at 13:15 Albuterol/ Ipratropium (Duoneb) 3 ml RTQID NEB Last administered on 03/22/18at 11:22; Start 03/20/18 at 16:00 Albuterol Sulfate (Ventolin Neb Soln) 2.5 mg PRN Q2HR PRN NEB SHORTNESS OF BREATH; Start 03/20/18 at 13:15 Guaifenesin (Mucinex) 600 mg BID PO Last administered on 03/22/18at 08:49; Start 03/20/18 at 14:00 Pantoprazole Sodium (PROTONIX VIAL for IV PUSH) 40 mg DAILYAC IVP Last administered on 03/21/18at 06:35; Start 03/21/18 at 07:30; Stop 03/21/18 at 12:56 ; Status DC Iron Sucrose 500 mg/Sodium Chloride 275 ml @ 78.571 mls/ hr 1X ONCE IV Last administered on 03/21/18at 13:04; Start 03/21/18 at 12:30; Stop 03/22/18 at 09:06 ; Status DC Pantoprazole Sodium (Protonix) 40 mg DAILYAC PO Last administered on 03/22/18at 08:49; Start 03/22/18 at 07:30 Iohexol (Omnipaque 240 Mg/ml) 50 ml 1X ONCE PO Last administered on 03/21/18at 13:45; Start 03/21/18 at 13:30; Stop 03/21/18 at 13:31; Status DC Info (CONTRAST GIVEN -- Rx MONITORING) 1 each PRN DAILY PRN MC SEE COMMENTS; Start 03/21/18 at 13:30; Stop 03/23/18 at 13:29 Piperacillin Sod/ Tazobactam Sod 3.375 gm/Sodium Chloride 50 ml @ 100 mls/hr Q6HRS IV ; Start 03/22/18 at 00:00; Status UNV Vancomycin HCl 750 mg/Sodium Chloride 250 ml @ 250 mls/hr Q12H IV ; Start 03/21 at 19:30; Status UNV Piperacillin Sod/ Tazobactam Sod 2.25 gm/Sodium Chloride 50 ml @ 100 mls/hr Q6HRS IV Last administered on 03/22/18at 12:13; Start 03/21/18 at 20:00 Vancomycin HCl (Vanco Per Pharmacy) 1 each PRN DAILY PRN MC SEE COMMENTS Last administered on 03/22/18at 09:48; Start 03/21/18 at 19:45 Vancomycin HCl 1 gm/Sodium Chloride 250 ml @ 250 mls/hr ONCE ONCE IV Last administered on 03/21/18at 21:10; Start 03/21/18 at 20:30; Stop 03/21/18 at 21:29 ; Status DC Metronidazole 100 ml @ 100 mls/hr Q8HRS IV Last administered on 03/22/18at 05: 52; Start 03/21/18 at 22:00; Stop 03/22/18 at 09:55; Status DC Sodium Chloride 1,000 ml @ 300 mls/hr 1X ONCE IV Last administered on at 20:30; Start 03/21/18 at 19:45; Stop 03/21/18 at 23:04; Status DC Sodium Chloride 1,000 ml @ 166.667 mls/hr Q6H IV Last administered on at 21:13; Start 03/21/18 at 20:53; Stop 03/22/18 at 05:08; Status DC Sodium Chloride 500 ml @ 1,000 mls/hr PRN Q30MIN PRN IV SEE COMMENTS; Start at 21:00 Sodium Chloride 1,000 ml @ 25 mls/hr Q24H IV Last administered on 03/22/18at 00 :40; Start 03/21/18 at 20:57; Stop 03/22/18 at 11:39; Status DC Vancomycin HCl (Vanco Per Pharmacy) 1 each PRN DAILY PRN MC SEE COMMENTS; Start 03/21/18 at 21:00; Status UNV Norepinephrine Bitartrate 250 ml @ 0 mls/hr CONT PRN IV SEE I/O RECORD Last administered on 03/22/18at 00:48; Start 03/21/18 at 21:00 Vasopressin 40 unit/Dextrose 102 ml @ 6 mls/hr CONT PRN IV SEE I/O RECORD; Start 03/21/18 at 21:00; Status UNV Epinephrine HCl 4 mg/Sodium Chloride 254 ml @ 0 mls/hr CONT PRN IV MAP <65 DESPITE NOREPINEPHRINE; Start 03/21/18 at 21:00; Status Cancel Dobutamine HCl/ Dextrose 250 ml @ 0 mls/hr CONT PRN IV SEE I/O RECORD; Start at 21:00; Status Cancel Vancomycin HCl 750 mg/Sodium Chloride 250 ml @ 250 mls/hr Q24H IV ; Start 03/22 at 21:00 Vancomycin HCl (Vancomycin Trough Level) 1 each 1X ONCE MC ; Start 03/23/18 at 20:30; Stop 03/23/18 at 20:31 Lactobacillus Rhamnosus (Culturelle) 1 cap BID PO ; Start 03/22/18 at 21:00 Active Scripts Active Proair Hfa Inhaler (Albuterol Sulfate) 8.5 Gm Hfa.aer.ad 2 Puff INH PRN Q6HRS PRN Reported Hydrocodone-Apap 5-325 (Hydrocodone Bit/Acetaminophen) 1 Each Tablet 1 Tab PO Q4HRS PRN Acetaminophen 500 Mg Tablet 1 Tab PO BID Vitals/I & O Vital Sign - Last 24 Hours 03/21/18 03/21/18 03/21/18 03/21/18 15:00 15:45 19:20 19:41 Temp 97.5 95.4 97.5 95.4 Pulse 80 101 Resp 16 16 B/P (MAP) 125/63 (83) 94/63 (73) Pulse Ox 96 96 99 O2 Delivery Room Air Room Air Nasal Cannula Room Air O2 Flow Rate 2.0 03/21/18 03/21/18 03/21/18 03/21/18 20:15 20:30 20:30 20:45 Temp 99.1 99.1 Pulse 96 96 103 Resp 21 20 B/P (MAP) 116/73 (87) 87/38 (54) 79/48 (58) Pulse Ox 97 97 97 O2 Delivery Nasal Cannula Nasal Cannula Nasal Cannula Nasal Cannula O2 Flow Rate 2.0 2.0 2.0 2.0 03/21/18 03/21/18 03/21/18 03/21/18 21:00 21:15 22:00 22:00 Pulse 100 99 96 96 Resp 21 20 21 20 B/P (MAP) 76/45 (55) 86/44 (58) 90/40 (57) 116/73 (87) Pulse Ox 97 94 97 97 O2 Delivery Nasal Cannula Nasal Cannula Nasal Cannula Nasal Cannula O2 Flow Rate 2.0 2.0 2.0 2.0 03/21/18 03/22/18 03/22/18 03/22/18 23:00 00:00 00:01 00:30 Temp 98.9 98.9 Pulse 94 93 93 Resp 18 16 16 B/P (MAP) 104/50 (68) 89/48 (62) 78/39 (52) Pulse Ox 93 94 94 O2 Delivery Nasal Cannula Nasal Cannula Nasal Cannula Nasal Cannula O2 Flow Rate 2.0 2.0 2.0 2.0 03/22/18 03/22/18 //18 //18 00:45 01:00 02:00 02:30 Pulse 93 84 79 81 Resp 16 20 20 20 B/P (MAP) 79/40 (53) 82/46 (58) 81/42 (55) 97/48 (64) Pulse Ox 94 97 99 99 O2 Delivery Nasal Cannula Nasal Cannula Nasal Cannula Nasal Cannula O2 Flow Rate 2.0 2.0 2.0 2.0 03/22/18 03/22/18 //18 //18 03:00 04:00 04:00 05:00 Pulse 82 82 92 Resp 20 18 16 B/P (MAP) 106/64 (78) 108/57 (74) 134/54 (80) Pulse Ox 100 100 92 O2 Delivery Nasal Cannula Nasal Cannula Nasal Cannula Room Air O2 Flow Rate 2.0 2.0 2.0 18 03/22/18 03/22/18 03/22/18 06:00 07:00 07:35 08:00 Pulse 92 78 Resp 14 16 B/P (MAP) 95/47 (63) 96/44 (61) Pulse Ox 94 94 96 O2 Delivery Room Air Room Air Room Air Room Air 03/22/1803/22/18 03/22/18 18 08:00 09:00 10:00 11:00 Temp 98.6 98.6 Pulse 80 104 84 79 Resp 16 18 16 18 B/P (MAP) 100/49 (66) 96/47 (63) 84/39 (54) 87/47 (60) Pulse Ox 91 91 90 92 O2 Delivery Room Air Room Air Room Air Room Air 18 03/22/18 03/22/18 03/22/18 11:22 12:00 12:00 13:00 Temp 98.9 98.9 Pulse 73 87 Resp 16 18 B/P (MAP) 106/46 (66) 112/44 (66) Pulse Ox 97 92 93 O2 Delivery Room Air Room Air Room Air Room Air Intake and Output 03/21/18 03/21/18 03/22/18 15:00 23:00 07:00 Intake Total 1463 ml 513 ml Output Total 136 ml 420 ml Balance 1327 ml 93 ml HERB SEGOVIA MD Mar 22, 2018 13:27
[2018-03-22] MEDS ORDERED: CONTRAST GIVEN. MC PRN (14:15)
[2018-03-22] MEDS ORDERED: IOHEXOL 300 MG/ML 100ML VIAL. IV ONE (14:15)
--- NOTE | 2018-03-22 15:33 | RAD ---
CTA of the chest with contrast, 03/22/2018: HISTORY: Shortness of breath Multidetector CT imaging was performed following an IV bolus injection of iodinated contrast material. Multiplanar reconstructions were produced including coronal MIP images. The central pulmonary arteries are well opacified and no filling defects are seen to suggest pulmonary emboli. The heart is generally enlarged. There is mild calcific plaquing of the thoracic aorta without evidence of aneurysm. A large hiatal hernia is present. No mediastinal adenopathy is seen. The right middle lobe is atelectatic with underlying bronchiectasis. Lesser streaky densities are present in the inferior lingular region on the left. Similar findings were present on the right middle lobe and lingula on the previous CT study of 05/28/2017. There are additional scattered linear scars in both lungs with dominant involvement of the periphery. Mild bronchial wall thickening is present in both lower lobes compatible with bronchitis. There is a trace amount of bilateral pleural fluid with atelectasis in the posterior gutters bilaterally. IMPRESSION: 1. No CT evidence of central pulmonary emboli. 2. Cardiomegaly. 3. Large hiatal hernia. 4. Chronic atelectasis and bronchiectasis in the right middle lobe and to lesser degree in the inferior lingular region on the left. 5. Moderate bilateral pleural-parenchymal scarring. 6. Bronchial wall thickening in both lower lobes compatible with bronchitis. 7. Small pleural effusions and minimal adjacent atelectasis/infiltrate posteriorly in the lung bases. PQRS Compliance Statement: One or more of the following individualized dose reduction techniques were utilized for this examination: 1. Automated exposure control 2. Adjustment of the mA and/or kV according to patient size 3. Use of iterative reconstruction technique Electronically signed by: Vamsi Coelho MD (03/22/2018 3:30 PM) [facility]
[2018-03-22] MEDS: LACTOBACILLUS RHAMNOSUS GG 1 CAPSULE. PO SCH (20:52)
[2018-03-22] MEDS ORDERED: VANCOMYCIN 750 MG in IV NORMAL SALINE 250ML 250 ML IV SCH (21:00)
[2018-03-23] MEDS: PIPERACILLIN/TAZOBACTAM 2.25 GM in IV NORMAL SALINE 50ML 50 ML IV SCH ×4 (00:19→18:45)
[2018-03-23 03:59] VITALS: BP 115/59
[2018-03-23 06:03] LABS: CALCIUM 7.9 mg/dL (8.5-10.1); GFR 54.1
[2018-03-23 06:22] LABS: BASO # 0.1 x10^3/uL (0.0-0.2); BASO % 1 % (0-3); EOS # 0.2 x10^3/uL (0.0-0.7); EOS % 3 % (0-3); HEMATOCRIT 25.9 % (36.0-47.0); HEMOGLOBIN 7.9 g/dL (12.0-15.5); LYMPH # 1.9 x10^3/uL (1.0-4.8); LYMPH % 25 % (24-48); MEAN CORPUSCULAR HEMOGLOBIN 22 pg (25-35); MEAN CORPUSCULAR HGB CONC 30 g/dL (31-37); MEAN CORPUSCULAR VOLUME 73 fL (79-100); MONO # 0.6 x10^3/uL (0.0-1.1); MONO % 8 % (0-9); NEUT % 63 % (31-73); PLATELET COUNT 362 x10^3/uL (140-400); RED BLOOD COUNT 3.54 x10^6/uL (3.50-5.40); RED CELL DISTRIBUTION WIDTH 20.5 % (11.5-14.5); WHITE BLOOD COUNT 7.9 x10^3/uL (4.0-11.0)
[2018-03-23 07:00] VITALS: BP 123/60
[2018-03-23] MEDS: IPRATRPIUM/ALBUTEROL 0.5/2.5MG 3 ML NEBU. NEB SCH ×4 (07:41→18:24)
--- NOTE | 2018-03-23 08:55 | PDOC ---
Infectious Disease Note Subjective: Subjective pt is feeling better today no f/c no n/v/d/abdo pain ROS: ROS Negative except for above. Vital Signs: Vital Signs Vital Signs Date Time Temp Pulse Resp B/P (MAP) Pulse Ox O2 Delivery O2 Flow Rate FiO2 03/23/18 07:41 95 Room Air 03/23/18 07:00 98.3 78 18 123/60 (81) 98.3 Physical Exam: PHYSICAL EXAM GENERAL: Alert, oriented x 3 female, lying comfortably in bed, in no acute distress. HEENT: Normocephalic, atraumatic, anicteric. No thrush. NECK: Supple. No JVD. LUNGS: Clear bilaterally. No wheezing. HEART: S1, S2 present. RRR. ABDOMEN: Soft, nontender, nondistended. No rebound, no guarding. GENITOURINARY: Cerrato in place. EXTREMITIES: No edema, no cyanosis. DERMATOLOGIC: No generalized rash. Warm, dry. NEUROLOGIC: Alert and oriented x 3, grossly nonfocal. PSYCHIATRIC: Cooperative, appropriate mood and affect. Medications: Inpatient Meds: Current Medications Medications (Trade) Dose Ordered Sig/Emelia Start Time Stop Time Status Last Admin Dose Admin Acetaminophen (Tylenol) 650 mg PRN Q6HRS PRN 03/20/18 13:15 Albuterol Sulfate (Ventolin Neb Soln) 2.5 mg PRN Q2HR PRN 03/20/18 13:15 Albuterol/ Ipratropium (Duoneb) 3 ml RTQID 03/20/18 16:00 03/23/18 07:41 3 ML Dobutamine HCl/ Dextrose 250 ml @ 0 mls/hr CONT PRN 03/21/18 21:00 Cancel Docusate Sodium (Colace) 100 mg PRN DAILY PRN 03/20/18 13:15 Ephedrine Sulfate (ePHEDrine PF IN SALINE SYRINGE) 50 mg STK-MED ONCE 03/20/18 09:13 03/20/18 09:14 DC Epinephrine HCl 4 mg/Sodium Chloride 254 ml @ 0 mls/hr CONT PRN 03/21/18 21:00 Cancel Fentanyl Citrate (Fentanyl 2ml Vial) 50 mcg PRN Q2HR PRN 03/20/18 01:30 03/21/18 01:29 DC Guaifenesin (Mucinex) 600 mg BID 03/20/18 14:00 03/22/18 20:52 600 MG Hyoscyamine (Anaspaz) 0.25 mg PRN Q4HRS PRN 03/20/18 00:00 03/20/18 00:16 0.25 MG Info (CONTRAST GIVEN -- Rx MONITORING) 1 each PRN DAILY PRN 03/22/18 14:15 03/24/18 14:14 Iohexol (Omnipaque 240 Mg/ml) 50 ml 1X ONCE 03/21/18 13:30 03/21/18 13:31 DC 03/21/18 13:45 50 ML Iohexol (Omnipaque 300 Mg/ml) 60 ml 1X ONCE 03/22/18 14:15 03/22/18 14:16 DC 03/22/18 14:40 60 ML Iron Sucrose 500 mg/Sodium Chloride 275 ml @ 78.571 mls/ hr 1X ONCE 03/21/18 12:30 03/22/18 09:06 DC 03/21/18 13:04 78.571 MLS/HR Lactobacillus Rhamnosus (Culturelle) 1 cap BID 03/22/18 21:00 03/22/18 20:52 1 CAP Lidocaine HCl (Lidocaine Pf 2% Vial) 5 ml STK-MED ONCE 03/20/18 09:12 03/20/18 09:13 DC Metronidazole 100 ml @ 100 mls/hr Q8HRS 03/21/18 22:00 03/22/18 09:55 DC 03/22/18 05:52 100 MLS/HR Morphine Sulfate (Morphine Sulfate) 2 mg PRN Q2HR PRN 03/20/18 13:15 Norepinephrine Bitartrate 250 ml @ 0 mls/hr CONT PRN 03/21/18 21:00 03/22/18 00:48 0 MLS/HR Ondansetron HCl (Zofran) 4 mg PRN Q6HRS PRN 03/20/18 13:15 Pantoprazole Sodium (PROTONIX VIAL for IV PUSH) 40 mg DAILYAC 03/21/18 07:30 03/21/18 12:56 DC 03/21/18 06:35 40 MG Pantoprazole Sodium (Protonix) 40 mg DAILYAC 03/22/18 07:30 03/22/18 08:49 40 MG Pantoprazole Sodium 80 mg/ Sodium Chloride 100 ml @ 10 mls/hr Q10H 03/20/18 03:00 03/20/18 15:19 DC 03/20/18 13:30 10 MLS/HR Piperacillin Sod/ Tazobactam Sod 2.25 gm/Sodium Chloride 50 ml @ 100 mls/hr Q6HRS 03/21/18 20:00 03/23/18 05:50 100 MLS/HR Piperacillin Sod/ Tazobactam Sod 3.375 gm/Sodium Chloride 50 ml @ 100 mls/hr Q6HRS 03/22/18 00:00 UNV Piperacillin Sod/ Tazobactam Sod 4.5 gm/Sodium Chloride 100 ml @ 200 mls/hr 1X ONCE 03/20/18 01:00 03/20/18 01:29 DC 03/20/18 01:15 200 MLS/HR Propofol 20 ml @ As Directed STK-MED ONCE 03/20/18 09:12 03/20/18 09:13 DC Ringer's Solution 1,000 ml @ 75 mls/hr [id number] 03/20/18 08:45 03/22/18 09:06 DC 03/20/18 08:48 75 MLS/HR Sodium Chloride 1,000 ml @ 25 mls/hr Q24H 03/21/18 20:57 03/22/18 11:39 DC 03/22/18 00:40 75 MLS/HR Sucralfate (Carafate) 1 gm TIDAC 03/20/18 11:30 03/22/18 14:11 DC 03/22/18 12:13 1 GM Tramadol HCl (Ultram) 50 mg PRN Q6HRS PRN 03/20/18 13:15 Vancomycin HCl (Vanco Per Pharmacy) 1 each PRN DAILY PRN 03/21/18 21:00 UNV Vancomycin HCl (Vancomycin Trough Level) 1 each 1X ONCE 03/23/18 20:30 03/23/18 20:31 Vancomycin HCl 750 mg/Sodium Chloride 250 ml @ 250 mls/hr Q24H 03/22/18 21:00 03/22/18 20:52 250 MLS/HR Vancomycin HCl 1 gm/Sodium Chloride 250 ml @ 250 mls/hr ONCE ONCE 03/21/18 20:30 03/21/18 21:29 DC 03/21/18 21:10 250 MLS/HR Vasopressin 40 unit/Dextrose 102 ml @ 6 mls/hr CONT PRN 03/21/18 21:00 UNV Labs: Lab Laboratory Tests Test 03/23/18 04:45 White Blood Count 7.9 x10^3/uL (4.0-11.0) Red Blood Count 3.54 x10^6/uL (3.50-5.40) Hemoglobin 7.9 g/dL (12.0-15.5) Hematocrit 25.9 % (36.0-47.0) Mean Corpuscular Volume 73 fL (79-100) Mean Corpuscular Hemoglobin 22 pg (25-35) Mean Corpuscular Hemoglobin Concent 30 g/dL (31-37) Red Cell Distribution Width 20.5 % (11.5-14.5) Platelet Count 362 x10^3/uL (140-400) Neutrophils (%) (Auto) 63 % (31-73) Lymphocytes (%) (Auto) 25 % (24-48) Monocytes (%) (Auto) 8 % (0-9) Eosinophils (%) (Auto) 3 % (0-3) Basophils (%) (Auto) 1 % (0-3) Neutrophils # (Auto) 5.0 x10^3uL (1.8-7.7) Lymphocytes # (Auto) 1.9 x10^3/uL (1.0-4.8) Monocytes # (Auto) 0.6 x10^3/uL (0.0-1.1) Eosinophils # (Auto) 0.2 x10^3/uL (0.0-0.7) Basophils # (Auto) 0.1 x10^3/uL (0.0-0.2) Sodium Level 145 mmol/L (136-145) Potassium Level 4.0 mmol/L (3.5-5.1) Chloride Level 112 mmol/L (98-107) Carbon Dioxide Level 25 mmol/L (21-32) Anion Gap 8 (6-14) Blood Urea Nitrogen 9 mg/dL (7-20) Creatinine 1.0 mg/dL (0.6-1.0) Estimated GFR (Cockcroft-Gault) 54.1 Glucose Level 84 mg/dL (70-99) Calcium Level 7.9 mg/dL (8.5-10.1) Objective: Assessment: 1. Sepsis, etiology likely genitourinary.UC pending ,BC neg so far 2. Leukocytosis, improving. Lactic acidosis, resolved. 3. Pyuria ,Urine c/s pending 4. Acute kidney injury, resolved. 5. Gastrointestinal bleed with EGD showing antral ulceration, erosive duodenitis, moderate hiatal hernia on 03/20/2018. 6. Anemia, requiring blood transfusion. 7. Chronic obstructive pulmonary disease. 8. Status post ureteral injury during hysterectomy in 2014 with ureteral stent placement, status post left ureteral reimplantation. 9. Protein-calorie malnutrition. 10. Allergies to SULFA. 11. History of moderate hydronephrosis and mild left ureteric nephrosis 11/2017. 12. Echo with ejection fraction 15%-20%. 13. H pylori positive from recent biopsies Plan: Plan of Care Continue empiric Zosyn. start zyvox, dc iv vanc cults pending H pylori treatment per GI team Urology planning for left ureteral stent removal. Follow up cultures and susceptibilities and labs in a.m. Continue supportive care. TERELL KIRKLAND MD Mar 23, 2018 08:55
[2018-03-23] MEDS: LACTOBACILLUS RHAMNOSUS GG 1 CAPSULE. PO SCH ×2 (09:36→20:42)
[2018-03-23] MEDS: PANTOPRAZOLE 40 MG TABLET.DR. PO SCH (09:36)
--- NOTE | 2018-03-23 10:07 | PDOC ---
Subjective: Subjective: Denies pain, says tolerating PO and had a stool. Objective: Vital Signs: Vital Signs Date Time Temp Pulse Resp B/P (MAP) Pulse Ox O2 Delivery O2 Flow Rate FiO2 03/23/18 07:41 95 Room Air 03/23/18 07:00 98.3 78 18 123/60 (81) 98.3 Labs: Laboratory Tests Test 03/23/18 04:45 White Blood Count 7.9 x10^3/uL Red Blood Count 3.54 x10^6/uL Hemoglobin 7.9 g/dL Hematocrit 25.9 % Mean Corpuscular Volume 73 fL Mean Corpuscular Hemoglobin 22 pg Mean Corpuscular Hemoglobin Concent 30 g/dL Red Cell Distribution Width 20.5 % Platelet Count 362 x10^3/uL Neutrophils (%) (Auto) 63 % Lymphocytes (%) (Auto) 25 % Monocytes (%) (Auto) 8 % Eosinophils (%) (Auto) 3 % Basophils (%) (Auto) 1 % Neutrophils # (Auto) 5.0 x10^3uL Lymphocytes # (Auto) 1.9 x10^3/uL Monocytes # (Auto) 0.6 x10^3/uL Eosinophils # (Auto) 0.2 x10^3/uL Basophils # (Auto) 0.1 x10^3/uL Sodium Level 145 mmol/L Potassium Level 4.0 mmol/L Chloride Level 112 mmol/L Carbon Dioxide Level 25 mmol/L Anion Gap 8 Blood Urea Nitrogen 9 mg/dL Creatinine 1.0 mg/dL Estimated GFR (Cockcroft-Gault) 54.1 Glucose Level 84 mg/dL Calcium Level 7.9 mg/dL PE: GEN: NAD LUNGS: CTAB HEART: RRR ABD: NABS, S/ND/NT NEURO/PSYCH: A & O 3 A/P: Sepsis, pyuria Microcytic anemia - Hgb to 7.9 -hiatal hernia w/ Leif lesions, antral ulcers, erosive duodenitis (+H. pylori ) -- Continue BID PPI for now. Reviewed w/ Dr. Kendra Joyner/ID - cultures pending, will remain on IV atbx for now, can pursue H. pylori treatment as outpt. KASIE GÓMEZ Mar 23, 2018 10:07
[2018-03-23 11:00] VITALS: BP 116/55
--- NOTE | 2018-03-23 11:45 | PDOC ---
SUBJECTIVE Subjective Patient feels fine, not sure why she is still here. Would like to go home as soon as possible. She has been getting up and walking fine with no problems. No pain, catheter is not bothering her but she would like to get it out if possible. OBJECTIVE Objective Physical Exam: General appearance: Alert and Oriented Head: Normocephalic, without obvious abnormality Eyes: conjunctivae/corneas clear. PERRL, EOM's intact. Fundi benign Back: negative, no CVA pain Lungs: regular respirations, non labored breathing Abdomen: soft, non-tender. No masses, no organomegaly Pelvic: indwelling chapman catheter draining clear yellow urine Vital Signs Vital Signs Date Time Temp Pulse Resp B/P (MAP) Pulse Ox O2 Delivery O2 Flow Rate FiO2 03/23/18 11:15 97 Room Air 03/23/18 08:05 Room Air 03/23/18 07:41 95 Room Air 03/23/18 07:00 98.3 78 18 123/60 (81) 95 Room Air 98.3 03/23/18 03:59 98.3 86 16 115/59 (77) 95 Room Air 98.3 03/22/18 22:31 98.8 77 16 106/44 (64) 95 Room Air 98.8 03/22/18 19:45 98.6 88 16 103/50 (67) 92 Room Air 98.6 03/22/18 19:42 Room Air 03/22/18 19:31 92 Room Air 03/22/18 16:08 98 Room Air 03/22/18 15:12 98.1 93 18 120/68 (85) 96 Room Air 98.1 03/22/18 13:00 87 18 112/44 (66) 93 Room Air 03/22/18 12:00 Room Air 03/22/18 12:00 98.9 73 16 106/46 (66) 92 Room Air 98.9 I & O Intake and Output 03/23/18 07:00 Intake Total 800 ml Output Total 1430 ml Balance -630 ml Intake Oral 500 ml IV Total 300 ml Output Urine Total 1430 ml PHYSICAL EXAM Physical Exam Physical Exam: General appearance: Alert and Oriented Head: Normocephalic, without obvious abnormality Eyes: conjunctivae/corneas clear. PERRL, EOM's intact. Fundi benign Back: negative, no CVA pain Lungs: regular respirations, non labored breathing Abdomen: soft, non-tender. No masses, no organomegaly Pelvic: indwelling chapman catheter draining clear yellow urine ASSESSMENT/PLAN Assessment/Plan We will remove forgotten Ureteral stent as an outpatient procedure. An appointment has been secured for her on 03/29/[address] at [address]chis of [facility]. New patient paperwork and appointment card given to patient. All questions answered. Nursing staff to remove chapman catheter and encourage patient to drink water and attempt to void every hour to hour and a half. Bladder scan today between 3 and 4 pm. If PVR is greater than 350, replace chapman catheter. If PVR is less than 350, leave chapman catheter out. Will follow while in house. COMMENT Lab Laboratory Tests Test 03/23/18 04:45 White Blood Count 7.9 x10^3/uL (4.0-11.0) Red Blood Count 3.54 x10^6/uL (3.50-5.40) Hemoglobin 7.9 g/dL (12.0-15.5) Hematocrit 25.9 % (36.0-47.0) Mean Corpuscular Volume 73 fL (79-100) Mean Corpuscular Hemoglobin 22 pg (25-35) Mean Corpuscular Hemoglobin Concent 30 g/dL (31-37) Red Cell Distribution Width 20.5 % (11.5-14.5) Platelet Count 362 x10^3/uL (140-400) Neutrophils (%) (Auto) 63 % (31-73) Lymphocytes (%) (Auto) 25 % (24-48) Monocytes (%) (Auto) 8 % (0-9) Eosinophils (%) (Auto) 3 % (0-3) Basophils (%) (Auto) 1 % (0-3) Neutrophils # (Auto) 5.0 x10^3uL (1.8-7.7) Lymphocytes # (Auto) 1.9 x10^3/uL (1.0-4.8) Monocytes # (Auto) 0.6 x10^3/uL (0.0-1.1) Eosinophils # (Auto) 0.2 x10^3/uL (0.0-0.7) Basophils # (Auto) 0.1 x10^3/uL (0.0-0.2) Sodium Level 145 mmol/L (136-145) Potassium Level 4.0 mmol/L (3.5-5.1) Chloride Level 112 mmol/L (98-107) Carbon Dioxide Level 25 mmol/L (21-32) Anion Gap 8 (6-14) Blood Urea Nitrogen 9 mg/dL (7-20) Creatinine 1.0 mg/dL (0.6-1.0) Estimated GFR (Cockcroft-Gault) 54.1 Glucose Level 84 mg/dL (70-99) Calcium Level 7.9 mg/dL (8.5-10.1) Nutrition Consultation Dietary Evaluation: Recommendations by RD: Increase Calorie Intake Comments: Continue w/GI soft diet as ordered, honor food preferences, and provide snacks as requested; pt denies oral supplements at this time Expected Outcomes/Goals: PO intake to meet >75% est needs Malnutrition Findings: Body Fat Depletion (Non Severe: Mild Depletion Weight Status: Underweight SUMAN QUIÑONEZ APRN Mar 23, 2018 11:45
--- NOTE | 2018-03-23 14:20 | PDOC ---
PROGRESS NOTES Chief Complaint Chief Complaint sob, COPD exacerbation, plus anemia symptomatic anemia with likely chronic gib medium hiatal hernia with Meg ulcers, several antral ulcerations as well, erosive duodenitis in EGD low bp and sob post iron iv acute systolic CHF exacerbation EF 15%, not clear etiology bronchitis old left ureteral stent + h pylori at EGD bx plan: fu with GI, EGD done, no active gib 2u PRBC transfusion gi soft diet protox po daily and sulcralfate verify home meds with nurse, avoid NSAIDS add duoneb, albuterol prn labs tmr avoid iv iron fu with ID, on abx zosyn and zyvox off levaphed ECcho showed EF 15%, card consulted, ischemic eval as out pt dc pt tmr if can coburn to po meds ureteral stent removal as per uro, it is an old one , as outpt h pylori treatment as outpt History of Present Illness History of Present Illness feels better today off levaphed transfered to ICU for low bp, sob, after iv iron wbc down to normal has some cough, chronic Vitals Vitals Vital Signs Date Time Temp Pulse Resp B/P (MAP) Pulse Ox O2 Delivery O2 Flow Rate FiO2 03/23/18 11:15 97 Room Air 03/23/18 11:00 98.7 84 18 116/55 (75) 98.7 Physical Exam Physical Exam GENERAL: Alert, oriented x 3 female, lying comfortably in bed, in no acute distress. HEENT: Normocephalic, atraumatic, anicteric. No thrush. NECK: Supple. No JVD. LUNGS: Clear bilaterally. No wheezing. HEART: S1, S2 present. RRR. ABDOMEN: Soft, nontender, nondistended. No rebound, no guarding. GENITOURINARY: Cerrato in place. EXTREMITIES: No edema, no cyanosis. DERMATOLOGIC: No generalized rash. Warm, dry. NEUROLOGIC: Alert and oriented x 3, grossly nonfocal. PSYCHIATRIC: Cooperative, appropriate mood and affect. General: Alert, Oriented X3, Cooperative, No acute distress Heart: Normal S1, Normal S2 Lungs: Other (bl moderate decreased bs) Abdomen: Soft, No tenderness Extremities: No edema, Normal pulses Skin: No rashes Labs LABS Laboratory Tests Test 03/23/18 04:45 White Blood Count 7.9 x10^3/uL (4.0-11.0) Red Blood Count 3.54 x10^6/uL (3.50-5.40) Hemoglobin 7.9 g/dL (12.0-15.5) Hematocrit 25.9 % (36.0-47.0) Mean Corpuscular Volume 73 fL (79-100) Mean Corpuscular Hemoglobin 22 pg (25-35) Mean Corpuscular Hemoglobin Concent 30 g/dL (31-37) Red Cell Distribution Width 20.5 % (11.5-14.5) Platelet Count 362 x10^3/uL (140-400) Neutrophils (%) (Auto) 63 % (31-73) Lymphocytes (%) (Auto) 25 % (24-48) Monocytes (%) (Auto) 8 % (0-9) Eosinophils (%) (Auto) 3 % (0-3) Basophils (%) (Auto) 1 % (0-3) Neutrophils # (Auto) 5.0 x10^3uL (1.8-7.7) Lymphocytes # (Auto) 1.9 x10^3/uL (1.0-4.8) Monocytes # (Auto) 0.6 x10^3/uL (0.0-1.1) Eosinophils # (Auto) 0.2 x10^3/uL (0.0-0.7) Basophils # (Auto) 0.1 x10^3/uL (0.0-0.2) Sodium Level 145 mmol/L (136-145) Potassium Level 4.0 mmol/L (3.5-5.1) Chloride Level 112 mmol/L (98-107) Carbon Dioxide Level 25 mmol/L (21-32) Anion Gap 8 (6-14) Blood Urea Nitrogen 9 mg/dL (7-20) Creatinine 1.0 mg/dL (0.6-1.0) Estimated GFR (Cockcroft-Gault) 54.1 Glucose Level 84 mg/dL (70-99) Calcium Level 7.9 mg/dL (8.5-10.1) Assessment and Plan Assessmemt and Plan Problems Medical Problems: (1) Anemia Status: Acute (2) GI bleed Status: Acute (3) Shortness of breath Status: Acute Comment Review of Relevant I have reviewed the following items marshal (where applicable) has been applied. Labs Laboratory Tests Test 03/21/18 15:25 03/21/18 17:05 03/21/18 18:05 03/21/18 18:30 Prothrombin Time 13.6 SEC (11.7-14.0) Prothromb Time International Ratio 1.1 (0.8-1.1) Sodium Level 139 mmol/L (136-145) Potassium Level 3.9 mmol/L (3.5-5.1) Chloride Level 104 mmol/L (98-107) Carbon Dioxide Level 24 mmol/L (21-32) Anion Gap 11 (6-14) Blood Urea Nitrogen 10 mg/dL (7-20) Creatinine 1.0 mg/dL (0.6-1.0) Estimated GFR (Cockcroft-Gault) 54.1 Glucose Level 143 mg/dL (70-99) Calcium Level 7.9 mg/dL (8.5-10.1) Troponin I Quantitative < 0.017 ng/mL (0.000-0.055) Glucose (Fingerstick) 111 mg/dL (70-99) White Blood Count 22.9 x10^3/uL (4.0-11.0) Red Blood Count 5.18 x10^6/uL (3.50-5.40) Hemoglobin 11.7 g/dL (12.0-15.5) Hematocrit 37.1 % (36.0-47.0) Mean Corpuscular Volume 72 fL (79-100) Mean Corpuscular Hemoglobin 23 pg (25-35) Mean Corpuscular Hemoglobin Concent 32 g/dL (31-37) Red Cell Distribution Width 20.3 % (11.5-14.5) Platelet Count 576 x10^3/uL (140-400) Neutrophils (%) (Auto) 86 % (31-73) Lymphocytes (%) (Auto) 8 % (24-48) Monocytes (%) (Auto) 5 % (0-9) Eosinophils (%) (Auto) 1 % (0-3) Basophils (%) (Auto) 1 % (0-3) Neutrophils # (Auto) 19.6 x10^3uL (1.8-7.7) Lymphocytes # (Auto) 1.9 x10^3/uL (1.0-4.8) Monocytes # (Auto) 1.1 x10^3/uL (0.0-1.1) Eosinophils # (Auto) 0.2 x10^3/uL (0.0-0.7) Basophils # (Auto) 0.2 x10^3/uL (0.0-0.2) Urine Collection Type Unknown Urine Color Nuha Urine Clarity Cloudy Urine pH 6.0 Urine Specific [place] 1.025 Urine Protein >=300 mg/dL (NEG-TRACE) Urine Glucose (UA) Negative mg/dL (NEG) Urine Ketones (Stick) Negative mg/dL (NEG) Urine Blood Large (NEG) Urine Nitrite Positive (NEG) Urine Bilirubin Negative (NEG) Urine Urobilinogen Dipstick 0.2 mg/dL (0.2 mg/dL) Urine Leukocyte Esterase Large (NEG) Urine RBC 20-40 /HPF (0-2) Urine WBC Tntc /HPF (0-4) Urine Squamous Epithelial Cells Few /LPF Urine Bacteria Many /HPF (0-FEW) Urine Mucus Slight /LPF Test 03/21/18 21:10 03/22/18 01:20 03/23/18 04:45 Activated Partial Thromboplast Time 30 SEC (24-38) Fibrinogen 363 mg/dL (200-440) D-Dimer (Cheryl) 13.43 ug/mlFEU (0.00-0.50) Lactic Acid Level 2.5 mmol/L (0.4-2.0) 0.6 mmol/L (0.4-2.0) Total Bilirubin 0.5 mg/dL (0.2-1.0) 0.6 mg/dL (0.2-1.0) Direct Bilirubin 0.1 mg/dL (0.0-0.2) Aspartate Amino Transf (AST/SGOT) 14 U/L (15-37) 15 U/L (15-37) Alanine Aminotransferase (ALT/SGPT) 10 U/L (14-59) 10 U/L (14-59) Alkaline Phosphatase 75 U/L (46-116) 69 U/L (46-116) Total Protein 6.2 g/dL (6.4-8.2) 5.3 g/dL (6.4-8.2) Albumin 2.6 g/dL (3.4-5.0) 2.3 g/dL (3.4-5.0) Procalcitonin 0.39 ng/mL (0.00-0.10) White Blood Count 15.5 x10^3/uL (4.0-11.0) 7.9 x10^3/uL (4.0-11.0) Red Blood Count 4.01 x10^6/uL (3.50-5.40) 3.54 x10^6/uL (3.50-5.40) Hemoglobin 9.0 g/dL (12.0-15.5) 7.9 g/dL (12.0-15.5) Hematocrit 29.0 % (36.0-47.0) 25.9 % (36.0-47.0) Mean Corpuscular Volume 72 fL (79-100) 73 fL (79-100) Mean Corpuscular Hemoglobin 23 pg (25-35) 22 pg (25-35) Mean Corpuscular Hemoglobin Concent 31 g/dL (31-37) 30 g/dL (31-37) Red Cell Distribution Width 20.5 % (11.5-14.5) 20.5 % (11.5-14.5) Platelet Count 393 x10^3/uL (140-400) 362 x10^3/uL (140-400) Neutrophils (%) (Auto) 85 % (31-73) 63 % (31-73) Lymphocytes (%) (Auto) 10 % (24-48) 25 % (24-48) Monocytes (%) (Auto) 4 % (0-9) 8 % (0-9) Eosinophils (%) (Auto) 0 % (0-3) 3 % (0-3) Basophils (%) (Auto) 1 % (0-3) 1 % (0-3) Neutrophils # (Auto) 13.2 x10^3uL (1.8-7.7) 5.0 x10^3uL (1.8-7.7) Lymphocytes # (Auto) 1.6 x10^3/uL (1.0-4.8) 1.9 x10^3/uL (1.0-4.8) Monocytes # (Auto) 0.7 x10^3/uL (0.0-1.1) 0.6 x10^3/uL (0.0-1.1) Eosinophils # (Auto) 0.0 x10^3/uL (0.0-0.7) 0.2 x10^3/uL (0.0-0.7) Basophils # (Auto) 0.1 x10^3/uL (0.0-0.2) 0.1 x10^3/uL (0.0-0.2) Sodium Level 141 mmol/L (136-145) 145 mmol/L (136-145) Potassium Level 4.4 mmol/L (3.5-5.1) 4.0 mmol/L (3.5-5.1) Chloride Level 109 mmol/L (98-107) 112 mmol/L (98-107) Carbon Dioxide Level 23 mmol/L (21-32) 25 mmol/L (21-32) Anion Gap 9 (6-14) 8 (6-14) Blood Urea Nitrogen 10 mg/dL (7-20) 9 mg/dL (7-20) Creatinine 1.0 mg/dL (0.6-1.0) 1.0 mg/dL (0.6-1.0) Estimated GFR (Cockcroft-Gault) 54.1 54.1 BUN/Creatinine Ratio 10 (6-20) Glucose Level 89 mg/dL (70-99) 84 mg/dL (70-99) Calcium Level 7.3 mg/dL (8.5-10.1) 7.9 mg/dL (8.5-10.1) Albumin/Globulin Ratio 0.8 (1.0-1.7) Laboratory Tests Test 03/23/18 04:45 White Blood Count 7.9 x10^3/uL (4.0-11.0) Red Blood Count 3.54 x10^6/uL (3.50-5.40) Hemoglobin 7.9 g/dL (12.0-15.5) Hematocrit 25.9 % (36.0-47.0) Mean Corpuscular Volume 73 fL (79-100) Mean Corpuscular Hemoglobin 22 pg (25-35) Mean Corpuscular Hemoglobin Concent 30 g/dL (31-37) Red Cell Distribution Width 20.5 % (11.5-14.5) Platelet Count 362 x10^3/uL (140-400) Neutrophils (%) (Auto) 63 % (31-73) Lymphocytes (%) (Auto) 25 % (24-48) Monocytes (%) (Auto) 8 % (0-9) Eosinophils (%) (Auto) 3 % (0-3) Basophils (%) (Auto) 1 % (0-3) Neutrophils # (Auto) 5.0 x10^3uL (1.8-7.7) Lymphocytes # (Auto) 1.9 x10^3/uL (1.0-4.8) Monocytes # (Auto) 0.6 x10^3/uL (0.0-1.1) Eosinophils # (Auto) 0.2 x10^3/uL (0.0-0.7) Basophils # (Auto) 0.1 x10^3/uL (0.0-0.2) Sodium Level 145 mmol/L (136-145) Potassium Level 4.0 mmol/L (3.5-5.1) Chloride Level 112 mmol/L (98-107) Carbon Dioxide Level 25 mmol/L (21-32) Anion Gap 8 (6-14) Blood Urea Nitrogen 9 mg/dL (7-20) Creatinine 1.0 mg/dL (0.6-1.0) Estimated GFR (Cockcroft-Gault) 54.1 Glucose Level 84 mg/dL (70-99) Calcium Level 7.9 mg/dL (8.5-10.1) Microbiology 03/21/18 Blood Culture - Preliminary, Resulted NO GROWTH AFTER 1 DAY Medications Current Medications Hyoscyamine (Anaspaz) 0.25 mg PRN Q4HRS PRN PO STOMACH CRAMPING Last administered on 03/20/18at 00:16; Start 03/20/18 at 00:00 Pantoprazole Sodium (PROTONIX VIAL for IV PUSH) 80 mg 1X ONCE IVP Last administered on 03/20/18at 00:17; Start 03/20/18 at 00:15; Stop 03/20/18 at 00:16 ; Status DC Sodium Chloride 1,000 ml @ 1,000 mls/hr 1X ONCE IV Last administered on at 01:14; Start 03/20/18 at 01:00; Stop 03/20/18 at 01:59; Status DC Piperacillin Sod/ Tazobactam Sod 4.5 gm/Sodium Chloride 100 ml @ 200 mls/hr 1X ONCE IV Last administered on 03/20/18at 01:15; Start 03/20/18 at 01:00; Stop 03/20/18 at 01:29; Status DC Ondansetron HCl (Zofran) 4 mg PRN Q8HRS PRN IV NAUSEA/VOMITING 1ST CHOICE; Start 03/20/18 at 01:30; Stop 03/20/18 at 13:15; Status DC Fentanyl Citrate (Fentanyl 2ml Vial) 50 mcg PRN Q2HR PRN IV SEVERE PAIN; Start 03/20/18 at 01:30; Stop 03/21/18 at 01:29; Status DC Pantoprazole Sodium 80 mg/ Sodium Chloride 100 ml @ 10 mls/hr Q10H IV Last administered on 03/20/18at 13:30; Start 03/20/18 at 03:00; Stop 03/20/18 at 15:19 ; Status DC Ringer's Solution 1,000 ml @ 75 mls/hr [id number] IV Last administered on at 08:48; Start 03/20/18 at 08:45; Stop 03/22/18 at 09:06; Status DC Propofol 20 ml @ As Directed STK-MED ONCE IV ; Start 03/20/18 at 09:12; Stop at 09:13; Status DC Lidocaine HCl (Lidocaine Pf 2% Vial) 5 ml STK-MED ONCE .ROUTE ; Start 03/20/18 at 09:12; Stop 03/20/18 at 09:13; Status DC Ephedrine Sulfate (ePHEDrine PF IN SALINE SYRINGE) 50 mg STK-MED ONCE IV ; Start 03/20/18 at 09:13; Stop 03/20/18 at 09:14; Status DC Sucralfate (Carafate) 1 gm TIDAC PO Last administered on 03/22/18at 12:13; Start 03/20/18 at 11:30; Stop 03/22/18 at 14:11; Status DC Acetaminophen (Tylenol) 650 mg PRN Q6HRS PRN PO FEVER; Start 03/20/18 at 13:15 Ondansetron HCl (Zofran) 4 mg PRN Q6HRS PRN IV NAUSEA/VOMITING; Start 03/20/18 at 13:15 Morphine Sulfate (Morphine Sulfate) 2 mg PRN Q2HR PRN IV MODERATE TO SEVERE PAIN; Start 03/20/18 at 13:15 Tramadol HCl (Ultram) 50 mg PRN Q6HRS PRN PO MILD TO MODERATE PAIN; Start 03/20 at 13:15 Docusate Sodium (Colace) 100 mg PRN DAILY PRN PO CONSTIPATION; Start 03/20/18 at 13:15 Albuterol/ Ipratropium (Duoneb) 3 ml RTQID NEB Last administered on 03/23/18at 11:15; Start 03/20/18 at 16:00 Albuterol Sulfate (Ventolin Neb Soln) 2.5 mg PRN Q2HR PRN NEB SHORTNESS OF BREATH; Start 03/20/18 at 13:15 Guaifenesin (Mucinex) 600 mg BID PO Last administered on 03/23/18at 09:36; Start 03/20/18 at 14:00 Pantoprazole Sodium (PROTONIX VIAL for IV PUSH) 40 mg DAILYAC IVP Last administered on 03/21/18at 06:35; Start 03/21/18 at 07:30; Stop 03/21/18 at 12:56 ; Status DC Iron Sucrose 500 mg/Sodium Chloride 275 ml @ 78.571 mls/ hr 1X ONCE IV Last administered on 03/21/18at 13:04; Start 03/21/18 at 12:30; Stop 03/22/18 at 09:06 ; Status DC Pantoprazole Sodium (Protonix) 40 mg DAILYAC PO Last administered on 03/23/18at 09:36; Start 03/22/18 at 07:30 Iohexol (Omnipaque 240 Mg/ml) 50 ml 1X ONCE PO Last administered on 03/21/18at 13:45; Start 03/21/18 at 13:30; Stop 03/21/18 at 13:31; Status DC Info (CONTRAST GIVEN -- Rx MONITORING) 1 each PRN DAILY PRN MC SEE COMMENTS; Start 03/21/18 at 13:30; Stop 03/22/18 at 14:14; Status DC Piperacillin Sod/ Tazobactam Sod 3.375 gm/Sodium Chloride 50 ml @ 100 mls/hr Q6HRS IV ; Start 03/22/18 at 00:00; Status UNV Vancomycin HCl 750 mg/Sodium Chloride 250 ml @ 250 mls/hr Q12H IV ; Start 03/21 at 19:30; Status UNV Piperacillin Sod/ Tazobactam Sod 2.25 gm/Sodium Chloride 50 ml @ 100 mls/hr Q6HRS IV Last administered on 03/23/18at 13:20; Start 03/21/18 at 20:00 Vancomycin HCl (Vanco Per Pharmacy) 1 each PRN DAILY PRN MC SEE COMMENTS Last administered on 03/22/18at 09:48; Start 03/21/18 at 19:45; Stop 03/23/18 at 09:24 ; Status DC Vancomycin HCl 1 gm/Sodium Chloride 250 ml @ 250 mls/hr ONCE ONCE IV Last administered on 03/21/18at 21:10; Start 03/21/18 at 20:30; Stop 03/21/18 at 21:29 ; Status DC Metronidazole 100 ml @ 100 mls/hr Q8HRS IV Last administered on 03/22/18at 05: 52; Start 03/21/18 at 22:00; Stop 03/22/18 at 09:55; Status DC Sodium Chloride 1,000 ml @ 300 mls/hr 1X ONCE IV Last administered on at 20:30; Start 03/21/18 at 19:45; Stop 03/21/18 at 23:04; Status DC Sodium Chloride 1,000 ml @ 166.667 mls/hr Q6H IV Last administered on at 21:13; Start 03/21/18 at 20:53; Stop 03/22/18 at 05:08; Status DC Sodium Chloride 500 ml @ 1,000 mls/hr PRN Q30MIN PRN IV SEE COMMENTS; Start at 21:00 Sodium Chloride 1,000 ml @ 25 mls/hr Q24H IV Last administered on 03/22/18at 00 :40; Start 03/21/18 at 20:57; Stop 03/22/18 at 11:39; Status DC Vancomycin HCl (Vanco Per Pharmacy) 1 each PRN DAILY PRN MC SEE COMMENTS; Start 03/21/18 at 21:00; Status UNV Norepinephrine Bitartrate 250 ml @ 0 mls/hr CONT PRN IV SEE I/O RECORD Last administered on 03/22/18at 00:48; Start 03/21/18 at 21:00; Stop 03/23/18 at 10:20 ; Status DC Vasopressin 40 unit/Dextrose 102 ml @ 6 mls/hr CONT PRN IV SEE I/O RECORD; Start 03/21/18 at 21:00; Status UNV Epinephrine HCl 4 mg/Sodium Chloride 254 ml @ 0 mls/hr CONT PRN IV MAP <65 DESPITE NOREPINEPHRINE; Start 03/21/18 at 21:00; Status Cancel Dobutamine HCl/ Dextrose 250 ml @ 0 mls/hr CONT PRN IV SEE I/O RECORD; Start at 21:00; Status Cancel Vancomycin HCl 750 mg/Sodium Chloride 250 ml @ 250 mls/hr Q24H IV Last administered on 03/22/18at 20:52; Start 03/22/18 at 21:00; Stop 03/23/18 at 09:21 ; Status DC Vancomycin HCl (Vancomycin Trough Level) 1 each 1X ONCE MC ; Start 03/23/18 at 20:30; Stop 03/23/18 at 20:30; Status DC Lactobacillus Rhamnosus (Culturelle) 1 cap BID PO Last administered on at 09:36; Start 03/22/18 at 21:00 Iohexol (Omnipaque 300 Mg/ml) 60 ml 1X ONCE IV Last administered on 03/22/18at 14:40; Start 03/22/18 at 14:15; Stop 03/22/18 at 14:16; Status DC Info (CONTRAST GIVEN -- Rx MONITORING) 1 each PRN DAILY PRN MC SEE COMMENTS; Start 03/22/18 at 14:15; Stop 03/24/18 at 14:14 Linezolid (Zyvox) 600 mg BID PO ; Start 03/23/18 at 21:00 Active Scripts Active Proair Hfa Inhaler (Albuterol Sulfate) 8.5 Gm Hfa.aer.ad 2 Puff INH PRN Q6HRS PRN Reported Hydrocodone-Apap 5-325 (Hydrocodone Bit/Acetaminophen) 1 Each Tablet 1 Tab PO Q4HRS PRN Acetaminophen 500 Mg Tablet 1 Tab PO BID Vitals/I & O Vital Sign - Last 24 Hours 03/22/18 03/22/18 03/22/18/19/18 15:12 16:08 19:31 19:42 Temp 98.1 98.1 Pulse 93 Resp 18 B/P (MAP) 120/68 (85) Pulse Ox 96 98 92 O2 Delivery Room Air Room Air Room Air Room Air 03/22/18 03/22/18 03/23/18 03/23/18 19:45 22:31 03:59 07:00 Temp 98.6 98.8 98.3 98.3 98.6 98.8 98.3 98.3 Pulse 88 77 86 78 Resp 16 16 16 18 B/P (MAP) 103/50 (67) 106/44 (64) 115/59 (77) 123/60 (81) Pulse Ox 92 95 95 95 O2 Delivery Room Air Room Air Room Air Room Air 03/23/18 03/23/18 03/23/18 03/23/18 07:41 08:05 11:00 11:15 Temp 98.7 98.7 Pulse 84 Resp 18 B/P (MAP) 116/55 (75) Pulse Ox 95 95 97 O2 Delivery Room Air Room Air Room Air Room Air Intake and Output 03/22/18 03/22/18 03/23/18 15:00 23:00 07:00 Intake Total 800 ml Output Total 330 ml 1100 ml Balance -330 ml -300 ml Nutrition Consultation Dietary Evaluation: Recommendations by RD: Increase Calorie Intake Comments: Continue w/GI soft diet as ordered, honor food preferences, and provide snacks as requested; pt denies oral supplements at this time Expected Outcomes/Goals: PO intake to meet >75% est needs Malnutrition Findings: Body Fat Depletion (Non Severe: Mild Depletion Weight Status: Underweight HERB SEGOVIA MD Mar 23, 2018 14:20
[2018-03-23 15:00] VITALS: BP 126/58
[2018-03-23 19:24] VITALS: BP 119/56
[2018-03-23] MEDS: LINEZOLID 600 MG TABLET PO SCH (20:42)
[2018-03-23 23:00] VITALS: BP 121/53
[2018-03-24] MEDS: PIPERACILLIN/TAZOBACTAM 2.25 GM in IV NORMAL SALINE 50ML 50 ML IV SCH ×2 (00:04→06:21)
[2018-03-24 03:45] VITALS: BP 114/55
[2018-03-24 04:43] LABS: BASO # 0.1 x10^3/uL (0.0-0.2); BASO % 1 % (0-3); EOS # 0.3 x10^3/uL (0.0-0.7); EOS % 4 % (0-3); HEMATOCRIT 27.8 % (36.0-47.0); HEMOGLOBIN 8.5 g/dL (12.0-15.5); LYMPH % 22 % (24-48); MEAN CORPUSCULAR HEMOGLOBIN 23 pg (25-35); MEAN CORPUSCULAR HGB CONC 31 g/dL (31-37); MEAN CORPUSCULAR VOLUME 74 fL (79-100); MONO # 0.7 x10^3/uL (0.0-1.1); MONO % 8 % (0-9); NEUT # 5.9 x10^3uL (1.8-7.7); NEUT % 65 % (31-73); PLATELET COUNT 374 x10^3/uL (140-400); RED BLOOD COUNT 3.76 x10^6/uL (3.50-5.40); RED CELL DISTRIBUTION WIDTH 21.6 % (11.5-14.5)
[2018-03-24 05:23] LABS: CALCIUM 8.1 mg/dL (8.5-10.1); CREATININE 0.9 mg/dL (0.6-1.0); POTASSIUM 4.1 mmol/L (3.5-5.1)
[2018-03-24 06:53] VITALS: BP 116/65
[2018-03-24] MEDS: IPRATRPIUM/ALBUTEROL 0.5/2.5MG 3 ML NEBU. NEB SCH ×3 (07:25→16:00)
[2018-03-24] MEDS: LINEZOLID 600 MG TABLET PO SCH (08:10)
[2018-03-24] MEDS: LACTOBACILLUS RHAMNOSUS GG 1 CAPSULE. PO SCH (08:10)
[2018-03-24] MEDS: PANTOPRAZOLE 40 MG TABLET.DR. PO SCH (08:10)
--- NOTE | 2018-03-24 09:18 | PDOC ---
SUBJECTIVE Subjective Patient doing well today. No flank pain, hematuria or dysuria. Urinating well since chapman removed. She does remember that she has an appointment with Dr. Vilchis on the for stent removal; still has appointment card and new patient paperwork. Would like to go home. OBJECTIVE Objective Physical Exam: General appearance: Alert and Oriented Head: Normocephalic, without obvious abnormality Eyes: conjunctivae/corneas clear. PERRL, EOM's intact. Fundi benign Lungs: regular respirations, non labored breathing Vital Signs Vital Signs Date Time Temp Pulse Resp B/P (MAP) Pulse Ox O2 Delivery O2 Flow Rate FiO2 03/24/18 07:27 96 Room Air 03/24/18 06:53 98.2 77 22 116/65 (82) 96 Room Air 98.2 03/24/18 03:45 98.6 87 18 114/55 (74) 96 Room Air 98.6 03/23/18 23:00 98.4 75 18 121/53 (75) 96 Room Air 98.4 03/23/18 20:02 Room Air 03/23/18 19:24 98.4 80 18 119/56 (77) 98 Room Air 98.4 03/23/18 18:24 97 Room Air 03/23/18 15:00 98.0 84 20 126/58 (80) 97 Room Air 98.0 03/23/18 11:15 97 Room Air 03/23/18 11:00 98.7 84 18 116/55 (75) 95 Room Air 98.7 I & O Intake and Output 03/24/18 07:00 Intake Total 850 ml Output Total 850 ml Balance 0 ml Intake Oral 800 ml IV Total 50 ml Output Urine Total 850 ml # Voids 3 PHYSICAL EXAM Physical Exam Physical Exam: General appearance: Alert and Oriented Head: Normocephalic, without obvious abnormality Eyes: conjunctivae/corneas clear. PERRL, EOM's intact. Fundi benign Lungs: regular respirations, non labored breathing ASSESSMENT/PLAN Assessment/Plan We will remove forgotten Ureteral stent as an outpatient procedure. An appointment has been secured for her on 03/29/[address] [place] [facility] [place] [facility] [place]. Pt still has the new patient paperwork and appointment card. She does intend to make the appointment for stent removal. All questions answered. Patient was able to urinate without the chapman catheter and is not having any dysuria/flank pain. From a Urology perspective, she could go home whenever medical team/other specialties are ready for discharge. Will sign off at this time, but please call with questions or change in patient condition. Problems: (1) Ureteral stent retained COMMENT Lab Laboratory Tests Test 03/24/18 04:00 White Blood Count 9.0 x10^3/uL (4.0-11.0) Red Blood Count 3.76 x10^6/uL (3.50-5.40) Hemoglobin 8.5 g/dL (12.0-15.5) Hematocrit 27.8 % (36.0-47.0) Mean Corpuscular Volume 74 fL (79-100) Mean Corpuscular Hemoglobin 23 pg (25-35) Mean Corpuscular Hemoglobin Concent 31 g/dL (31-37) Red Cell Distribution Width 21.6 % (11.5-14.5) Platelet Count 374 x10^3/uL (140-400) Neutrophils (%) (Auto) 65 % (31-73) Lymphocytes (%) (Auto) 22 % (24-48) Monocytes (%) (Auto) 8 % (0-9) Eosinophils (%) (Auto) 4 % (0-3) Basophils (%) (Auto) 1 % (0-3) Neutrophils # (Auto) 5.9 x10^3uL (1.8-7.7) Lymphocytes # (Auto) 2.0 x10^3/uL (1.0-4.8) Monocytes # (Auto) 0.7 x10^3/uL (0.0-1.1) Eosinophils # (Auto) 0.3 x10^3/uL (0.0-0.7) Basophils # (Auto) 0.1 x10^3/uL (0.0-0.2) Sodium Level 144 mmol/L (136-145) Potassium Level 4.1 mmol/L (3.5-5.1) Chloride Level 110 mmol/L (98-107) Carbon Dioxide Level 26 mmol/L (21-32) Anion Gap 8 (6-14) Blood Urea Nitrogen 8 mg/dL (7-20) Creatinine 0.9 mg/dL (0.6-1.0) Estimated GFR (Cockcroft-Gault) 61.0 Glucose Level 77 mg/dL (70-99) Calcium Level 8.1 mg/dL (8.5-10.1) Nutrition Consultation Dietary Evaluation: Recommendations by RD: Increase Calorie Intake Comments: Continue w/GI soft diet as ordered, honor food preferences, and provide snacks as requested; pt denies oral supplements at this time Expected Outcomes/Goals: PO intake to meet >75% est needs Malnutrition Findings: Body Fat Depletion (Non Severe: Mild Depletion Weight Status: Underweight SUMAN QUIÑONEZ APRN Mar 24, 2018 09:18
--- NOTE | 2018-03-24 10:38 | PDOC ---
Infectious Disease Note Subjective: Subjective pt is feeling better today no f/c/sob/cough no n/v/d/abdo pain ROS: ROS Negative except for above. Vital Signs: Vital Signs Vital Signs Date Time Temp Pulse Resp B/P (MAP) Pulse Ox O2 Delivery O2 Flow Rate FiO2 03/24/18 07:27 96 Room Air 03/24/18 06:53 98.2 77 22 116/65 (82) 98.2 Physical Exam: PHYSICAL EXAM GENERAL: Alert, oriented x 3 female, lying comfortably in bed, in no acute distress. HEENT: Normocephalic, atraumatic, anicteric. No thrush. NECK: Supple. No JVD. LUNGS: Clear bilaterally. No wheezing. HEART: S1, S2 present. RRR. ABDOMEN: Soft, nontender, nondistended. No rebound, no guarding. GENITOURINARY: Cerrato in place. EXTREMITIES: No edema, no cyanosis. DERMATOLOGIC: No generalized rash. Warm, dry. NEUROLOGIC: Alert and oriented x 3, grossly nonfocal. PSYCHIATRIC: Cooperative, appropriate mood and affect. Medications: Inpatient Meds: Current Medications Medications (Trade) Dose Ordered Sig/Emelia Start Time Stop Time Status Last Admin Dose Admin Acetaminophen (Tylenol) 650 mg PRN Q6HRS PRN 03/20/18 13:15 Albuterol Sulfate (Ventolin Neb Soln) 2.5 mg PRN Q2HR PRN 03/20/18 13:15 Albuterol/ Ipratropium (Duoneb) 3 ml RTQID 03/20/18 16:00 03/24/18 07:25 3 ML Dobutamine HCl/ Dextrose 250 ml @ 0 mls/hr CONT PRN 03/21/18 21:00 Cancel Docusate Sodium (Colace) 100 mg PRN DAILY PRN 03/20/18 13:15 Ephedrine Sulfate (ePHEDrine PF IN SALINE SYRINGE) 50 mg STK-MED ONCE 03/20/18 09:13 03/20/18 09:14 DC Epinephrine HCl 4 mg/Sodium Chloride 254 ml @ 0 mls/hr CONT PRN 03/21/18 21:00 Cancel Fentanyl Citrate (Fentanyl 2ml Vial) 50 mcg PRN Q2HR PRN 03/20/18 01:30 03/21/18 01:29 DC Guaifenesin (Mucinex) 600 mg BID 03/20/18 14:00 03/24/18 08:10 600 MG Hyoscyamine (Anaspaz) 0.25 mg PRN Q4HRS PRN 03/20/18 00:00 03/20/18 00:16 0.25 MG Info (CONTRAST GIVEN -- Rx MONITORING) 1 each PRN DAILY PRN 03/22/18 14:15 03/24/18 14:14 Iohexol (Omnipaque 240 Mg/ml) 50 ml 1X ONCE 03/21/18 13:30 03/21/18 13:31 DC 03/21/18 13:45 50 ML Iohexol (Omnipaque 300 Mg/ml) 60 ml 1X ONCE 03/22/18 14:15 03/22/18 14:16 DC 03/22/18 14:40 60 ML Iron Sucrose 500 mg/Sodium Chloride 275 ml @ 78.571 mls/ hr 1X ONCE 03/21/18 12:30 03/22/18 09:06 DC 03/21/18 13:04 78.571 MLS/HR Lactobacillus Rhamnosus (Culturelle) 1 cap BID 03/22/18 21:00 03/24/18 08:10 1 CAP Lidocaine HCl (Lidocaine Pf 2% Vial) 5 ml STK-MED ONCE 03/20/18 09:12 03/20/18 09:13 DC Linezolid (Zyvox) 600 mg BID 03/23/18 21:00 03/24/18 08:10 600 MG Metronidazole 100 ml @ 100 mls/hr Q8HRS 03/21/18 22:00 03/22/18 09:55 DC 03/22/18 05:52 100 MLS/HR Morphine Sulfate (Morphine Sulfate) 2 mg PRN Q2HR PRN 03/20/18 13:15 Norepinephrine Bitartrate 250 ml @ 0 mls/hr CONT PRN 03/21/18 21:00 03/23/18 10:20 DC 03/22/18 00:48 0 MLS/HR Ondansetron HCl (Zofran) 4 mg PRN Q6HRS PRN 03/20/18 13:15 Pantoprazole Sodium (PROTONIX VIAL for IV PUSH) 40 mg DAILYAC 03/21/18 07:30 9/18/18 12:56 DC 03/21/18 06:35 40 MG Pantoprazole Sodium (Protonix) 40 mg DAILYAC 03/22/18 07:30 03/24/18 08:10 40 MG Pantoprazole Sodium 80 mg/ Sodium Chloride 100 ml @ 10 mls/hr Q10H 03/20/18 03:00 03/20/18 15:19 DC 03/20/18 13:30 10 MLS/HR Piperacillin Sod/ Tazobactam Sod 2.25 gm/Sodium Chloride 50 ml @ 100 mls/hr Q6HRS 03/21/18 20:00 03/24/18 06:21 100 MLS/HR Piperacillin Sod/ Tazobactam Sod 3.375 gm/Sodium Chloride 50 ml @ 100 mls/hr Q6HRS 03/22/18 00:00 UNV Piperacillin Sod/ Tazobactam Sod 4.5 gm/Sodium Chloride 100 ml @ 200 mls/hr 1X ONCE 03/20/18 01:00 03/20/18 01:29 DC 03/20/18 01:15 200 MLS/HR Propofol 20 ml @ As Directed STK-MED ONCE 03/20/18 09:12 03/20/18 09:13 DC Ringer's Solution 1,000 ml @ 75 mls/hr [id number] 03/20/18 08:45 03/22/18 09:06 DC 03/20/18 08:48 75 MLS/HR Sodium Chloride 1,000 ml @ 25 mls/hr Q24H 03/21/18 20:57 03/22/18 11:39 DC 03/22/18 00:40 75 MLS/HR Sucralfate (Carafate) 1 gm TIDAC 03/20/18 11:30 03/22/18 14:11 DC 03/22/18 12:13 1 GM Tramadol HCl (Ultram) 50 mg PRN Q6HRS PRN 03/20/18 13:15 Vancomycin HCl (Vanco Per Pharmacy) 1 each PRN DAILY PRN 03/21/18 21:00 UNV Vancomycin HCl (Vancomycin Trough Level) 1 each 1X ONCE 03/23/18 20:30 03/23/18 20:30 DC Vancomycin HCl 750 mg/Sodium Chloride 250 ml @ 250 mls/hr Q24H 03/22/18 21:00 03/23/18 09:21 DC 03/22/18 20:52 250 MLS/HR Vancomycin HCl 1 gm/Sodium Chloride 250 ml @ 250 mls/hr ONCE ONCE 03/21/18 20:30 03/21/18 21:29 DC 03/21/18 21:10 250 MLS/HR Vasopressin 40 unit/Dextrose 102 ml @ 6 mls/hr CONT PRN 03/21/18 21:00 UNV Labs: Lab Laboratory Tests Test 03/24/18 04:00 White Blood Count 9.0 x10^3/uL (4.0-11.0) Red Blood Count 3.76 x10^6/uL (3.50-5.40) Hemoglobin 8.5 g/dL (12.0-15.5) Hematocrit 27.8 % (36.0-47.0) Mean Corpuscular Volume 74 fL (79-100) Mean Corpuscular Hemoglobin 23 pg (25-35) Mean Corpuscular Hemoglobin Concent 31 g/dL (31-37) Red Cell Distribution Width 21.6 % (11.5-14.5) Platelet Count 374 x10^3/uL (140-400) Neutrophils (%) (Auto) 65 % (31-73) Lymphocytes (%) (Auto) 22 % (24-48) Monocytes (%) (Auto) 8 % (0-9) Eosinophils (%) (Auto) 4 % (0-3) Basophils (%) (Auto) 1 % (0-3) Neutrophils # (Auto) 5.9 x10^3uL (1.8-7.7) Lymphocytes # (Auto) 2.0 x10^3/uL (1.0-4.8) Monocytes # (Auto) 0.7 x10^3/uL (0.0-1.1) Eosinophils # (Auto) 0.3 x10^3/uL (0.0-0.7) Basophils # (Auto) 0.1 x10^3/uL (0.0-0.2) Sodium Level 144 mmol/L (136-145) Potassium Level 4.1 mmol/L (3.5-5.1) Chloride Level 110 mmol/L (98-107) Carbon Dioxide Level 26 mmol/L (21-32) Anion Gap 8 (6-14) Blood Urea Nitrogen 8 mg/dL (7-20) Creatinine 0.9 mg/dL (0.6-1.0) Estimated GFR (Cockcroft-Gault) 61.0 Glucose Level 77 mg/dL (70-99) Calcium Level 8.1 mg/dL (8.5-10.1) Micro RUN DATE: 03/24/18 PAGE 1 RUN TIME: 318 [facility] [address] [place] [address] Chon Medina M.D., Music Librarian PATIENT: KYMBERLY AN ACCT: [id number] LOC: [address] [place] [address] U : [id number] AGE/SX: 73/F ROOM: 205 REG : 03/20/[address]: STANLEY HUSAIN MD : 1945 BED: 1 DIS : STATUS: ADM IN TLOC: SPEC #: [id number] JUANA: 03/22/18 STATUS: COMP REQ #: [id number] RECD: 03/22/[address] [facility] [address]: IWONA WARD MD SOURCE: VOID ENTR: 03/22/[address] [facility] [address]: TERELL KIRKLAND MD SPDESC: NO NIC ALFONSO MD, CHERRIE Y MD THOMPSON, MICHAEL F MD ORDERED: URINE CULTURE Procedure Result URINE CULTURE Final Final report URINE CULTURE RES 1 Final Comment Greater than 2 organisms recovered, none predominant. Please submit another sample if clinically indicated. 25,000-50,000 colony forming units per mL Performed at: DA - [facility] [address], [place], [place] [id number] Marine Firefighter: RAVEN Palacio MD, Phone: [phone] Objective: Assessment: 1. Sepsis, etiology likely GI or ,BC and UC neg 2. Leukocytosis, improving.Likely reactive Lactic acidosis, resolved. 3. Pyuria ,Urine c/s polymicrobial ,contaminant 4. Acute kidney injury, resolved. 5. Gastrointestinal bleed with EGD showing antral ulceration, erosive duodenitis, moderate hiatal hernia on 03/20/2018. 6. Anemia, requiring blood transfusion. 7. Chronic obstructive pulmonary disease. 8. Status post ureteral injury during hysterectomy in 2015 with ureteral stent placement, status post left ureteral reimplantation. 9. Protein-calorie malnutrition. 10. Allergies to SULFA. 11. History of moderate hydronephrosis and mild left ureteric nephrosis 11/2017. 12. Echo with ejection fraction 15%-20%. 13. H pylori positive from recent biopsies Plan: Plan of Care DC Zosyn. and zyvox, H pylori treatment per GI team Urology planning for left ureteral stent removal in the near future Ok to dc home from id standpoint TERELL KIRKLAND MD Mar 24, 2018 10:38
[2018-03-24 11:00] VITALS: BP 118/61
--- NOTE | 2018-03-24 12:07 | PDOC ---
Subjective: Subjective: No complaints, says she's going home today. Objective: Objective: RN asks about Rx for H. pylori treatment for potential discharge. Reviewed ID note. Vital Signs: Vital Signs Date Time Temp Pulse Resp B/P (MAP) Pulse Ox O2 Delivery O2 Flow Rate FiO2 03/24/18 11:35 97 Room Air 03/24/18 11:00 98.7 84 18 118/61 (80) 98.7 Labs: Laboratory Tests Test 03/24/18 04:00 White Blood Count 9.0 x10^3/uL Red Blood Count 3.76 x10^6/uL Hemoglobin 8.5 g/dL Hematocrit 27.8 % Mean Corpuscular Volume 74 fL Mean Corpuscular Hemoglobin 23 pg Mean Corpuscular Hemoglobin Concent 31 g/dL Red Cell Distribution Width 21.6 % Platelet Count 374 x10^3/uL Neutrophils (%) (Auto) 65 % Lymphocytes (%) (Auto) 22 % Monocytes (%) (Auto) 8 % Eosinophils (%) (Auto) 4 % Basophils (%) (Auto) 1 % Neutrophils # (Auto) 5.9 x10^3uL Lymphocytes # (Auto) 2.0 x10^3/uL Monocytes # (Auto) 0.7 x10^3/uL Eosinophils # (Auto) 0.3 x10^3/uL Basophils # (Auto) 0.1 x10^3/uL Sodium Level 144 mmol/L Potassium Level 4.1 mmol/L Chloride Level 110 mmol/L Carbon Dioxide Level 26 mmol/L Anion Gap 8 Blood Urea Nitrogen 8 mg/dL Creatinine 0.9 mg/dL Estimated GFR (Cockcroft-Gault) 61.0 Glucose Level 77 mg/dL Calcium Level 8.1 mg/dL URINE CULTURE Final Final report URINE CULTURE RES 1 Final Comment Greater than 2 organisms recovered, none predominant. BLOOD CULTURE Preliminary NO GROWTH AFTER 4 DAYS PE: GEN: NAD LUNGS: CTAB HEART: RRR ABD: S/ND/NT NEURO/PSYCH: A & O 3 A/P: Microcytic anemia - Hgb stable -hiatal hernia w/ Leif lesions, antral ulcers, erosive duodenitis (+H. pylori ) -- Left Rx for (generic) Prevpac w/ RN. Encouraged long-term use of PPI. KASIE GÓMEZ Mar 24, 2018 12:06
--- NOTE | 2018-03-24 13:47 | PDOC3 ---
Discharge Summary [facility] Date of Admission: Mar 20, 2018 Discharge Date: Mar 24, 2018 Admitting Diagnosis sob, COPD exacerbation, plus anemia symptomatic anemia with likely chronic gib medium hiatal hernia with Meg ulcers, several antral ulcerations as well, erosive duodenitis in EGD low bp and sob post iron iv acute systolic CHF EF 15%, not clear etiology, compensated now bronchitis old left ureteral stent + h pylori at EGD bx iron iv reaction with sob, hypotension Final Diagnosis CONSULTS id, GI card Brief Hospital Course Patient is a 73 year old female with past medical history COPD, non smoking, came to ER for sob. Pt said she has been feeling sob for 3 ds, wo increased sputum, has chronic cough, uses ventolin as needed at home. last night, Patient notes she was in the bathroom when she became acutely short of breath. Her family went to check on her and they found her in the bathroom and called EMS. When EMS arrived her initial oxygen saturation was 92% and in route she had 2 nebulized treatments and is currently satting in the upper 90s on room air without labored breathing or shortness of breath at rest. sob is worse at exertion. Pt has chronic abd pain, dull, middle abd, worse when lying down, moderate, no radiating. knows she has stomach ulcers, but not taking pPI, DENIES taking NSAIDS often. was found HB 6 in ER, knows has anemia, but cannot tell why. denies melena or blood BM. Pt feels better after transfusion, EGD. however, she got sob, hands swelling, hypotension transferred to ICU for ob. off levaphed overnight, and feels good. wbc was high, got iv abx. ID fu, no abx now. dc home with h pylori treatment. ppi daily. fu with card as outpt for CHF WORK up. ECho showed EF 15%, pt feels ok, no chest pain or sob. dc time 35min. GENERAL: Alert, oriented x 3 female, lying comfortably in bed, in no acute distress. HEENT: Normocephalic, atraumatic, anicteric. No thrush. NECK: Supple. No JVD. LUNGS: Clear bilaterally. No wheezing. HEART: S1, S2 present. RRR. ABDOMEN: Soft, nontender, nondistended. No rebound, no guarding. GENITOURINARY: Cerrato in place. EXTREMITIES: No edema, no cyanosis. DERMATOLOGIC: No generalized rash. Warm, dry. NEUROLOGIC: Alert and oriented x 3, grossly nonfocal. PSYCHIATRIC: Cooperative, appropriate mood and affect. Patient History: FH: Alzheimers disease 32 MOTHER Disposition home CONDITION AT DISCHARGE: Improved Scheduled Acetaminophen (Acetaminophen), 1 TAB PO BID, (Reported) Scheduled PRN Albuterol Sulfate (Proair Hfa Inhaler), 2 PUFF INH PRN Q6HRS PRN for SHORTNESS OF BREATH Hydrocodone Bit/Acetaminophen (Hydrocodone-Apap 5-325 ), 1 TAB PO Q4HRS PRN for PAIN, (Reported) Discontinued Medications Naproxen Sodium (Naproxen Sodium), 550 MG PO BID, (Reported) HERB SEGOVIA MD Mar 24, 2018 13:47
[2018-03-24 15:00] VITALS: BP 118/61
== END 2018-03-24 17:16 | disposition home or self-care (01) | DRG 871 ==
LOC: ER 22:04 → 4 NORTH 03-20 01:30 → 1 WEST ICU 03-21 20:30 → 2 NORTH 03-22 14:49
PROVIDERS: ADMIT Internal Medicine; ATTEND Internal Medicine
PROC: 30233N1 Transfusion of Nonautologous Red Blood Cells into Peripheral Vein, Percutaneous Approach (ICD-10-PCS; 2018-03-20)
PROC: 0DB98ZX Excision of Duodenum, Via Natural or Artificial Opening Endoscopic, Diagnostic (ICD-10-PCS; principal; 2018-03-20 08:30)
PROC: 0DB68ZX Excision of Stomach, Via Natural or Artificial Opening Endoscopic, Diagnostic (ICD-10-PCS; 2018-03-20 08:30)
DX: A41.9 Sepsis, unspecified organism (principal); I50.23 Acute on chronic systolic (congestive) heart failure; K29.81 Duodenitis with bleeding; K25.4 Chronic or unspecified gastric ulcer with hemorrhage; J44.1 Chronic obstructive pulmonary disease with (acute) exacerbation; N17.9 Acute kidney failure, unspecified; E46 Unspecified protein-calorie malnutrition; Z68.1 Body mass index [BMI] 19.9 or less, adult; I42.9 Cardiomyopathy, unspecified; G89.29 Other chronic pain; F41.9 Anxiety disorder, unspecified; K57.30 Diverticulosis of large intestine without perforation or abscess without bleeding; K44.9 Diaphragmatic hernia without obstruction or gangrene; D50.9 Iron deficiency anemia, unspecified; Z90.710 Acquired absence of both cervix and uterus; Z88.2 Allergy status to sulfonamides; Z87.11 Personal history of peptic ulcer disease; Z82.5 Family history of asthma and other chronic lower respiratory diseases; Z88.7 Allergy status to serum and vaccine
CPT/HCPCS: 36415; 71045; 71275; 74018; 74176; 80048; 80053; 80076; 81001; 82274; 82550; 82962; 83605; 83735; 83880; 84145; 84484; 85007; 85025; 85379; 85384; 85610; 85730; 86850; 86900; 86901; 86920; 87040; 87086; 87641; 88305; 88342; 93005; 93306; 94640; 94760; 96374; C9113; J1756; J2001; J2543; J2704; J3370; J3490; J7030; J7050; J7120; J7620; P9016; Q9966; Q9967; 99285-25

== ENCOUNTER 2019-04-18 17:43 | Inpatient (IN) | payer MEDICARE ==
[2019-04-18] VITALS (8 sets, daily range): BP systolic 111–137; BP diastolic 42–66
[~2019-04-18] VITALS: Ht 152.4 cm; Wt 40.4 kg
[~2019-04-18 17:43] MED LIST changes: +ALBU2.5V8 INH; -HYDR-2758 PO; +HYDR-2761 PO; +HYDR-3164 PO; -HYDR-971 PO; -PROAIR HFA8.5 GM INH
[2019-04-18] MEDS ORDERED: IPRATRPIUM/ALBUTEROL 0.5/2.5MG 3 ML NEBU. NEB ONE (18:00)
--- NOTE | 2019-04-18 18:04 | PHYS DOC ---
Past Medical History Past Medical History: Asthma, CHF, COPD, Other Additional Past Medical Histor: emphysema (ZULAY HYDE APRN) Past Surgical History: Hysterectomy, Other Additional Past Surgical Histo: PROLASPED UTERUS (ZULAY HYDE APRN) Alcohol Use: None Drug Use: None (ZULAY HYDE APRN) Attending Signature I have participated in the care of this patient and I have reviewed and agree with all pertinent clinical information above including history, exam, and recommendations. (PARI STOVER MD) Adult General Chief Complaint Chief Complaint: ALTERED MENTAL STATUS HPI HPI Patient is a 74 year old female brought to the ER by her granddaughters with complaints of shortness of breath and generalized weakness for the last 2 days. Granddaughters report that she is supposed to take medication for a lung problem that she has but state that the patient stopped taking the medication a while ago. Pt denies any fever, cough, chest pain, palpitations, nausea, vomiting, diarrhea, or swelling. She denies any pain at this time. Her only complaint is shortness of breath. PT and family deny any recent travel via car or plane. (ZULAY HYDE APRN) Review of Systems Review of Systems Constitutional: Denies fever or chills [] Eyes: Denies redness, or eye pain [] HENT: Denies nasal congestion or sore throat [] Respiratory: Denies cough; see HPI Cardiovascular: No additional information not addressed in HPI [] GI: Denies abdominal pain, nausea, vomiting, bloody stools, or diarrhea [] : Denies dysuria or hematuria [] Musculoskeletal: Denies back pain or joint pain [] Integument: Denies rash or skin lesions [] Neurologic: Denies headache, focal weakness or sensory changes [] Complete systems were reviewed and found to be within normal limits, except as documented in this note. (ZULAY HYDE APRN) Current Medications Current Medications Current Medications Medications (Trade) Dose Ordered Sig/Emelia Start Time Stop Time Status Last Admin Dose Admin Albuterol/ Ipratropium (Duoneb) 3 ml 1X ONCE 04/18/19 18:00 04/18/19 18:01 DC 04/18/19 18:01 3 ML (PARI STOVER MD) Allergies Allergies Allergies Coded Allergies Type Severity Reaction Last Updated Verified Influenza Virus Vaccines Allergy Intermediate 03/20/18 Yes I S O L A T I O N *CONTACT* Allergy Unknown 03/20/18 Yes (PARI STOVER MD) Physical Exam Physical Exam Constitutional: Well developed, well nourished, moderate distress, non-toxic appearance. [] HENT: Normocephalic, atraumatic, bilateral external ears normal, nose normal. [] Eyes: PERRLA, EOMI, conjunctiva normal, no discharge. [] Neck: Normal range of motion, no stridor. [] Cardiovascular:Heart rate regular rhythm, no murmur [] Lungs & Thorax: Bilateral breath sounds clear to auscultation in upper lobes, diminished with expiratory wheezes bilateral posterior, increased work of breathing, speaking softly 2-3 words at a time, no retractions. [] Abdomen: Bowel sounds normal, soft, no tenderness, no masses, no pulsatile masses. [] Skin: Warm, dry, no erythema, no rash, generalized pallor. [] Back: No tenderness Extremities: No tenderness, no cyanosis, no clubbing, ROM intact, no edema. [] Neurologic: Alert and oriented X 3, no focal deficits noted. [] Psychologic: Affect anxious, judgement normal, mood normal. [] (ZULAY HYDE APRN) Current Patient Data Vital Signs Vital Signs Date Time Temp Pulse Resp B/P (MAP) Pulse Ox O2 Delivery O2 Flow Rate FiO2 04/18/19 18:46 58 97 04/18/19 18:08 98.3 24 139/63 (88) Room Air 98.3 (PARI STOVER MD) Lab Values Laboratory Tests Test 04/18/19 17:51 04/18/19 17:53 04/18/19 18:00 Glucose (Fingerstick) 106 mg/dL (70-99) H O2 Saturation 97 % (92-99) Arterial Blood pH 7.45 (7.35-7.45) Arterial Blood pCO2 at Patient Temp 30 mmHg (35-46) L Arterial Blood pO2 at Patient Temp 85 mmHg (65-108) Arterial Blood HCO3 20 mmol/L (21-28) L Arterial Blood Base Excess -4 mmol/L (-3-3) L Oxyhemoglobin 94.8 % Methemoglobin 1.1 % (0.0-1.9) Carbon Monoxide, Quantitative 0.9 % (0.0-1.9) FiO2 21 White Blood Count 8.7 x10^3/uL (4.0-11.0) Red Blood Count 2.90 x10^6/uL (3.50-5.40) L Hemoglobin 4.7 g/dL (12.0-15.5) *L Hematocrit 17.5 % (36.0-47.0) *L Mean Corpuscular Volume 61 fL (79-100) L Mean Corpuscular Hemoglobin 16 pg (25-35) L Mean Corpuscular Hemoglobin Concent 27 g/dL (31-37) L Red Cell Distribution Width 19.3 % (11.5-14.5) H Platelet Count 459 x10^3/uL (140-400) H Neutrophils (%) (Auto) 74 % (31-73) H Lymphocytes (%) (Auto) 16 % (24-48) L Monocytes (%) (Auto) 8 % (0-9) Eosinophils (%) (Auto) 1 % (0-3) Basophils (%) (Auto) 1 % (0-3) Neutrophils # (Auto) 6.5 x10^3/uL (1.8-7.7) Lymphocytes # (Auto) 1.4 x10^3/uL (1.0-4.8) Monocytes # (Auto) 0.7 x10^3/uL (0.0-1.1) Eosinophils # (Auto) 0.0 x10^3/uL (0.0-0.7) Basophils # (Auto) 0.1 x10^3/uL (0.0-0.2) Platelet Estimate Increased (ADEQUATE) Hypochromasia Marked Anisocytosis Slight Microcytosis Marked Prothrombin Time 13.3 SEC (11.7-14.0) Prothrombin Time INR 1.0 (0.8-1.1) Activated Partial Thromboplast Time 26 SEC (24-38) Urine Collection Type U cath Urine Color Yellow Urine Clarity Clear Urine pH 5.5 Urine Specific Clark 1.020 Urine Protein 30 mg/dL (NEG-TRACE) Urine Glucose (UA) Negative mg/dL (NEG) Urine Ketones (Stick) Negative mg/dL (NEG) Urine Blood Negative (NEG) Urine Nitrite Negative (NEG) Urine Bilirubin Small (NEG) Urine Urobilinogen Dipstick 1.0 mg/dL (0.2 mg/dL) Urine Leukocyte Esterase Large (NEG) Urine RBC 1-2 /HPF (0-2) Urine WBC 20-40 /HPF (0-4) Urine Squamous Epithelial Cells Few /LPF Urine Amorphous Sediment Present /HPF Urine Bacteria Moderate /HPF (0-FEW) Urine Hyaline Casts Few /HPF Urine Mucus Mod /LPF Sodium Level 144 mmol/L (136-145) Potassium Level 4.2 mmol/L (3.5-5.1) Chloride Level 107 mmol/L (98-107) Carbon Dioxide Level 24 mmol/L (21-32) Anion Gap 13 (6-14) Blood Urea Nitrogen 13 mg/dL (7-20) Creatinine 1.3 mg/dL (0.6-1.0) H Estimated GFR (Cockcroft-Gault) 39.8 BUN/Creatinine Ratio 10 (6-20) Glucose Level 108 mg/dL (70-99) H Calcium Level 8.4 mg/dL (8.5-10.1) L Magnesium Level 2.3 mg/dL (1.8-2.4) Total Bilirubin 0.4 mg/dL (0.2-1.0) Aspartate Amino Transferase (AST) 12 U/L (15-37) L Alanine Aminotransferase (ALT) 7 U/L (14-59) L Alkaline Phosphatase 91 U/L (46-116) Creatine Kinase 41 U/L (26-192) Creatine Kinase MB (Mass) 1.0 ng/mL (0.0-3.6) Creatine Kinase MB Relative Index % (0-4) Troponin I Quantitative < 0.017 ng/mL (0.000-0.055) UF-Ijt-B-Type Natriuretic Peptide 1604 pg/mL (0-449) H Total Protein 7.5 g/dL (6.4-8.2) Albumin 3.8 g/dL (3.4-5.0) Albumin/Globulin Ratio 1.0 (1.0-1.7) Laboratory Tests 04/18/19 18:00 Laboratory Tests 04/18/19 18:00 (PARI STOVER MD) EKG EKG 1848- sinus arrhythmia rate 88 no STEMI read by Dr. Stover [] (ZULAY HYDE APRN) Radiology/Procedures Radiology/Procedures PROCEDURE: CHEST AP ONLY AP chest x-ray HISTORY: Shortness of breath. COMPARISON: CT chest March 22, 2018. FINDINGS: Mild cardiomegaly stable. Hiatal hernia the upper stomach again demonstrated. No pneumothorax, pulmonary opacities or pleural effusions. Old posterior rib deformities are stable. IMPRESSION: No acute process. Stable exam.[] (ZULAY HYDE APRN) Course & Med Decision Making Course & Med Decision Making Pertinent Labs and Imaging studies reviewed. (See chart for details) dx: anemia, dyspnea, UTI Spoke with Dr. Ryan who is the admitting physician, and care was assumed following discussion of patient. Patient's vital signs stable. Patient remains afebrile, appears nontoxic, respirations even and unlabored. Patient will be admitted to the ICU floor. Patient's case and plan of care also discussed with Dr. Stover [] (ZULAY HYDE APRN) Dragon Disclaimer Dragon Disclaimer This electronic medical record was generated, in whole or in part, using a voice recognition dictation system. (ZULAY HYDE APRN) Departure Departure Impression: Primary Impression: Anemia Additional Impressions: Dyspnea UTI (urinary tract infection) Disposition: ADMITTED INPATIENT Admitting Physician: PATRICK (ROX) (ZULAY HYDE APRN) Condition: STABLE Referrals: NO PCP (PCP) Problem Qualifiers Primary Impression: Anemia Anemia type: unspecified type Qualified Codes: D64.9 - Anemia, unspecified Additional Impressions: Dyspnea Dyspnea type: shortness of breath Qualified Codes: R06.02 - Shortness of breath UTI (urinary tract infection) Urinary tract infection type: site unspecified Hematuria presence: without hematuria Qualified Codes: N39.0 - Urinary tract infection, site not specified ZULAY HYDE APRN Apr 18, 2019 18:04 PARI STOVER MD Apr 19, 2019 18:52
[2019-04-18 18:11] LABS: BASO # 0.1 x10^3/uL (0.0-0.2); BASO % 1 % (0-3); EOS % 1 % (0-3); LYMPH # 1.4 x10^3/uL (1.0-4.8); LYMPH % 16 % (24-48); MEAN CORPUSCULAR HEMOGLOBIN 16 pg (25-35); MEAN CORPUSCULAR HGB CONC 27 g/dL (31-37); MEAN CORPUSCULAR VOLUME 61 fL (79-100); MONO # 0.7 x10^3/uL (0.0-1.1); MONO % 8 % (0-9); NEUT # 6.5 x10^3/uL (1.8-7.7); NEUT % 74 % (31-73); PLATELET COUNT 459 x10^3/uL (140-400); RED CELL DISTRIBUTION WIDTH 19.3 % (11.5-14.5); WHITE BLOOD COUNT 8.7 x10^3/uL (4.0-11.0)
[2019-04-18 18:13] LABS: BILIRUBIN,URINE SMALL (NEG); CLARITY,URINE CLEAR; COLOR,URINE YELLOW; NITRITE,URINE NEGATIVE (NEG); PH,URINE 5.5; PROTEIN,URINE 30 mg/dL (NEG-TRACE)
[2019-04-18 18:14] LABS: HEMATOCRIT 17.5 % (36.0-47.0); HEMOGLOBIN 4.7 g/dL (12.0-15.5)
[2019-04-18 18:18] LABS: BASE EXCESS COOX -4 mmol/L (-3-3); HCO3 COOX 20 mmol/L (21-28); METHEMOGLOBIN 1.1 % (0.0-1.9); OXYHEMOGLOBIN 94.8 %; PCO2 COOX 30 mmHg (35-46); PO2 COOX 85 mmHg (65-108); SAT O2 COOX 97 % (92-99)
[2019-04-18 18:18] LABS: WBC,URINE 20-40 /HPF (0-4)
[2019-04-18 18:19] LABS: AMORPHOUS SEDIMENT,UR PRESENT /HPF; BACTERIA,URINE MODERATE /HPF (0-FEW); HYALINE CASTS, URINE FEW /HPF; SQUAMOUS EPITHELIAL CELL,UR FEW /LPF
--- NOTE | 2019-04-18 18:23 | RAD ---
AP chest x-ray HISTORY: Shortness of breath. COMPARISON: CT chest March 22, 2018. FINDINGS: Mild cardiomegaly stable. Hiatal hernia the upper stomach again demonstrated. No pneumothorax, pulmonary opacities or pleural effusions. Old posterior rib deformities are stable. IMPRESSION: No acute process. Stable exam. Electronically signed by: Leandro Adhikari MD (04/18/2019 6:21 PM) [facility]
[2019-04-18 18:24] LABS: PROTHROMBIN TIME PATIENT 13.3 SEC (11.7-14.0)
[2019-04-18 18:30] LABS: CALCIUM 8.4 mg/dL (8.5-10.1); CREATININE 1.3 mg/dL (0.6-1.0); GFR 39.8; POTASSIUM 4.2 mmol/L (3.5-5.1)
[2019-04-18 18:35] LABS: ALBUMIN 3.8 g/dL (3.4-5.0); MAGNESIUM 2.3 mg/dL (1.8-2.4); TOTAL BILIRUBIN 0.4 mg/dL (0.2-1.0); TOTAL PROTEIN 7.5 g/dL (6.4-8.2)
[2019-04-18 18:42] LABS: HYPOCHROMIA MARKED; MICROCYTOSIS MARKED; PLT ESTIMATE INCREASED (ADEQUATE)
[2019-04-18 18:43] LABS: ANISOCYTOSIS SLIGHT
[2019-04-18 18:44] LABS: CREATINE KINASE 41 U/L (26-192)
--- NOTE | 2019-04-18 18:54 | PDOC1 ---
History and Physical Date of Admission Date of Admission DATE: 04/18/19 TIME: 18:54 Identification/Chief Complaint Chief Complaint SEEN IN ER , 74 year old female brought to the ER by her granddaughters with complaints of shortness of breath and generalized weakness for the last 2 days. Granddaughters report that she is supposed to take medication for a lung problem that she has but state that the patient stopped taking the medication a while ago. Pt denies any fever, cough, chest pain, palpitations, nausea, vomiting, diarrhea, or swelling. DENIES PCP, GOES TO URGENT CARE FOR PROBLEMS HGB VERY LOW, SUSPECT GI BLOOD LOSS, ADMIT TO ICU Past Medical History Past Medical History Past Medical History Past Medical History Past Medical History: Asthma, CHF, COPD, Other Additional Past Medical Histor: emphysema Past Surgical History: Hysterectomy, Other Additional Past Surgical Histo: PROLASPED UTERUS Alcohol Use: None Drug Use: None medium hiatal hernia with Meg ulcers, several antral ulcerations as well, erosive duodenitis PROCEDURE Procedure EGD anemia, epigastric pain anesthesia- propofol Findings- medium hiatal hernia with Meg ulcers, several antral ulcerations as well, erosive duodenitis Plan- stop NSAIDS take PPI daily indefinitely IV iron STEVEN SALGADO MD Mar 20, 2018 09:31 SIGNED BY: STEVEN SALGADO MD DATE: 03/20/18930 cc: STEVEN SALGADO MD; NO PCP; STANLEY HUSAIN MD~ FHX COPD Cardiovascular: CHF Pulmonary: COPD GI: GI bleed, Gastritis Psych: Anxiety Rheumatologic: No pertinent hx Renal/: No pertinent hx Endocrine: No pertinent hx Past Surgical History Past Surgical History: Hysterectomy Family History Family History: Chronic Bronchitis, High Cholestrol Social History Smoke: No ALCOHOL: none Drugs: None Current Medications Current Medications Current Medications Albuterol/ Ipratropium (Duoneb) 3 ml 1X ONCE NEB Last administered on 04/18/19at 18:01; Start 04/18/19 at 18:00; Stop 04/18/19 at 18:01; Status DC Active Scripts Active Proair Hfa Inhaler (Albuterol Sulfate) 8.5 Gm Hfa.aer.ad 2 Puff INH PRN Q6HRS PRN Reported Hydrocodone-Apap 5-325 (Hydrocodone Bit/Acetaminophen) 1 Each Tablet 1 Tab PO Q4HRS PRN Acetaminophen 500 Mg Tablet 1 Tab PO BID Allergies Allergies: Coded Allergies: Influenza Virus Vaccines (Verified Allergy, Intermediate, 03/20/18) Sulfa (Sulfonamide Antibiotics) (Verified Allergy, Intermediate, 03/20/18) I S O L A T I O N *CONTACT* (Verified Allergy, Unknown, 03/20/18) mrsa ROS Review of System Review of Systems Review of Systems Constitutional: Denies fever or chills [] Eyes: Denies redness, or eye pain [] HENT: Denies nasal congestion or sore throat [] Respiratory: Denies cough; see HPI Cardiovascular: No additional information not addressed in HPI [] GI: Denies abdominal pain, nausea, vomiting, or diarrhea [] : Denies dysuria or hematuria [] Musculoskeletal: Denies back pain or joint pain [] Integument: Denies rash or skin lesions [] Neurologic: Denies headache, focal weakness or sensory changes [] 14 PT systems were reviewed and found to be within normal limits, except as documented General: YES: Fatigue, Malaise PSYCHOLOGICAL ROS: YES: Anxiety Respiratory: YES: Shortness of breath, SOB with excertion, Tachypnea Musculoskeletal: Yes Joint Stiffness Skin: Yes Dry Skin Physical Exam Physical Exam Physical Exam Physical Exam Constitutional: Well developed, well nourished, MILD distress, non-toxic appearance. [] HENT: Normocephalic, atraumatic, bilateral external ears normal, nose normal. [] Eyes: PERRLA, EOMI, conjunctiva normal, no discharge. [] Neck: Normal range of motion, no stridor. [] Cardiovascular:Heart rate regular rhythm, no murmur [] Lungs & Thorax: Bilateral breath sounds clear to auscultation in upper lobes, diminished with expiratory wheezes bilateral posterior, increased work of breathing, speaking softly 2-3 words at a time, no retractions. [] Abdomen: Bowel sounds normal, soft, no tenderness, no masses, no pulsatile masses. [] Skin: Warm, dry, no erythema, no rash. [] Back: No tenderness Extremities: No tenderness, no cyanosis, no clubbing, ROM intact, no edema. [] Neurologic: Alert and oriented X 3, no focal deficits noted. [] Psychologic: Affect anxious, judgment normal, mood normal. [] General: Alert, Cooperative, mild distress HEENT: Atraumatic, EOMI, Mucous membr. moist/pink Abdomen: Soft Rectal Exam: not examined PELVIC: Examination not indicated Extremities: No cyanosis Neuro: Normal speech, Cranial nerves 3-12 NL Psych/Mental Status: Mental status NL, Mood NL Vitals Vitals Vital Signs Date Time Temp Pulse Resp B/P (MAP) Pulse Ox O2 Delivery O2 Flow Rate FiO2 04/18/19 18:08 98.3 113 24 139/63 (88) 100 Room Air 98.3 Labs Labs Laboratory Tests Test 04/18/19 17:51 04/18/19 17:53 04/18/19 18:00 Glucose (Fingerstick) 106 mg/dL (70-99) O2 Saturation 97 % (92-99) Arterial Blood pH 7.45 (7.35-7.45) Arterial Blood pCO2 at Patient Temp 30 mmHg (35-46) Arterial Blood pO2 at Patient Temp 85 mmHg (65-108) Arterial Blood HCO3 20 mmol/L (21-28) Arterial Blood Base Excess -4 mmol/L (-3-3) Oxyhemoglobin 94.8 % Methemoglobin 1.1 % (0.0-1.9) Carbon Monoxide, Quantitative 0.9 % (0.0-1.9) FiO2 21 White Blood Count 8.7 x10^3/uL (4.0-11.0) Red Blood Count 2.90 x10^6/uL (3.50-5.40) Hemoglobin 4.7 g/dL (12.0-15.5) Hematocrit 17.5 % (36.0-47.0) Mean Corpuscular Volume 61 fL (79-100) Mean Corpuscular Hemoglobin 16 pg (25-35) Mean Corpuscular Hemoglobin Concent 27 g/dL (31-37) Red Cell Distribution Width 19.3 % (11.5-14.5) Platelet Count 459 x10^3/uL (140-400) Neutrophils (%) (Auto) 74 % (31-73) Lymphocytes (%) (Auto) 16 % (24-48) Monocytes (%) (Auto) 8 % (0-9) Eosinophils (%) (Auto) 1 % (0-3) Basophils (%) (Auto) 1 % (0-3) Neutrophils # (Auto) 6.5 x10^3/uL (1.8-7.7) Lymphocytes # (Auto) 1.4 x10^3/uL (1.0-4.8) Monocytes # (Auto) 0.7 x10^3/uL (0.0-1.1) Eosinophils # (Auto) 0.0 x10^3/uL (0.0-0.7) Basophils # (Auto) 0.1 x10^3/uL (0.0-0.2) Platelet Estimate Increased (ADEQUATE) Hypochromasia Marked Anisocytosis Slight Microcytosis Marked Prothrombin Time 13.3 SEC (11.7-14.0) Prothromb Time International Ratio 1.0 (0.8-1.1) Activated Partial Thromboplast Time 26 SEC (24-38) Urine Collection Type U cath Urine Color Yellow Urine Clarity Clear Urine pH 5.5 Urine Specific Woody 1.020 Urine Protein 30 mg/dL (NEG-TRACE) Urine Glucose (UA) Negative mg/dL (NEG) Urine Ketones (Stick) Negative mg/dL (NEG) Urine Blood Negative (NEG) Urine Nitrite Negative (NEG) Urine Bilirubin Small (NEG) Urine Urobilinogen Dipstick 1.0 mg/dL (0.2 mg/dL) Urine Leukocyte Esterase Large (NEG) Urine RBC 1-2 /HPF (0-2) Urine WBC 20-40 /HPF (0-4) Urine Squamous Epithelial Cells Few /LPF Urine Amorphous Sediment Present /HPF Urine Bacteria Moderate /HPF (0-FEW) Urine Hyaline Casts Few /HPF Urine Mucus Mod /LPF Sodium Level 144 mmol/L (136-145) Potassium Level 4.2 mmol/L (3.5-5.1) Chloride Level 107 mmol/L (98-107) Carbon Dioxide Level 24 mmol/L (21-32) Anion Gap 13 (6-14) Blood Urea Nitrogen 13 mg/dL (7-20) Creatinine 1.3 mg/dL (0.6-1.0) Estimated GFR (Cockcroft-Gault) 39.8 BUN/Creatinine Ratio 10 (6-20) Glucose Level 108 mg/dL (70-99) Calcium Level 8.4 mg/dL (8.5-10.1) Magnesium Level 2.3 mg/dL (1.8-2.4) Total Bilirubin 0.4 mg/dL (0.2-1.0) Aspartate Amino Transf (AST/SGOT) 12 U/L (15-37) Alanine Aminotransferase (ALT/SGPT) 7 U/L (14-59) Alkaline Phosphatase 91 U/L (46-116) Creatine Kinase 41 U/L (26-192) Creatine Kinase MB (Mass) 1.0 ng/mL (0.0-3.6) Creatine Kinase MB Relative Index % (0-4) Troponin I Quantitative < 0.017 ng/mL (0.000-0.055) WG-Ztm-U-Type Natriuretic Peptide 1604 pg/mL (0-449) Total Protein 7.5 g/dL (6.4-8.2) Albumin 3.8 g/dL (3.4-5.0) Albumin/Globulin Ratio 1.0 (1.0-1.7) Laboratory Tests Test 04/18/19 17:51 04/18/19 17:53 04/18/19 18:00 Glucose (Fingerstick) 106 mg/dL (70-99) O2 Saturation 97 % (92-99) Arterial Blood pH 7.45 (7.35-7.45) Arterial Blood pCO2 at Patient Temp 30 mmHg (35-46) Arterial Blood pO2 at Patient Temp 85 mmHg (65-108) Arterial Blood HCO3 20 mmol/L (21-28) Arterial Blood Base Excess -4 mmol/L (-3-3) Oxyhemoglobin 94.8 % Methemoglobin 1.1 % (0.0-1.9) Carbon Monoxide, Quantitative 0.9 % (0.0-1.9) FiO2 21 White Blood Count 8.7 x10^3/uL (4.0-11.0) Red Blood Count 2.90 x10^6/uL (3.50-5.40) Hemoglobin 4.7 g/dL (12.0-15.5) Hematocrit 17.5 % (36.0-47.0) Mean Corpuscular Volume 61 fL (79-100) Mean Corpuscular Hemoglobin 16 pg (25-35) Mean Corpuscular Hemoglobin Concent 27 g/dL (31-37) Red Cell Distribution Width 19.3 % (11.5-14.5) Platelet Count 459 x10^3/uL (140-400) Neutrophils (%) (Auto) 74 % (31-73) Lymphocytes (%) (Auto) 16 % (24-48) Monocytes (%) (Auto) 8 % (0-9) Eosinophils (%) (Auto) 1 % (0-3) Basophils (%) (Auto) 1 % (0-3) Neutrophils # (Auto) 6.5 x10^3/uL (1.8-7.7) Lymphocytes # (Auto) 1.4 x10^3/uL (1.0-4.8) Monocytes # (Auto) 0.7 x10^3/uL (0.0-1.1) Eosinophils # (Auto) 0.0 x10^3/uL (0.0-0.7) Basophils # (Auto) 0.1 x10^3/uL (0.0-0.2) Platelet Estimate Increased (ADEQUATE) Hypochromasia Marked Anisocytosis Slight Microcytosis Marked Prothrombin Time 13.3 SEC (11.7-14.0) Prothromb Time International Ratio 1.0 (0.8-1.1) Activated Partial Thromboplast Time 26 SEC (24-38) Urine Collection Type U cath Urine Color Yellow Urine Clarity Clear Urine pH 5.5 Urine Specific Woody 1.020 Urine Protein 30 mg/dL (NEG-TRACE) Urine Glucose (UA) Negative mg/dL (NEG) Urine Ketones (Stick) Negative mg/dL (NEG) Urine Blood Negative (NEG) Urine Nitrite Negative (NEG) Urine Bilirubin Small (NEG) Urine Urobilinogen Dipstick 1.0 mg/dL (0.2 mg/dL) Urine Leukocyte Esterase Large (NEG) Urine RBC 1-2 /HPF (0-2) Urine WBC 20-40 /HPF (0-4) Urine Squamous Epithelial Cells Few /LPF Urine Amorphous Sediment Present /HPF Urine Bacteria Moderate /HPF (0-FEW) Urine Hyaline Casts Few /HPF Urine Mucus Mod /LPF Sodium Level 144 mmol/L (136-145) Potassium Level 4.2 mmol/L (3.5-5.1) Chloride Level 107 mmol/L (98-107) Carbon Dioxide Level 24 mmol/L (21-32) Anion Gap 13 (6-14) Blood Urea Nitrogen 13 mg/dL (7-20) Creatinine 1.3 mg/dL (0.6-1.0) Estimated GFR (Cockcroft-Gault) 39.8 BUN/Creatinine Ratio 10 (6-20) Glucose Level 108 mg/dL (70-99) Calcium Level 8.4 mg/dL (8.5-10.1) Magnesium Level 2.3 mg/dL (1.8-2.4) Total Bilirubin 0.4 mg/dL (0.2-1.0) Aspartate Amino Transf (AST/SGOT) 12 U/L (15-37) Alanine Aminotransferase (ALT/SGPT) 7 U/L (14-59) Alkaline Phosphatase 91 U/L (46-116) Creatine Kinase 41 U/L (26-192) Creatine Kinase MB (Mass) 1.0 ng/mL (0.0-3.6) Creatine Kinase MB Relative Index % (0-4) Troponin I Quantitative < 0.017 ng/mL (0.000-0.055) QN-Qni-R-Type Natriuretic Peptide 1604 pg/mL (0-449) Total Protein 7.5 g/dL (6.4-8.2) Albumin 3.8 g/dL (3.4-5.0) Albumin/Globulin Ratio 1.0 (1.0-1.7) Images Images Aortic Valve AoV Peak Marco. 127.7cm/s AoV VTI 21.3cm AO Peak GR. 6.5mmHg LVOT Peak Marco. 104.5cm/s LVOT VTI 19.86cm AO Mean GR. 4mmHg MARY (VMAX) 2.15cm2 MARY (VTI) 2.46cm2 Mitral Valve MV E Velocity 50.4cm/s MV DECEL TIME 115ms MV A Velocity 101.2cm/s MV PHT 33ms E/A Ratio 0.5 MVA (PHT) 6.57cm2 TDI E/Lateral E' 6.5 E/Medial E' 12.1 Pulmonary Vein S1 Velocity 61.8cm/s D2 Velocity 41.1cm/s LEFT VENTRICLE The left ventricle is normal size. There is normal left ventricular wall thickness. Left ventricle systoic function is severely impaired. The anteroseptal wall appears akinetic. The Ejection Fraction is estimated at 15- 20%. RIGHT VENTRICLE The right ventricle is normal size. The right ventricular systolic function is normal. ATRIA The left atrium size is normal. The right atrium size is normal. The interatrial septum is intact with no evidence for an atrial septal defect or patent foramen ovale as noted on 2-D or Doppler imaging. AORTIC VALVE The aortic valve is calcified but opens well. Doppler and Color Flow revealed trace aortic regurgitation. There is no significant aortic valvular stenosis. MITRAL VALVE The mitral valve is calcified but opens well. There is no evidence of mitral valve prolapse. There is no mitral valve stenosis. Doppler and Color-flow revealed trace mitral regurgitation. TRICUSPID VALVE The tricuspid valve is normal in structure and function. Doppler and Color Flow revealed trace tricuspid regurgitation. There is no tricuspid valve stenosis. PULMONIC VALVE The pulmonic valve is not well visualized. Doppler and Color Flow revealed no pulmonic valvular regurgitation. There is no pulmonic valvular stenosis. GREAT VESSELS The aortic root is normal in size. The ascending aorta is normal in size. The IVC is normal in size and collapses >50% with inspiration. PERICARDIAL EFFUSION There is no evidence of significant pericardial effusion. Critical Notification Critical Value: No <Conclusion> Left ventricle systoic function is severely impaired. The anteroseptal wall appears akinetic. The Ejection Fraction is estimated at 15-20%. Trace mitral regurgitation. Trace tricuspid regurgitation. There is no evidence of significant pericardial effusion. Signed by : Nic Wang, Electronically Approved : 03/21/2018 16:11:46 DICTATED and SIGNED BY: NIC WANG MD DATE: 03/21/18 1611 VTE Prophylaxis Ordered VTE Prophylaxis Devices: Yes VTE Pharmacological Prophylaxi: No Assessment/Plan Assessment/Plan IMPRESSION sob, COPD exacerbation, plus anemia SEVERE symptomatic anemia with likely chronic gib medium hiatal hernia with Meg ulcers, several antral ulcerations as well, erosive duodenitis in EGD IN 2018, LIKELY ACTIVE low bp and sob post iron iv systolic CHF EF 15%, not clear etiology, Left ventricle systoic function is severely impaired. anteroseptal wall appears akinetic. The Ejection Fraction is estimated at 15-20%.03/21 bronchitis, CHRONIC old left ureteral stent + h pylori at EGD bx 2018 PLAN ADMIT GI CONSULT TRANSFUSE IV PROTONIX SERIAL H/H Q 8 HRS CARDIOLOGY CONSULT ECHO 35 MIN CC TIME IWONA WARD MD Apr 18, 2019 18:54
[2019-04-18] MEDS ORDERED: cloNIDine HCL 0.1 MG TABLET PO PRN (19:15)
[2019-04-18] MEDS ORDERED: ONDANSETRON PF 4 MG/2 ML VIAL. IV PRN (19:15)
[2019-04-18] MEDS ORDERED: ALBUTEROL SULFATE 2.5 MG/3 ML NEBU. INH PRN (19:15)
[2019-04-18] MEDS ORDERED: LORazepam 0.5 MG TABLET PO PRN (19:15)
[2019-04-18] MEDS ORDERED: HYDROcodone/APAP 5/325MG 1 TAB TABLET PO PRN (19:15)
[2019-04-18] MEDS ORDERED: ACETAMINOPHEN 325 MG TABLET. PO PRN (19:15)
[2019-04-18] MEDS ORDERED: guaiFENesin ORAL 200 MG/10 ML LIQUID. PO PRN (19:15)
[2019-04-18] MEDS ORDERED: 0.9 % SODIUM CHLORIDE 10 ML DISP.SYRIN. IV PRN (19:15)
[2019-04-18] MEDS ORDERED: PANTOPRAZOLE SODIUM IV DRIP 80 MG in IV NORMAL SALINE 100ML 100 ML IV ONE (19:15)
[2019-04-18] MEDS: cefTRIAXone IV Push 1 GM VIAL. IVP SCH (19:29)
[2019-04-18] MEDS: IPRATRPIUM/ALBUTEROL 0.5/2.5MG 3 ML NEBU. NEB SCH (20:00)
[2019-04-18] MEDS: ACETAMINOPHEN 500 MG TABLET PO SCH (21:00)
--- NOTE | 2019-04-18 22:00 | NUR ---
ADMITTED TO ROOM 109 FROM ED. REPORT FROM TRUNG AHUJA. ARRIVED TO ICU AWAKE AND ANSWERS QUESTIONS APPROPRIATELY. FORGETFUL CHEN, GRANDDAUGHTER, AT BEDSIDE REPORTS PATIENT MAY HAVE BEEN DIAGNOSED WITH DEMENTIA BUT NO DIAGNOSIS AT THIS TIME. PROTONIX INFUSING. NO ORDERS FOR BLOOD AT THIS TIME. LEIGHA CALLED TO ICU AND STATED THAT ED CALLED TO ED WITH BLOOD TRANSFUSION ORDERS. VSS. WILL CONTINUE TO MONITOR
[2019-04-19] VITALS (17 sets, daily range): BP systolic 108–149; BP diastolic 42–79
[2019-04-19] MEDS: PANTOPRAZOLE SODIUM IV DRIP 80 MG in IV NORMAL SALINE 100ML 100 ML IV SCH ×2 (03:33→17:27)
[2019-04-19] MEDS: IPRATRPIUM/ALBUTEROL 0.5/2.5MG 3 ML NEBU. NEB SCH ×6 (04:00→20:53)
[2019-04-19 07:10] LABS: HEMATOCRIT 26.8 % (36.0-47.0); HEMOGLOBIN 8.4 g/dL (12.0-15.5); RED BLOOD COUNT 3.56 x10^6/uL (3.50-5.40); RED CELL DISTRIBUTION WIDTH 30.7 % (11.5-14.5); WHITE BLOOD COUNT 7.4 x10^3/uL (4.0-11.0)
--- NOTE | 2019-04-19 07:27 | EKG ---
[facility] [address] [place] [address] Test Date: 2019-04-18 Test Time: 18:48:32 Pat Name: KYMBERLY AN Department: Room: 109 1 Gender: F Senior Pastor: : 1945 Requested By: ZULAY HYDE Order Number: [id number] Reading MD: Marvin Oliva MD Measurements Intervals Jackson Rate: 88 P: [place]: QRS: 6 QRSD: 64 T: 60 QT: 388 QTc: 473 Interpretive Statements SR PAC'S Electronically Signed On 04-24-2019 15:40:23 CDT by Marvin Oliva MD
--- NOTE | 2019-04-19 08:44 | NUR ---
IP: Pt has a hx of mrsa in urine on 11/09/17. Current ua is +, culture pending. Pt to be in contact precautions until there are 2 negative urine cultures 7 days apart without antibiotics.
[2019-04-19] MEDS: ACETAMINOPHEN 500 MG TABLET PO SCH ×2 (09:00→21:11)
--- NOTE | 2019-04-19 09:43 | CARD ---
MR#: [id number] Date of Study: 04/19/2019 Ordering Physician: IWONA WARD, Referring Physician: IWONA WARD Tech: Maritza Wu LEELA APPROVED REPORT EXAM: Two-dimensional and M-mode echocardiogram with Doppler and color Doppler. Other Information Quality : AverageHR: 79bpm Rhythm : NSR INDICATION Congestive Heart Failure 2D DIMENSIONS RVDd2.3 (2.9-3.5cm)Left Atrium(2D)3.4 (1.6-4.0cm) IVSd1.0 (0.7-1.1cm)Aortic Root(2D)2.9 (2.0-3.7cm) LVDd4.7 (3.9-5.9cm)LVOT Diameter1.7 (1.8-2.4cm) PWd0.7 (0.7-1.1cm)LVDs3.6 (2.5-4.0cm) FS (%) 23.4 %SV48.2 ml M-Mode DIMENSIONS Left Atrium(MM)3.18 (2.5-4.0cm)Aortic Root3.03 (2.2-3.7cm) Aortic Valve AoV Peak Marco.140.2cm/sAoV VTI32.1cm AO Peak GR.7.9mmHgLVOT VTI 20.26cm AO Mean GR.4mmHgAVA (VTI)1.50cm2 Mitral Valve MV E Rglrnqth02.6cm/sMV E Peak Gr.4mmHg MV DECEL [id number] A Adsonjus203.7cm/s MV E Mean Gr.2mmHgE/A Ratio0.8 MV A [id number] TDI Lateral E' P. V9.20cm/sE/Lateral E'8.9 Pulmonary Vein S1 Ekhsyudf38.9cm/sS2 Sbkoroff21.18cm/s D2 Umeaqvoz26.2cm/s LEFT VENTRICLE The left ventricle is normal size. There is normal left ventricular wall thickness. The left ventricu lar systolic function is severely impaired. The Ejection Fraction is 25-30%. Transmitral Doppler flow pattern is Grade I-abnormal relaxation pattern. LV muscle band noted in apex. RIGHT VENTRICLE The right ventricle is normal size. There is normal right ventricular wall thickness. The right ventr icular systolic function is normal. ATRIA The left atrium size is normal. The right atrium size is normal. The interatrial septum is intact wit h no evidence for an atrial septal defect or patent foramen ovale as noted on 2-D or Doppler imaging. AORTIC VALVE The aortic valve is normal in structure and function. The aortic valve is trileaflet. Doppler and Col or Flow revealed trace aortic regurgitation. There is no significant aortic valvular stenosis. MITRAL VALVE Mitral annular calcification is mild. There is no evidence of mitral valve prolapse. There is no mitr al valve stenosis. Doppler and Color-flow revealed mild mitral regurgitation. TRICUSPID VALVE The tricuspid valve is normal in structure and function. Doppler and Color Flow revealed trace tricus pid regurgitation. There is no tricuspid valve prolapse or vegetation. There is no tricuspid valve st enosis. PULMONIC VALVE The pulmonic valve is not well visualized. GREAT VESSELS The aortic root is normal in size. The ascending aorta is normal in size. The IVC is normal in size a nd collapses >50% with inspiration. PERICARDIAL EFFUSION There is no evidence of significant pericardial effusion. Critical Notification Critical Value: No <Conclusion> The left ventricular systolic function is severely impaired. The Ejection Fraction is 25-30%. Transmitral Doppler flow pattern is Grade I-abnormal relaxation pattern. Mild mitral regurgitation. Trace tricuspid regurgitation. There is no evidence of significant pericardial effusion. Signed by : Tiago Miguel, Electronically Approved : 04/19/2019 09:42:36
--- NOTE | 2019-04-19 09:53 | PDOC2 ---
GI CONSULT Reason For Consult: Severe anemia HPI: HPI: 74 y/o female apparently brought to ER by granddaughters for SOA and weakness. Noted w/ profound anemia - Hgb 4.7 w/ MCV 61, RDW 19.3. Hgb improved to 8.4 after transfusion. This morning in ICU, she is alone in her room and tells me she doesn't know why her granddaughters "did this" and that she feels fine. Denies hematemesis, hematochezia, and melena. Denies reflux/heartburn, dyspha lex, n/v, abd pain, constipation, diarrhea, and weight loss. We have seen her in the past for abdominal pain and anemia - had EGD and colonoscopy in 2017 and another EGD in 2018. H/o hiatal hernia w/ Leif lesions, antral ulcers, erosive duodenitis, and diverticulosis. +H. pylori x 2 - provided w/ Prevpac when discharged last fall and encouraged long-term use of PPI - she says she knows nothing about that. She apparently takes no medications at home. Denies GB, liver, and pancreas history. Borderline hepatosplenomegaly on past imaging. Possible reaction to iron infusion in the past. PMH: PMH: cardiomyopathy, HTN, COPD, UTI hysterectomy, left ureteral stent, nephrostomy FH: Family History: No pertinent hx Social History: Smoke: No ALCOHOL: none Drugs: None ROS: GEN: Denies fevers, chills, sweats HEENT: Denies blurred vision, sore throat CV: Denies chest pain RESP: Denies shortness of air, cough GI: Per HPI : Denies hematuria, dysuria ENDO: Denies weight changes NEURO: Denies confusion, dizziness MSK: Denies weakness, joint pain/swelling SKIN: Denies jaundice, pruritus Vitals: Vitals: Vital Signs Date Time Temp Pulse Resp B/P (MAP) Pulse Ox O2 Delivery O2 Flow Rate FiO2 04/19/19 08:18 100 Room Air 04/19/19 06:00 77 12 108/48 (68) 2.0 04/19/19 04:00 98.8 98.8 Labs: Labs: Laboratory Tests Test 04/18/19 17:51 04/18/19 17:53 04/18/19 18:00 10/17/19 04:39 Glucose (Fingerstick) 106 mg/dL (70-99) O2 Saturation 97 % (92-99) Arterial Blood pH 7.45 (7.35-7.45) Arterial Blood pCO2 at Patient Temp 30 mmHg (35-46) Arterial Blood pO2 at Patient Temp 85 mmHg (65-108) Arterial Blood HCO3 20 mmol/L (21-28) Arterial Blood Base Excess -4 mmol/L (-3-3) Oxyhemoglobin 94.8 % Methemoglobin 1.1 % (0.0-1.9) Carbon Monoxide, Quantitative 0.9 % (0.0-1.9) FiO2 21 White Blood Count 8.7 x10^3/uL (4.0-11.0) 7.4 x10^3/uL (4.0-11.0) Red Blood Count 2.90 x10^6/uL (3.50-5.40) 3.56 x10^6/uL (3.50-5.40) Hemoglobin 4.7 g/dL (12.0-15.5) 8.4 g/dL (12.0-15.5) Hematocrit 17.5 % (36.0-47.0) 26.8 % (36.0-47.0) Mean Corpuscular Volume 61 fL (79-100) 75 fL (79-100) Mean Corpuscular Hemoglobin 16 pg (25-35) 24 pg (25-35) Mean Corpuscular Hemoglobin Concent 27 g/dL (31-37) 31 g/dL (31-37) Red Cell Distribution Width 19.3 % (11.5-14.5) 30.7 % (11.5-14.5) Platelet Count 459 x10^3/uL (140-400) 322 x10^3/uL (140-400) Neutrophils (%) (Auto) 74 % (31-73) Lymphocytes (%) (Auto) 16 % (24-48) Monocytes (%) (Auto) 8 % (0-9) Eosinophils (%) (Auto) 1 % (0-3) Basophils (%) (Auto) 1 % (0-3) Neutrophils # (Auto) 6.5 x10^3/uL (1.8-7.7) Lymphocytes # (Auto) 1.4 x10^3/uL (1.0-4.8) Monocytes # (Auto) 0.7 x10^3/uL (0.0-1.1) Eosinophils # (Auto) 0.0 x10^3/uL (0.0-0.7) Basophils # (Auto) 0.1 x10^3/uL (0.0-0.2) Platelet Estimate Increased (ADEQUATE) Hypochromasia Marked Anisocytosis Slight Microcytosis Marked Prothrombin Time 13.3 SEC (11.7-14.0) Prothromb Time International Ratio 1.0 (0.8-1.1) Activated Partial Thromboplast Time 26 SEC (24-38) Urine Collection Type U cath Urine Color Yellow Urine Clarity Clear Urine pH 5.5 Urine Specific [place] 1.020 Urine Protein 30 mg/dL (NEG-TRACE) Urine Glucose (UA) Negative mg/dL (NEG) Urine Ketones (Stick) Negative mg/dL (NEG) Urine Blood Negative (NEG) Urine Nitrite Negative (NEG) Urine Bilirubin Small (NEG) Urine Urobilinogen Dipstick 1.0 mg/dL (0.2 mg/dL) Urine Leukocyte Esterase Large (NEG) Urine RBC 1-2 /HPF (0-2) Urine WBC 20-40 /HPF (0-4) Urine Squamous Epithelial Cells Few /LPF Urine Amorphous Sediment Present /HPF Urine Bacteria Moderate /HPF (0-FEW) Urine Hyaline Casts Few /HPF Urine Mucus Mod /LPF Sodium Level 144 mmol/L (136-145) Potassium Level 4.2 mmol/L (3.5-5.1) Chloride Level 107 mmol/L (98-107) Carbon Dioxide Level 24 mmol/L (21-32) Anion Gap 13 (6-14) Blood Urea Nitrogen 13 mg/dL (7-20) Creatinine 1.3 mg/dL (0.6-1.0) Estimated GFR (Cockcroft-Gault) 39.8 BUN/Creatinine Ratio 10 (6-20) Glucose Level 108 mg/dL (70-99) Calcium Level 8.4 mg/dL (8.5-10.1) Magnesium Level 2.3 mg/dL (1.8-2.4) Total Bilirubin 0.4 mg/dL (0.2-1.0) Aspartate Amino Transf (AST/SGOT) 12 U/L (15-37) Alanine Aminotransferase (ALT/SGPT) 7 U/L (14-59) Alkaline Phosphatase 91 U/L (46-116) Creatine Kinase 41 U/L (26-192) Creatine Kinase MB (Mass) 1.0 ng/mL (0.0-3.6) Creatine Kinase MB Relative Index % (0-4) Troponin I Quantitative < 0.017 ng/mL (0.000-0.055) ST-Osn-W-Type Natriuretic Peptide 1604 pg/mL (0-449) Total Protein 7.5 g/dL (6.4-8.2) Albumin 3.8 g/dL (3.4-5.0) Albumin/Globulin Ratio 1.0 (1.0-1.7) Allergies: Coded Allergies: Influenza Virus Vaccines (Verified Allergy, Intermediate, 03/20/18) Sulfa (Sulfonamide Antibiotics) (Verified Allergy, Intermediate, 03/20/18) I S O L A T I O N *CONTACT* (Verified Allergy, Unknown, 03/20/18) mrsa Medications: Current Medications Medications (Trade) Dose Ordered Sig/Emelia Route PRN Reason Start Time Stop Time Status Last Admin Dose Admin Albuterol/ Ipratropium (Duoneb) 3 ml 1X ONCE NEB 04/18/19 18:00 04/18/19 18:01 DC 04/18/19 18:01 Ceftriaxone Sodium (Rocephin) 1 gm Q24H IVP 04/18/19 19:15 04/18/19 19:29 Pantoprazole Sodium 80 mg/ Sodium Chloride 100 ml @ 10 mls/hr 1X ONCE IV 04/18/19 19:15 04/19/19 05:14 DC 04/18/19 19:29 Albuterol/ Ipratropium (Duoneb) 3 ml Q4HRS NEB 04/18/19 20:00 04/19/19 08:17 Pantoprazole Sodium 80 mg/ Sodium Chloride 100 ml @ 10 mls/hr Q10H IV 04/19/19 03:30 04/19/19 03:33 Imaging: Imaging: CXR IMPRESSION: No acute process. Stable exam. Echocardiogram pending PE: GEN: NAD, thin HEENT: Atraumatic, PERRL LUNGS: CTAB HEART: RRR ABD: NABS, S/ND/NT EXTREMITY: No edema SKIN: No rashes, no jaundice NEURO/PSYCH: A & O 3 A/P: A/P: SOA, weakness, non-compliance LIZETH H/o hiatal hernia w/ Leif lesions, antral ulcers, erosive duodenitis, and H. pylori - apparently untreated CRC screen - UTD Diverticulosis Cardiomyopathy, ?UTI -- Continue NPO and IV PPI for now until I d/w Dr. Díaz - if no plans for EGD (unclear she'd be willing), can try diet, transition to PO PPI, and add PO iron. Should address H. pylori status at some point. Update - reviewed w/ Dr. Díaz and offered EGD - pt agrees to proceed. D/w nurse Reyes in ICU - will schedule for this afternoon, remain NPO. KASIE GÓMEZ Apr 19, 2019 09:53
--- NOTE | 2019-04-19 09:56 | PDOC2 ---
MORGAN FERNANDEZ MAILING MACHINE HELPER 04/19/19 0956: CARDIAC CONSULT DATE OF CONSULT Date of Consult DATE: 04/19/19 TIME: 09:32 REASON FOR CONSULT Reason for Consult: CHF REFERRING PHYSICIAN Referring Physician: Fullbright SOURCE Source: Chart review, Patient HISTORY OF PRESENT ILLNESS HISTORY OF PRESENT ILLNESS This is a pleasant 74 yo female admitted for noted complains of weakness and SOA. She is a poor historian and could not tell me any details of her medical history. She lives with her granddaughter and could not tell me what was the concern that brought her over here except that she admits being SOA with exe rtion otherwise denies any chest pain, palpitations, nausea, vomiting, fever and no pain at all. No family member is available for further details. She is known for past cardiomyopathy and consult is for CHF which is presently very compensated. Further test revealed that she is very anemic and she does have hx of UGI bleed. GI is now following. PAST MEDICAL HISTORY Cardiovascular: CHF, HTN, Other (cardiomyopathy) Pulmonary: COPD, Other (bronchiectasis) CENTRAL NERVOUS SYSTEM: Other (No pertinent history) GI: Diverticulosis, GI bleed, Peptic Ulcer disease Heme/Onc: Anemia NOS Musculoskeletal: Osteoarthritis Renal/: UTI PAST SURGICAL HISTORY Past Surgical History: Hysterectomy, Other (left ureteral stent placement) FAMILY HISTORY Family History: Family History Unknown SOCIAL HISTORY Smoke: No ALCOHOL: none Drugs: None Lives: with Family (grandaughter) CURRENT MEDICATIONS CURRENT MEDICATIONS Current Medications Medications (Trade) Dose Ordered Sig/Emelia Route PRN Reason Start Time Stop Time Status Last Admin Dose Admin Albuterol/ Ipratropium (Duoneb) 3 ml 1X ONCE NEB 04/18/19 18:00 04/18/19 18:01 DC 04/18/19 18:01 Ceftriaxone Sodium (Rocephin) 1 gm Q24H IVP 04/18/19 19:15 04/18/19 19:29 Pantoprazole Sodium 80 mg/ Sodium Chloride 100 ml @ 10 mls/hr 1X ONCE IV 04/18/19 19:15 04/19/19 05:14 DC 04/18/19 19:29 Albuterol/ Ipratropium (Duoneb) 3 ml Q4HRS NEB 04/18/19 20:00 04/19/19 08:17 Pantoprazole Sodium 80 mg/ Sodium Chloride 100 ml @ 10 mls/hr Q10H IV 04/19/19 03:30 04/19/19 03:33 ALLERGIES ALLERGIES: Coded Allergies: Influenza Virus Vaccines (Verified Allergy, Intermediate, 03/20/18) Sulfa (Sulfonamide Antibiotics) (Verified Allergy, Intermediate, 03/20/18) I S O L A T I O N *CONTACT* (Verified Allergy, Unknown, 03/20/18) mrsa ROS Review of System limited, poor historian PHYSICAL EXAM General: Alert, Cooperative, No acute distress HEENT: Atraumatic, Mucous membr. moist/pink Lungs: Clear to auscultation, Normal air movement Heart: Other (3/6 systolic murmur to LLS border) Abdomen: Soft, No tenderness Extremities: No cyanosis, No edema Skin: No breakdown, No significant lesion Neuro: Normal speech, Sensation intact Psych/Mental Status: Other (flat affect) MUSCULOSKELETAL: Osteoarthritic changes both hands VITALS/I&O VITALS/I&O: Vital Signs Date Time Temp Pulse Resp B/P (MAP) Pulse Ox O2 Delivery O2 Flow Rate FiO2 04/19/19 08:18 100 Room Air 04/19/19 06:00 77 12 108/48 (68) 2.0 04/19/19 04:00 98.8 98.8 I & O 04/18/19 04/18/19 04/19/19 15:00 23:00 07:00 Intake Total 10 ml 543 ml Output Total 200 ml Balance 10 ml 343 ml LABS Lab: Laboratory Tests Test 04/18/19 17:51 04/18/19 17:53 04/18/19 18:00 04/19/19 04:39 Glucose (Fingerstick) 106 mg/dL (70-99) H O2 Saturation 97 % (92-99) Arterial Blood pH 7.45 (7.35-7.45) Arterial Blood pCO2 at Patient Temp 30 mmHg (35-46) L Arterial Blood pO2 at Patient Temp 85 mmHg (65-108) Arterial Blood HCO3 20 mmol/L (21-28) L Arterial Blood Base Excess -4 mmol/L (-3-3) L Oxyhemoglobin 94.8 % Methemoglobin 1.1 % (0.0-1.9) Carbon Monoxide, Quantitative 0.9 % (0.0-1.9) FiO2 21 White Blood Count 8.7 x10^3/uL (4.0-11.0) 7.4 x10^3/uL (4.0-11.0) Red Blood Count 2.90 x10^6/uL (3.50-5.40) L 3.56 x10^6/uL (3.50-5.40) Hemoglobin 4.7 g/dL (12.0-15.5) *L 8.4 g/dL (12.0-15.5) #L Hematocrit 17.5 % (36.0-47.0) *L 26.8 % (36.0-47.0) L Mean Corpuscular Volume 61 fL (79-100) L 75 fL (79-100) #L Mean Corpuscular Hemoglobin 16 pg (25-35) L 24 pg (25-35) L Mean Corpuscular Hemoglobin Concent 27 g/dL (31-37) L 31 g/dL (31-37) Red Cell Distribution Width 19.3 % (11.5-14.5) H 30.7 % (11.5-14.5) H Platelet Count 459 x10^3/uL (140-400) H 322 x10^3/uL (140-400) Neutrophils (%) (Auto) 74 % (31-73) H Lymphocytes (%) (Auto) 16 % (24-48) L Monocytes (%) (Auto) 8 % (0-9) Eosinophils (%) (Auto) 1 % (0-3) Basophils (%) (Auto) 1 % (0-3) Neutrophils # (Auto) 6.5 x10^3/uL (1.8-7.7) Lymphocytes # (Auto) 1.4 x10^3/uL (1.0-4.8) Monocytes # (Auto) 0.7 x10^3/uL (0.0-1.1) Eosinophils # (Auto) 0.0 x10^3/uL (0.0-0.7) Basophils # (Auto) 0.1 x10^3/uL (0.0-0.2) Platelet Estimate Increased (ADEQUATE) Hypochromasia Marked Anisocytosis Slight Microcytosis Marked Prothrombin Time 13.3 SEC (11.7-14.0) Prothrombin Time INR 1.0 (0.8-1.1) Activated Partial Thromboplast Time 26 SEC (24-38) Urine Collection Type U cath Urine Color Yellow Urine Clarity Clear Urine pH 5.5 Urine Specific [place] 1.020 Urine Protein 30 mg/dL (NEG-TRACE) Urine Glucose (UA) Negative mg/dL (NEG) Urine Ketones (Stick) Negative mg/dL (NEG) Urine Blood Negative (NEG) Urine Nitrite Negative (NEG) Urine Bilirubin Small (NEG) Urine Urobilinogen Dipstick 1.0 mg/dL (0.2 mg/dL) Urine Leukocyte Esterase Large (NEG) Urine RBC 1-2 /HPF (0-2) Urine WBC 20-40 /HPF (0-4) Urine Squamous Epithelial Cells Few /LPF Urine Amorphous Sediment Present /HPF Urine Bacteria Moderate /HPF (0-FEW) Urine Hyaline Casts Few /HPF Urine Mucus Mod /LPF Sodium Level 144 mmol/L (136-145) Potassium Level 4.2 mmol/L (3.5-5.1) Chloride Level 107 mmol/L (98-107) Carbon Dioxide Level 24 mmol/L (21-32) Anion Gap 13 (6-14) Blood Urea Nitrogen 13 mg/dL (7-20) Creatinine 1.3 mg/dL (0.6-1.0) H Estimated GFR (Cockcroft-Gault) 39.8 BUN/Creatinine Ratio 10 (6-20) Glucose Level 108 mg/dL (70-99) H Calcium Level 8.4 mg/dL (8.5-10.1) L Magnesium Level 2.3 mg/dL (1.8-2.4) Total Bilirubin 0.4 mg/dL (0.2-1.0) Aspartate Amino Transferase (AST) 12 U/L (15-37) L Alanine Aminotransferase (ALT) 7 U/L (14-59) L Alkaline Phosphatase 91 U/L (46-116) Creatine Kinase 41 U/L (26-192) Creatine Kinase MB (Mass) 1.0 ng/mL (0.0-3.6) Creatine Kinase MB Relative Index % (0-4) Troponin I Quantitative < 0.017 ng/mL (0.000-0.055) QC-Iem-Z-Type Natriuretic Peptide 1604 pg/mL (0-449) H Total Protein 7.5 g/dL (6.4-8.2) Albumin 3.8 g/dL (3.4-5.0) Albumin/Globulin Ratio 1.0 (1.0-1.7) Laboratory Tests 04/18/19 18:00 04/19/19 04:39 Laboratory Tests 04/18/19 18:00 ECHOCARDIOGRAM ECHOCARDIOGRAM <Conclusion> Left ventricle systoic function is severely impaired. The anteroseptal wall appears akinetic. The Ejection Fraction is estimated at 15-20%. Trace mitral regurgitation. Trace tricuspid regurgitation. There is no evidence of significant pericardial effusion. DATE: 03/21/18 1611 ASSESSMENT/PLAN ASSESSMENT/PLAN 1. Severe anemia: post transfusion 2UPRBC 2. Dyspnea/weakness: mainly due to anemia 3. Hx of UGI bleed/PUD: GI following 4. Cardiomyopathy: Noted EF at 15-20% in 03/2018. Improved to 45% preliminary reading. 5. Chronic systolic CHF: compensated 6. HTN: controlled 7. Bronchiectasis/COPD 8. Possible dementia Recommendations 1. Pt failed to follow up in office as an outpt. No noted past ischemic workup in relation to her CM. It is unclear if she has followed up with any pediatric nephrologist as outpt. Also unclear as far as her accurate meds, nevertheless her EF has significantly improved. Await GI workup and will initiate further CV medical therapy pending the latter. Will discuss further with her granddaughter when she is available. Await full TTE report 2. lipids, TSH, BMP, Mg KIP CHUA MD 04/19/19 1449: CARDIAC CONSULT ASSESSMENT/PLAN ASSESSMENT/PLAN Pt. seen and examined. Agree with above FINGERPRINT EXPERT note with following changes. She still has significant LV dysfunction. Given profound anemia, no indication to perform any cardiac procedures at this time She has not taken her meds since last march according to the pharmacy records, will need to confirm with family After stabilization, will likely plan for HF regimen upon discharge and consider outpt ischemic testing. Supportive care. Poor prognosis, consider palliative care evaluation given her dementia. MORGAN FERNANDEZ APRN Apr 19, 2019 09:56 KIP CHUA MD Apr 19, 2019 14:49
[2019-04-19 10:34] LABS: CALCIUM 8.1 mg/dL (8.5-10.1); GFR 53.9; MAGNESIUM 2.2 mg/dL (1.8-2.4); POTASSIUM 4.3 mmol/L (3.5-5.1)
--- NOTE | 2019-04-19 12:26 | PDOC ---
[employer] PROGRESS NOTE Chief Complaint Chief Complaint Anemia, Dyspnea, UTI, SOB History of Present Illness History of Present Illness Patient is a 74 year old female brought to the ER by her granddaughters with complaints of shortness of breath and generalized weakness for the last 2 days. Granddaughters report that she is supposed to take medication for a lung problem that she has but state that the patient stopped taking the medication a while ago. Pt denies any fever, cough, chest pain, palpitations, nausea, vomiting, diarrhea, or swelling. She denies any pain at this time. Her only complaint is shortness of breath. PT and family deny any recent travel via car or plane. Deidre ent was seen and examined in the ICU. Discussed with RN about her potential dietary iron deficiency. Will likely begin a PO iron supplement. Vitals/I&O Vitals/I&O: Vital Signs Date Time Temp Pulse Resp B/P (MAP) Pulse Ox O2 Delivery O2 Flow Rate FiO2 04/19/19 10:00 72 16 149/57 (87) 96 Room Air 04/19/19 08:00 98.6 98.6 04/19/19 06:00 2.0 I & O 04/18/19 04/18/19 04/19/19 15:00 23:00 07:00 Intake Total 10 ml 543 ml Output Total 200 ml Balance 10 ml 343 ml Physical Exam General: Alert, Oriented X3, Cooperative, No acute distress Heart: Regular rate, Normal S1, Normal S2, No murmurs, Other (3/6 systolic murmur to LLS border) Lungs: Clear, Other Abdomen: Soft, No tenderness, No hepatosplenomegaly Extremities: No cyanosis, No edema Skin: No breakdown, No significant lesion Labs Labs: Laboratory Tests Test 04/18/19 17:51 04/18/19 17:53 04/18/19 18:00 04/19/19 04:39 Glucose (Fingerstick) 106 mg/dL (70-99) O2 Saturation 97 % (92-99) Arterial Blood pH 7.45 (7.35-7.45) Arterial Blood pCO2 at Patient Temp 30 mmHg (35-46) Arterial Blood pO2 at Patient Temp 85 mmHg (65-108) Arterial Blood HCO3 20 mmol/L (21-28) Arterial Blood Base Excess -4 mmol/L (-3-3) Oxyhemoglobin 94.8 % Methemoglobin 1.1 % (0.0-1.9) Carbon Monoxide, Quantitative 0.9 % (0.0-1.9) FiO2 21 White Blood Count 8.7 x10^3/uL (4.0-11.0) 7.4 x10^3/uL (4.0-11.0) Red Blood Count 2.90 x10^6/uL (3.50-5.40) 3.56 x10^6/uL (3.50-5.40) Hemoglobin 4.7 g/dL (12.0-15.5) 8.4 g/dL (12.0-15.5) Hematocrit 17.5 % (36.0-47.0) 26.8 % (36.0-47.0) Mean Corpuscular Volume 61 fL (79-100) 75 fL (79-100) Mean Corpuscular Hemoglobin 16 pg (25-35) 24 pg (25-35) Mean Corpuscular Hemoglobin Concent 27 g/dL (31-37) 31 g/dL (31-37) Red Cell Distribution Width 19.3 % (11.5-14.5) 30.7 % (11.5-14.5) Platelet Count 459 x10^3/uL (140-400) 322 x10^3/uL (140-400) Neutrophils (%) (Auto) 74 % (31-73) Lymphocytes (%) (Auto) 16 % (24-48) Monocytes (%) (Auto) 8 % (0-9) Eosinophils (%) (Auto) 1 % (0-3) Basophils (%) (Auto) 1 % (0-3) Neutrophils # (Auto) 6.5 x10^3/uL (1.8-7.7) Lymphocytes # (Auto) 1.4 x10^3/uL (1.0-4.8) Monocytes # (Auto) 0.7 x10^3/uL (0.0-1.1) Eosinophils # (Auto) 0.0 x10^3/uL (0.0-0.7) Basophils # (Auto) 0.1 x10^3/uL (0.0-0.2) Platelet Estimate Increased (ADEQUATE) Hypochromasia Marked Anisocytosis Slight Microcytosis Marked Prothrombin Time 13.3 SEC (11.7-14.0) Prothromb Time International Ratio 1.0 (0.8-1.1) Activated Partial Thromboplast Time 26 SEC (24-38) Urine Collection Type U cath Urine Color Yellow Urine Clarity Clear Urine pH 5.5 Urine Specific [place] 1.020 Urine Protein 30 mg/dL (NEG-TRACE) Urine Glucose (UA) Negative mg/dL (NEG) Urine Ketones (Stick) Negative mg/dL (NEG) Urine Blood Negative (NEG) Urine Nitrite Negative (NEG) Urine Bilirubin Small (NEG) Urine Urobilinogen Dipstick 1.0 mg/dL (0.2 mg/dL) Urine Leukocyte Esterase Large (NEG) Urine RBC 1-2 /HPF (0-2) Urine WBC 20-40 /HPF (0-4) Urine Squamous Epithelial Cells Few /LPF Urine Amorphous Sediment Present /HPF Urine Bacteria Moderate /HPF (0-FEW) Urine Hyaline Casts Few /HPF Urine Mucus Mod /LPF Sodium Level 144 mmol/L (136-145) 144 mmol/L (136-145) Potassium Level 4.2 mmol/L (3.5-5.1) 4.3 mmol/L (3.5-5.1) Chloride Level 107 mmol/L (98-107) 110 mmol/L (98-107) Carbon Dioxide Level 24 mmol/L (21-32) 24 mmol/L (21-32) Anion Gap 13 (6-14) 10 (6-14) Blood Urea Nitrogen 13 mg/dL (7-20) 12 mg/dL (7-20) Creatinine 1.3 mg/dL (0.6-1.0) 1.0 mg/dL (0.6-1.0) Estimated GFR (Cockcroft-Gault) 39.8 53.9 BUN/Creatinine Ratio 10 (6-20) Glucose Level 108 mg/dL (70-99) 63 mg/dL (70-99) Calcium Level 8.4 mg/dL (8.5-10.1) 8.1 mg/dL (8.5-10.1) Magnesium Level 2.3 mg/dL (1.8-2.4) 2.2 mg/dL (1.8-2.4) Total Bilirubin 0.4 mg/dL (0.2-1.0) Aspartate Amino Transf (AST/SGOT) 12 U/L (15-37) Alanine Aminotransferase (ALT/SGPT) 7 U/L (14-59) Alkaline Phosphatase 91 U/L (46-116) Creatine Kinase 41 U/L (26-192) Creatine Kinase MB (Mass) 1.0 ng/mL (0.0-3.6) Creatine Kinase MB Relative Index % (0-4) Troponin I Quantitative < 0.017 ng/mL (0.000-0.055) PX-Kok-V-Type Natriuretic Peptide 1604 pg/mL (0-449) Total Protein 7.5 g/dL (6.4-8.2) Albumin 3.8 g/dL (3.4-5.0) Albumin/Globulin Ratio 1.0 (1.0-1.7) Triglycerides Level 61 mg/dL (0-150) Cholesterol Level 128 mg/dL (0-200) LDL Cholesterol, Calculated 73 mg/dL (0-100) VLDL Cholesterol, Calculated 12 mg/dL (0-40) Non-HDL Cholesterol Calculated 85 mg/dL (0-129) HDL Cholesterol 43 mg/dL (40-60) Cholesterol/HDL Ratio 3.0 Thyroid Stimulating Hormone (TSH) 1.555 uIU/mL (0.358-3.74) Review of Systems Review of Systems: Patient denies Blurry vision and N/V Assessment and Plan Assessmemt and Plan Assessment: Anemia, Dyspnea, UTI, SOB Plan: 1. Antibiotics 2. cardiac monitoring 3. Begin Iron supplement (325 mg PO BID FeSO4) 4. Begin Protonics 5. Begin laxative (Colace 100 mg PO BID) 6. Consult Dr. Joseph (Heme-Onc) 7. DVT prophylaxis Comment Review of Relevant I have reviewed the following items marshal (where applicable) has been applied. Medications: Current Medications Medications (Trade) Dose Ordered Sig/Emelia Route PRN Reason Start Time Stop Time Status Last Admin Dose Admin Albuterol/ Ipratropium (Duoneb) 3 ml 1X ONCE NEB 04/18/19 18:00 04/18/19 18:01 DC 04/18/19 18:01 Ceftriaxone Sodium (Rocephin) 1 gm Q24H IVP 04/18/19 19:15 04/18/19 19:29 Pantoprazole Sodium 80 mg/ Sodium Chloride 100 ml @ 10 mls/hr 1X ONCE IV 04/18/19 19:15 04/19/19 05:14 DC 04/18/19 19:29 Albuterol/ Ipratropium (Duoneb) 3 ml Q4HRS NEB 04/18/19 20:00 04/19/19 08:17 Pantoprazole Sodium 80 mg/ Sodium Chloride 100 ml @ 10 mls/hr Q10H IV 04/19/19 03:30 04/19/19 03:33 SHIRIN CORTEZ III DO Apr 19, 2019 12:26
--- NOTE | 2019-04-19 13:50 | CONS ---
DATE OF CONSULTATION: 04/19/2019 HEMATOLOGY/ONCOLOGY CONSULTATION REQUESTING PHYSICIAN: Benson Miranda MD REASON FOR CONSULTATION: Severe anemia. HISTORY OF PRESENT ILLNESS: The patient is a 74-year-old female who was brought into the Emergency Room by her granddaughter for complaints of dyspnea and generalized weakness. She was noted to have profound anemia with a hemoglobin of 4.7 on 04/18/2019 with an MCV of 61 and a platelet count of 459 and a normal WBC count of 8.7. She received 2 units of PRBC transfusion on 04/18/2019 and the hemoglobin improved to 8.4 on 04/19/2019. She denies hematemesis, melena or hematochezia. No hemoptysis or hematuria. No nose bleeds or gum bleeding. No change in bowel habits. She denies abdominal pain, nausea or vomiting. She has had a history of EGD and colonoscopy in 2017 and another EGD in 2018. She has history of hiatal hernia with Leif lesions, antral ulcers, erosive duodenitis and diverticulosis. She also has a history of H. pylori twice and she was treated with Prevpac. She has had a CT scan of the abdomen and pelvis on 03/21/2018 which revealed borderline hepatomegaly and borderline splenomegaly. She had GI bleed during that admission in 03/2018. I was asked to see the patient for further evaluation of anemia. PAST MEDICAL HISTORY: Cardiomyopathy, hypertension, COPD, UTI, hiatal hernia with Leif lesions, antral ulcers, erosive duodenitis, diverticulosis, H. pylori, cardiomyopathy, hypertension, COPD, UTI, hysterectomy, left ureteral stent and nephrostomy. FAMILY HISTORY: Negative for any primary hematologic disorders. SOCIAL HISTORY: No smoking or alcohol abuse. REVIEW OF SYSTEMS: A 12-point review of system was performed. Pertinent positives are mentioned in the history of present illness. Rest of the system review is negative. PHYSICAL EXAMINATION: GENERAL APPEARANCE: The patient is a 74-year-old female who is in no acute cardiorespiratory distress. VITAL SIGNS: Blood pressure 149/57, temperature 98.6. HEENT: Head is atraumatic, normocephalic. EYES: No icterus. NECK: Supple. CHEST: Bilaterally symmetrical. HEART: S1, S2 normal. ABDOMEN: Soft, nontender. CENTRAL NERVOUS SYSTEM: No focal deficits. LYMPHATICS: No lymphadenopathy. SKIN: No rashes. PSYCHOLOGIC: Mood and affect are appropriate. MUSCULOSKELETAL: No joint effusions. LABORATORY DATA: CBC on 04/18/2019 revealed a WBC of 8.7, hemoglobin 4.7, MCV 61, platelet count 459. Creatinine 1.0. Total bilirubin 0.4, AST 12, ALT 7, alkaline phosphatase 91, total protein 7.5, albumin 3.8. TSH 1.555. IMPRESSION AND PLAN: 1. Hypochromic microcytic anemia, which I suspect is due to iron deficiency from possible gastrointestinal bleed. She has a history of antral ulcers, erosive duodenitis and Leif lesions in the prior EGD in 2018. I will check iron studies, B12 and reticulocyte count. Hemoglobin was 4.7 on 04/18/2019 and improved to 8.4 on 04/19/2019 after 2 units of PRBC. Continue to monitor hemoglobin and transfuse as needed. I will plan for iron supplementation after the iron results are back. 2. Thrombocytosis, which I suspect is due to iron deficiency. Continue to monitor. 3. Appreciate GI consultation and management. UGO JOINER MD DR: COLIN/villa JOB#: [id number] / [id number]
[2019-04-19 14:10] LABS: HEMATOCRIT 29.9 % (36.0-47.0); HEMOGLOBIN 9.2 g/dL (12.0-15.5); RED BLOOD COUNT 4.01 x10^6/uL (3.50-5.40); RED CELL DISTRIBUTION WIDTH 30.2 % (11.5-14.5); WHITE BLOOD COUNT 6.6 x10^3/uL (4.0-11.0)
[2019-04-19] MEDS ORDERED: IV RINGERS,LACTATED 1000ML 1,000 ML IV ONE (15:15)
--- NOTE | 2019-04-19 15:20 | NUR ---
Transport picked patient up at 1500 for EGD. Will take patient to 654 after. Telephone report given to Quan Ugarte. Patient belongings taken to room 654 by this nurse.
[2019-04-19] MEDS ORDERED: LIDOCAINE 2% PF 5 ML VIAL. ONE (15:54)
[2019-04-19] MEDS ORDERED: PROPOFOL 20 ML IV ONE (15:54)
--- NOTE | 2019-04-19 16:25 | NUR ---
SS following for discharge planning. SS reviewed pt chart. Pt is from home and is currently on room air. Pt transferred from ICU to 654. Lizabeth ALEX, notified.
--- NOTE | 2019-04-19 16:48 | PDOC4 ---
PROCEDURE Procedure EGD with bx and dilation anemia, hx of ulcers, gastritis, HH, h pylori anesthesia with propofol Findings E - distal esophageal stricture/ ring- dilated 6 cm hiatal hernia Gastric- Leif ulcers in body, gastritis with erosions in antrum (bx) Duod- duodenitis without ulceration Plan PPI r/o H pylori transfuse and add iron therapy STEVEN SALGADO MD Apr 19, 2019 16:48
[2019-04-19] MEDS: SUCRALFATE 1 GM/10 ML ORAL.SUSP. PO SCH (17:26)
[2019-04-19] MEDS: CYANOCOBALAMIN (VITAMIN B-12) 1,000 MCG/ML VIAL IM SCH (17:27)
[2019-04-19] MEDS: CARVEDILOL 3.125 MG TABLET. PO SCH (17:31)
[2019-04-19] MEDS: cefTRIAXone IV Push 1 GM VIAL. IVP SCH (21:11)
[2019-04-19 22:04] LABS: HEMATOCRIT 29.9 % (36.0-47.0); HEMOGLOBIN 9.1 g/dL (12.0-15.5); RED BLOOD COUNT 3.98 x10^6/uL (3.50-5.40); RED CELL DISTRIBUTION WIDTH 30.3 % (11.5-14.5); WHITE BLOOD COUNT 7.1 x10^3/uL (4.0-11.0)
[2019-04-20] MEDS: PANTOPRAZOLE SODIUM IV DRIP 80 MG in IV NORMAL SALINE 100ML 100 ML IV SCH ×2 (00:09→09:09)
[2019-04-20] MEDS: IV NORMAL SALINE 1000ML BAG 1,000 ML IV SCH ×2 (00:13→12:39)
[2019-04-20 03:19] VITALS: BP 110/59
[2019-04-20] MEDS: IPRATRPIUM/ALBUTEROL 0.5/2.5MG 3 ML NEBU. NEB SCH ×6 (04:00→20:14)
[2019-04-20 05:26] LABS: BASO # 0.1 x10^3/uL (0.0-0.2); BASO % 1 % (0-3); EOS # 0.2 x10^3/uL (0.0-0.7); EOS % 3 % (0-3); HEMOGLOBIN 8.6 g/dL (12.0-15.5); LYMPH # 1.8 x10^3/uL (1.0-4.8); LYMPH % 30 % (24-48); MEAN CORPUSCULAR HEMOGLOBIN 23 pg (25-35); MEAN CORPUSCULAR HGB CONC 31 g/dL (31-37); MEAN CORPUSCULAR VOLUME 75 fL (79-100); MONO # 0.6 x10^3/uL (0.0-1.1); MONO % 9 % (0-9); NEUT # 3.5 x10^3/uL (1.8-7.7); NEUT % 58 % (31-73); PLATELET COUNT 335 x10^3/uL (140-400); RED BLOOD COUNT 3.75 x10^6/uL (3.50-5.40); RED CELL DISTRIBUTION WIDTH 30.1 % (11.5-14.5); WHITE BLOOD COUNT 6.1 x10^3/uL (4.0-11.0)
[2019-04-20 05:55] LABS: ALBUMIN 3.2 g/dL (3.4-5.0); CALCIUM 8.7 mg/dL (8.5-10.1); GFR 53.9; POTASSIUM 3.8 mmol/L (3.5-5.1); TOTAL BILIRUBIN 0.9 mg/dL (0.2-1.0); TOTAL PROTEIN 6.3 g/dL (6.4-8.2)
[2019-04-20 07:10] VITALS: BP 114/49
[2019-04-20] MEDS: ACETAMINOPHEN 500 MG TABLET PO SCH ×2 (09:18→21:27)
[2019-04-20] MEDS: CYANOCOBALAMIN (VITAMIN B-12) 1,000 MCG/ML VIAL IM SCH (09:19)
[2019-04-20] MEDS: CARVEDILOL 3.125 MG TABLET. PO SCH ×2 (09:19→16:13)
--- NOTE | 2019-04-20 09:35 | PDOC ---
Subjective: Subjective: Feels fine, wants to leave. Didn't eat breakfast because she never eats breakfast. No complaints. Objective: Objective: D/w nurse - some confusion, wants to leave, family not here yet. IV iron ordered by hematology. Vital Signs: Vital Signs Date Time Temp Pulse Resp B/P (MAP) Pulse Ox O2 Delivery O2 Flow Rate FiO2 04/20/19 09:19 76 114/49 04/20/19 08:50 100 Room Air 04/20/19 07:10 98.1 16 98.1 04/19/19 16:47 3 Labs: Laboratory Tests Test 04/19/19 14:00 04/19/19 21:50 04/20/19 03:38 White Blood Count 6.6 x10^3/uL 7.1 x10^3/uL 6.1 x10^3/uL Red Blood Count 4.01 x10^6/uL 3.98 x10^6/uL 3.75 x10^6/uL Hemoglobin 9.2 g/dL 9.1 g/dL 8.6 g/dL Hematocrit 29.9 % 29.9 % 28.0 % Mean Corpuscular Volume 75 fL 75 fL 75 fL Mean Corpuscular Hemoglobin 23 pg 23 pg 23 pg Mean Corpuscular Hemoglobin Concent 31 g/dL 30 g/dL 31 g/dL Red Cell Distribution Width 30.2 % 30.3 % 30.1 % Platelet Count 354 x10^3/uL 312 x10^3/uL 335 x10^3/uL Absolute Reticulocyte Count 0.086 x10^6/uL Percent Reticulocyte Count 2.1 % Immature Reticulocyte Fraction 0.48 Iron Level 124 ug/dL Total Iron Binding Capacity 421 ug/dL Iron Saturation 29 % Ferritin 9 ng/mL Vitamin B12 Level 225 pg/mL Neutrophils (%) (Auto) 58 % Lymphocytes (%) (Auto) 30 % Monocytes (%) (Auto) 9 % Eosinophils (%) (Auto) 3 % Basophils (%) (Auto) 1 % Neutrophils # (Auto) 3.5 x10^3/uL Lymphocytes # (Auto) 1.8 x10^3/uL Monocytes # (Auto) 0.6 x10^3/uL Eosinophils # (Auto) 0.2 x10^3/uL Basophils # (Auto) 0.1 x10^3/uL Sodium Level 142 mmol/L Potassium Level 3.8 mmol/L Chloride Level 107 mmol/L Carbon Dioxide Level 26 mmol/L Anion Gap 9 Blood Urea Nitrogen 11 mg/dL Creatinine 1.0 mg/dL Estimated GFR (Cockcroft-Gault) 53.9 BUN/Creatinine Ratio 11 Glucose Level 70 mg/dL Calcium Level 8.7 mg/dL Total Bilirubin 0.9 mg/dL Aspartate Amino Transf (AST/SGOT) 11 U/L Alanine Aminotransferase (ALT/SGPT) 7 U/L Alkaline Phosphatase 69 U/L Total Protein 6.3 g/dL Albumin 3.2 g/dL Albumin/Globulin Ratio 1.0 Imaging: EGD 04/19 E - distal esophageal stricture/ ring- dilated 6 cm hiatal hernia Gastric- Leif ulcers in body, gastritis with erosions in antrum (bx) Duod- duodenitis without ulceration PE: GEN: NAD LUNGS: CTAB HEART: RRR ABD: NABS, S/ND/NT NEURO/PSYCH: appropriate when I saw though obviously forgetful A/P: Anemia - iron and B12 deficient Hiatal hernia w/ Leif lesions, gastritis, duodenitis H/o H. pylori Dementia -- Discussed PPI, sucralfate, iron, B12, and f/u re: biopsies w/ h/o H. pylori (apparently non-compliant w/ treatment in the past). Sucralfate and iron can be constipating, add Miralax PRN. DC per primary. Would be happy to discuss w/ family when/if they're around. KASIE GÓMEZ Apr 20, 2019 09:34
[2019-04-20] MEDS ORDERED: CYANOCOBALAMIN (VITAMIN B-12) 1,000 MCG/ML VIAL IM ONE (09:45)
[2019-04-20] MEDS ORDERED: POLYETHYLENE GLYCOL 3350 17 GM PACKET. PO PRN (09:45)
[2019-04-20] MEDS ORDERED: IRON SUCROSE COMPLEX 500 MG in IV NORMAL SALINE 250ML 250 ML IV ONE (10:00)
[2019-04-20] MEDS: PANTOPRAZOLE 40 MG TABLET.DR. PO SCH (10:00)
--- NOTE | 2019-04-20 10:01 | PDOC ---
PROGRESS NOTES Chief Complaint Chief Complaint Acute GI Bleed - EGD 04/19/19: Leif ulcers in body, gastritis with erosions in antrum (bx) Dyspnea UTI SOB Hypochromic microcytic anemia - Hb 4.7 on 04/18/2019 and improved to 8.4 on 04/19/2019 after 2 units of PRBC. Ferritin 9 - plan venofer 500 mg IV 04/20/19. Thrombocytosis B12 def, 225 History of Present Illness History of Present Illness Patient is a 74 year old female brought to the ER by her granddaughters with complaints of shortness of breath and generalized weakness for the last 2 days. Granddaughters report that she is supposed to take medication for a lung problem that she has but state that the patient stopped taking the medication a while ago. Pt denies any fever, cough, chest pain, palpitations, nausea, vomiting, diarrhea, or swelling. She denies any pain at this time. Her only complaint is shortness of breath. PT and family deny any recent travel via car or plane. Giuliana la was seen and examined . Discussed with RN about her potential dietary iron deficiency. Will likely begin a PO iron supplement. She is feeling very weak today. Seen by Heme/onc and GI. Still mildly SOB. Vitals Vitals Vital Signs Date Time Temp Pulse Resp B/P (MAP) Pulse Ox O2 Delivery O2 Flow Rate FiO2 04/20/19 09:19 76 114/49 04/20/19 08:50 100 Room Air 04/20/19 07:10 98.1 16 98.1 04/19/19 16:47 3 Physical Exam General: Alert, Oriented X3, Cooperative, No acute distress Heart: Regular rate, Normal S1, Normal S2, No murmurs, Other (3/6 systolic murmur to LLS border) Lungs: Clear, Other Abdomen: Soft, No tenderness, No hepatosplenomegaly Extremities: No cyanosis, No edema Skin: No breakdown, No significant lesion Labs LABS Laboratory Tests Test 04/19/19 14:00 04/19/19 21:50 04/20/19 03:38 White Blood Count 6.6 x10^3/uL (4.0-11.0) 7.1 x10^3/uL (4.0-11.0) 6.1 x10^3/uL (4.0-11.0) Red Blood Count 4.01 x10^6/uL (3.50-5.70) 3.98 x10^6/uL (3.50-5.40) 3.75 x10^6/uL (3.50-5.40) Hemoglobin 9.2 g/dL (12.0-15.5) 9.1 g/dL (12.0-15.5) 8.6 g/dL (12.0-15.5) Hematocrit 29.9 % (36.0-47.0) 29.9 % (36.0-47.0) 28.0 % (36.0-47.0) Mean Corpuscular Volume 75 fL (79-100) 75 fL (79-100) 75 fL (79-100) Mean Corpuscular Hemoglobin 23 pg (25-35) 23 pg (25-35) 23 pg (25-35) Mean Corpuscular Hemoglobin Concent 31 g/dL (31-37) 30 g/dL (31-37) 31 g/dL (31-37) Red Cell Distribution Width 30.2 % (11.5-14.5) 30.3 % (11.5-14.5) 30.1 % (11.5-14.5) Platelet Count 354 x10^3/uL (140-400) 312 x10^3/uL (140-400) 335 x10^3/uL (140-400) Absolute Reticulocyte Count 0.086 x10^6/uL (0.020-0.120) Percent Reticulocyte Count 2.1 % (0.5-2.3) Immature Reticulocyte Fraction 0.48 (0.20-0.60) Iron Level 124 ug/dL (50-170) Total Iron Binding Capacity 421 ug/dL (250-450) Iron Saturation 29 % (15-34) Ferritin 9 ng/mL (8-252) Vitamin B12 Level 225 pg/mL (247-911) Neutrophils (%) (Auto) 58 % (31-73) Lymphocytes (%) (Auto) 30 % (24-48) Monocytes (%) (Auto) 9 % (0-9) Eosinophils (%) (Auto) 3 % (0-3) Basophils (%) (Auto) 1 % (0-3) Neutrophils # (Auto) 3.5 x10^3/uL (1.8-7.7) Lymphocytes # (Auto) 1.8 x10^3/uL (1.0-4.8) Monocytes # (Auto) 0.6 x10^3/uL (0.0-1.1) Eosinophils # (Auto) 0.2 x10^3/uL (0.0-0.7) Basophils # (Auto) 0.1 x10^3/uL (0.0-0.2) Sodium Level 142 mmol/L (136-145) Potassium Level 3.8 mmol/L (3.5-5.1) Chloride Level 107 mmol/L (98-107) Carbon Dioxide Level 26 mmol/L (21-32) Anion Gap 9 (6-14) Blood Urea Nitrogen 11 mg/dL (7-20) Creatinine 1.0 mg/dL (0.6-1.0) Estimated GFR (Cockcroft-Gault) 53.9 BUN/Creatinine Ratio 11 (6-20) Glucose Level 70 mg/dL (70-99) Calcium Level 8.7 mg/dL (8.5-10.1) Total Bilirubin 0.9 mg/dL (0.2-1.0) Aspartate Amino Transf (AST/SGOT) 11 U/L (15-37) Alanine Aminotransferase (ALT/SGPT) 7 U/L (14-59) Alkaline Phosphatase 69 U/L (46-116) Total Protein 6.3 g/dL (6.4-8.2) Albumin 3.2 g/dL (3.4-5.0) Albumin/Globulin Ratio 1.0 (1.0-1.7) Comment Review of Relevant I have reviewed the following items marshal (where applicable) has been applied. Labs Laboratory Tests Test 04/18/19 17:51 04/18/19 17:53 04/18/19 18:00 04/18/19 21:00 Glucose (Fingerstick) 106 mg/dL (70-99) O2 Saturation 97 % (92-99) Arterial Blood pH 7.45 (7.35-7.45) Arterial Blood pCO2 at Patient Temp 30 mmHg (35-46) Arterial Blood pO2 at Patient Temp 85 mmHg (65-108) Arterial Blood HCO3 20 mmol/L (21-28) Arterial Blood Base Excess -4 mmol/L (-3-3) Oxyhemoglobin 94.8 % Methemoglobin 1.1 % (0.0-1.9) Carbon Monoxide, Quantitative 0.9 % (0.0-1.9) FiO2 21 White Blood Count 8.7 x10^3/uL (4.0-11.0) Red Blood Count 2.90 x10^6/uL (3.50-5.40) Hemoglobin 4.7 g/dL (12.0-15.5) Hematocrit 17.5 % (36.0-47.0) Mean Corpuscular Volume 61 fL (79-100) Mean Corpuscular Hemoglobin 16 pg (25-35) Mean Corpuscular Hemoglobin Concent 27 g/dL (31-37) Red Cell Distribution Width 19.3 % (11.5-14.5) Platelet Count 459 x10^3/uL (140-400) Neutrophils (%) (Auto) 74 % (31-73) Lymphocytes (%) (Auto) 16 % (24-48) Monocytes (%) (Auto) 8 % (0-9) Eosinophils (%) (Auto) 1 % (0-3) Basophils (%) (Auto) 1 % (0-3) Neutrophils # (Auto) 6.5 x10^3/uL (1.8-7.7) Lymphocytes # (Auto) 1.4 x10^3/uL (1.0-4.8) Monocytes # (Auto) 0.7 x10^3/uL (0.0-1.1) Eosinophils # (Auto) 0.0 x10^3/uL (0.0-0.7) Basophils # (Auto) 0.1 x10^3/uL (0.0-0.2) Platelet Estimate Increased (ADEQUATE) Hypochromasia Marked Anisocytosis Slight Microcytosis Marked Prothrombin Time 13.3 SEC (11.7-14.0) Prothromb Time International Ratio 1.0 (0.8-1.1) Activated Partial Thromboplast Time 26 SEC (24-38) Urine Collection Type U cath Urine Color Yellow Urine Clarity Clear Urine pH 5.5 Urine Specific [place] 1.020 Urine Protein 30 mg/dL (NEG-TRACE) Urine Glucose (UA) Negative mg/dL (NEG) Urine Ketones (Stick) Negative mg/dL (NEG) Urine Blood Negative (NEG) Urine Nitrite Negative (NEG) Urine Bilirubin Small (NEG) Urine Urobilinogen Dipstick 1.0 mg/dL (0.2 mg/dL) Urine Leukocyte Esterase Large (NEG) Urine RBC 1-2 /HPF (0-2) Urine WBC 20-40 /HPF (0-4) Urine Squamous Epithelial Cells Few /LPF Urine Amorphous Sediment Present /HPF Urine Bacteria Moderate /HPF (0-FEW) Urine Hyaline Casts Few /HPF Urine Mucus Mod /LPF Sodium Level 144 mmol/L (136-145) Potassium Level 4.2 mmol/L (3.5-5.1) Chloride Level 107 mmol/L (98-107) Carbon Dioxide Level 24 mmol/L (21-32) Anion Gap 13 (6-14) Blood Urea Nitrogen 13 mg/dL (7-20) Creatinine 1.3 mg/dL (0.6-1.0) Estimated GFR (Cockcroft-Gault) 39.8 BUN/Creatinine Ratio 10 (6-20) Glucose Level 108 mg/dL (70-99) Calcium Level 8.4 mg/dL (8.5-10.1) Magnesium Level 2.3 mg/dL (1.8-2.4) Total Bilirubin 0.4 mg/dL (0.2-1.0) Aspartate Amino Transf (AST/SGOT) 12 U/L (15-37) Alanine Aminotransferase (ALT/SGPT) 7 U/L (14-59) Alkaline Phosphatase 91 U/L (46-116) Creatine Kinase 41 U/L (26-192) Creatine Kinase MB (Mass) 1.0 ng/mL (0.0-3.6) Creatine Kinase MB Relative Index % (0-4) Troponin I Quantitative < 0.017 ng/mL (0.000-0.055) UR-Frf-X-Type Natriuretic Peptide 1604 pg/mL (0-449) Total Protein 7.5 g/dL (6.4-8.2) Albumin 3.8 g/dL (3.4-5.0) Albumin/Globulin Ratio 1.0 (1.0-1.7) Nasal Screen MRSA (PCR) Negative (Negative) Test 04/19/19 04:39 04/19/19 14:00 04/19/19 21:50 04/20/19 03:38 White Blood Count 7.4 x10^3/uL (4.0-11.0) 6.6 x10^3/uL (4.0-11.0) 7.1 x10^3/uL (4.0-11.0) 6.1 x10^3/uL (4.0-11.0) Red Blood Count 3.56 x10^6/uL (3.50-5.40) 4.01 x10^6/uL (3.50-5.70) 3.98 x10^6/uL (3.50-5.40) 3.75 x10^6/uL (3.50-5.40) Hemoglobin 8.4 g/dL (12.0-15.5) 9.2 g/dL (12.0-15.5) 9.1 g/dL (12.0-15.5) 8.6 g/dL (12.0-15.5) Hematocrit 26.8 % (36.0-47.0) 29.9 % (36.0-47.0) 29.9 % (36.0-47.0) 28.0 % (36.0-47.0) Mean Corpuscular Volume 75 fL (79-100) 75 fL (79-100) 75 fL (79-100) 75 fL (79-100) Mean Corpuscular Hemoglobin 24 pg (25-35) 23 pg (25-35) 23 pg (25-35) 23 pg (25-35) Mean Corpuscular Hemoglobin Concent 31 g/dL (31-37) 31 g/dL (31-37) 30 g/dL (31-37) 31 g/dL (31-37) Red Cell Distribution Width 30.7 % (11.5-14.5) 30.2 % (11.5-14.5) 30.3 % (11.5-14.5) 30.1 % (11.5-14.5) Platelet Count 322 x10^3/uL (140-400) 354 x10^3/uL (140-400) 312 x10^3/uL (140-400) 335 x10^3/uL (140-400) Sodium Level 144 mmol/L (136-145) 142 mmol/L (136-145) Potassium Level 4.3 mmol/L (3.5-5.1) 3.8 mmol/L (3.5-5.1) Chloride Level 110 mmol/L (98-107) 107 mmol/L (98-107) Carbon Dioxide Level 24 mmol/L (21-32) 26 mmol/L (21-32) Anion Gap 10 (6-14) 9 (6-14) Blood Urea Nitrogen 12 mg/dL (7-20) 11 mg/dL (7-20) Creatinine 1.0 mg/dL (0.6-1.0) 1.0 mg/dL (0.6-1.0) Estimated GFR (Cockcroft-Gault) 53.9 53.9 Glucose Level 63 mg/dL (70-99) 70 mg/dL (70-99) Calcium Level 8.1 mg/dL (8.5-10.1) 8.7 mg/dL (8.5-10.1) Magnesium Level 2.2 mg/dL (1.8-2.4) Triglycerides Level 61 mg/dL (0-150) Cholesterol Level 128 mg/dL (0-200) LDL Cholesterol, Calculated 73 mg/dL (0-100) VLDL Cholesterol, Calculated 12 mg/dL (0-40) Non-HDL Cholesterol Calculated 85 mg/dL (0-129) HDL Cholesterol 43 mg/dL (40-60) Cholesterol/HDL Ratio 3.0 Thyroid Stimulating Hormone (TSH) 1.555 uIU/mL (0.358-3.74) Absolute Reticulocyte Count 0.086 x10^6/uL (0.020-0.120) Percent Reticulocyte Count 2.1 % (0.5-2.3) Immature Reticulocyte Fraction 0.48 (0.20-0.60) Iron Level 124 ug/dL (50-170) Total Iron Binding Capacity 421 ug/dL (250-450) Iron Saturation 29 % (15-34) Ferritin 9 ng/mL (8-252) Vitamin B12 Level 225 pg/mL (247-911) Neutrophils (%) (Auto) 58 % (31-73) Lymphocytes (%) (Auto) 30 % (24-48) Monocytes (%) (Auto) 9 % (0-9) Eosinophils (%) (Auto) 3 % (0-3) Basophils (%) (Auto) 1 % (0-3) Neutrophils # (Auto) 3.5 x10^3/uL (1.8-7.7) Lymphocytes # (Auto) 1.8 x10^3/uL (1.0-4.8) Monocytes # (Auto) 0.6 x10^3/uL (0.0-1.1) Eosinophils # (Auto) 0.2 x10^3/uL (0.0-0.7) Basophils # (Auto) 0.1 x10^3/uL (0.0-0.2) BUN/Creatinine Ratio 11 (6-20) Total Bilirubin 0.9 mg/dL (0.2-1.0) Aspartate Amino Transf (AST/SGOT) 11 U/L (15-37) Alanine Aminotransferase (ALT/SGPT) 7 U/L (14-59) Alkaline Phosphatase 69 U/L (46-116) Total Protein 6.3 g/dL (6.4-8.2) Albumin 3.2 g/dL (3.4-5.0) Albumin/Globulin Ratio 1.0 (1.0-1.7) Laboratory Tests Test 04/19/19 14:00 04/19/19 21:50 04/20/19 03:38 White Blood Count 6.6 x10^3/uL (4.0-11.0) 7.1 x10^3/uL (4.0-11.0) 6.1 x10^3/uL (4.0-11.0) Red Blood Count 4.01 x10^6/uL (3.50-5.70) 3.98 x10^6/uL (3.50-5.40) 3.75 x10^6/uL (3.50-5.40) Hemoglobin 9.2 g/dL (12.0-15.5) 9.1 g/dL (12.0-15.5) 8.6 g/dL (12.0-15.5) Hematocrit 29.9 % (36.0-47.0) 29.9 % (36.0-47.0) 28.0 % (36.0-47.0) Mean Corpuscular Volume 75 fL (79-100) 75 fL (79-100) 75 fL (79-100) Mean Corpuscular Hemoglobin 23 pg (25-35) 23 pg (25-35) 23 pg (25-35) Mean Corpuscular Hemoglobin Concent 31 g/dL (31-37) 30 g/dL (31-37) 31 g/dL (31-37) Red Cell Distribution Width 30.2 % (11.5-14.5) 30.3 % (11.5-14.5) 30.1 % (11.5-14.5) Platelet Count 354 x10^3/uL (140-400) 312 x10^3/uL (140-400) 335 x10^3/uL (140-400) Absolute Reticulocyte Count 0.086 x10^6/uL (0.020-0.120) Percent Reticulocyte Count 2.1 % (0.5-2.3) Immature Reticulocyte Fraction 0.48 (0.20-0.60) Iron Level 124 ug/dL (50-170) Total Iron Binding Capacity 421 ug/dL (250-450) Iron Saturation 29 % (15-34) Ferritin 9 ng/mL (8-252) Vitamin B12 Level 225 pg/mL (247-911) Neutrophils (%) (Auto) 58 % (31-73) Lymphocytes (%) (Auto) 30 % (24-48) Monocytes (%) (Auto) 9 % (0-9) Eosinophils (%) (Auto) 3 % (0-3) Basophils (%) (Auto) 1 % (0-3) Neutrophils # (Auto) 3.5 x10^3/uL (1.8-7.7) Lymphocytes # (Auto) 1.8 x10^3/uL (1.0-4.8) Monocytes # (Auto) 0.6 x10^3/uL (0.0-1.1) Eosinophils # (Auto) 0.2 x10^3/uL (0.0-0.7) Basophils # (Auto) 0.1 x10^3/uL (0.0-0.2) Sodium Level 142 mmol/L (136-145) Potassium Level 3.8 mmol/L (3.5-5.1) Chloride Level 107 mmol/L (98-107) Carbon Dioxide Level 26 mmol/L (21-32) Anion Gap 9 (6-14) Blood Urea Nitrogen 11 mg/dL (7-20) Creatinine 1.0 mg/dL (0.6-1.0) Estimated GFR (Cockcroft-Gault) 53.9 BUN/Creatinine Ratio 11 (6-20) Glucose Level 70 mg/dL (70-99) Calcium Level 8.7 mg/dL (8.5-10.1) Total Bilirubin 0.9 mg/dL (0.2-1.0) Aspartate Amino Transf (AST/SGOT) 11 U/L (15-37) Alanine Aminotransferase (ALT/SGPT) 7 U/L (14-59) Alkaline Phosphatase 69 U/L (46-116) Total Protein 6.3 g/dL (6.4-8.2) Albumin 3.2 g/dL (3.4-5.0) Albumin/Globulin Ratio 1.0 (1.0-1.7) Medications Current Medications Albuterol/ Ipratropium (Duoneb) 3 ml 1X ONCE NEB Last administered on 04/18/19at 18:01; Start 04/18/19 at 18:00; Stop 04/18/19 at 18:01; Status DC Ceftriaxone Sodium (Rocephin) 1 gm Q24H IVP Last administered on 04/19/19at 21:11; Start 04/18/19 at 19:15 Pantoprazole Sodium 80 mg/ Sodium Chloride 100 ml @ 10 mls/hr 1X ONCE IV Last administered on 04/18/19at 19:29; Start 04/18/19 at 19:15; Stop 04/19/19 at 05:14; Status DC Acetaminophen (Tylenol) 500 mg BID PO Last administered on 04/20/19at 09:18; Start 04/18/19 at 21:00 Albuterol Sulfate (Ventolin Neb Soln) 2.5 mg PRN Q6HRS PRN INH SHORTNESS OF BREATH; Start 04/18/19 at 19:15 Acetaminophen/ Hydrocodone Bitart (Lortab 5/325) 1 tab PRN Q4HRS PRN PO MODERATE PAIN; Start 04/18/19 at 19:15 Sodium Chloride (Normal Saline Flush) 3 ml QSHIFT PRN IV AFTER MEDS AND BLOOD DRAWS; Start 04/18/19 at 19:15 Ondansetron HCl (Zofran) 4 mg PRN Q4HRS PRN IV NAUSEA/VOMITING; Start 04/18/19 at 19:15 Acetaminophen (Tylenol) 650 mg PRN Q4HRS PRN PO TEMP OVER 100.4F OR MILD PAIN; Start 04/18/19 at 19:15 Clonidine HCl (Catapres) 0.1 mg PRN Q6HRS PRN PO SBP>160 OR DBP>90; Start 04/18/19 at 19:15 Albuterol/ Ipratropium (Duoneb) 3 ml Q4HRS NEB Last administered on 04/20/19at 08:50; Start 04/18/19 at 20:00 Guaifenesin (Robitussin) 200 mg PRN Q4HRS PRN PO COUGH; Start 04/18/19 at 19:15 Lorazepam (Ativan) 0.5 mg PRN Q4HRS PRN PO ANXIETY / AGITATION; Start 04/18/19 at 19:15 Pantoprazole Sodium 80 mg/ Sodium Chloride 100 ml @ 10 mls/hr Q10H IV Last administered on 04/20/19at 00:09; Start 04/19/19 at 03:30; Stop 04/20/19 at 09:34; Status DC Ringer's Solution 1,000 ml @ 75 mls/hr 1X ONCE IV Last administered on 04/19/19at 15:22; Start 04/19/19 at 15:15; Stop 04/20/19 at 04:34; Status DC Carvedilol (Coreg) 3.125 mg BIDWMEALS PO Last administered on 04/20/19at 09:19; Start 04/19/19 at 17:00 Propofol 20 ml @ As Directed STK-MED ONCE IV ; Start 04/19/19 at 15:54; Stop 04/19/19 at 15:54; Status DC Lidocaine HCl (Lidocaine Pf 2% Vial) 5 ml STK-MED ONCE .ROUTE ; Start 04/19/19 at 15:54; Stop 04/19/19 at 15:54; Status DC Cyanocobalamin (Vitamin B-12) 1,000 mcg DAILY IM Last administered on 04/20/19at 09:19; Start 04/19/19 at 16:45; Stop 04/24/19 at 09:00 Sucralfate (Carafate) 1 gm AFTRNOON PO Last administered on 04/19/19at 17:26; Start 04/19/19 at 17:00 Sodium Chloride 1,000 ml @ 75 mls/hr [id number] IV Last administered on 04/20/19at 00:13; Start 04/20/19 at 00:15 Iron Sucrose 500 mg/Sodium Chloride 275 ml @ 78.571 mls/ hr 1X ONCE IV Last administered on 04/20/19at 09:19; Start 04/20/19 at 10:00; Stop 04/20/19 at 13:29 Polyethylene Glycol (miraLAX PACKET) 17 gm PRN DAILY PRN PO CONSTIPATION; Start 04/20/19 at 09:45 Pantoprazole Sodium (Protonix) 40 mg DAILYAC PO ; Start 04/20/19 at 10:00 Cyanocobalamin (Vitamin B-12) 1,000 mcg 1X ONCE IM ; Start 04/20/19 at 09:45; Stop 04/20/19 at 09:46; Status UNV Active Scripts Active Proair Hfa Inhaler (Albuterol Sulfate) 8.5 Gm Hfa.aer.ad 2 Puff INH PRN Q6HRS PRN Reported Hydrocodone-Apap 5-325 (Hydrocodone Bit/Acetaminophen) 1 Each Tablet 1 Tab PO Q4HRS PRN Acetaminophen 500 Mg Tablet 1 Tab PO BID Vitals/I & O Vital Sign - Last 24 Hours 04/19/19 04/19/19 04/19/19 04/19/19 11:00 12:30 15:12 15:20 Temp 98.4 97.0 98.4 97.0 Pulse 82 103 Resp 15 20 B/P (MAP) 142/58 (86) Pulse Ox 94 100 98 O2 Delivery Room Air Room Air Room Air O2 Flow Rate 2.0 04/19/19 04/19/19 04/19/19 04/19/19 15:54 16:47 17:02 17:17 Temp 98 98.0 Pulse 84 81 78 Resp 18 18 18 B/P (MAP) 138/67 126/59 128/60 Pulse Ox 100 93 95 96 O2 Delivery Room Air Room Air Room Air Room Air O2 Flow Rate 3 04/19/19 04/19/19 04/19/19 04/19/19 17:31 19:25 20:00 20:55 Temp 98.8 98.8 Pulse 62 60 Resp 18 B/P (MAP) 140/70 140/52 (81) Pulse Ox 95 99 O2 Delivery Room Air Room Air Room Air 04/19/19 04/20/19 04/20/19 04/20/19 23:10 03:19 07:10 08:50 Temp 97.5 98.1 98.1 97.5 98.1 98.1 Pulse 47 80 44 Resp 18 18 16 B/P (MAP) 108/42 (64) 110/59 (76) 114/49 (70) Pulse Ox 96 95 97 100 O2 Delivery Room Air Room Air Room Air Room Air 04/20/19 09:19 Pulse 76 B/P (MAP) 114/49 Intake and Output 04/19/19 04/19/19 04/20/19 15:00 23:00 07:00 Intake Total 600 ml Balance 600 ml Nutrition Consultation Dietary Evaluation: Recommendations by RD: Increase Calorie Intake Comments: REC advance diet as able to goal diet regular, honor food preferences, and provide snacks as requested Expected Outcomes/Goals: diet advancement Malnutrition Findings: Body Fat Depletion (Non Severe: Mild Depletion Weight Status: Underweight SAMMY HOFFMAN MD Apr 20, 2019 10:01
--- NOTE | 2019-04-20 10:57 | PDOC ---
PROGRESS NOTES Subjective Subjective HPI - f/u of Hypochromic microcytic anemia ROS - no bleed, no CP Objective Objective Vital Signs Date Time Temp Pulse Resp B/P (MAP) Pulse Ox O2 Delivery O2 Flow Rate FiO2 04/20/19 09:19 76 114/49 04/20/19 08:50 100 Room Air 04/20/19 07:10 98.1 16 98.1 04/19/19 16:47 3 Intake and Output 04/20/19 07:00 Intake Total 600 ml Balance 600 ml Intake Oral 300 ml IV Total 300 ml Physical Exam Heart: Normal S1, Normal S2 General: Alert, Oriented X3 Lungs: Clear to auscultation Neuro: Normal speech Psych/Mental Status: Mental status NL Assessment Assessment IMPRESSION AND PLAN: 1. Hypochromic microcytic anemia, which I suspect is due to iron deficiency from possible gastrointestinal bleed. She has a history of antral ulcers, erosive duodenitis and Leif lesions in the prior EGD in 2018. Hemoglobin was 4.7 on 04/18/2019 and improved to 8.4 on 04/19/2019 after 2 units of PRBC. Continue to monitor hemoglobin and transfuse as needed. Ferritin 9 - plan venofer 500 mg IV 04/20/19. 2. Thrombocytosis, which I suspect is due to iron deficiency. Continue to monitor. 3. B12 def, 225 on 04/19/19 - Started Vit B12 inj daily. 4. Appreciate GI consultation and management. EGD 04/19/19: Leif ulcers in body, gastritis with erosions in antrum (bx) Comment Review of Relevant I have reviewed the following items marshal (where applicable) has been applied. Labs Laboratory Tests Test 04/18/19 17:51 04/18/19 17:53 04/18/19 18:00 04/18/19 21:00 Glucose (Fingerstick) 106 mg/dL (70-99) O2 Saturation 97 % (92-99) Arterial Blood pH 7.45 (7.35-7.45) Arterial Blood pCO2 at Patient Temp 30 mmHg (35-46) Arterial Blood pO2 at Patient Temp 85 mmHg (65-108) Arterial Blood HCO3 20 mmol/L (21-28) Arterial Blood Base Excess -4 mmol/L (-3-3) Oxyhemoglobin 94.8 % Methemoglobin 1.1 % (0.0-1.9) Carbon Monoxide, Quantitative 0.9 % (0.0-1.9) FiO2 21 White Blood Count 8.7 x10^3/uL (4.0-11.0) Red Blood Count 2.90 x10^6/uL (3.50-5.40) Hemoglobin 4.7 g/dL (12.0-15.5) Hematocrit 17.5 % (36.0-47.0) Mean Corpuscular Volume 61 fL (79-100) Mean Corpuscular Hemoglobin 16 pg (25-35) Mean Corpuscular Hemoglobin Concent 27 g/dL (31-37) Red Cell Distribution Width 19.3 % (11.5-14.5) Platelet Count 459 x10^3/uL (140-400) Neutrophils (%) (Auto) 74 % (31-73) Lymphocytes (%) (Auto) 16 % (24-48) Monocytes (%) (Auto) 8 % (0-9) Eosinophils (%) (Auto) 1 % (0-3) Basophils (%) (Auto) 1 % (0-3) Neutrophils # (Auto) 6.5 x10^3/uL (1.8-7.7) Lymphocytes # (Auto) 1.4 x10^3/uL (1.0-4.8) Monocytes # (Auto) 0.7 x10^3/uL (0.0-1.1) Eosinophils # (Auto) 0.0 x10^3/uL (0.0-0.7) Basophils # (Auto) 0.1 x10^3/uL (0.0-0.2) Platelet Estimate Increased (ADEQUATE) Hypochromasia Marked Anisocytosis Slight Microcytosis Marked Prothrombin Time 13.3 SEC (11.7-14.0) Prothromb Time International Ratio 1.0 (0.8-1.1) Activated Partial Thromboplast Time 26 SEC (24-38) Urine Collection Type U cath Urine Color Yellow Urine Clarity Clear Urine pH 5.5 Urine Specific [place] 1.020 Urine Protein 30 mg/dL (NEG-TRACE) Urine Glucose (UA) Negative mg/dL (NEG) Urine Ketones (Stick) Negative mg/dL (NEG) Urine Blood Negative (NEG) Urine Nitrite Negative (NEG) Urine Bilirubin Small (NEG) Urine Urobilinogen Dipstick 1.0 mg/dL (0.2 mg/dL) Urine Leukocyte Esterase Large (NEG) Urine RBC 1-2 /HPF (0-2) Urine WBC 20-40 /HPF (0-4) Urine Squamous Epithelial Cells Few /LPF Urine Amorphous Sediment Present /HPF Urine Bacteria Moderate /HPF (0-FEW) Urine Hyaline Casts Few /HPF Urine Mucus Mod /LPF Sodium Level 144 mmol/L (136-145) Potassium Level 4.2 mmol/L (3.5-5.1) Chloride Level 107 mmol/L (98-107) Carbon Dioxide Level 24 mmol/L (21-32) Anion Gap 13 (6-14) Blood Urea Nitrogen 13 mg/dL (7-20) Creatinine 1.3 mg/dL (0.6-1.0) Estimated GFR (Cockcroft-Gault) 39.8 BUN/Creatinine Ratio 10 (6-20) Glucose Level 108 mg/dL (70-99) Calcium Level 8.4 mg/dL (8.5-10.1) Magnesium Level 2.3 mg/dL (1.8-2.4) Total Bilirubin 0.4 mg/dL (0.2-1.0) Aspartate Amino Transf (AST/SGOT) 12 U/L (15-37) Alanine Aminotransferase (ALT/SGPT) 7 U/L (14-59) Alkaline Phosphatase 91 U/L (46-116) Creatine Kinase 41 U/L (26-192) Creatine Kinase MB (Mass) 1.0 ng/mL (0.0-3.6) Creatine Kinase MB Relative Index % (0-4) Troponin I Quantitative < 0.017 ng/mL (0.000-0.055) QV-Efx-F-Type Natriuretic Peptide 1604 pg/mL (0-449) Total Protein 7.5 g/dL (6.4-8.2) Albumin 3.8 g/dL (3.4-5.0) Albumin/Globulin Ratio 1.0 (1.0-1.7) Nasal Screen MRSA (PCR) Negative (Negative) Test 04/19/19 04:39 04/19/19 14:00 04/19/19 21:50 04/20/19 03:38 White Blood Count 7.4 x10^3/uL (4.0-11.0) 6.6 x10^3/uL (4.0-11.0) 7.1 x10^3/uL (4.0-11.0) 6.1 x10^3/uL (4.0-11.0) Red Blood Count 3.56 x10^6/uL (3.50-5.40) 4.01 x10^6/uL (3.50-5.70) 3.98 x10^6/uL (3.50-5.40) 3.75 x10^6/uL (3.50-5.40) Hemoglobin 8.4 g/dL (12.0-15.5) 9.2 g/dL (12.0-15.5) 9.1 g/dL (12.0-15.5) 8.6 g/dL (12.0-15.5) Hematocrit 26.8 % (36.0-47.0) 29.9 % (36.0-47.0) 29.9 % (36.0-47.0) 28.0 % (36.0-47.0) Mean Corpuscular Volume 75 fL (79-100) 75 fL (79-100) 75 fL (79-100) 75 fL (79-100) Mean Corpuscular Hemoglobin 24 pg (25-35) 23 pg (25-35) 23 pg (25-35) 23 pg (25-35) Mean Corpuscular Hemoglobin Concent 31 g/dL (31-37) 31 g/dL (31-37) 30 g/dL (31-37) 31 g/dL (31-37) Red Cell Distribution Width 30.7 % (11.5-14.5) 30.2 % (11.5-14.5) 30.3 % (11.5-14.5) 30.1 % (11.5-14.5) Platelet Count 322 x10^3/uL (140-400) 354 x10^3/uL (140-400) 312 x10^3/uL (140-400) 335 x10^3/uL (140-400) Sodium Level 144 mmol/L (136-145) 142 mmol/L (136-145) Potassium Level 4.3 mmol/L (3.5-5.1) 3.8 mmol/L (3.5-5.1) Chloride Level 110 mmol/L (98-107) 107 mmol/L (98-107) Carbon Dioxide Level 24 mmol/L (21-32) 26 mmol/L (21-32) Anion Gap 10 (6-14) 9 (6-14) Blood Urea Nitrogen 12 mg/dL (7-20) 11 mg/dL (7-20) Creatinine 1.0 mg/dL (0.6-1.0) 1.0 mg/dL (0.6-1.0) Estimated GFR (Cockcroft-Gault) 53.9 53.9 Glucose Level 63 mg/dL (70-99) 70 mg/dL (70-99) Calcium Level 8.1 mg/dL (8.5-10.1) 8.7 mg/dL (8.5-10.1) Magnesium Level 2.2 mg/dL (1.8-2.4) Triglycerides Level 61 mg/dL (0-150) Cholesterol Level 128 mg/dL (0-200) LDL Cholesterol, Calculated 73 mg/dL (0-100) VLDL Cholesterol, Calculated 12 mg/dL (0-40) Non-HDL Cholesterol Calculated 85 mg/dL (0-129) HDL Cholesterol 43 mg/dL (40-60) Cholesterol/HDL Ratio 3.0 Thyroid Stimulating Hormone (TSH) 1.555 uIU/mL (0.358-3.74) Absolute Reticulocyte Count 0.086 x10^6/uL (0.020-0.120) Percent Reticulocyte Count 2.1 % (0.5-2.3) Immature Reticulocyte Fraction 0.48 (0.20-0.60) Iron Level 124 ug/dL (50-170) Total Iron Binding Capacity 421 ug/dL (250-450) Iron Saturation 29 % (15-34) Ferritin 9 ng/mL (8-252) Vitamin B12 Level 225 pg/mL (247-911) Neutrophils (%) (Auto) 58 % (31-73) Lymphocytes (%) (Auto) 30 % (24-48) Monocytes (%) (Auto) 9 % (0-9) Eosinophils (%) (Auto) 3 % (0-3) Basophils (%) (Auto) 1 % (0-3) Neutrophils # (Auto) 3.5 x10^3/uL (1.8-7.7) Lymphocytes # (Auto) 1.8 x10^3/uL (1.0-4.8) Monocytes # (Auto) 0.6 x10^3/uL (0.0-1.1) Eosinophils # (Auto) 0.2 x10^3/uL (0.0-0.7) Basophils # (Auto) 0.1 x10^3/uL (0.0-0.2) BUN/Creatinine Ratio 11 (6-20) Total Bilirubin 0.9 mg/dL (0.2-1.0) Aspartate Amino Transf (AST/SGOT) 11 U/L (15-37) Alanine Aminotransferase (ALT/SGPT) 7 U/L (14-59) Alkaline Phosphatase 69 U/L (46-116) Total Protein 6.3 g/dL (6.4-8.2) Albumin 3.2 g/dL (3.4-5.0) Albumin/Globulin Ratio 1.0 (1.0-1.7) Laboratory Tests Test 04/19/19 14:00 04/19/19 21:50 04/20/19 03:38 White Blood Count 6.6 x10^3/uL (4.0-11.0) 7.1 x10^3/uL (4.0-11.0) 6.1 x10^3/uL (4.0-11.0) Red Blood Count 4.01 x10^6/uL (3.50-5.70) 3.98 x10^6/uL (3.50-5.40) 3.75 x10^6/uL (3.50-5.40) Hemoglobin 9.2 g/dL (12.0-15.5) 9.1 g/dL (12.0-15.5) 8.6 g/dL (12.0-15.5) Hematocrit 29.9 % (36.0-47.0) 29.9 % (36.0-47.0) 28.0 % (36.0-47.0) Mean Corpuscular Volume 75 fL (79-100) 75 fL (79-100) 75 fL (79-100) Mean Corpuscular Hemoglobin 23 pg (25-35) 23 pg (25-35) 23 pg (25-35) Mean Corpuscular Hemoglobin Concent 31 g/dL (31-37) 30 g/dL (31-37) 31 g/dL (31-37) Red Cell Distribution Width 30.2 % (11.5-14.5) 30.3 % (11.5-14.5) 30.1 % (11.5-14.5) Platelet Count 354 x10^3/uL (140-400) 312 x10^3/uL (140-400) 335 x10^3/uL (140-400) Absolute Reticulocyte Count 0.086 x10^6/uL (0.020-0.120) Percent Reticulocyte Count 2.1 % (0.5-2.3) Immature Reticulocyte Fraction 0.48 (0.20-0.60) Iron Level 124 ug/dL (50-170) Total Iron Binding Capacity 421 ug/dL (250-450) Iron Saturation 29 % (15-34) Ferritin 9 ng/mL (8-252) Vitamin B12 Level 225 pg/mL (247-911) Neutrophils (%) (Auto) 58 % (31-73) Lymphocytes (%) (Auto) 30 % (24-48) Monocytes (%) (Auto) 9 % (0-9) Eosinophils (%) (Auto) 3 % (0-3) Basophils (%) (Auto) 1 % (0-3) Neutrophils # (Auto) 3.5 x10^3/uL (1.8-7.7) Lymphocytes # (Auto) 1.8 x10^3/uL (1.0-4.8) Monocytes # (Auto) 0.6 x10^3/uL (0.0-1.1) Eosinophils # (Auto) 0.2 x10^3/uL (0.0-0.7) Basophils # (Auto) 0.1 x10^3/uL (0.0-0.2) Sodium Level 142 mmol/L (136-145) Potassium Level 3.8 mmol/L (3.5-5.1) Chloride Level 107 mmol/L (98-107) Carbon Dioxide Level 26 mmol/L (21-32) Anion Gap 9 (6-14) Blood Urea Nitrogen 11 mg/dL (7-20) Creatinine 1.0 mg/dL (0.6-1.0) Estimated GFR (Cockcroft-Gault) 53.9 BUN/Creatinine Ratio 11 (6-20) Glucose Level 70 mg/dL (70-99) Calcium Level 8.7 mg/dL (8.5-10.1) Total Bilirubin 0.9 mg/dL (0.2-1.0) Aspartate Amino Transf (AST/SGOT) 11 U/L (15-37) Alanine Aminotransferase (ALT/SGPT) 7 U/L (14-59) Alkaline Phosphatase 69 U/L (46-116) Total Protein 6.3 g/dL (6.4-8.2) Albumin 3.2 g/dL (3.4-5.0) Albumin/Globulin Ratio 1.0 (1.0-1.7) Medications Current Medications Albuterol/ Ipratropium (Duoneb) 3 ml 1X ONCE NEB Last administered on 9at 18:01; Start 04/18/19 at 18:00; Stop 04/18/19 at 18:01; Status DC Ceftriaxone Sodium (Rocephin) 1 gm Q24H IVP Last administered on 04/19/19at 21:11; Start 04/18/19 at 19:15 Pantoprazole Sodium 80 mg/ Sodium Chloride 100 ml @ 10 mls/hr 1X ONCE IV Last administered on 04/18/19at 19:29; Start 04/18/19 at 19:15; Stop 04/19/19 at 05:14; Status DC Acetaminophen (Tylenol) 500 mg BID PO Last administered on 04/20/19at 09:18; Start 04/18/19 at 21:00 Albuterol Sulfate (Ventolin Neb Soln) 2.5 mg PRN Q6HRS PRN INH SHORTNESS OF BREATH; Start 04/18/19 at 19:15 Acetaminophen/ Hydrocodone Bitart (Lortab 5/325) 1 tab PRN Q4HRS PRN PO MODERATE PAIN; Start 04/18/19 at 19:15 Sodium Chloride (Normal Saline Flush) 3 ml QSHIFT PRN IV AFTER MEDS AND BLOOD DRAWS; Start 04/18/19 at 19:15 Ondansetron HCl (Zofran) 4 mg PRN Q4HRS PRN IV NAUSEA/VOMITING; Start 04/18/19 at 19:15 Acetaminophen (Tylenol) 650 mg PRN Q4HRS PRN PO TEMP OVER 100.4F OR MILD PAIN; Start 04/18/19 at 19:15 Clonidine HCl (Catapres) 0.1 mg PRN Q6HRS PRN PO SBP>160 OR DBP>90; Start 04/18/19 at 19:15 Albuterol/ Ipratropium (Duoneb) 3 ml Q4HRS NEB Last administered on 04/20/19at 08:50; Start 04/18/19 at 20:00 Guaifenesin (Robitussin) 200 mg PRN Q4HRS PRN PO COUGH; Start 04/18/19 at 19:15 Lorazepam (Ativan) 0.5 mg PRN Q4HRS PRN PO ANXIETY / AGITATION; Start 04/18/19 at 19:15 Pantoprazole Sodium 80 mg/ Sodium Chloride 100 ml @ 10 mls/hr Q10H IV Last administered on 04/20/19at 00:09; Start 04/19/19 at 03:30; Stop 04/20/19 at 09:34; Status DC Ringer's Solution 1,000 ml @ 75 mls/hr 1X ONCE IV Last administered on 04/19/19at 15:22; Start 04/19/19 at 15:15; Stop 04/20/19 at 04:34; Status DC Carvedilol (Coreg) 3.125 mg BIDWMEALS PO Last administered on 04/20/19at 09:19; Start 04/19/19 at 17:00 Propofol 20 ml @ As Directed STK-MED ONCE IV ; Start 04/19/19 at 15:54; Stop 04/19/19 at 15:54; Status DC Lidocaine HCl (Lidocaine Pf 2% Vial) 5 ml STK-MED ONCE .ROUTE ; Start 04/19/19 at 15:54; Stop 04/19/19 at 15:54; Status DC Cyanocobalamin (Vitamin B-12) 1,000 mcg DAILY IM Last administered on 04/20/19at 09:19; Start 04/19/19 at 16:45; Stop 04/24/19 at 09:00 Sucralfate (Carafate) 1 gm AFTRNOON PO Last administered on 04/19/19at 17:26; Start 04/19/19 at 17:00 Sodium Chloride 1,000 ml @ 75 mls/hr [id number] IV Last administered on 04/20/19at 00:13; Start 04/20/19 at 00:15 Iron Sucrose 500 mg/Sodium Chloride 275 ml @ 78.571 mls/ hr 1X ONCE IV Last administered on 04/20/19at 09:19; Start 04/20/19 at 10:00; Stop 04/20/19 at 13:29 Polyethylene Glycol (miraLAX PACKET) 17 gm PRN DAILY PRN PO CONSTIPATION; Start 04/20/19 at 09:45 Pantoprazole Sodium (Protonix) 40 mg DAILYAC PO ; Start 04/20/19 at 10:00 Cyanocobalamin (Vitamin B-12) 1,000 mcg 1X ONCE IM ; Start 04/20/19 at 09:45; Stop 04/20/19 at 09:46; Status UNV Active Scripts Active Proair Hfa Inhaler (Albuterol Sulfate) 8.5 Gm Hfa.aer.ad 2 Puff INH PRN Q6HRS PRN Reported Hydrocodone-Apap 5-325 (Hydrocodone Bit/Acetaminophen) 1 Each Tablet 1 Tab PO Q4HRS PRN Acetaminophen 500 Mg Tablet 1 Tab PO BID Vitals/I & O Vital Sign - Last 24 Hours 04/19/19 04/19/19 04/19/19 04/19/19 11:00 12:30 15:12 15:20 Temp 98.4 97.0 98.4 97.0 Pulse 82 103 Resp 15 20 B/P (MAP) 142/58 (86) Pulse Ox 94 100 98 O2 Delivery Room Air Room Air Room Air O2 Flow Rate 2.0 04/19/19 04/19/19 04/19/19 04/19/19 15:54 16:47 17:02 17:17 Temp 98 98.0 Pulse 84 81 78 Resp 18 18 18 B/P (MAP) 138/67 126/59 128/60 Pulse Ox 100 93 95 96 O2 Delivery Room Air Room Air Room Air Room Air O2 Flow Rate 3 04/19/19 04/19/19 04/19/19 04/19/19 17:31 19:25 20:00 20:55 Temp 98.8 98.8 Pulse 62 60 Resp 18 B/P (MAP) 140/70 140/52 (81) Pulse Ox 95 99 O2 Delivery Room Air Room Air Room Air 04/19/19 04/20/19 04/20/19 04/20/19 23:10 03:19 07:10 08:50 Temp 97.5 98.1 98.1 97.5 98.1 98.1 Pulse 47 80 44 Resp 18 18 16 B/P (MAP) 108/42 (64) 110/59 (76) 114/49 (70) Pulse Ox 96 95 97 100 O2 Delivery Room Air Room Air Room Air Room Air 04/20/19 09:19 Pulse 76 B/P (MAP) 114/49 Intake and Output 04/19/19 04/19/19 04/20/19 15:00 23:00 07:00 Intake Total 600 ml Balance 600 ml Nutrition Consultation Dietary Evaluation: Recommendations by RD: Increase Calorie Intake Comments: REC advance diet as able to goal diet regular, honor food preferences, and provide snacks as requested Expected Outcomes/Goals: diet advancement Malnutrition Findings: Body Fat Depletion (Non Severe: Mild Depletion Weight Status: Underweight UGO JOINER MD Apr 20, 2019 10:57
[2019-04-20 11:21] VITALS: BP 132/74
--- NOTE | 2019-04-20 11:43 | PDOC ---
MORGAN FERNANDEZ CLIENT SUCCESS SPECIALIST 04/20/19 1143: CARDIO Progress Notes Date and Time Date of Service 04/20/2019 Time of Evaluation 1120 Subjective Subjective: No Chest Pain, No shortness of breath, No Palpitations Vitals Vitals Vital Signs Date Time Temp Pulse Resp B/P (MAP) Pulse Ox O2 Delivery O2 Flow Rate FiO2 04/20/19 11:21 97.9 64 18 132/74 (93) 97 Room Air 97.9 04/19/19 16:47 3 Weight Weight [ ] Input and Output Intake and Output Intake and Output 04/20/19 07:00 Intake Total 600 ml Balance 600 ml Intake Oral 300 ml IV Total 300 ml Laboratory Labs Laboratory Tests Test 04/19/19 14:00 04/19/19 21:50 04/20/19 03:38 White Blood Count 6.6 x10^3/uL (4.0-11.0) 7.1 x10^3/uL (4.0-11.0) 6.1 x10^3/uL (4.0-11.0) Red Blood Count 4.01 x10^6/uL (3.50-5.70) 3.98 x10^6/uL (3.50-5.40) 3.75 x10^6/uL (3.50-5.40) Hemoglobin 9.2 g/dL (12.0-15.5) 9.1 g/dL (12.0-15.5) 8.6 g/dL (12.0-15.5) Hematocrit 29.9 % (36.0-47.0) 29.9 % (36.0-47.0) 28.0 % (36.0-47.0) Mean Corpuscular Volume 75 fL (79-100) 75 fL (79-100) 75 fL (79-100) Mean Corpuscular Hemoglobin 23 pg (25-35) 23 pg (25-35) 23 pg (25-35) Mean Corpuscular Hemoglobin Concent 31 g/dL (31-37) 30 g/dL (31-37) 31 g/dL (31-37) Red Cell Distribution Width 30.2 % (11.5-14.5) 30.3 % (11.5-14.5) 30.1 % (11.5-14.5) Platelet Count 354 x10^3/uL (140-400) 312 x10^3/uL (140-400) 335 x10^3/uL (140-400) Absolute Reticulocyte Count 0.086 x10^6/uL (0.020-0.120) Percent Reticulocyte Count 2.1 % (0.5-2.3) Immature Reticulocyte Fraction 0.48 (0.20-0.60) Iron Level 124 ug/dL (50-170) Total Iron Binding Capacity 421 ug/dL (250-450) Iron Saturation 29 % (15-34) Ferritin 9 ng/mL (8-252) Vitamin B12 Level 225 pg/mL (247-911) Neutrophils (%) (Auto) 58 % (31-73) Lymphocytes (%) (Auto) 30 % (24-48) Monocytes (%) (Auto) 9 % (0-9) Eosinophils (%) (Auto) 3 % (0-3) Basophils (%) (Auto) 1 % (0-3) Neutrophils # (Auto) 3.5 x10^3/uL (1.8-7.7) Lymphocytes # (Auto) 1.8 x10^3/uL (1.0-4.8) Monocytes # (Auto) 0.6 x10^3/uL (0.0-1.1) Eosinophils # (Auto) 0.2 x10^3/uL (0.0-0.7) Basophils # (Auto) 0.1 x10^3/uL (0.0-0.2) Sodium Level 142 mmol/L (136-145) Potassium Level 3.8 mmol/L (3.5-5.1) Chloride Level 107 mmol/L (98-107) Carbon Dioxide Level 26 mmol/L (21-32) Anion Gap 9 (6-14) Blood Urea Nitrogen 11 mg/dL (7-20) Creatinine 1.0 mg/dL (0.6-1.0) Estimated GFR (Cockcroft-Gault) 53.9 BUN/Creatinine Ratio 11 (6-20) Glucose Level 70 mg/dL (70-99) Calcium Level 8.7 mg/dL (8.5-10.1) Total Bilirubin 0.9 mg/dL (0.2-1.0) Aspartate Amino Transf (AST/SGOT) 11 U/L (15-37) Alanine Aminotransferase (ALT/SGPT) 7 U/L (14-59) Alkaline Phosphatase 69 U/L (46-116) Total Protein 6.3 g/dL (6.4-8.2) Albumin 3.2 g/dL (3.4-5.0) Albumin/Globulin Ratio 1.0 (1.0-1.7) Physical Exam HEENT: Neck Supple W Full Motion Chest: Symmetric LUNGS: Other (basilar crackles) Heart: S1S2, RRR (SR with pacs) Abdomen: Soft N/T Extremities: No Edema, No Calf Tenderness Neurology: alert, follow commands Assessment Assessment 1. Severe anemia: post transfusion 2UPRBC. Fe/B12 def. 2. Dyspnea/weakness: mainly due to anemia 3. S/P EGD: noted Hiatal hernia w/ Leif lesions, gastritis, duodenitis per GI 4. Cardiomyopathy: Noted EF at 15-20% in 03/2018 and improved to 25-30% 5. Chronic systolic CHF: compensated 6. HTN: controlled 7. Bronchiectasis/COPD 8. Dementia Recommendations 1. Start on coreg and lisinopril, statin. Unable to utilize ASA with anemia and ulcers 2. Her CM is known in 2018 but failed to follow up, If pt is willing will address further as an outpt such stress test 3. Presently no cardiac symptoms and CHF is compensated. Lasix PRN. Supportive care. 4. 2L FR daily wt. .Home health vs SNU. Lasix x1 5. Follow up with Dr. Chua. on June 06 at 1015 -- KIP CHUA MD 04/20/19 1718: CARDIO Progress Notes Plan Plan Pt. seen and examined. Agree with above PR[employer]OX CUSTODIAN note. Complaining of abdominal pain. GI following Low dose HF regimen started. Continue as tolerated Will f/u in the office. Thanks. Pls call with questions. Will f/u on tuesday if patient is still in hospital. MORGAN FERNANDEZ APRN Apr 20, 2019 11:43 KIP CHUA MD Apr 20, 2019 17:18
[2019-04-20] MEDS ORDERED: LISINOPRIL 5 MG TABLET. PO SCH (11:45)
[2019-04-20] MEDS ORDERED: FUROSEMIDE 40 MG TABLET. PO ONE (12:15)
[2019-04-20] MEDS ORDERED: FUROSEMIDE 40 MG TABLET. PO PRN (12:15)
[2019-04-20] MEDS: SUCRALFATE 1 GM/10 ML ORAL.SUSP. PO SCH (12:39)
[2019-04-20 15:00] VITALS: BP 82/43
[2019-04-20 15:28] LABS: HEMATOCRIT 38.3 % (36.0-47.0); HEMOGLOBIN 11.4 g/dL (12.0-15.5); RED BLOOD COUNT 5.03 x10^6/uL (3.50-5.40); RED CELL DISTRIBUTION WIDTH 30.8 % (11.5-14.5); WHITE BLOOD COUNT 9.9 x10^3/uL (4.0-11.0)
--- NOTE | 2019-04-20 15:30 | NUR ---
Pt BP 82/46 with a HR 92, and is 98% on room air. Pt c/o abdominal pain in the left side of her abdomen, she has had two episodes of diarrhea and feels nauseous but has not vomited. Notified PRICILA Ford with GI, orders put in for an acute abdominal series. Dr. Gee also notified, orders received for one time dose of albumin. Will continue to monitor. Addendum: 04/20/19 at 1838 by MANDI ARAMBULA RN Pt BP rechecked, 90/34, pt is sitting in bed with no complaints at this time.
[2019-04-20] MEDS ORDERED: ALBUMIN HUMAN 5% 500 ML IV ONE (15:45)
--- NOTE | 2019-04-20 17:30 | NUR ---
Pt granddaughter, Carmen, brought the patient a [employer] baked potato. This RN explained to the patient and family that she should not eat that because of her current abdominal pain. The [employer] found the patient eating the baked potato after the family left. Education given about solid, greasy foods, in patients with abdominal pain.
[2019-04-20 19:53] VITALS: BP 103/37
[2019-04-20] MEDS: LACTOBACILLUS RHAMNOSUS GG 1 CAPSULE. PO SCH (21:27)
[2019-04-20] MEDS: ATORVASTATIN CALCIUM 10 MG TABLET. PO SCH (21:27)
[2019-04-20] MEDS: cefTRIAXone IV Push 1 GM VIAL. IVP SCH (21:29)
[2019-04-20 22:23] LABS: HEMATOCRIT 29.2 % (36.0-47.0); HEMOGLOBIN 8.7 g/dL (12.0-15.5); RED BLOOD COUNT 3.85 x10^6/uL (3.50-5.40); RED CELL DISTRIBUTION WIDTH 31.2 % (11.5-14.5); WHITE BLOOD COUNT 12.7 x10^3/uL (4.0-11.0)
[2019-04-20 23:26] VITALS: BP 100/42
[2019-04-21 03:51] VITALS: BP 111/47
[2019-04-21] MEDS: IPRATRPIUM/ALBUTEROL 0.5/2.5MG 3 ML NEBU. NEB SCH ×7 (04:00→23:55)
[2019-04-21 05:12] LABS: BASO # 0.1 x10^3/uL (0.0-0.2); BASO % 1 % (0-3); EOS # 0.2 x10^3/uL (0.0-0.7); EOS % 2 % (0-3); HEMATOCRIT 27.6 % (36.0-47.0); HEMOGLOBIN 8.3 g/dL (12.0-15.5); LYMPH # 1.6 x10^3/uL (1.0-4.8); LYMPH % 16 % (24-48); MEAN CORPUSCULAR HEMOGLOBIN 23 pg (25-35); MEAN CORPUSCULAR HGB CONC 30 g/dL (31-37); MEAN CORPUSCULAR VOLUME 75 fL (79-100); MONO # 0.7 x10^3/uL (0.0-1.1); MONO % 6 % (0-9); NEUT # 7.9 x10^3/uL (1.8-7.7); NEUT % 75 % (31-73); PLATELET COUNT 336 x10^3/uL (140-400); RED BLOOD COUNT 3.68 x10^6/uL (3.50-5.40); RED CELL DISTRIBUTION WIDTH 31.6 % (11.5-14.5); WHITE BLOOD COUNT 10.4 x10^3/uL (4.0-11.0)
[2019-04-21 05:28] LABS: ALBUMIN 3.7 g/dL (3.4-5.0); ALBUMIN/GLOBULIN RATIO 1.4 (1.0-1.7); CALCIUM 8.4 mg/dL (8.5-10.1); CREATININE 1.5 mg/dL (0.6-1.0); GFR 33.8; POTASSIUM 3.9 mmol/L (3.5-5.1); TOTAL BILIRUBIN 0.4 mg/dL (0.2-1.0); TOTAL PROTEIN 6.4 g/dL (6.4-8.2)
[2019-04-21] MEDS: PANTOPRAZOLE 40 MG TABLET.DR. PO SCH (07:02)
[2019-04-21 07:59] VITALS: BP 134/52
--- NOTE | 2019-04-21 09:03 | PDOC ---
PROGRESS NOTES Chief Complaint Chief Complaint A/P: Acute GI Bleed - EGD 04/19/19: Leif ulcers in body, gastritis with erosions in antrum (bx) Dyspnea UTI SOB Hypochromic microcytic anemia - Hb 4.7 on 04/18/2019 and improved to 8.4 on 04/19/2019 after 2 units of PRBC. Ferritin 9 - plan venofer 500 mg IV 04/20/19. Thrombocytosis B12 def, 225 Left uretal stent, prior nephrostomy - will need f/u on stent PAULA - likely 2/2 ALEX and diuretics. Will get renal US History of Present Illness History of Present Illness Patient is a 74 year old female brought to the ER by her granddaughters with complaints of shortness of breath and generalized weakness for the last 2 days prior to admit. Granddaughters report that she is supposed to take medication for a lung problem that she has but state that the patient stopped taking the medication a while ago. Pt denies any fever, cough, chest pain, palpitations, nausea, vomiting, diarrhea, or swelling. She denies any pain at this time. Her only complaint is shortness of breath. PT and family deny any recent travel via car or plane. Patient was seen and examined . D/w heme/onc for iron replacement. Seen by Heme/onc, cardiology, and GI. 04/20/19: Echo reveals left ventricular systolic function severely impaired with EF 25-30% Had BP drop after lisinopril and lasix administration. Abdominal series shows no cardiac or GI process, reveals a left sided uretal stent Cr jumped to 1.5 today. Likely related to med administration. She is feeling very weak today. Still mildly SOB. Vitals Vitals Vital Signs Date Time Temp Pulse Resp B/P (MAP) Pulse Ox O2 Delivery O2 Flow Rate FiO2 04/21/19 08:00 99 Room Air 04/21/19 07:59 97.7 76 18 134/52 (79) 97.7 04/20/19 08:00 3.0 Physical Exam General: Alert, Oriented X3 Heart: Normal S1, Normal S2 Lungs: Clear, Other Abdomen: Soft, No tenderness, No hepatosplenomegaly Extremities: No cyanosis, No edema Skin: No breakdown, No significant lesion Labs LABS Laboratory Tests Test 04/20/19 14:40 04/20/19 22:04/21/19 03:55 White Blood Count 9.9 x10^3/uL (4.0-11.0) 12.7 x10^3/uL (4.0-11.0) 10.4 x10^3/uL (4.0-11.0) Red Blood Count 5.03 x10^6/uL (3.50-5.40) 3.85 x10^6/uL (3.50-5.40) 3.68 x10^6/uL (3.50-5.40) Hemoglobin 11.4 g/dL (12.0-15.5) 8.7 g/dL (12.0-15.5) 8.3 g/dL (12.0-15.5) Hematocrit 38.3 % (36.0-47.0) 29.2 % (36.0-47.0) 27.6 % (36.0-47.0) Mean Corpuscular Volume 76 fL (79-100) 76 fL (79-100) 75 fL (79-100) Mean Corpuscular Hemoglobin 23 pg (25-35) 23 pg (25-35) 23 pg (25-35) Mean Corpuscular Hemoglobin Concent 30 g/dL (31-37) 30 g/dL (31-37) 30 g/dL (31-37) Red Cell Distribution Width 30.8 % (11.5-14.5) 31.2 % (11.5-14.5) 31.6 % (11.5-14.5) Platelet Count 298 x10^3/uL (140-400) 338 x10^3/uL (140-400) 336 x10^3/uL (140-400) Neutrophils (%) (Auto) 75 % (31-73) Lymphocytes (%) (Auto) 16 % (24-48) Monocytes (%) (Auto) 6 % (0-9) Eosinophils (%) (Auto) 2 % (0-3) Basophils (%) (Auto) 1 % (0-3) Neutrophils # (Auto) 7.9 x10^3/uL (1.8-7.7) Lymphocytes # (Auto) 1.6 x10^3/uL (1.0-4.8) Monocytes # (Auto) 0.7 x10^3/uL (0.0-1.1) Eosinophils # (Auto) 0.2 x10^3/uL (0.0-0.7) Basophils # (Auto) 0.1 x10^3/uL (0.0-0.2) Sodium Level 143 mmol/L (136-145) Potassium Level 3.9 mmol/L (3.5-5.1) Chloride Level 108 mmol/L (98-107) Carbon Dioxide Level 25 mmol/L (21-32) Anion Gap 10 (6-14) Blood Urea Nitrogen 12 mg/dL (7-20) Creatinine 1.5 mg/dL (0.6-1.0) Estimated GFR (Cockcroft-Gault) 33.8 BUN/Creatinine Ratio 8 (6-20) Glucose Level 84 mg/dL (70-99) Calcium Level 8.4 mg/dL (8.5-10.1) Total Bilirubin 0.4 mg/dL (0.2-1.0) Aspartate Amino Transf (AST/SGOT) 14 U/L (15-37) Alanine Aminotransferase (ALT/SGPT) 7 U/L (14-59) Alkaline Phosphatase 57 U/L (46-116) Total Protein 6.4 g/dL (6.4-8.2) Albumin 3.7 g/dL (3.4-5.0) Albumin/Globulin Ratio 1.4 (1.0-1.7) Comment Review of Relevant I have reviewed the following items marshal (where applicable) has been applied. Labs Laboratory Tests Test 04/19/19 14:00 04/19/19 21:50 04/20/19 03:38 04/20/19 14:40 White Blood Count 6.6 x10^3/uL (4.0-11.0) 7.1 x10^3/uL (4.0-11.0) 6.1 x10^3/uL (4.0-11.0) 9.9 x10^3/uL (4.0-11.0) Red Blood Count 4.01 x10^6/uL (3.50-5.70) 3.98 x10^6/uL (3.50-5.40) 3.75 x10^6/uL (3.50-5.40) 5.03 x10^6/uL (3.50-5.40) Hemoglobin 9.2 g/dL (12.0-15.5) 9.1 g/dL (12.0-15.5) 8.6 g/dL (12.0-15.5) 11.4 g/dL (12.0-15.5) Hematocrit 29.9 % (36.0-47.0) 29.9 % (36.0-47.0) 28.0 % (36.0-47.0) 38.3 % (36.0-47.0) Mean Corpuscular Volume 75 fL (79-100) 75 fL (79-100) 75 fL (79-100) 76 fL (79-100) Mean Corpuscular Hemoglobin 23 pg (25-35) 23 pg (25-35) 23 pg (25-35) 23 pg (25-35) Mean Corpuscular Hemoglobin Concent 31 g/dL (31-37) 30 g/dL (31-37) 31 g/dL (31-37) 30 g/dL (31-37) Red Cell Distribution Width 30.2 % (11.5-14.5) 30.3 % (11.5-14.5) 30.1 % (11.5-14.5) 30.8 % (11.5-14.5) Platelet Count 354 x10^3/uL (140-400) 312 x10^3/uL (140-400) 335 x10^3/uL (140-400) 298 x10^3/uL (140-400) Absolute Reticulocyte Count 0.086 x10^6/uL (0.020-0.120) Percent Reticulocyte Count 2.1 % (0.5-2.3) Immature Reticulocyte Fraction 0.48 (0.20-0.60) Iron Level 124 ug/dL (50-170) Total Iron Binding Capacity 421 ug/dL (250-450) Iron Saturation 29 % (15-34) Ferritin 9 ng/mL (8-252) Vitamin B12 Level 225 pg/mL (247-911) Neutrophils (%) (Auto) 58 % (31-73) Lymphocytes (%) (Auto) 30 % (24-48) Monocytes (%) (Auto) 9 % (0-9) Eosinophils (%) (Auto) 3 % (0-3) Basophils (%) (Auto) 1 % (0-3) Neutrophils # (Auto) 3.5 x10^3/uL (1.8-7.7) Lymphocytes # (Auto) 1.8 x10^3/uL (1.0-4.8) Monocytes # (Auto) 0.6 x10^3/uL (0.0-1.1) Eosinophils # (Auto) 0.2 x10^3/uL (0.0-0.7) Basophils # (Auto) 0.1 x10^3/uL (0.0-0.2) Sodium Level 142 mmol/L (136-145) Potassium Level 3.8 mmol/L (3.5-5.1) Chloride Level 107 mmol/L (98-107) Carbon Dioxide Level 26 mmol/L (21-32) Anion Gap 9 (6-14) Blood Urea Nitrogen 11 mg/dL (7-20) Creatinine 1.0 mg/dL (0.6-1.0) Estimated GFR (Cockcroft-Gault) 53.9 BUN/Creatinine Ratio 11 (6-20) Glucose Level 70 mg/dL (70-99) Calcium Level 8.7 mg/dL (8.5-10.1) Total Bilirubin 0.9 mg/dL (0.2-1.0) Aspartate Amino Transf (AST/SGOT) 11 U/L (15-37) Alanine Aminotransferase (ALT/SGPT) 7 U/L (14-59) Alkaline Phosphatase 69 U/L (46-116) Total Protein 6.3 g/dL (6.4-8.2) Albumin 3.2 g/dL (3.4-5.0) Albumin/Globulin Ratio 1.0 (1.0-1.7) Test 04/20/19 22:20 04/21/19 03:55 White Blood Count 12.7 x10^3/uL (4.0-11.0) 10.4 x10^3/uL (4.0-11.0) Red Blood Count 3.85 x10^6/uL (3.50-5.40) 3.68 x10^6/uL (3.50-5.40) Hemoglobin 8.7 g/dL (12.0-15.5) 8.3 g/dL (12.0-15.5) Hematocrit 29.2 % (36.0-47.0) 27.6 % (36.0-47.0) Mean Corpuscular Volume 76 fL (79-100) 75 fL (79-100) Mean Corpuscular Hemoglobin 23 pg (25-35) 23 pg (25-35) Mean Corpuscular Hemoglobin Concent 30 g/dL (31-37) 30 g/dL (31-37) Red Cell Distribution Width 31.2 % (11.5-14.5) 31.6 % (11.5-14.5) Platelet Count 338 x10^3/uL (140-400) 336 x10^3/uL (140-400) Neutrophils (%) (Auto) 75 % (31-73) Lymphocytes (%) (Auto) 16 % (24-48) Monocytes (%) (Auto) 6 % (0-9) Eosinophils (%) (Auto) 2 % (0-3) Basophils (%) (Auto) 1 % (0-3) Neutrophils # (Auto) 7.9 x10^3/uL (1.8-7.7) Lymphocytes # (Auto) 1.6 x10^3/uL (1.0-4.8) Monocytes # (Auto) 0.7 x10^3/uL (0.0-1.1) Eosinophils # (Auto) 0.2 x10^3/uL (0.0-0.7) Basophils # (Auto) 0.1 x10^3/uL (0.0-0.2) Sodium Level 143 mmol/L (136-145) Potassium Level 3.9 mmol/L (3.5-5.1) Chloride Level 108 mmol/L (98-107) Carbon Dioxide Level 25 mmol/L (21-32) Anion Gap 10 (6-14) Blood Urea Nitrogen 12 mg/dL (7-20) Creatinine 1.5 mg/dL (0.6-1.0) Estimated GFR (Cockcroft-Gault) 33.8 BUN/Creatinine Ratio 8 (6-20) Glucose Level 84 mg/dL (70-99) Calcium Level 8.4 mg/dL (8.5-10.1) Total Bilirubin 0.4 mg/dL (0.2-1.0) Aspartate Amino Transf (AST/SGOT) 14 U/L (15-37) Alanine Aminotransferase (ALT/SGPT) 7 U/L (14-59) Alkaline Phosphatase 57 U/L (46-116) Total Protein 6.4 g/dL (6.4-8.2) Albumin 3.7 g/dL (3.4-5.0) Albumin/Globulin Ratio 1.4 (1.0-1.7) Laboratory Tests Test 04/20/19 14:40 04/20/19 22:20 04/21/19 03:55 White Blood Count 9.9 x10^3/uL (4.0-11.0) 12.7 x10^3/uL (4.0-11.0) 10.4 x10^3/uL (4.0-11.0) Red Blood Count 5.03 x10^6/uL (3.50-5.40) 3.85 x10^6/uL (3.50-5.40) 3.68 x10^6/uL (3.50-5.40) Hemoglobin 11.4 g/dL (12.0-15.5) 8.7 g/dL (12.0-15.5) 8.3 g/dL (12.0-15.5) Hematocrit 38.3 % (36.0-47.0) 29.2 % (36.0-47.0) 27.6 % (36.0-47.0) Mean Corpuscular Volume 76 fL (79-100) 76 fL (79-100) 75 fL (79-100) Mean Corpuscular Hemoglobin 23 pg (25-35) 23 pg (25-35) 23 pg (25-35) Mean Corpuscular Hemoglobin Concent 30 g/dL (31-37) 30 g/dL (31-37) 30 g/dL (31-37) Red Cell Distribution Width 30.8 % (11.5-14.5) 31.2 % (11.5-14.5) 31.6 % (11.5-14.5) Platelet Count 298 x10^3/uL (140-400) 338 x10^3/uL (140-400) 336 x10^3/uL (140-400) Neutrophils (%) (Auto) 75 % (31-73) Lymphocytes (%) (Auto) 16 % (24-48) Monocytes (%) (Auto) 6 % (0-9) Eosinophils (%) (Auto) 2 % (0-3) Basophils (%) (Auto) 1 % (0-3) Neutrophils # (Auto) 7.9 x10^3/uL (1.8-7.7) Lymphocytes # (Auto) 1.6 x10^3/uL (1.0-4.8) Monocytes # (Auto) 0.7 x10^3/uL (0.0-1.1) Eosinophils # (Auto) 0.2 x10^3/uL (0.0-0.7) Basophils # (Auto) 0.1 x10^3/uL (0.0-0.2) Sodium Level 143 mmol/L (136-145) Potassium Level 3.9 mmol/L (3.5-5.1) Chloride Level 108 mmol/L (98-107) Carbon Dioxide Level 25 mmol/L (21-32) Anion Gap 10 (6-14) Blood Urea Nitrogen 12 mg/dL (7-20) Creatinine 1.5 mg/dL (0.6-1.0) Estimated GFR (Cockcroft-Gault) 33.8 BUN/Creatinine Ratio 8 (6-20) Glucose Level 84 mg/dL (70-99) Calcium Level 8.4 mg/dL (8.5-10.1) Total Bilirubin 0.4 mg/dL (0.2-1.0) Aspartate Amino Transf (AST/SGOT) 14 U/L (15-37) Alanine Aminotransferase (ALT/SGPT) 7 U/L (14-59) Alkaline Phosphatase 57 U/L (46-116) Total Protein 6.4 g/dL (6.4-8.2) Albumin 3.7 g/dL (3.4-5.0) Albumin/Globulin Ratio 1.4 (1.0-1.7) Microbiology 04/18/19 Urine Culture - Final, Complete 04/18/19 Urine Culture Result 1 (JAYLIN) - Final, Complete Medications Current Medications Albuterol/ Ipratropium (Duoneb) 3 ml 1X ONCE NEB Last administered on 04/18/19at 18:01; Start 04/18/19 at 18:00; Stop 04/18/19 at 18:01; Status DC Ceftriaxone Sodium (Rocephin) 1 gm Q24H IVP Last administered on 04/20/19at 21:29; Start 04/18/19 at 19:15 Pantoprazole Sodium 80 mg/ Sodium Chloride 100 ml @ 10 mls/hr 1X ONCE IV Last administered on 04/18/19 19:29; Start 04/18/19 at 19:15; Stop 04/19/19 at 05:14; Status DC Acetaminophen (Tylenol) 500 mg BID PO Last administered on 04/20/19 21:27; Start 04/18/19 at 21:00 Albuterol Sulfate (Ventolin Neb Soln) 2.5 mg PRN Q6HRS PRN INH SHORTNESS OF BREATH; Start 04/18/19 at 19:15 Acetaminophen/ Hydrocodone Bitart (Lortab 5/325) 1 tab PRN Q4HRS PRN PO MODERATE PAIN; Start 04/18/19 at 19:15 Sodium Chloride (Normal Saline Flush) 3 ml QSHIFT PRN IV AFTER MEDS AND BLOOD DRAWS; Start 04/18/19 at 19:15 Ondansetron HCl (Zofran) 4 mg PRN Q4HRS PRN IV NAUSEA/VOMITING Last administered on 04/20/19at 13:24; Start 04/18/19 at 19:15 Acetaminophen (Tylenol) 650 mg PRN Q4HRS PRN PO TEMP OVER 100.4F OR MILD PAIN Last administered on 04/20/19at 16:27; Start 04/18/19 at 19:15 Clonidine HCl (Catapres) 0.1 mg PRN Q6HRS PRN PO SBP>160 OR DBP>90; Start 04/18/19 at 19:15 Albuterol/ Ipratropium (Duoneb) 3 ml Q4HRS NEB Last administered on 04/20/19at 20:14; Start 04/18/19 at 20:00 Guaifenesin (Robitussin) 200 mg PRN Q4HRS PRN PO COUGH; Start 04/18/19 at 19:15 Lorazepam (Ativan) 0.5 mg PRN Q4HRS PRN PO ANXIETY / AGITATION; Start 04/18/19 at 19:15 Pantoprazole Sodium 80 mg/ Sodium Chloride 100 ml @ 10 mls/hr Q10H IV Last administered on 04/20/19at 00:09; Start 04/19/19 at 03:30; Stop 04/20/19 at 09:34; Status DC Ringer's Solution 1,000 ml @ 75 mls/hr 1X ONCE IV Last administered on 04/19/19at 15:22; Start 04/19/19 at 15:15; Stop 04/20/19 at 04:34; Status DC Carvedilol (Coreg) 3.125 mg BIDWMEALS PO Last administered on 04/20/19at 09:19; Start 04/19/19 at 17:00 Propofol 20 ml @ As Directed STK-MED ONCE IV ; Start 04/19/19 at 15:54; Stop 04/19/19 at 15:54; Status DC Lidocaine HCl (Lidocaine Pf 2% Vial) 5 ml STK-MED ONCE .ROUTE ; Start 04/19/19 at 15:54; Stop 04/19/19 at 15:54; Status DC Cyanocobalamin (Vitamin B-12) 1,000 mcg DAILY IM Last administered on 04/20/19at 09:19; Start 04/19/19 at 16:45; Stop 04/24/19 at 09:00 Sucralfate (Carafate) 1 gm AFTRNOON PO Last administered on 04/20/19at 12:39; Start 04/19/19 at 17:00 Sodium Chloride 1,000 ml @ 75 mls/hr [id number] IV Last administered on 04/20/19at 00:13; Start 04/20/19 at 00:15 Iron Sucrose 500 mg/Sodium Chloride 275 ml @ 78.571 mls/ hr 1X ONCE IV Last administered on 04/20/19at 09:19; Start 04/20/19 at 10:00; Stop 04/20/19 at 13:29; Status DC Polyethylene Glycol (miraLAX PACKET) 17 gm PRN DAILY PRN PO CONSTIPATION; Start 04/20/19 at 09:45 Pantoprazole Sodium (Protonix) 40 mg DAILYAC PO Last administered on 04/21/19at 07:02; Start 04/20/19 at 10:00 Cyanocobalamin (Vitamin B-12) 1,000 mcg 1X ONCE IM ; Start 04/20/19 at 09:45; Stop 04/20/19 at 09:46; Status UNV Lisinopril (Prinivil) 5 mg DAILY PO Last administered on 04/20/19at 12:39; Start 04/20/19 at 11:45 Atorvastatin Calcium (Lipitor) 10 mg QHS PO Last administered on 04/20/19at 21:27; Start 04/20/19 at 21:00 Furosemide (Lasix) 40 mg 1X ONCE PO Last administered on 04/20/19at 12:39; Start 04/20/19 at 12:15; Stop 04/20/19 at 12:16; Status DC Furosemide (Lasix) 40 mg PRN DAILY PRN PO SEE COMMENTS; Start 04/20/19 at 12:15 Albumin Human 500 ml @ 125 mls/hr 1X ONCE IV Last administered on 04/20/19at 16:03; Start 04/20/19 at 15:45; Stop 04/20/19 at 19:44; Status DC Lactobacillus Rhamnosus (Culturelle) 1 cap BID PO Last administered on 04/20/19at 21:27; Start 04/20/19 at 21:00 Active Scripts Active Proair Hfa Inhaler (Albuterol Sulfate) 8.5 Gm Hfa.aer.ad 2 Puff INH PRN Q6HRS PRN Reported Hydrocodone-Apap 5-325 (Hydrocodone Bit/Acetaminophen) 1 Each Tablet 1 Tab PO Q4HRS PRN Acetaminophen 500 Mg Tablet 1 Tab PO BID Vitals/I & O Vital Sign - Last 24 Hours 04/20/19 04/20/19 04/20/19 04/20/19 09:19 11:21 12:38 12:39 Temp 97.9 97.9 Pulse 76 64 64 Resp 18 B/P (MAP) 114/49 132/74 (93) 132/74 Pulse Ox 97 O2 Delivery Room Air Room Air 04/20/19 04/20/19 04/20/19 04/20/19 15:00 16:13 16:52 19:35 Temp 97.5 97.5 Pulse 92 92 Resp 20 B/P (MAP) 82/43 (56) 82/43 Pulse Ox 98 O2 Delivery Room Air Room Air Room Air 04/20/19 04/20/19 04/20/1904/21/19 19:53 20:15 23:26 03:51 Temp 97.5 97.9 97.3 97.5 97.9 97.3 Pulse 58 85 74 Resp 16 18 18 B/P (MAP) 103/37 (59) 100/42 (61) 111/47 (68) Pulse Ox 93 96 97 97 O2 Delivery Room Air Room Air Room Air Room Air 04/21/19 04/21/19 07:59 08:00 Temp 97.7 97.7 Pulse 76 Resp 18 B/P (MAP) 134/52 (79) Pulse Ox 96 99 O2 Delivery Room Air Room Air Intake and Output 04/20/19 04/20/19 04/21/19 14:59 22:59 06:59 Intake Total 200 ml 240 ml Balance 200 ml 240 ml Nutrition Consultation Dietary Evaluation: Recommendations by RD: Increase Calorie Intake Comments: REC advance diet as able to goal diet regular, honor food preferences, and provide snacks as requested Expected Outcomes/Goals: diet advancement Malnutrition Findings: Body Fat Depletion (Non Severe: Mild Depletion Weight Status: Underweight SAMMY HOFFMAN MD Apr 21, 2019 09:03
[2019-04-21] MEDS: LACTOBACILLUS RHAMNOSUS GG 1 CAPSULE. PO SCH ×2 (09:22→20:22)
[2019-04-21] MEDS: CARVEDILOL 3.125 MG TABLET. PO SCH ×2 (09:22→17:50)
[2019-04-21] MEDS: ACETAMINOPHEN 500 MG TABLET PO SCH ×2 (09:22→20:22)
[2019-04-21] MEDS: LISINOPRIL 5 MG TABLET. PO SCH (09:23)
[2019-04-21] MEDS: CYANOCOBALAMIN (VITAMIN B-12) 1,000 MCG/ML VIAL IM SCH (09:32)
[2019-04-21] MEDS: IV NORMAL SALINE 1000ML BAG 1,000 ML IV SCH (09:40)
--- NOTE | 2019-04-21 10:46 | RAD ---
Exam performed: Acute abdominal series HISTORY: Nausea and left-sided abdominal pain, diarrhea. DATE OF SERVICE: 04/20/2019. COMPARISON: Single view chest from April 18, 2019. FINDINGS: AP view of the chest demonstrates no acute cardiopulmonary process. Chronic interstitial changes are seen. Nonacute rib fractures. There is a moderate-sized hiatal hernia Supine and upright views of the abdomen demonstrate nonspecific, nondistended bowel loops. There is a left-sided nephroureteral stent in place. No abnormal calcification. Mild spondylotic changes. IMPRESSION: No acute cardiopulmonary process seen. Moderate hiatal hernia. Left-sided nephroureteral stent. Electronically signed by: Jessica Isbell MD (04/21/2019 10:43 AM) [facility]
[2019-04-21 12:00] VITALS: BP 108/55
--- NOTE | 2019-04-21 12:09 | RAD ---
Exam performed: Renal ultrasound. Indication: Acute renal infection, medical renal disease Date of Service: 04/21/2019. Comparison: None available Technique: Real-time grayscale imaging of the kidneys is performed and images are obtained. Findings: The right kidney measures 9.0 x 3.3 x 3.2 cm where as the left kidney measures 7.6 x 2.8 x 3.9 cm. Mild bilateral renal cortical thinning seen. There is no hydronephrosis or nephrolithiasis. The urinary bladder is decompressed The aorta and IVC appear normal. Impression: 1. Mild bilateral renal cortical thinning, otherwise unremarkable exam. Electronically signed by: Jessica Isbell MD (04/21/2019 12:06 PM) [facility]
[2019-04-21] MEDS: SUCRALFATE 1 GM/10 ML ORAL.SUSP. PO SCH (14:00)
[2019-04-21 14:23] LABS: HEMATOCRIT 31.8 % (36.0-47.0); RED BLOOD COUNT 3.98 x10^6/uL (3.50-5.40); RED CELL DISTRIBUTION WIDTH 31.3 % (11.5-14.5); WHITE BLOOD COUNT 6.8 x10^3/uL (4.0-11.0)
[2019-04-21 15:58] VITALS: BP 131/61
[2019-04-21 19:20] VITALS: BP 99/45
[2019-04-21] MEDS: cefTRIAXone IV Push 1 GM VIAL. IVP SCH (20:21)
[2019-04-21] MEDS: ATORVASTATIN CALCIUM 10 MG TABLET. PO SCH (20:22)
[2019-04-21 23:04] LABS: HEMATOCRIT 29.5 % (36.0-47.0); HEMOGLOBIN 8.9 g/dL (12.0-15.5); RED BLOOD COUNT 3.87 x10^6/uL (3.50-5.40); WHITE BLOOD COUNT 5.9 x10^3/uL (4.0-11.0)
[2019-04-21 23:20] VITALS: BP 97/44
[2019-04-22 03:20] VITALS: BP 127/53
[2019-04-22] MEDS: IPRATRPIUM/ALBUTEROL 0.5/2.5MG 3 ML NEBU. NEB SCH ×5 (04:00→20:35)
[2019-04-22 05:24] LABS: BASO % 1 % (0-3); EOS # 0.2 x10^3/uL (0.0-0.7); EOS % 4 % (0-3); HEMATOCRIT 25.5 % (36.0-47.0); HEMOGLOBIN 7.6 g/dL (12.0-15.5); LYMPH # 1.6 x10^3/uL (1.0-4.8); LYMPH % 31 % (24-48); MEAN CORPUSCULAR HEMOGLOBIN 23 pg (25-35); MEAN CORPUSCULAR HGB CONC 30 g/dL (31-37); MEAN CORPUSCULAR VOLUME 77 fL (79-100); MONO # 0.5 x10^3/uL (0.0-1.1); MONO % 11 % (0-9); NEUT # 2.7 x10^3/uL (1.8-7.7); NEUT % 53 % (31-73); PLATELET COUNT 322 x10^3/uL (140-400); RED BLOOD COUNT 3.32 x10^6/uL (3.50-5.40); WHITE BLOOD COUNT 5.1 x10^3/uL (4.0-11.0)
[2019-04-22 05:37] LABS: ALBUMIN 3.4 g/dL (3.4-5.0); ALBUMIN/GLOBULIN RATIO 1.2 (1.0-1.7); CALCIUM 8.3 mg/dL (8.5-10.1); CREATININE 1.3 mg/dL (0.6-1.0); GFR 39.8; POTASSIUM 3.8 mmol/L (3.5-5.1); TOTAL BILIRUBIN 0.3 mg/dL (0.2-1.0); TOTAL PROTEIN 6.2 g/dL (6.4-8.2)
[2019-04-22 07:00] VITALS: BP 124/49
[2019-04-22] MEDS: LACTOBACILLUS RHAMNOSUS GG 1 CAPSULE. PO SCH ×2 (08:52→21:06)
[2019-04-22] MEDS: LISINOPRIL 5 MG TABLET. PO SCH (08:53)
[2019-04-22] MEDS: CARVEDILOL 3.125 MG TABLET. PO SCH ×2 (08:53→16:53)
[2019-04-22] MEDS: ACETAMINOPHEN 500 MG TABLET PO SCH ×2 (08:54→21:06)
[2019-04-22] MEDS: PANTOPRAZOLE 40 MG TABLET.DR. PO SCH (08:58)
[2019-04-22] MEDS: CYANOCOBALAMIN (VITAMIN B-12) 1,000 MCG/ML VIAL IM SCH (09:00)
--- NOTE | 2019-04-22 09:07 | PDOC ---
PROGRESS NOTES Chief Complaint Chief Complaint A/P: Acute GI Bleed - EGD 04/19/19: Leif ulcers in body, gastritis with erosions in antrum (bx) Dyspnea UTI SOB Hypochromic microcytic anemia - Hb 4.7 on 04/18/2019 and improved to 8.4 on 04/19/2019 after 2 units of PRBC. Ferritin 9 - plan venofer 500 mg IV 04/20/19. Thrombocytosis B12 def, 225 Left uretal stent, prior nephrostomy - will need f/u on stent, was planned for 03/29/18 at [address] Vilchis of [facility] [place], I have not been able to verify if follow up was missed PAULA - likely 2/2 ALEX and diuretics. History of Present Illness History of Present Illness Patient is a 74 year old female brought to the ER by her granddaughters with complaints of shortness of breath and generalized weakness for the last 2 days prior to admit. Granddaughters report that she is supposed to take medication for a lung problem that she has but state that the patient stopped taking the medication a while ago. Pt denies any fever, cough, chest pain, palpitations, nausea, vomiting, diarrhea, or swelling. She denies any pain at this time. Her only complaint is shortness of breath. PT and family deny any recent travel via car or plane. Patient was seen and examined . D/w heme/onc for iron replacement. Seen by Heme/onc, cardiology, and GI. 04/20/19: Echo reveals left ventricular systolic function severely impaired with EF 25-30% Had BP drop after lisinopril and lasix administration. Abdominal series shows no cardiac or GI process, reveals a left sided uretal stent 04/21/19: Cr jumped to 1.5 today. Likely related to med administration. Cr to 1.3 today. Hb down to 7.6. She is feeling very weak today. Still mildly SOB. She is asking when she can leave. Vitals Vitals Vital Signs Date Time Temp Pulse Resp B/P (MAP) Pulse Ox O2 Delivery O2 Flow Rate FiO2 04/22/19 08:53 83 124/49 04/22/19 07:50 Room Air 04/22/19 07:00 97.9 16 99 97.9 Physical Exam General: Alert, Oriented X3 Heart: Normal S1, Normal S2 Lungs: Clear, Other Abdomen: Soft, No tenderness, No hepatosplenomegaly Extremities: No cyanosis, No edema Skin: No breakdown, No significant lesion Labs LABS Laboratory Tests Test 04/21/19 14:00 04/21/19 22:20 04/22/19 03:55 04/22/19 04:00 White Blood Count 6.8 x10^3/uL (4.0-11.0) 5.9 x10^3/uL (4.0-11.0) 5.1 x10^3/uL (4.0-11.0) Red Blood Count 3.98 x10^6/uL (3.50-5.40) 3.87 x10^6/uL (3.50-5.40) 3.32 x10^6/uL (3.50-5.40) Hemoglobin 9.0 g/dL (12.0-15.5) 8.9 g/dL (12.0-15.5) 7.6 g/dL (12.0-15.5) Hematocrit 31.8 % (36.0-47.0) 29.5 % (36.0-47.0) 25.5 % (36.0-47.0) Mean Corpuscular Volume 80 fL (79-100) 76 fL (79-100) 77 fL (79-100) Mean Corpuscular Hemoglobin 23 pg (25-35) 23 pg (25-35) 23 pg (25-35) Mean Corpuscular Hemoglobin Concent 28 g/dL (31-37) 30 g/dL (31-37) 30 g/dL (31-37) Red Cell Distribution Width 31.3 % (11.5-14.5) 32.0 % (11.5-14.5) 32.0 % (11.5-14.5) Platelet Count 309 x10^3/uL (140-400) 298 x10^3/uL (140-400) 322 x10^3/uL (140-400) Neutrophils (%) (Auto) 53 % (31-73) Lymphocytes (%) (Auto) 31 % (24-48) Monocytes (%) (Auto) 11 % (0-9) Eosinophils (%) (Auto) 4 % (0-3) Basophils (%) (Auto) 1 % (0-3) Neutrophils # (Auto) 2.7 x10^3/uL (1.8-7.7) Lymphocytes # (Auto) 1.6 x10^3/uL (1.0-4.8) Monocytes # (Auto) 0.5 x10^3/uL (0.0-1.1) Eosinophils # (Auto) 0.2 x10^3/uL (0.0-0.7) Basophils # (Auto) 0.0 x10^3/uL (0.0-0.2) Sodium Level 143 mmol/L (136-145) Potassium Level 3.8 mmol/L (3.5-5.1) Chloride Level 109 mmol/L (98-107) Carbon Dioxide Level 25 mmol/L (21-32) Anion Gap 9 (6-14) Blood Urea Nitrogen 14 mg/dL (7-20) Creatinine 1.3 mg/dL (0.6-1.0) Estimated GFR (Cockcroft-Gault) 39.8 BUN/Creatinine Ratio 11 (6-20) Glucose Level 88 mg/dL (70-99) Calcium Level 8.3 mg/dL (8.5-10.1) Total Bilirubin 0.3 mg/dL (0.2-1.0) Aspartate Amino Transf (AST/SGOT) 13 U/L (15-37) Alanine Aminotransferase (ALT/SGPT) 9 U/L (14-59) Alkaline Phosphatase 60 U/L (46-116) Total Protein 6.2 g/dL (6.4-8.2) Albumin 3.4 g/dL (3.4-5.0) Albumin/Globulin Ratio 1.2 (1.0-1.7) Comment Review of Relevant I have reviewed the following items marshal (where applicable) has been applied. Labs Laboratory Tests Test 04/20/19 14:40 04/20/19 22:20 04/21/19 03:55 04/21/19 14:00 White Blood Count 9.9 x10^3/uL (4.0-11.0) 12.7 x10^3/uL (4.0-11.0) 10.4 x10^3/uL (4.0-11.0) 6.8 x10^3/uL (4.0-11.0) Red Blood Count 5.03 x10^6/uL (3.50-5.40) 3.85 x10^6/uL (3.50-5.40) 3.68 x10^6/uL (3.50-5.40) 3.98 x10^6/uL (3.50-5.40) Hemoglobin 11.4 g/dL (12.0-15.5) 8.7 g/dL (12.0-15.5) 8.3 g/dL (12.0-15.5) 9.0 g/dL (12.0-15.5) Hematocrit 38.3 % (36.0-47.0) 29.2 % (36.0-47.0) 27.6 % (36.0-47.0) 31.8 % (36.0-47.0) Mean Corpuscular Volume 76 fL (79-100) 76 fL (79-100) 75 fL (79-100) 80 fL (79-100) Mean Corpuscular Hemoglobin 23 pg (25-35) 23 pg (25-35) 23 pg (25-35) 23 pg (25-35) Mean Corpuscular Hemoglobin Concent 30 g/dL (31-37) 30 g/dL (31-37) 30 g/dL (31-37) 28 g/dL (31-37) Red Cell Distribution Width 30.8 % (11.5-14.5) 31.2 % (11.5-14.5) 31.6 % (11.5-14.5) 31.3 % (11.5-14.5) Platelet Count 298 x10^3/uL (140-400) 338 x10^3/uL (140-400) 336 x10^3/uL (140-400) 309 x10^3/uL (140-400) Neutrophils (%) (Auto) 75 % (31-73) Lymphocytes (%) (Auto) 16 % (24-48) Monocytes (%) (Auto) 6 % (0-9) Eosinophils (%) (Auto) 2 % (0-3) Basophils (%) (Auto) 1 % (0-3) Neutrophils # (Auto) 7.9 x10^3/uL (1.8-7.7) Lymphocytes # (Auto) 1.6 x10^3/uL (1.0-4.8) Monocytes # (Auto) 0.7 x10^3/uL (0.0-1.1) Eosinophils # (Auto) 0.2 x10^3/uL (0.0-0.7) Basophils # (Auto) 0.1 x10^3/uL (0.0-0.2) Sodium Level 143 mmol/L (136-145) Potassium Level 3.9 mmol/L (3.5-5.1) Chloride Level 108 mmol/L (98-107) Carbon Dioxide Level 25 mmol/L (21-32) Anion Gap 10 (6-14) Blood Urea Nitrogen 12 mg/dL (7-20) Creatinine 1.5 mg/dL (0.6-1.0) Estimated GFR (Cockcroft-Gault) 33.8 BUN/Creatinine Ratio 8 (6-20) Glucose Level 84 mg/dL (70-99) Calcium Level 8.4 mg/dL (8.5-10.1) Total Bilirubin 0.4 mg/dL (0.2-1.0) Aspartate Amino Transf (AST/SGOT) 14 U/L (15-37) Alanine Aminotransferase (ALT/SGPT) 7 U/L (14-59) Alkaline Phosphatase 57 U/L (46-116) Total Protein 6.4 g/dL (6.4-8.2) Albumin 3.7 g/dL (3.4-5.0) Albumin/Globulin Ratio 1.4 (1.0-1.7) Test 04/21/19 22:20 04/22/19 03:55 04/22/19 04:00 White Blood Count 5.9 x10^3/uL (4.0-11.0) 5.1 x10^3/uL (4.0-11.0) Red Blood Count 3.87 x10^6/uL (3.50-5.40) 3.32 x10^6/uL (3.50-5.40) Hemoglobin 8.9 g/dL (12.0-15.5) 7.6 g/dL (12.0-15.5) Hematocrit 29.5 % (36.0-47.0) 25.5 % (36.0-47.0) Mean Corpuscular Volume 76 fL (79-100) 77 fL (79-100) Mean Corpuscular Hemoglobin 23 pg (25-35) 23 pg (25-35) Mean Corpuscular Hemoglobin Concent 30 g/dL (31-37) 30 g/dL (31-37) Red Cell Distribution Width 32.0 % (11.5-14.5) 32.0 % (11.5-14.5) Platelet Count 298 x10^3/uL (140-400) 322 x10^3/uL (140-400) Neutrophils (%) (Auto) 53 % (31-73) Lymphocytes (%) (Auto) 31 % (24-48) Monocytes (%) (Auto) 11 % (0-9) Eosinophils (%) (Auto) 4 % (0-3) Basophils (%) (Auto) 1 % (0-3) Neutrophils # (Auto) 2.7 x10^3/uL (1.8-7.7) Lymphocytes # (Auto) 1.6 x10^3/uL (1.0-4.8) Monocytes # (Auto) 0.5 x10^3/uL (0.0-1.1) Eosinophils # (Auto) 0.2 x10^3/uL (0.0-0.7) Basophils # (Auto) 0.0 x10^3/uL (0.0-0.2) Sodium Level 143 mmol/L (136-145) Potassium Level 3.8 mmol/L (3.5-5.1) Chloride Level 109 mmol/L (98-107) Carbon Dioxide Level 25 mmol/L (21-32) Anion Gap 9 (6-14) Blood Urea Nitrogen 14 mg/dL (7-20) Creatinine 1.3 mg/dL (0.6-1.0) Estimated GFR (Cockcroft-Gault) 39.8 BUN/Creatinine Ratio 11 (6-20) Glucose Level 88 mg/dL (70-99) Calcium Level 8.3 mg/dL (8.5-10.1) Total Bilirubin 0.3 mg/dL (0.2-1.0) Aspartate Amino Transf (AST/SGOT) 13 U/L (15-37) Alanine Aminotransferase (ALT/SGPT) 9 U/L (14-59) Alkaline Phosphatase 60 U/L (46-116) Total Protein 6.2 g/dL (6.4-8.2) Albumin 3.4 g/dL (3.4-5.0) Albumin/Globulin Ratio 1.2 (1.0-1.7) Laboratory Tests Test 04/21/19 14:00 04/21/19 22:20 04/22/19 03:55 04/22/19 04:00 White Blood Count 6.8 x10^3/uL (4.0-11.0) 5.9 x10^3/uL (4.0-11.0) 5.1 x10^3/uL (4.0-11.0) Red Blood Count 3.98 x10^6/uL (3.50-5.40) 3.87 x10^6/uL (3.50-5.40) 3.32 x10^6/uL (3.50-5.40) Hemoglobin 9.0 g/dL (12.0-15.5) 8.9 g/dL (12.0-15.5) 7.6 g/dL (12.0-15.5) Hematocrit 31.8 % (36.0-47.0) 29.5 % (36.0-47.0) 25.5 % (36.0-47.0) Mean Corpuscular Volume 80 fL (79-100) 76 fL (79-100) 77 fL (79-100) Mean Corpuscular Hemoglobin 23 pg (25-35) 23 pg (25-35) 23 pg (25-35) Mean Corpuscular Hemoglobin Concent 28 g/dL (31-37) 30 g/dL (31-37) 30 g/dL (31-37) Red Cell Distribution Width 31.3 % (11.5-14.5) 32.0 % (11.5-14.5) 32.0 % (11.5-14.5) Platelet Count 309 x10^3/uL (140-400) 298 x10^3/uL (140-400) 322 x10^3/uL (140-400) Neutrophils (%) (Auto) 53 % (31-73) Lymphocytes (%) (Auto) 31 % (24-48) Monocytes (%) (Auto) 11 % (0-9) Eosinophils (%) (Auto) 4 % (0-3) Basophils (%) (Auto) 1 % (0-3) Neutrophils # (Auto) 2.7 x10^3/uL (1.8-7.7) Lymphocytes # (Auto) 1.6 x10^3/uL (1.0-4.8) Monocytes # (Auto) 0.5 x10^3/uL (0.0-1.1) Eosinophils # (Auto) 0.2 x10^3/uL (0.0-0.7) Basophils # (Auto) 0.0 x10^3/uL (0.0-0.2) Sodium Level 143 mmol/L (136-145) Potassium Level 3.8 mmol/L (3.5-5.1) Chloride Level 109 mmol/L (98-107) Carbon Dioxide Level 25 mmol/L (21-32) Anion Gap 9 (6-14) Blood Urea Nitrogen 14 mg/dL (7-20) Creatinine 1.3 mg/dL (0.6-1.0) Estimated GFR (Cockcroft-Gault) 39.8 BUN/Creatinine Ratio 11 (6-20) Glucose Level 88 mg/dL (70-99) Calcium Level 8.3 mg/dL (8.5-10.1) Total Bilirubin 0.3 mg/dL (0.2-1.0) Aspartate Amino Transf (AST/SGOT) 13 U/L (15-37) Alanine Aminotransferase (ALT/SGPT) 9 U/L (14-59) Alkaline Phosphatase 60 U/L (46-116) Total Protein 6.2 g/dL (6.4-8.2) Albumin 3.4 g/dL (3.4-5.0) Albumin/Globulin Ratio 1.2 (1.0-1.7) Microbiology 04/18/19 Urine Culture - Final, Complete 04/18/19 Urine Culture Result 1 (JAYLIN) - Final, Complete Medications Current Medications Albuterol/ Ipratropium (Duoneb) 3 ml 1X ONCE NEB Last administered on 04/18/19at 18:01; Start 04/18/19 at 18:00; Stop 04/18/19 at 18:01; Status DC Ceftriaxone Sodium (Rocephin) 1 gm Q24H IVP Last administered on 04/21/19at 20:21; Start 04/18/19 at 19:15 Pantoprazole Sodium 80 mg/ Sodium Chloride 100 ml @ 10 mls/hr 1X ONCE IV Last administered on 04/18/19at 19:29; Start 04/18/19 at 19:15; Stop 04/19/19 at 05:14; Status DC Acetaminophen (Tylenol) 500 mg BID PO Last administered on 04/22/19at 08:54; Start 04/18/19 at 21:00 Albuterol Sulfate (Ventolin Neb Soln) 2.5 mg PRN Q6HRS PRN INH SHORTNESS OF BREATH; Start 04/18/19 at 19:15 Acetaminophen/ Hydrocodone Bitart (Lortab 5/325) 1 tab PRN Q4HRS PRN PO MODERATE PAIN; Start 04/18/19 at 19:15 Sodium Chloride (Normal Saline Flush) 3 ml QSHIFT PRN IV AFTER MEDS AND BLOOD DRAWS; Start 04/18/19 at 19:15 Ondansetron HCl (Zofran) 4 mg PRN Q4HRS PRN IV NAUSEA/VOMITING Last administere d on 04/20/19at 13:24; Start 04/18/19 at 19:15 Acetaminophen (Tylenol) 650 mg PRN Q4HRS PRN PO TEMP OVER 100.4F OR MILD PAIN L ast administered on 04/20/19at 16:27; Start 04/18/19 at 19:15 Clonidine HCl (Catapres) 0.1 mg PRN Q6HRS PRN PO SBP>160 OR DBP>90; Start 04/18/19 at 19:15 Albuterol/ Ipratropium (Duoneb) 3 ml Q4HRS NEB Last administered on 04/22/19at 07:49; Start 04/18/19 at 20:00 Guaifenesin (Robitussin) 200 mg PRN Q4HRS PRN PO COUGH; Start 04/18/19 at 19:15 Lorazepam (Ativan) 0.5 mg PRN Q4HRS PRN PO ANXIETY / AGITATION; Start 04/18/19 at 19:15 Pantoprazole Sodium 80 mg/ Sodium Chloride 100 ml @ 10 mls/hr Q10H IV Last administered on 04/20/19at 00:09; Start 04/19/19 at 03:30; Stop 04/20/19 at 09:34; Status DC Ringer's Solution 1,000 ml @ 75 mls/hr 1X ONCE IV Last administered on 04/19/19at 15:22; Start 04/19/19 at 15:15; Stop 04/20/19 at 04:34; Status DC Carvedilol (Coreg) 3.125 mg BIDWMEALS PO Last administered on 04/22/19at 08:53; Start 04/19/19 at 17:00 Propofol 20 ml @ As Directed STK-MED ONCE IV ; Start 04/19/19 at 15:54; Stop 04/19/19 at 15:54; Status DC Lidocaine HCl (Lidocaine Pf 2% Vial) 5 ml STK-MED ONCE .ROUTE ; Start 04/19/19 at 15:54; Stop 04/19/19 at 15:54; Status DC Cyanocobalamin (Vitamin B-12) 1,000 mcg DAILY IM Last administered on 04/21/19at 09:32; Start 04/19/19 at 16:45; Stop 04/24/19 at 09:00 Sucralfate (Carafate) 1 gm AFTRNOON PO Last administered on 04/21/19at 14:00; Start 04/19/19 at 17:00 Sodium Chloride 1,000 ml @ 75 mls/hr [id number] IV Last administered on 04/20/19at 00:13; Start 04/20/19 at 00:15; Stop 04/21/19 at 14:51; Status DC Iron Sucrose 500 mg/Sodium Chloride 275 ml @ 78.571 mls/ hr 1X ONCE IV Last administered on 04/20/19at 09:19; Start 04/20/19 at 10:00; Stop 04/20/19 at 13:29; Status DC Polyethylene Glycol (miraLAX PACKET) 17 gm PRN DAILY PRN PO CONSTIPATION; Start 04/20/19 at 09:45 Pantoprazole Sodium (Protonix) 40 mg DAILYAC PO Last administered on 04/22/19at 08:58; Start 04/20/19 at 10:00 Cyanocobalamin (Vitamin B-12) 1,000 mcg 1X ONCE IM ; Start 04/20/19 at 09:45; Stop 04/20/19 at 09:46; Status UNV Lisinopril (Prinivil) 5 mg DAILY PO Last administered on 04/20/19at 12:39; Start 04/20/19 at 11:45; Stop 04/21/19 at 09:00; Status DC Atorvastatin Calcium (Lipitor) 10 mg QHS PO Last administered on 04/21/19at 20:22; Start 04/20/19 at 21:00 Furosemide (Lasix) 40 mg 1X ONCE PO Last administered on 04/20/19at 12:39; Start 04/20/19 at 12:15; Stop 04/20/19 at 12:16; Status DC Furosemide (Lasix) 40 mg PRN DAILY PRN PO SEE COMMENTS; Start 04/20/19 at 12:15 Albumin Human 500 ml @ 125 mls/hr 1X ONCE IV Last administered on 04/20/19 16:03; Start 04/20/19 at 15:45; Stop 04/20/19 at 19:44; Status DC Lactobacillus Rhamnosus (Culturelle) 1 cap BID PO Last administered on 04/22/19at 08:52; Start 04/20/19 at 21:00 Lisinopril (Prinivil) 2.5 mg DAILY PO Last administered on 04/22/19 08:53; Start 04/21/19 at 09:00 Active Scripts Active Proair Hfa Inhaler (Albuterol Sulfate) 8.5 Gm Hfa.aer.ad 2 Puff INH PRN Q6HRS PRN Reported Hydrocodone-Apap 5-325 (Hydrocodone Bit/Acetaminophen) 1 Each Tablet 1 Tab PO Q4HRS PRN Acetaminophen 500 Mg Tablet 1 Tab PO BID Vitals/I & O Vital Sign - Last 24 Hours 04/21/19 04/21/19 04/21/19 04/21/19 09:22 09:23 11:49 12:00 Temp 97.5 97.5 Pulse 76 76 75 Resp 18 B/P (MAP) 134/52 134/52 108/55 (72) Pulse Ox 94 96 O2 Delivery Room Air Room Air 04/21/19 04/21/19 04/21/19 04/21/19 15:58 17:18 17:50 19:20 Temp 98.1 98.4 98.1 98.4 Pulse 72 72 83 Resp 18 17 B/P (MAP) 131/61 (84) 131/61 99/45 (63) Pulse Ox 98 98 98 O2 Delivery Room Air Room Air Room Air 04/21/19 04/21/19 04/21/19 04/22/19 20:00 20:03 23:20 03:20 Temp 98.1 97.8 98.1 97.8 Pulse 75 90 Resp 17 17 B/P (MAP) 97/44 (61) 127/53 (77) Pulse Ox 97 99 98 O2 Delivery Room Air Room Air Room Air Room Air 04/22/19 04/22/19 04/22/19 04/22/19 07:00 07:50 08:53 08:53 Temp 97.9 97.9 Pulse 83 83 83 Resp 16 B/P (MAP) 124/49 (74) 124/49 124/49 Pulse Ox 99 O2 Delivery Room Air Room Air Intake and Output 04/21/19 04/21/19 04/22/19 15:00 23:00 07:00 Intake Total 200 ml 300 ml Balance 200 ml 300 ml Nutrition Consultation Dietary Evaluation: Recommendations by RD: Increase Calorie Intake Comments: REC advance diet as able to goal diet regular, honor food preferences, and provide snacks as requested Expected Outcomes/Goals: diet advancement Malnutrition Findings: Body Fat Depletion (Non Severe: Mild Depletion Weight Status: Underweight SAMMY HOFFMAN MD Apr 22, 2019 09:07
[2019-04-22 10:45] VITALS: BP 137/48
[2019-04-22] MEDS: SUCRALFATE 1 GM/10 ML ORAL.SUSP. PO SCH (13:32)
[2019-04-22 14:44] VITALS: BP 132/52
[2019-04-22] MEDS: CYANOCOBALAMIN (VITAMIN B-12) 1,000 MCG TABLET. PO SCH (16:53)
[2019-04-22 19:20] VITALS: BP 131/40
[2019-04-22] MEDS: ATORVASTATIN CALCIUM 10 MG TABLET. PO SCH (21:06)
[2019-04-22] MEDS: cefTRIAXone IV Push 1 GM VIAL. IVP SCH (21:06)
[2019-04-22 23:20] VITALS: BP 102/46
[2019-04-23 03:20] VITALS: BP 115/53
[2019-04-23] MEDS: IPRATRPIUM/ALBUTEROL 0.5/2.5MG 3 ML NEBU. NEB SCH ×5 (04:00→16:00)
[2019-04-23 05:31] LABS: BASO % 1 % (0-3); EOS # 0.4 x10^3/uL (0.0-0.7); EOS % 7 % (0-3); LYMPH # 1.6 x10^3/uL (1.0-4.8); LYMPH % 32 % (24-48); MEAN CORPUSCULAR HEMOGLOBIN 23 pg (25-35); MEAN CORPUSCULAR HGB CONC 30 g/dL (31-37); MEAN CORPUSCULAR VOLUME 78 fL (79-100); MONO # 0.5 x10^3/uL (0.0-1.1); MONO % 11 % (0-9); NEUT # 2.3 x10^3/uL (1.8-7.7); NEUT % 48 % (31-73); PLATELET COUNT 304 x10^3/uL (140-400); RED BLOOD COUNT 3.47 x10^6/uL (3.50-5.40); RED CELL DISTRIBUTION WIDTH 32.2 % (11.5-14.5); WHITE BLOOD COUNT 4.8 x10^3/uL (4.0-11.0)
[2019-04-23 06:02] LABS: ALBUMIN 3.3 g/dL (3.4-5.0); ALBUMIN/GLOBULIN RATIO 1.1 (1.0-1.7); CALCIUM 8.1 mg/dL (8.5-10.1); CREATININE 0.9 mg/dL (0.6-1.0); GFR 60.9; POTASSIUM 3.9 mmol/L (3.5-5.1); TOTAL BILIRUBIN 0.3 mg/dL (0.2-1.0); TOTAL PROTEIN 6.2 g/dL (6.4-8.2)
[2019-04-23 07:37] VITALS: BP 131/51
[2019-04-23] MEDS: CARVEDILOL 3.125 MG TABLET. PO SCH (08:35)
[2019-04-23] MEDS: PANTOPRAZOLE 40 MG TABLET.DR. PO SCH (08:35)
[2019-04-23] MEDS: CYANOCOBALAMIN (VITAMIN B-12) 1,000 MCG TABLET. PO SCH (08:35)
[2019-04-23] MEDS: LACTOBACILLUS RHAMNOSUS GG 1 CAPSULE. PO SCH (08:35)
[2019-04-23] MEDS: LISINOPRIL 5 MG TABLET. PO SCH (08:36)
[2019-04-23] MEDS: ACETAMINOPHEN 500 MG TABLET PO SCH (08:41)
--- NOTE | 2019-04-23 09:09 | NUR ---
SW following pt. SW spoke with pt's daughter Carmen and they would like pt to go home. She reported pt does not want to go to SNU. Daughter agreeable with home health but pt does not have PCP. SW provided counseling about establishing PCP but daughter reports pt does not like hospitals, doctors and will only go to urgent care. SW discussed SW is not able to set up Home health with no PCP and pt will be going with self care. Pt's daughter verbalized understanding. Daughter requested to be called when pt is ready to dc.
[2019-04-23 11:39] VITALS: BP 151/61
[2019-04-23] MEDS ORDERED: CARV3.1210 PO (12:03)
[2019-04-23] MEDS ORDERED: ATOR10TA60 PO (12:03)
[2019-04-23] MEDS ORDERED: SUCR1ORA5 PO (12:03)
[2019-04-23] MEDS ORDERED: LORA0.5T96 PO (12:03)
[2019-04-23] MEDS ORDERED: CYAN-25 PO (12:03)
[2019-04-23] MEDS ORDERED: LISI-338 PO (12:03)
[2019-04-23] MEDS ORDERED: FURO40TA4 PO (12:03)
[2019-04-23] MEDS ORDERED: PANT40TA77 PO (12:03)
--- NOTE | 2019-04-23 12:04 | SNU/HH DC ---
DISCHARGE WITH HOME HEALTH DISCHARGE INFORMATION: Discharge Date: Apr 23, 2019 Condition on Discharge: Stable CODE STATUS: Code Status: DNR/DNI HOME HEALTH: Face to Face: I certify this patient is under my care and that I, or a nurse practitioner or physician's diversional therapist's assistant working with me, had a face to face encounter that meets the physician face to face encounter requirements with this patient on []. RN For Eval/Treatment: Yes Physical Therapy For: Evalulation/Treatment Occupational Therapy For: Evaluation/Treatment Home Health Aide For: Self-care SLP For: Community Resources Pt Meets Homebound Status: Unsteady balance w/ amb, POST DISCHARGE ORDERS: Activity Instructions for Disc: Activity as tolerated Weight Bearing Status after Di: As tolerated Bathing Instructions: Shower-keep dressing dry Wound/Incision Care: Keep wound/cast CDI, Change dressing CHECKS AFTER DISCHARGE: Checks after discharge: Check blood press - daily, Check your Temp as needed TREATMENT/EQUIPMENT ORDERS: Adaptive Equipment Issued: None CERTIFICATION STATEMENT: Certification Statement: Certification Statement: Based on the above finding, I certify that this patient is confined to the home and needs intermittent assisted care, physical therapy and/or speech therapy, or continues to need occupational therapy.~ This patient is under my care, and I have initiated the establishment of the plan of care.~ This patient will be followed by myself or a community physician who will periodically review the plan of care. Home Meds Active Scripts Lorazepam (ATIVAN) 0.5 Mg Tablet, 0.5 MG PO PRN Q4HRS PRN for ANXIETY / AGITATION, #10 TAB Prov:STANLEY HUSAIN MD 04/23/19 Cyanocobalamin (Vitamin B-12) (VITAMIN B-12) 1,000 Mcg Tablet, 1000 MCG PO DAILY for mvi, #60 TAB Prov:STANLEY HUSAIN MD 04/23/19 Sucralfate (CARAFATE) 1 Gm/10 Ml Oral.susp, 1 GM PO AFTRNOON for uklcer, #90 MISC Prov:STANLEY HUSAIN MD 04/23/19 Pantoprazole Sodium (PANTOPRAZOLE SODIUM ) 40 Mg Tablet.dr, 40 MG PO DAILYAC for gi bleed, #60 TAB.SR Prov:STANLEY HUSAIN MD 04/23/19 Furosemide (FUROSEMIDE) 40 Mg Tablet, 20 MG PO DAILY PRN for SEE COMMENTS, #7 TAB Prov:STANLEY HUSAIN MD 04/23/19 Lisinopril (LISINOPRIL) 5 Mg Tablet, 2.5 MG PO DAILY for htn, #60 TAB Prov:STANLEY HUSAIN MD 04/23/19 Carvedilol (CARVEDILOL ) 3.125 Mg Tablet, 3.125 MG PO BIDWMEALS for htn, #60 TAB Prov:STANLEY HUSAIN MD 04/23/19 Atorvastatin Calcium (ATORVASTATIN CALCIUM) 10 Mg Tablet, 10 MG PO QHS for lipids, #60 TAB Prov:STANLEY HUSAIN MD 04/23/19 Albuterol Sulfate (PROAIR HFA INHALER) 8.5 Gm Hfa.aer.ad, 2 PUFF INH PRN Q6HRS PRN for SHORTNESS OF BREATH, #1 INHALER 0 Refills Prov:AYAH DICKERSON 01/05/16 Reported Medications Hydrocodone Bit/Acetaminophen (HYDROCODONE-APAP 5-325 ) 1 Each Tablet, 1 TAB PO Q4HRS PRN for PAIN, TAB 0 Refills 02/05/15 Acetaminophen (ACETAMINOPHEN) 500 Mg Tablet, 1 TAB PO BID, #60 TAB 1 Refill 01/31/15 STANLEY HUSAIN MD Apr 23, 2019 12:04
--- NOTE | 2019-04-23 12:35 | PDOC ---
Subjective: Subjective: No complaints. Denies n/v, abd pain, diarrhea. Says only ate toast because that's what she likes. Objective: Objective: Called on Tue afternoon by nurse - pt had nausea, abd pain, and diarrhea. Then ate [employer]. Per nurse - ate entire breakfast tray today. Vital Signs: Vital Signs Date Time Temp Pulse Resp B/P (MAP) Pulse Ox O2 Delivery O2 Flow Rate FiO2 04/23/19 11:39 98.2 84 18 151/61 (91) 92 Room Air 98.2 Labs: Laboratory Tests Test 04/23/19 04:30 White Blood Count 4.8 x10^3/uL Red Blood Count 3.47 x10^6/uL Hemoglobin 8.0 g/dL Hematocrit 27.0 % Mean Corpuscular Volume 78 fL Mean Corpuscular Hemoglobin 23 pg Mean Corpuscular Hemoglobin Concent 30 g/dL Red Cell Distribution Width 32.2 % Platelet Count 304 x10^3/uL Neutrophils (%) (Auto) 48 % Lymphocytes (%) (Auto) 32 % Monocytes (%) (Auto) 11 % Eosinophils (%) (Auto) 7 % Basophils (%) (Auto) 1 % Neutrophils # (Auto) 2.3 x10^3/uL Lymphocytes # (Auto) 1.6 x10^3/uL Monocytes # (Auto) 0.5 x10^3/uL Eosinophils # (Auto) 0.4 x10^3/uL Basophils # (Auto) 0.0 x10^3/uL Sodium Level 145 mmol/L Potassium Level 3.9 mmol/L Chloride Level 111 mmol/L Carbon Dioxide Level 27 mmol/L Anion Gap 7 Blood Urea Nitrogen 11 mg/dL Creatinine 0.9 mg/dL Estimated GFR (Cockcroft-Gault) 60.9 BUN/Creatinine Ratio 12 Glucose Level 87 mg/dL Calcium Level 8.1 mg/dL Total Bilirubin 0.3 mg/dL Aspartate Amino Transf (AST/SGOT) 16 U/L Alanine Aminotransferase (ALT/SGPT) 6 U/L Alkaline Phosphatase 61 U/L Total Protein 6.2 g/dL Albumin 3.3 g/dL Albumin/Globulin Ratio 1.1 Imaging: KUB 04/20 IMPRESSION: No acute cardiopulmonary process seen. Moderate hiatal hernia. Left-sided nephroureteral stent. Renal US 04/21 Impression: 1. Mild bilateral renal cortical thinning, otherwise unremarkable exam. PE: GEN: NAD LUNGS: CTAB HEART: RRR ABD: NABS, S/ND/NT NEURO/PSYCH: forgetful A/P: Anemia - iron and B12 deficient Hiatal hernia w/ Leif lesions, gastritis, duodenitis H/o H. pylori Dementia -- DC per primary. Follow-up on EGD biopsies. On several occasions have discussed PPI, sucralfate, iron, B12 - difficult w/ dementia issues - family not present. KASIE GÓMEZ Apr 23, 2019 12:35
--- NOTE | 2019-04-23 13:10 | PDOC ---
PROGRESS NOTES Subjective Subjective HPI -f/u of Hypochromic microcytic anemia ROS - no bleeding Objective Objective Vital Signs Date Time Temp Pulse Resp B/P (MAP) Pulse Ox O2 Delivery O2 Flow Rate FiO2 04/23/19 13:06 96 Room Air 04/23/19 11:39 98.2 84 18 151/61 (91) 98.2 04/20/19 08:00 3.0 Intake and Output 04/23/19 07:00 Intake Total 880 ml Output Total 350 ml Balance 530 ml Intake Oral 880 ml Output Urine Total 350 ml # Voids 2 Physical Exam General: Alert, Oriented X3, No acute distress Neuro: Normal speech Psych/Mental Status: Mental status NL Assessment Assessment IMPRESSION AND PLAN: 1. Hypochromic microcytic anemia, which I suspect is due to iron deficiency from possible gastrointestinal bleed. She has a history of antral ulcers, erosive duodenitis and Leif lesions in the prior EGD in 2018. Hemoglobin was 4.7 on 04/18/2019 and improved to 8.4 on 04/19/2019 after 2 units of PRBC. Continue to monitor hemoglobin and transfuse as needed. Ferritin 9 - s/p venofer 500 mg IV 04/20/19. Hb now 8.0. 2. Thrombocytosis, which I suspect is due to iron deficiency. Continue to monitor. 3. B12 def, 225 on 04/19/19 - Started Vit B12 inj daily. 4. Appreciate GI consultation and management. EGD 04/19/19: Leif ulcers in body, gastritis with erosions in antrum (bx) Comment Review of Relevant I have reviewed the following items marshal (where applicable) has been applied. Labs Laboratory Tests Test 04/21/19 14:00 04/21/19 22:20 04/22/19 03:55 04/22/19 04:00 White Blood Count 6.8 x10^3/uL (4.0-11.0) 5.9 x10^3/uL (4.0-11.0) 5.1 x10^3/uL (4.0-11.0) Red Blood Count 3.98 x10^6/uL (3.50-5.40) 3.87 x10^6/uL (3.50-5.40) 3.32 x10^6/uL (3.50-5.40) Hemoglobin 9.0 g/dL (12.0-15.5) 8.9 g/dL (12.0-15.5) 7.6 g/dL (12.0-15.5) Hematocrit 31.8 % (36.0-47.0) 29.5 % (36.0-47.0) 25.5 % (36.0-47.0) Mean Corpuscular Volume 80 fL (79-100) 76 fL (79-100) 77 fL (79-100) Mean Corpuscular Hemoglobin 23 pg (25-35) 23 pg (25-35) 23 pg (25-35) Mean Corpuscular Hemoglobin Concent 28 g/dL (31-37) 30 g/dL (31-37) 30 g/dL (31-37) Red Cell Distribution Width 31.3 % (11.5-14.5) 32.0 % (11.5-14.5) 32.0 % (11.5-14.5) Platelet Count 309 x10^3/uL (140-400) 298 x10^3/uL (140-400) 322 x10^3/uL (140-400) Neutrophils (%) (Auto) 53 % (31-73) Lymphocytes (%) (Auto) 31 % (24-48) Monocytes (%) (Auto) 11 % (0-9) Eosinophils (%) (Auto) 4 % (0-3) Basophils (%) (Auto) 1 % (0-3) Neutrophils # (Auto) 2.7 x10^3/uL (1.8-7.7) Lymphocytes # (Auto) 1.6 x10^3/uL (1.0-4.8) Monocytes # (Auto) 0.5 x10^3/uL (0.0-1.1) Eosinophils # (Auto) 0.2 x10^3/uL (0.0-0.7) Basophils # (Auto) 0.0 x10^3/uL (0.0-0.2) Sodium Level 143 mmol/L (136-145) Potassium Level 3.8 mmol/L (3.5-5.1) Chloride Level 109 mmol/L (98-107) Carbon Dioxide Level 25 mmol/L (21-32) Anion Gap 9 (6-14) Blood Urea Nitrogen 14 mg/dL (7-20) Creatinine 1.3 mg/dL (0.6-1.0) Estimated GFR (Cockcroft-Gault) 39.8 BUN/Creatinine Ratio 11 (6-20) Glucose Level 88 mg/dL (70-99) Calcium Level 8.3 mg/dL (8.5-10.1) Total Bilirubin 0.3 mg/dL (0.2-1.0) Aspartate Amino Transf (AST/SGOT) 13 U/L (15-37) Alanine Aminotransferase (ALT/SGPT) 9 U/L (14-59) Alkaline Phosphatase 60 U/L (46-116) Total Protein 6.2 g/dL (6.4-8.2) Albumin 3.4 g/dL (3.4-5.0) Albumin/Globulin Ratio 1.2 (1.0-1.7) Test 04/23/19 04:30 White Blood Count 4.8 x10^3/uL (4.0-11.0) Red Blood Count 3.47 x10^6/uL (3.50-5.40) Hemoglobin 8.0 g/dL (12.0-15.5) Hematocrit 27.0 % (36.0-47.0) Mean Corpuscular Volume 78 fL (79-100) Mean Corpuscular Hemoglobin 23 pg (25-35) Mean Corpuscular Hemoglobin Concent 30 g/dL (31-37) Red Cell Distribution Width 32.2 % (11.5-14.5) Platelet Count 304 x10^3/uL (140-400) Neutrophils (%) (Auto) 48 % (31-73) Lymphocytes (%) (Auto) 32 % (24-48) Monocytes (%) (Auto) 11 % (0-9) Eosinophils (%) (Auto) 7 % (0-3) Basophils (%) (Auto) 1 % (0-3) Neutrophils # (Auto) 2.3 x10^3/uL (1.8-7.7) Lymphocytes # (Auto) 1.6 x10^3/uL (1.0-4.8) Monocytes # (Auto) 0.5 x10^3/uL (0.0-1.1) Eosinophils # (Auto) 0.4 x10^3/uL (0.0-0.7) Basophils # (Auto) 0.0 x10^3/uL (0.0-0.2) Sodium Level 145 mmol/L (136-145) Potassium Level 3.9 mmol/L (3.5-5.1) Chloride Level 111 mmol/L (98-107) Carbon Dioxide Level 27 mmol/L (21-32) Anion Gap 7 (6-14) Blood Urea Nitrogen 11 mg/dL (7-20) Creatinine 0.9 mg/dL (0.6-1.0) Estimated GFR (Cockcroft-Gault) 60.9 BUN/Creatinine Ratio 12 (6-20) Glucose Level 87 mg/dL (70-99) Calcium Level 8.1 mg/dL (8.5-10.1) Total Bilirubin 0.3 mg/dL (0.2-1.0) Aspartate Amino Transf (AST/SGOT) 16 U/L (15-37) Alanine Aminotransferase (ALT/SGPT) 6 U/L (14-59) Alkaline Phosphatase 61 U/L (46-116) Total Protein 6.2 g/dL (6.4-8.2) Albumin 3.3 g/dL (3.4-5.0) Albumin/Globulin Ratio 1.1 (1.0-1.7) Laboratory Tests Test 04/23/19 04:30 White Blood Count 4.8 x10^3/uL (4.0-11.0) Red Blood Count 3.47 x10^6/uL (3.50-5.40) Hemoglobin 8.0 g/dL (12.0-15.5) Hematocrit 27.0 % (36.0-47.0) Mean Corpuscular Volume 78 fL (79-100) Mean Corpuscular Hemoglobin 23 pg (25-35) Mean Corpuscular Hemoglobin Concent 30 g/dL (31-37) Red Cell Distribution Width 32.2 % (11.5-14.5) Platelet Count 304 x10^3/uL (140-400) Neutrophils (%) (Auto) 48 % (31-73) Lymphocytes (%) (Auto) 32 % (24-48) Monocytes (%) (Auto) 11 % (0-9) Eosinophils (%) (Auto) 7 % (0-3) Basophils (%) (Auto) 1 % (0-3) Neutrophils # (Auto) 2.3 x10^3/uL (1.8-7.7) Lymphocytes # (Auto) 1.6 x10^3/uL (1.0-4.8) Monocytes # (Auto) 0.5 x10^3/uL (0.0-1.1) Eosinophils # (Auto) 0.4 x10^3/uL (0.0-0.7) Basophils # (Auto) 0.0 x10^3/uL (0.0-0.2) Sodium Level 145 mmol/L (136-145) Potassium Level 3.9 mmol/L (3.5-5.1) Chloride Level 111 mmol/L (98-107) Carbon Dioxide Level 27 mmol/L (21-32) Anion Gap 7 (6-14) Blood Urea Nitrogen 11 mg/dL (7-20) Creatinine 0.9 mg/dL (0.6-1.0) Estimated GFR (Cockcroft-Gault) 60.9 BUN/Creatinine Ratio 12 (6-20) Glucose Level 87 mg/dL (70-99) Calcium Level 8.1 mg/dL (8.5-10.1) Total Bilirubin 0.3 mg/dL (0.2-1.0) Aspartate Amino Transf (AST/SGOT) 16 U/L (15-37) Alanine Aminotransferase (ALT/SGPT) 6 U/L (14-59) Alkaline Phosphatase 61 U/L (46-116) Total Protein 6.2 g/dL (6.4-8.2) Albumin 3.3 g/dL (3.4-5.0) Albumin/Globulin Ratio 1.1 (1.0-1.7) Microbiology 04/18/19 Urine Culture - Final, Complete 04/18/19 Urine Culture Result 1 (JAYLIN) - Final, Complete Medications Current Medications Albuterol/ Ipratropium (Duoneb) 3 ml 1X ONCE NEB Last administered on 04/18/19at 18:01; Start 04/18/19 at 18:00; Stop 04/18/19 at 18:01; Status DC Ceftriaxone Sodium (Rocephin) 1 gm Q24H IVP Last administered on 04/22/19at 21:06; Start 04/18/19 at 19:15; Stop 04/23/19 at 12:00; Status DC Pantoprazole Sodium 80 mg/ Sodium Chloride 100 ml @ 10 mls/hr 1X ONCE IV Last administered on 04/18/19at 19:29; Start 04/18/19 at 19:15; Stop 04/19/19 at 05:14; Status DC Acetaminophen (Tylenol) 500 mg BID PO Last administered on 04/23/19at 08:41; Start 04/18/19 at 21:00 Albuterol Sulfate (Ventolin Neb Soln) 2.5 mg PRN Q6HRS PRN INH SHORTNESS OF BREATH; Start 04/18/19 at 19:15 Acetaminophen/ Hydrocodone Bitart (Lortab 5/325) 1 tab PRN Q4HRS PRN PO MODERATE PAIN; Start 04/18/19 at 19:15 Sodium Chloride (Normal Saline Flush) 3 ml QSHIFT PRN IV AFTER MEDS AND BLOOD DRAWS; Start 04/18/19 at 19:15 Ondansetron HCl (Zofran) 4 mg PRN Q4HRS PRN IV NAUSEA/VOMITING Last administered on 04/20/19at 13:24; Start 04/18/19 at 19:15 Acetaminophen (Tylenol) 650 mg PRN Q4HRS PRN PO TEMP OVER 100.4F OR MILD PAIN Last administered on 04/20/19at 16:27; Start 04/18/19 at 19:15 Clonidine HCl (Catapres) 0.1 mg PRN Q6HRS PRN PO SBP>160 OR DBP>90; Start at 19:15 Albuterol/ Ipratropium (Duoneb) 3 ml Q4HRS NEB Last administered on 04/23/19at 13:05; Start 04/18/19 at 20:00 Guaifenesin (Robitussin) 200 mg PRN Q4HRS PRN PO COUGH; Start 04/18/19 at 19:15 Lorazepam (Ativan) 0.5 mg PRN Q4HRS PRN PO ANXIETY / AGITATION; Start 04/18/19 at 19:15 Pantoprazole Sodium 80 mg/ Sodium Chloride 100 ml @ 10 mls/hr Q10H IV Last administered on 04/20/19at 00:09; Start 04/19/19 at 03:30; Stop 04/20/19 at 09:34; Status DC Ringer's Solution 1,000 ml @ 75 mls/hr 1X ONCE IV Last administered on 04/19/19at 15:22; Start 04/19/19 at 15:15; Stop 04/20/19 at 04:34; Status DC Carvedilol (Coreg) 3.125 mg BIDWMEALS PO Last administered on 04/23/19at 08:35; Start 04/19/19 at 17:00 Propofol 20 ml @ As Directed STK-MED ONCE IV ; Start 04/19/19 at 15:54; Stop 04/19/19 at 15:54; Status DC Lidocaine HCl (Lidocaine Pf 2% Vial) 5 ml STK-MED ONCE .ROUTE ; Start 04/19/19 at 15:54; Stop 04/19/19 at 15:54; Status DC Cyanocobalamin (Vitamin B-12) 1,000 mcg DAILY IM Last administered on 04/21/19at 09:32; Start 04/19/19 at 16:45; Stop 04/22/19 at 16:18; Status DC Sucralfate (Carafate) 1 gm AFTRNOON PO Last administered on 04/22/19at 13:32; Start 04/19/19 at 17:00 Sodium Chloride 1,000 ml @ 75 mls/hr [id number] IV Last administered on 04/20/19at 00:13; Start 04/20/19 at 00:15; Stop 04/21/19 at 14:51; Status DC Iron Sucrose 500 mg/Sodium Chloride 275 ml @ 78.571 mls/ hr 1X ONCE IV Last administered on 04/20/19at 09:19; Start 04/20/19 at 10:00; Stop 04/20/19 at 13:29; Status DC Polyethylene Glycol (miraLAX PACKET) 17 gm PRN DAILY PRN PO CONSTIPATION; Start 04/20/19 at 09:45 Pantoprazole Sodium (Protonix) 40 mg DAILYAC PO Last administered on 04/23/19at 08:35; Start 04/20/19 at 10:00 Cyanocobalamin (Vitamin B-12) 1,000 mcg 1X ONCE IM ; Start 04/20/19 at 09:45; Stop 04/20/19 at 09:46; Status UNV Lisinopril (Prinivil) 5 mg DAILY PO Last administered on 04/20/19at 12:39; Start 04/20/19 at 11:45; Stop 04/21/19 at 09:00; Status DC Atorvastatin Calcium (Lipitor) 10 mg QHS PO Last administered on 04/22/19at 21:06; Start 04/20/19 at 21:00 Furosemide (Lasix) 40 mg 1X ONCE PO Last administered on 04/20/19at 12:39; Start 04/20/19 at 12:15; Stop 04/20/19 at 12:16; Status DC Furosemide (Lasix) 40 mg PRN DAILY PRN PO SEE COMMENTS; Start 04/20/19 at 12:15 Albumin Human 500 ml @ 125 mls/hr 1X ONCE IV Last administered on 04/20/19 16:03; Start 04/20/19 at 15:45; Stop 04/20/19 at 19:44; Status DC Lactobacillus Rhamnosus (Culturelle) 1 cap BID PO Last administered on 04/23/19at 08:35; Start 04/20/19 at 21:00 Lisinopril (Prinivil) 2.5 mg DAILY PO Last administered on 04/23/19at 08:36; Start 04/21/19 at 09:00 Cyanocobalamin (Vitamin B-12) 1,000 mcg DAILY PO Last administered on 04/23/19at 08:35; Start 04/22/19 at 16:30 Active Scripts Active Ativan (Lorazepam) 0.5 Mg Tablet 0.5 Mg PO PRN Q4HRS PRN Vitamin B-12 (Cyanocobalamin (Vitamin B-12)) 1,000 Mcg Tablet 1,000 Mcg PO DAILY Carafate (Sucralfate) 1 Gm/10 Ml Oral.susp 1 Gm PO AFTRNOON Pantoprazole Sodium (Pantoprazole Sodium) 40 Mg Tablet.dr 40 Mg PO DAILYAC Furosemide 40 Mg Tablet 20 Mg PO DAILY PRN Lisinopril 5 Mg Tablet 2.5 Mg PO DAILY Carvedilol (Carvedilol) 3.125 Mg Tablet 3.125 Mg PO BIDWMEALS Atorvastatin Calcium 10 Mg Tablet 10 Mg PO QHS Proair Hfa Inhaler (Albuterol Sulfate) 8.5 Gm Hfa.aer.ad 2 Puff INH PRN Q6HRS PRN Reported Hydrocodone-Apap 5-325 (Hydrocodone Bit/Acetaminophen) 1 Each Tablet 1 Tab PO Q4HRS PRN Acetaminophen 500 Mg Tablet 1 Tab PO BID Vitals/I & O Vital Sign - Last 24 Hours 04/22/19 04/22/19 04/22/19 04/22/19 14:44 16:09 16:53 19:20 Temp 97.8 98.2 97.8 98.2 Pulse 79 79 42 Resp 16 16 B/P (MAP) 132/52 (78) 132/52 131/40 (70) Pulse Ox 99 94 97 O2 Delivery Room Air Room Air Room Air 04/22/19 04/22/19 04/23/19 04/23/19 19:44 23:20 03:20 07:37 Temp 98.1 98.2 98.5 98.1 98.2 98.5 Pulse 75 53 68 Resp 16 16 18 B/P (MAP) 102/46 (64) 115/53 (73) 131/51 (77) Pulse Ox 95 95 97 O2 Delivery Room Air Room Air Room Air Room Air 04/23/19 04/23/19 04/23/19 04/23/19 08:00 08:01 08:35 08:36 Pulse 68 68 B/P (MAP) 131/51 131/51 Pulse Ox 98 O2 Delivery Room Air Room Air 04/23/19 04/23/19 11:39 13:06 Temp 98.2 98.2 Pulse 84 Resp 18 B/P (MAP) 151/61 (91) Pulse Ox 92 96 O2 Delivery Room Air Room Air Intake and Output 04/22/19 04/22/19 04/23/19 15:00 23:00 07:00 Intake Total 240 ml 240 ml 400 ml Output Total 200 ml 150 ml Balance 40 ml 90 ml 400 ml Nutrition Consultation Dietary Evaluation: Recommendations by RD: Increase Calorie Intake Comments: REC continue w/ diet as able , honor food preferences, and provide snacks as requested Expected Outcomes/Goals: to meet > 75% est nutr needs Malnutrition Findings: Body Fat Depletion (Non Severe: Mild Depletion Weight Status: Underweight UGO JOINER MD Apr 23, 2019 13:10
--- NOTE | 2019-04-23 13:38 | PDOC3 ---
Discharge Summary Visit Information Date of Admission: Apr 18, 2019 Date of Discharge: Apr 23, 2019 Final Diagnosis Meg ulcers s./p EGD Anemia from blood loss GEriatric gen weakness Brief Hospital Course Allergies Allergies Coded Allergies Type Severity Reaction Last Updated Verified Influenza Virus Vaccines Allergy Intermediate 03/20/18 Yes Sulfa (Sulfonamide Antibiotics) Allergy Intermediate 04/19/19 Yes I S O L A T I O N *CONTACT* Allergy Unknown 03/20/18 Yes Vital Signs Vital Signs Date Time Temp Pulse Resp B/P (MAP) Pulse Ox O2 Delivery O2 Flow Rate FiO2 04/23/19 13:06 96 Room Air 04/23/19 11:39 98.2 84 18 151/61 (91) 98.2 Lab Results Laboratory Tests Test 04/21/19 14:00 04/21/19 22:20 04/22/19 03:55 04/22/19 04:00 White Blood Count 6.8 x10^3/uL (4.0-11.0) 5.9 x10^3/uL (4.0-11.0) 5.1 x10^3/uL (4.0-11.0) Red Blood Count 3.98 x10^6/uL (3.50-5.40) 3.87 x10^6/uL (3.50-5.40) 3.32 x10^6/uL (3.50-5.40) Hemoglobin 9.0 g/dL (12.0-15.5) 8.9 g/dL (12.0-15.5) 7.6 g/dL (12.0-15.5) Hematocrit 31.8 % (36.0-47.0) 29.5 % (36.0-47.0) 25.5 % (36.0-47.0) Mean Corpuscular Volume 80 fL (79-100) 76 fL (79-100) 77 fL (79-100) Mean Corpuscular Hemoglobin 23 pg (25-35) 23 pg (25-35) 23 pg (25-35) Mean Corpuscular Hemoglobin Concent 28 g/dL (31-37) 30 g/dL (31-37) 30 g/dL (31-37) Red Cell Distribution Width 31.3 % (11.5-14.5) 32.0 % (11.5-14.5) 32.0 % (11.5-14.5) Platelet Count 309 x10^3/uL (140-400) 298 x10^3/uL (140-400) 322 x10^3/uL (140-400) Neutrophils (%) (Auto) 53 % (31-73) Lymphocytes (%) (Auto) 31 % (24-48) Monocytes (%) (Auto) 11 % (0-9) Eosinophils (%) (Auto) 4 % (0-3) Basophils (%) (Auto) 1 % (0-3) Neutrophils # (Auto) 2.7 x10^3/uL (1.8-7.7) Lymphocytes # (Auto) 1.6 x10^3/uL (1.0-4.8) Monocytes # (Auto) 0.5 x10^3/uL (0.0-1.1) Eosinophils # (Auto) 0.2 x10^3/uL (0.0-0.7) Basophils # (Auto) 0.0 x10^3/uL (0.0-0.2) Sodium Level 143 mmol/L (136-145) Potassium Level 3.8 mmol/L (3.5-5.1) Chloride Level 109 mmol/L (98-107) Carbon Dioxide Level 25 mmol/L (21-32) Anion Gap 9 (6-14) Blood Urea Nitrogen 14 mg/dL (7-20) Creatinine 1.3 mg/dL (0.6-1.0) Estimated GFR (Cockcroft-Gault) 39.8 BUN/Creatinine Ratio 11 (6-20) Glucose Level 88 mg/dL (70-99) Calcium Level 8.3 mg/dL (8.5-10.1) Total Bilirubin 0.3 mg/dL (0.2-1.0) Aspartate Amino Transf (AST/SGOT) 13 U/L (15-37) Alanine Aminotransferase (ALT/SGPT) 9 U/L (14-59) Alkaline Phosphatase 60 U/L (46-116) Total Protein 6.2 g/dL (6.4-8.2) Albumin 3.4 g/dL (3.4-5.0) Albumin/Globulin Ratio 1.2 (1.0-1.7) Test 04/23/19 04:30 White Blood Count 4.8 x10^3/uL (4.0-11.0) Red Blood Count 3.47 x10^6/uL (3.50-5.40) Hemoglobin 8.0 g/dL (12.0-15.5) Hematocrit 27.0 % (36.0-47.0) Mean Corpuscular Volume 78 fL (79-100) Mean Corpuscular Hemoglobin 23 pg (25-35) Mean Corpuscular Hemoglobin Concent 30 g/dL (31-37) Red Cell Distribution Width 32.2 % (11.5-14.5) Platelet Count 304 x10^3/uL (140-400) Neutrophils (%) (Auto) 48 % (31-73) Lymphocytes (%) (Auto) 32 % (24-48) Monocytes (%) (Auto) 11 % (0-9) Eosinophils (%) (Auto) 7 % (0-3) Basophils (%) (Auto) 1 % (0-3) Neutrophils # (Auto) 2.3 x10^3/uL (1.8-7.7) Lymphocytes # (Auto) 1.6 x10^3/uL (1.0-4.8) Monocytes # (Auto) 0.5 x10^3/uL (0.0-1.1) Eosinophils # (Auto) 0.4 x10^3/uL (0.0-0.7) Basophils # (Auto) 0.0 x10^3/uL (0.0-0.2) Sodium Level 145 mmol/L (136-145) Potassium Level 3.9 mmol/L (3.5-5.1) Chloride Level 111 mmol/L (98-107) Carbon Dioxide Level 27 mmol/L (21-32) Anion Gap 7 (6-14) Blood Urea Nitrogen 11 mg/dL (7-20) Creatinine 0.9 mg/dL (0.6-1.0) Estimated GFR (Cockcroft-Gault) 60.9 BUN/Creatinine Ratio 12 (6-20) Glucose Level 87 mg/dL (70-99) Calcium Level 8.1 mg/dL (8.5-10.1) Total Bilirubin 0.3 mg/dL (0.2-1.0) Aspartate Amino Transf (AST/SGOT) 16 U/L (15-37) Alanine Aminotransferase (ALT/SGPT) 6 U/L (14-59) Alkaline Phosphatase 61 U/L (46-116) Total Protein 6.2 g/dL (6.4-8.2) Albumin 3.3 g/dL (3.4-5.0) Albumin/Globulin Ratio 1.1 (1.0-1.7) Laboratory Tests Test 04/23/19 04:30 White Blood Count 4.8 x10^3/uL (4.0-11.0) Red Blood Count 3.47 x10^6/uL (3.50-5.40) Hemoglobin 8.0 g/dL (12.0-15.5) Hematocrit 27.0 % (36.0-47.0) Mean Corpuscular Volume 78 fL (79-100) Mean Corpuscular Hemoglobin 23 pg (25-35) Mean Corpuscular Hemoglobin Concent 30 g/dL (31-37) Red Cell Distribution Width 32.2 % (11.5-14.5) Platelet Count 304 x10^3/uL (140-400) Neutrophils (%) (Auto) 48 % (31-73) Lymphocytes (%) (Auto) 32 % (24-48) Monocytes (%) (Auto) 11 % (0-9) Eosinophils (%) (Auto) 7 % (0-3) Basophils (%) (Auto) 1 % (0-3) Neutrophils # (Auto) 2.3 x10^3/uL (1.8-7.7) Lymphocytes # (Auto) 1.6 x10^3/uL (1.0-4.8) Monocytes # (Auto) 0.5 x10^3/uL (0.0-1.1) Eosinophils # (Auto) 0.4 x10^3/uL (0.0-0.7) Basophils # (Auto) 0.0 x10^3/uL (0.0-0.2) Sodium Level 145 mmol/L (136-145) Potassium Level 3.9 mmol/L (3.5-5.1) Chloride Level 111 mmol/L (98-107) Carbon Dioxide Level 27 mmol/L (21-32) Anion Gap 7 (6-14) Blood Urea Nitrogen 11 mg/dL (7-20) Creatinine 0.9 mg/dL (0.6-1.0) Estimated GFR (Cockcroft-Gault) 60.9 BUN/Creatinine Ratio 12 (6-20) Glucose Level 87 mg/dL (70-99) Calcium Level 8.1 mg/dL (8.5-10.1) Total Bilirubin 0.3 mg/dL (0.2-1.0) Aspartate Amino Transf (AST/SGOT) 16 U/L (15-37) Alanine Aminotransferase (ALT/SGPT) 6 U/L (14-59) Alkaline Phosphatase 61 U/L (46-116) Total Protein 6.2 g/dL (6.4-8.2) Albumin 3.3 g/dL (3.4-5.0) Albumin/Globulin Ratio 1.1 (1.0-1.7) Brief Hospital Course Ms. Novak is a 74 old White female who was admitted for GI bleed and EGD showed meg ulcers, now on PPI and carfate,. NEVER needed xanax and lasix ordered prn SO i am NOT writing those. We are arranging for HH dc < 30 mins I assume care ONLY On the day of dc consults: GI, Heme onc proc EGD Dcd on low dose lisinopril 2,5 (i am unsure as to why she was getting so low a dose as oppsed to just dc all together) - BUt i continued whatever she was getting in-house. NO UTI so no need for rocephin started by colleague (urine cx normal carlee) Discharge Information Disposition/Orders: D/C to Home w/ HH Scheduled Acetaminophen (Acetaminophen) 500 Mg Tablet, 1 TAB PO BID, #60 Ref 1 (Reported) Entered as Reported by: CHRISTOPHE COON on 01/31/151737 Last Action: Continued on 04/18/191914 by IWONA WARD MD Atorvastatin Calcium (Atorvastatin Calcium) 10 Mg Tablet, 10 MG PO QHS for lipids, #60 Prescribed by: STANLEY HUSAIN on 04/23/19 1203 Carvedilol (Carvedilol ) 3.125 Mg Tablet, 3.125 MG PO BIDWMEALS for htn, #60 Prescribed by: STANLEY HUSAIN on 04/23/19 1203 Cyanocobalamin (Vitamin B-12) (Vitamin B-12) 1,000 Mcg Tablet, 1,000 MCG PO DAILY for mvi, #60 Prescribed by: STANLEY HSUAIN on 04/23/19 1203 Lisinopril (Lisinopril) 5 Mg Tablet, 2.5 MG PO DAILY for htn, #60 Prescribed by: STANLEY HUSAIN on 04/23/19 1203 Pantoprazole Sodium (Pantoprazole Sodium ) 40 Mg Tablet.dr, 40 MG PO DAILYAC for gi bleed, #60 Prescribed by: STANLEY HUSAIN on 04/23/19 1203 Sucralfate (Carafate) 1 Gm/10 Ml Oral.susp, 1 GM PO AFTRNOON for uklcer, #90 Prescribed by: STANLEY HUSAIN on 04/23/19 1203 Scheduled PRN Albuterol Sulfate (Proair Hfa Inhaler) 8.5 Gm Hfa.aer.ad, 2 PUFF INH PRN Q6HRS PRN for SHORTNESS OF BREATH, #1 Ref 0 Prescribed by: AYAH DICKERSON on 01/05/162025 Last Action: Continued on 04/18/191914 by IWONA WARD MD Hydrocodone Bit/Acetaminophen (Hydrocodone-Apap 5-325 ) 1 Each Tablet, 1 TAB PO Q4HRS PRN for PAIN, Ref 0 (Reported) Entered as Reported by: JONATHAN FENG on 02/05/15 1127 Last Action: Continued on 04/18/191914 by MD RODRIGUE MAC CHERRIE Y MD Apr 23, 2019 13:38
[2019-04-23] MEDS: SUCRALFATE 1 GM/10 ML ORAL.SUSP. PO SCH (14:20)
--- NOTE | 2019-04-23 15:05 | NUR ---
Pt was escorted via wheelchair to main entrance with granddaughter by Binta MADISON, and care instructions given. Home with home health.
--- NOTE | 2019-04-24 09:07 | PATHOLOGY ---
[facility] Accession Number: [id number] . 01 Material submitted: . PART A: stomach - ANTRUM BIOPSY RULE OUT H PYLORI PART B: stomach - BODY OF THE STOMACH ULCER . 01 Clinical history: . Anemia . 02 Diagnosis: A. Gastric biopsies, antrum: - Chronic gastritis, mild to moderate. . B. Gastric biopsies, body of stomach ulcer: - Chronic gastritis, mild. . (JPM:mm; 04/23/2019) [facility] 04/23/2019 1012 Local . 02 Comment: Sections of the gastric antral biopsy show congestion and mild to moderate chronic inflammation. A properly-controlled immunoperoxidase stain for Helicobacter is negative for Helicobacter organisms. . Sections of the gastric body ulcer biopsy reveal segments of gastric body and gastric antral/body transition mucosa showing focal congestion and mild chronic inflammation. A properly-controlled immunoperoxidase stain for Helicobacter is negative for Helicobacter organisms. . Special stains (A1, B1): Immunoperoxidase stain for Helicobacter . (JPM:mml; 04/23/2019) . 02 Electronically signed: . Chon Medina MD, Pathologist NPI- [id number] . 01 Gross description: . A. Received in formalin labeled "ScarletErica callese, antrum BX," are 2 segments of colvin soft tissue measuring 0.8 x 0.3 x 0.3 cm in aggregate dimensions and ranging from 0.3 to 0.5 cm in maximum dimension. The specimen is submitted entirely in cassette A1. . B. Received in formalin labeled "Scarlet, Tiff, body of stomach BX ulcers," are 2 segments of colvin soft tissue measuring 0.6 x 0.2 x 0.1 cm in aggregate dimensions and ranging from 0.1 to 0.5 cm in maximum dimension. The specimen is submitted entirely in cassette B1. (TSD; 04/20/2019) TOB/TOB 04/20/2019 1948 Local . 02 Pathologist provided ICD-10: K29.50 . 02 CPT . 880806, 342833, [id number] Specimen Comment: A courtesy copy of this report has been sent to Specimen Comment: [phone], . Specimen Comment: Report sent to / DR SALGADO Performed at: 01 [facility] [address] [facility] [address], [place] [id number] MD Ferny Nance MD Phone: [phone] Performed at: [address] [facility] [address] [place] [id number] MD Chon Medina MD Phone: [phone]
== END 2019-04-23 18:05 | disposition home health service (06) | DRG 377 ==
LOC: ER 17:43 → 1 WEST ICU 18:51 → 6 SOUTH 04-19 16:14
PROVIDERS: ADMIT Family Medicine; ATTEND Family Medicine
PROC: 30233N1 Transfusion of Nonautologous Red Blood Cells into Peripheral Vein, Percutaneous Approach (ICD-10-PCS; 2019-04-18)
PROC: 0D738ZZ Dilation of Lower Esophagus, Via Natural or Artificial Opening Endoscopic (ICD-10-PCS; principal; 2019-04-19 16:00)
PROC: 0DB68ZX Excision of Stomach, Via Natural or Artificial Opening Endoscopic, Diagnostic (ICD-10-PCS; 2019-04-19 16:00)
DX: K25.4 Chronic or unspecified gastric ulcer with hemorrhage (principal); N17.0 Acute kidney failure with tubular necrosis; I50.22 Chronic systolic (congestive) heart failure; N39.0 Urinary tract infection, site not specified; I42.9 Cardiomyopathy, unspecified; D50.0 Iron deficiency anemia secondary to blood loss (chronic); K29.81 Duodenitis with bleeding; K57.91 Diverticulosis of intestine, part unspecified, without perforation or abscess with bleeding; K22.2 Esophageal obstruction; I11.0 Hypertensive heart disease with heart failure; J43.9 Emphysema, unspecified; Z90.710 Acquired absence of both cervix and uterus; Z88.7 Allergy status to serum and vaccine; Z88.2 Allergy status to sulfonamides; K44.9 Diaphragmatic hernia without obstruction or gangrene; Z87.11 Personal history of peptic ulcer disease; M19.90 Unspecified osteoarthritis, unspecified site; Z93.6 Other artificial openings of urinary tract status; F03.90 Unspecified dementia, unspecified severity, without behavioral disturbance, psychotic disturbance, mood disturbance, and anxiety; Z51.5 Encounter for palliative care; Z86.19 Personal history of other infectious and parasitic diseases; Z82.5 Family history of asthma and other chronic lower respiratory diseases; J47.9 Bronchiectasis, uncomplicated
CPT/HCPCS: 36415; 36600; 43239; 43450; 71045; 74022; 76770; 80048; 80053; 80061; 81001; 82553; 82607; 82728; 82805; 82962; 83540; 83550; 83735; 83880; 84443; 84484; 85025; 85027; 85045; 85610; 85730; 86850; 86900; 86901; 86920; 87086; 87641; 88305; 88342; 93005; 93306; 94640; 96365; C9113; J0696; J1756; J2001; J2405; J2704; J3420; J7030; J7050; J7120; J7620; P9016; P9045; 97110; 97112; 97116; 97535; 99285-25; G0378